=== PATIENT | female | born 1985 | race African-American/Black ===

== ENCOUNTER 2017-12-08 21:28 | Emergency (ER) | payer BC, OTHER ==
[~2017-12-08 21:28] MED LIST: ACET-1256 PO; ACET-1693 PO; ATRO1SOL13 OPB; MYCO500T4 PO; OMEP40CA41 PO; PRED10TA PO; SULF800T23 PO
[2017-12-08 21:35] VITALS: TEMP 36.6; Ht 170.2 cm
[2017-12-08] MEDS ORDERED: ONDANSETRON INJ 2 MG/ML 2 ML VIAL IV STA (22:33)
[2017-12-08] MEDS ORDERED: KETOROLAC TROMETHAMINE 30 MG/ML VIAL IV STA (22:33)
[2017-12-08 23:13] LABS: BASO % 0.1 %; BASO ABS # 0.01 K/uL (0-0.2); EOS % 0.2 %; EOS ABS # 0.02 K/uL (0-0.5); HEMATOCRIT 36.6 % (37-47); IG# 0.03 K/uL (0.00-0.02); LYMPH % 7.9 %; MEAN CELL VOLUME 77.2 fL (80-100); MEAN CORPUSCULAR HEMOGLOBIN 25.3 pg (25-34); MEAN CORPUSCULAR HGB CONC 32.8 g/dl (32-36); MEAN PLATELET VOLUME 9.1 fL (7.4-10.4); MONO % 2.9 %; MONO ABS # 0.33 K/uL (0.11-0.59); NEUT % 88.6 %; NEUT ABS # 10.16 K/uL (1.4-6.5); PLATELET COUNT 484 K/uL (130-400); RED CELL DISTRIBUTION WIDTH CV 14.2 % (11.5-14.5); RED CELL DISTRIBUTION WIDTH SD 40.1 fL (36.4-46.3); WHITE BLOOD COUNT 11.45 K/uL (4.8-10.8)
[2017-12-08] MEDS ORDERED: MoRPHine SULFATE 10 MG/ML CARP/VIAL ONE (23:23)
[2017-12-08 23:30] LABS: ALBUMIN 3.7 gm/dl (3.4-5.0); ALT/SGPT 25 U/L (12-78); AST/SGOT 23 U/L (15-37); BLOOD UREA NITROGEN 10 mg/dl (7-18); CALCIUM 9.3 mg/dl (8.5-10.1); CARBON DIOXIDE 26 mmol/L (21-32); CREATININE 1.15 mg/dl (0.60-1.20); GLUCOSE 145 mg/dl (70-99); POTASSIUM 3.6 mmol/L (3.5-5.1); SODIUM 139 mmol/L (136-145)
[2017-12-08 23:33] LABS: ALKALINE PHOSPHATASE 70 U/L (45-117); TOTAL PROTEIN 7.9 gm/dl (6.4-8.2)
[2017-12-09] MEDS ORDERED: HYDR-5688 PO (01:14)
[2017-12-09] MEDS ORDERED: NORCO 5/325MG HOME PACK PO ONE (01:15)
--- NOTE | 2017-12-09 01:15 | EMERGENCY ROOM VISIT NOTE ---
History First contact with patient: 22:15 Chief Complaint: ABDOMINAL PAIN Stated Complaint: MAJOR PAIN IN AB AREA Nursing Triage Summary: Pt reports abdominal pain that started earlier tonight. Pt reports last time it was ruptured cyst. History of Present Illness The patient is a 32 year old female who presents to the Emergency Room with complaints of right-sided pelvic pain which began suddenly approximately 2 hours prior to arrival. The patient states that she started her menstrual period yesterday. She states that her periods are typically very painful and she often has pain in the right lower abdomen with her periods. She took Midol this evening without relief. She states it is a sharp, burning pain and is worse when she is lying down flat. The pain radiates from the right lower quadrant into the low back. She reports associated nausea, but no vomiting. She does report a history of endometriosis and ruptured ovarian cysts. She rates her discomfort at 10/10. She denies urinary symptoms, changes in bowel movements or fevers. Review of Systems A complete 10 point review of systems was reviewed with the patient with pertinent positives and negatives as per history of present illness. All else were negative. Past Medical/Surgical History Medical Problems: (1) Bipolar Affective Nos (2) Dysmenorrhea (3) Endometriosis Social History Smoking Status: Never Smoker Alcohol Use: none Marital Status: single Occupation Status: employed Current/Historical Medications Scheduled Acetaminophen (Tylenol), 1,000 MG PO PRN UD Atropine Sulfate (Atropine Sulfate 1% Oph), 1 DROP OPB DAILY Mycophenolate Mofetil (Cellcept), 1,500 MG PO BID Omeprazole (Prilosec), 40 MG PO DAILY Prednisone (Prednisone), 10 MG PO DAILY Sulfa/Trimethoprim (Bactrim Ds 800MG/160MG), 1 TAB PO BID 3 TIMES WEEK Scheduled PRN Hydrocodone/Acetaminophen 5MG/325MG ([place] 5MG/325MG), 1 TABLET PO Q4H PRN for Pain Miscellaneous Medications Acetaminophen Tab (Tylenol), 650 MG PO Physical Exam Vital Signs Date Time Temp Pulse Resp B/P (MAP) Pulse Ox O2 Delivery O2 Flow Rate FiO2 12/09/17 01:23 87 18 119/61 96 12/09/17 00:45 87 119/61 96 Room Air 12/08/17 21:35 36.6 115 18 129/68 98 Physical Exam VITALS: Vitals are noted on the nurse's note and reviewed by myself. Vital signs stable. GENERAL: This is a 32-year-old female, on her knees beside the bed, uncomfortable appearing, well-developed well-nourished. SKIN: The skin was without rashes. HEART: Regular rate and rhythm without murmurs gallops or rubs. LUNGS: Clear to auscultation bilaterally without wheezes, rales or rhonchi. . ABDOMEN: Positive bowel sounds x 4. Soft, tenderness in the right lower quadrant. No guarding or rebound tenderness. NEURO: Patient was alert and oriented to person place and time. Medical Decision & Procedures ER Provider Diagnostic Interpretation: US PELVIS: Uterus unremarkable. Right ovary contains a complex cyst with low-level echoes. Measures about 4.5 cm maximum dimension. Left ovary contains a complex cyst with low-level echoes measuring approximately 4.6 cm in maximum dimension. Blood flow seen to bilateral ovaries. Differential considerations for complex cystic ovarian lesions include endometrioma. Complex free fluid. Radiologist: Tai Vilchis M.D. Laboratory Results 12/08/17 23:00 Red Blood Count 4.74, Mean Corpuscular Volume 77.2, Mean Corpuscular Hemoglobin 25.3, Mean Corpuscular Hemoglobin Concent 32.8, Mean Platelet Volume 9.1, Neutrophils (%) (Auto) 88.6, Lymphocytes (%) (Auto) 7.9, Monocytes (%) (Auto) 2.9, Eosinophils (%) (Auto) 0.2, Basophils (%) (Auto) 0.1, Neutrophils # (Auto) 10.16, Lymphocytes # (Auto) 0.90, Monocytes # (Auto) 0.33, Eosinophils # (Auto) 0.02, Basophils # (Auto) 0.01 12/08/17 23:00 Test 12/08/17 23:00 12/09/17 00:49 White Blood Count 11.45 K/uL (4.8-10.8) Red Blood Count 4.74 M/uL (4.2-5.4) Hemoglobin 12.0 g/dL (12.0-16.0) Hematocrit 36.6 % (37-47) Mean Corpuscular Volume 77.2 fL (80-100) Mean Corpuscular Hemoglobin 25.3 pg (25-34) Mean Corpuscular Hemoglobin Concent 32.8 g/dl (32-36) Platelet Count 484 K/uL (130-400) Mean Platelet Volume 9.1 fL (7.4-10.4) Neutrophils (%) (Auto) 88.6 % Lymphocytes (%) (Auto) 7.9 % Monocytes (%) (Auto) 2.9 % Eosinophils (%) (Auto) 0.2 % Basophils (%) (Auto) 0.1 % Neutrophils # (Auto) 10.16 K/uL (1.4-6.5) Lymphocytes # (Auto) 0.90 K/uL (1.2-3.4) Monocytes # (Auto) 0.33 K/uL (0.11-0.59) Eosinophils # (Auto) 0.02 K/uL (0-0.5) Basophils # (Auto) 0.01 K/uL (0-0.2) RDW Standard Deviation 40.1 fL (36.4-46.3) RDW Coefficient of Variation 14.2 % (11.5-14.5) Immature Granulocyte % (Auto) 0.3 % Immature Granulocyte # (Auto) 0.03 K/uL (0.00-0.02) Anion Gap 7.0 mmol/L (3-11) Estimated GFR () 73.9 Estimated GFR (Non- 63.8 BUN/Creatinine Ratio 9.0 (10-20) Calcium Level 9.3 mg/dl (8.5-10.1) Total Bilirubin 0.2 mg/dl (0.2-1) Aspartate Amino Transf (AST/SGOT) 23 U/L (15-37) Alanine Aminotransferase (ALT/SGPT) 25 U/L (12-78) Alkaline Phosphatase 70 U/L (45-117) Total Protein 7.9 gm/dl (6.4-8.2) Albumin 3.7 gm/dl (3.4-5.0) Globulin 4.2 gm/dl (2.5-4.0) Albumin/Globulin Ratio 0.9 (0.9-2) Human Chorionic Gonadotropin, Qual NEG (NEG) Urine Color YELLOW Urine Appearance CLEAR (CLEAR) Urine pH 6.5 (4.5-7.5) Urine Specific [place] 1.041 (1.000-1.030) Urine Protein TRACE (NEG) Urine Glucose (UA) NEG (NEG) Urine Ketones TRACE (NEG) Urine Occult Blood 2+ (NEG) Urine Nitrite NEG (NEG) Urine Bilirubin NEG (NEG) Urine Urobilinogen NEG (NEG) Urine Leukocyte Esterase NEG (NEG) Urine WBC (Auto) 1-5 /hpf (0-5) Urine RBC (Auto) 0-4 /hpf (0-4) Urine Hyaline Casts (Auto) 5-10 /lpf (0-5) Urine Epithelial Cells (Auto) >30 /lpf (0-5) Urine Bacteria (Auto) NEG (NEG) Urine Mucus PRESENT (NONE PRSENT) Urine Test NEG (NEG) Medications Administered Medications (Trade) Dose Ordered Sig/Azucena Route Start Time Stop Time Status Last Admin Dose Admin Ketorolac Tromethamine (Toradol Inj) 30 mg NOW STAT IV 12/08/17 22:33 12/08/17 22:34 DC 12/08/17 23:09 30 MG Ondansetron HCl (Zofran Inj) 4 mg NOW STAT IV 12/08/17 22:33 12/08/17 22:34 DC 12/08/17 23:09 4 MG Morphine Sulfate (MoRPHine SULFATE INJ) 10 mg STK-MED ONCE .ROUTE 12/08/17 23:23 12/08/17 23:24 DC 12/08/17 23:27 6 MG Acetaminophen/ Hydrocodone Bitart ([place] 5/325mg Home Pack) 1 homepack UD ONCE PO 12/09/17 01:15 12/09/17 01:16 DC 12/09/17 01:20 1 HOMEPACK Medical Decision Differential diagnosis includes ovarian cyst, ovarian torsion, ectopic , appendicitis, bowel obstruction, UTI, kidney stone, among others. The patient is a 32-year-old female who presents today complaining of right pelvic pain. Labs revealed leukocytosis of 11.45, likely secondary to stress. Hemoglobin and hematocrit stable. Slight hyperglycemia, possibly secondary to stress. Urinalysis was not suggestive of infection. Urine was negative. Pelvic ultrasound was performed and showed complex ovarian cysts bilaterally with blood flow to both ovaries. There was complex free fluid in the abdomen, likely secondary to a ruptured ovarian cyst. Patient was treated with IV Toradol, Zofran and morphine with significant improvement of her symptoms. She was tachycardic upon arrival, however this improved significantly after controlling her pain. I discussed the findings with the patient. She has an appointment scheduled to follow-up with [facility] next month. I did advise calling to see if she can get in any earlier. She was given a small amount of [place] to take as needed for pain but was advised to try Tylenol and ibuprofen first. I would not be highly suspicious of appendicitis or other infectious process, however patient was advised to return if she has worsening symptoms. The patient's case was reviewed with Dr. Figueroa, ED attending physician, who agreed with my assessment and treatment plan. Based on the patient's presentation and work up, I feel the patient is stable for outpatient treatment. The patient was educated to return to the emergency department for any worsening of their current condition or new/concerning symptoms. She will follow up with [facility]. Medication Reconcilliation Current Medication List: was personally reviewed by me Blood Pressure Screening Patient's blood pressure: Normal blood pressure Impression Primary Impression: Ruptured ovarian cyst Additional Impression: Right lower quadrant abdominal pain Departure Information Dispostion Home / Self-Care Condition GOOD Prescriptions Hydrocodone/Acetaminophen 5MG/325MG ([place] 5MG/325MG) Tab 1 TABLET PO Q4H Y for Pain, #15 TAB For Initial Treatment Prov: Sara Kirkpatrick ., LAURA 12/09/17 Referrals Shani Morales,AntwanO. (PCP) Samantha Bennett MD Patient Instructions My [facility] Additional Instructions You have been treated in the Emergency Department your Abdominal Pain. Laboratory results and imaging studies have ruled out any emergent causes for your abdominal pain which would warrant admission or surgery. Your ultrasound showed cysts on both of your ovaries and also was suggestive of a ruptured ovarian cyst. You have been prescribed [place] to be used for pain control. This is a narcotic medication. You cannot drive or consume alcohol while on this medicine. This medicine should only be used for pain that cannot be controlled with over-the- counter pain medicines. For pain control, you can use the following [id number] medicines (if >12 yo): - Regular strength (325mg/tab) Tylenol (acetaminophen) 2 tabs every 4-6 hours as needed. Do not exceed 12 tablets in a 24 hour period. Avoid taking more than 4 grams (4000 mg) of Tylenol per day. This includes any other sources of acetaminophen you may take on a regular basis. - Regular strength (200 mg/tab) Advil (ibuprofen) 3-4 tabs every 6 hours as needed. Do not exceed a dose of 3200 mg per day. Drink plenty of water and stay well hydrated. Contact Yarely Smith [facility] and see if they are able to see you any sooner. As with any trip to the Emergency Department, you should follow-up with your Primary Care Provider from today's visit. Return to the emergency department if your symptoms persist despite treatment plan outlined above or if the following symptoms occur: Worsening pain, increasing vomiting, fevers, or other new/concerning symptoms. Problem Qualifiers
[2017-12-09 01:23] VITALS: BP 119/61; PULSE 87; O2SAT 96
--- NOTE | 2017-12-09 07:09 | DIAGNOSTIC IMAGING REPORT ---
ULTRASOUND OF THE PELVIS CLINICAL HISTORY: Right-sided pelvic pain. COMPARISON STUDY: Pelvic CT dated 12/05/2013. TECHNIQUE: Real-time, grayscale, and color flow sonography of the pelvis is performed transabdominally. Images are reviewed in the transverse and longitudinal planes. FINDINGS: Uterus: The uterus is normal in size and echotexture, measuring 7.4 x 3.6 x 3.7 cm. Endometrium: The endometrium is normal in appearance, and the endometrial stripe is normal in thickness measuring up to 0.7 cm. Ovaries: The ovaries are normal in size and morphology. The right ovary measures 5.7 x 4.3 x 4.3 cm and the left ovary measures 5.6 x 4.1 x 3.9 cm. A complex cyst in the right ovary measures 4.5 cm. A complex cyst in the left ovary measures up to 4.6 cm. Normal Doppler waveforms are shown within both ovaries. Pelvis: There is trace free fluid in the cul-de-sac. No concerning adnexal lesion is seen. IMPRESSION: 1. Complex cyst identified in both ovaries and measure up to 4.6 cm. The appearance is most typical for hemorrhagic cysts. Endometriomas are considered less likely. Follow-up with the patient's ed case manager is recommended. These can be sonographic followed up in 2-3 menstrual cycles if clinically warranted. 2. There is no sonographic evidence of ovarian torsion at the time of examination. 3. Trace free fluid in the cul-de-sac is likely within physiologic limits. Electronically signed by: Ziggy Frias M.D. 12/09/2017 7:08 AM Dictated Date/Time: 12/09/2017 7:05 AM
== END 2017-12-09 01:24 | disposition home or self-care (01) ==
LOC: C.EDB 21:29 → C.EDC 12-09 01:24
DX: N83.201 Unspecified ovarian cyst, right side (principal); N83.202 Unspecified ovarian cyst, left side; F31.9 Bipolar disorder, unspecified; Z79.899 Other long term (current) drug therapy

== ENCOUNTER → 2017-12-19 | Outpatient (CLI) | payer OTHER ==
[~2017-12-19] MED LIST changes: +HYDR-5688 PO
== END | disposition home or self-care (01) ==
LOC: C.PAPS 14:04
PROVIDERS: ATTEND Obstetrics & Gynecology
DX: Z12.4 Encounter for screening for malignant neoplasm of cervix (principal)

== ENCOUNTER → 2017-12-19 | Outpatient (CLI) | payer OTHER | END | disposition home or self-care (01) | LOC: C.LABSPEC 13:47 | PROVIDERS: ATTEND Obstetrics & Gynecology | DX: R39.15 Urgency of urination (principal) ==

== ENCOUNTER 2018-01-03 20:45 | Emergency (ER) | payer OTHER ==
[~2018-01-03] VITALS: Ht 167.6 cm; Wt 101.6 kg
[2018-01-03 21:05] VITALS: TEMP 36.4; Ht 167.6 cm; Wt 101.6 kg
[2018-01-03] MEDS ORDERED: ACET-1652 PO (21:56)
[2018-01-03] MEDS ORDERED: INSU3INJ3 SQ (21:56)
[2018-01-03] MEDS ORDERED: PRED20TA2 PO (21:56)
[2018-01-03] MEDS ORDERED: IBUP-103 PO (21:56)
[2018-01-03] MEDS ORDERED: HMLIS SQ (21:56)
[2018-01-03] MEDS ORDERED: METH2.5T (21:56)
[2018-01-03] MEDS ORDERED: KETOROLAC TROMETHAMINE 30 MG/ML VIAL IV STA (22:03)
[2018-01-03] MEDS ORDERED: ONDANSETRON INJ 2 MG/ML 2 ML VIAL IV STA (22:03)
[2018-01-03] MEDS ORDERED: SODIUM CHLORIDE 0.9% 1000ML 1,000 ML IV STA (22:03)
[2018-01-03 22:16] LABS: BASO % 0.2 %; BASO ABS # 0.02 K/uL (0-0.2); EOS % 3.8 %; EOS ABS # 0.31 K/uL (0-0.5); HEMATOCRIT 36.1 % (37-47); HEMOGLOBIN 11.7 g/dL (12.0-16.0); IG# 0.02 K/uL (0.00-0.02); LYMPH % 15.6 %; LYMPH ABS # 1.28 K/uL (1.2-3.4); MEAN CELL VOLUME 76.2 fL (80-100); MEAN CORPUSCULAR HEMOGLOBIN 24.7 pg (25-34); MEAN CORPUSCULAR HGB CONC 32.4 g/dl (32-36); MEAN PLATELET VOLUME 9.8 fL (7.4-10.4); MONO ABS # 0.49 K/uL (0.11-0.59); NEUT % 74.2 %; NEUT ABS # 6.11 K/uL (1.4-6.5); PLATELET COUNT 434 K/uL (130-400); RED CELL DISTRIBUTION WIDTH CV 14.2 % (11.5-14.5); RED CELL DISTRIBUTION WIDTH SD 40.2 fL (36.4-46.3); WHITE BLOOD COUNT 8.23 K/uL (4.8-10.8)
[2018-01-03 22:23] LABS: ALBUMIN 3.8 gm/dl (3.4-5.0); CALCIUM 8.9 mg/dl (8.5-10.1); CREATININE 0.99 mg/dl (0.60-1.20); POTASSIUM 3.5 mmol/L (3.5-5.1)
[2018-01-03 22:26] LABS: TOTAL PROTEIN 7.7 gm/dl (6.4-8.2)
--- NOTE | 2018-01-03 22:53 | EMERGENCY ROOM VISIT NOTE ---
History First contact with patient: 21:39 Chief Complaint: FLANK PAIN Stated Complaint: PAIN IN LOWER ABDOMEN FOR PAST MONTH History of Present Illness The patient is a 32 year old female who presents to the Emergency Room with complaints of right lower quadrant abdominal pain and right flank pain. The patient states she was seen here at the beginning of December for right-sided abdominal pain. Ultrasound showed bilateral cysts, likely hemorrhagic. The patient did follow up with [facility], and saw Dr. Wick. She was set up with a surgeon. 3 days ago, the patient began experiencing right-sided flank pain which radiates toward the low back and down into the groin. She describes the pain is continuous, sharp, and burning. She rates the pain 10/10. The pain is worse with sitting and lying on the right side, and improves with standing. She did take Midol last night without improvement in her symptoms. The patient has been experiencing nausea and vomiting, with her last episode approximately 3 hours ago. The patient describes her urine as a deep yellow color, but denies any blood or odor. She has been having some mild difficulty with urination, and describes some mild dysuria. There is no burning sensation. The patient denies any abnormal vaginal discharge. She is currently on her period, and states she is toward the end. She denies any recent illness including fever chills. Review of Systems A complete 10 point review of systems was reviewed with the patient with pertinent positives and negatives as per history of present illness. All else were negative. Past Medical/Surgical History Medical Problems: (1) Bipolar Affective Nos (2) Dysmenorrhea (3) Endometriosis Social History Smoking Status: Never Smoker Alcohol Use: none Marital Status: single Occupation Status: employed Current/Historical Medications Scheduled Ibuprofen Tab (Advil), 400-600 MG PO Q6H Insulin Detemir (Levemir Flextouch), 16 UNITS SQ HS Insulin Human Lispro (Humalog Kwikpen), 6 UNITS SQ AC Methotrexate (Methotrexate), 3 TABS WK Prednisone (Prednisone Tab), 40 MG PO BID Scheduled PRN Acetaminophen (Midol), 2 TABS PO Q8 PRN for CRAMPS/PAIN Physical Exam Vital Signs Date Time Temp Pulse Resp B/P (MAP) Pulse Ox O2 Delivery O2 Flow Rate FiO2 01/03/18 23:07 84 18 105/54 96 Room Air 01/03/18 21:05 36.4 97 20 124/75 96 Room Air Physical Exam VITALS: Vitals are noted on the nurse's note and reviewed by myself. Vital signs stable. GENERAL: This is a 32-year-old black female, in no acute distress, nondiaphoretic, well-developed well-nourished. SKIN: The skin was without rashes, erythema, edema, or bruising. There is no tenting of the skin. Capillary reflex less than 2 seconds. HEAD: Normocephalic atraumatic. EARS: External auditory canals clear, tympanic membranes pearly regalado without erythema or effusion bilaterally. EYES: Pupils equal round and reactive to light and accommodation. Conjunctivae without injection, sclerae without icterus. Extraocular movements intact. NOSE: Patent, turbinates without inflammation or discharge. No sinus tenderness. MOUTH: Mucous membranes moist. Tonsils are not enlarged. Pharynx without erythema or exudate. Uvula midline. Airway patent. Tongue does not deviate. NECK: Supple without nuchal rigidity. No lymphadenopathy. No thyromegaly. Cervical spine is nontender. No JVD. HEART: Regular rate and rhythm without murmurs gallops or rubs. LUNGS: Clear to auscultation bilaterally without wheezes, rales or rhonchi. No dullness to percussion. No retractions or accessory muscle use. ABDOMEN: Positive bowel sounds x 4. Normal tympanic percussion. Right lower quadrant tenderness to palpation. Positive CVA tenderness on the right. The abdomen was otherwise soft, nontender, without masses or organomegaly. Verma sign negative. No guarding or rebound tenderness. MUSCULOSKELETAL: No muscle atrophy, erythema, or edema noted. Full range of motion without joint tenderness in all extremities. No tenderness to palpation. Normal gait. Strength 5/5 throughout. NEURO: Patient was alert and oriented to person place and time. Normal sensation to light and sharp touch. Deep tendon reflexes 2+ throughout. No focal neurological deficits. Medical Decision & Procedures ER Provider Diagnostic Interpretation: KUB HISTORY: Chronic right-sided flank pain right flank pain COMPARISON: CT abdomen and pelvis 12/05/2013, renal ultrasound 02/21/2015. FINDINGS: The bowel gas pattern is non-obstructive. There is no organomegaly. Calcifications of the pelvis suggest phleboliths. Renal shadows are obscured by bowel gas. No definite nephrolithiasis or ureteral calculi identified. No pneumoperitoneum or pneumatosis. No fracture. IMPRESSION: 1. Nonobstructive bowel gas pattern. 2. No renal or ureteral calculi identified. Electronically signed by: Andry Clark M.D. 01/03/2018 10:50 PM Dictated Date/Time: 01/03/2018 10:[address] ABD/PELVIS WITHOUT CONTRAST: (Interpretation by [facility]) 1. Mild Bibasilar atelectasis. 2. Small splenule. 3. No renal or ureteral stone. No hydronephrosis in either kidney. 4. Hypodense structures in bilateral adnexal regions measuring approximately 7.2 cm on the right and 5.6 cm on the left. These may represent complex ovarian cysts. Further evaluation could be performed with ultrasound. 5. No bowel obstruction or inflammation. Normal appendix. 6. Tiny fat-containing umbilical hernia. Laboratory Results 01/03/18 21:45 Red Blood Count 4.74, Mean Corpuscular Volume 76.2, Mean Corpuscular Hemoglobin 24.7, Mean Corpuscular Hemoglobin Concent 32.4, Mean Platelet Volume 9.8, Neutrophils (%) (Auto) 74.2, Lymphocytes (%) (Auto) 15.6, Monocytes (%) (Auto) 6.0, Eosinophils (%) (Auto) 3.8, Basophils (%) (Auto) 0.2, Neutrophils # (Auto) 6.11, Lymphocytes # (Auto) 1.28, Monocytes # (Auto) 0.49, Eosinophils # (Auto) 0.31, Basophils # (Auto) 0.02 01/03/18 21:45 Test 01/03/18 21:30 01/03/18 21:45 Urine Color DK YELLOW Urine Appearance CLEAR (CLEAR) Urine pH 5.0 (4.5-7.5) Urine Specific [place] > 1.045 (1.000-1.030) Urine Protein 1+ (NEG) Urine Glucose (UA) NEG (NEG) Urine Ketones TRACE (NEG) Urine Occult Blood 1+ (NEG) Urine Nitrite NEG (NEG) Urine Bilirubin NEG (NEG) Urine Urobilinogen NEG (NEG) Urine Leukocyte Esterase NEG (NEG) Urine WBC (Auto) 1-5 /hpf (0-5) Urine RBC (Auto) 5-10 /hpf (0-4) Urine Hyaline Casts (Auto) 1-5 /lpf (0-5) Urine Epithelial Cells (Auto) >30 /lpf (0-5) Urine Bacteria (Auto) NEG (NEG) Urine Pathogenic Casts /lpf (0) Urine Test NEG (NEG) White Blood Count 8.23 K/uL (4.8-10.8) Red Blood Count 4.74 M/uL (4.2-5.4) Hemoglobin 11.7 g/dL (12.0-16.0) Hematocrit 36.1 % (37-47) Mean Corpuscular Volume 76.2 fL (80-100) Mean Corpuscular Hemoglobin 24.7 pg (25-34) Mean Corpuscular Hemoglobin Concent 32.4 g/dl (32-36) Platelet Count 434 K/uL (130-400) Mean Platelet Volume 9.8 fL (7.4-10.4) Neutrophils (%) (Auto) 74.2 % Lymphocytes (%) (Auto) 15.6 % Monocytes (%) (Auto) 6.0 % Eosinophils (%) (Auto) 3.8 % Basophils (%) (Auto) 0.2 % Neutrophils # (Auto) 6.11 K/uL (1.4-6.5) Lymphocytes # (Auto) 1.28 K/uL (1.2-3.4) Monocytes # (Auto) 0.49 K/uL (0.11-0.59) Eosinophils # (Auto) 0.31 K/uL (0-0.5) Basophils # (Auto) 0.02 K/uL (0-0.2) RDW Standard Deviation 40.2 fL (36.4-46.3) RDW Coefficient of Variation 14.2 % (11.5-14.5) Immature Granulocyte % (Auto) 0.2 % Immature Granulocyte # (Auto) 0.02 K/uL (0.00-0.02) Anion Gap 6.0 mmol/L (3-11) Est Creatinine Clear Calc Drug Dose 100.0 ml/min Estimated GFR () 88.6 Estimated GFR (Non- 76.5 BUN/Creatinine Ratio 11.2 (10-20) Calcium Level 8.9 mg/dl (8.5-10.1) Total Bilirubin 0.3 mg/dl (0.2-1) Aspartate Amino Transf (AST/SGOT) 25 U/L (15-37) Alanine Aminotransferase (ALT/SGPT) 29 U/L (12-78) Alkaline Phosphatase 76 U/L (45-117) Total Protein 7.7 gm/dl (6.4-8.2) Albumin 3.8 gm/dl (3.4-5.0) Globulin 3.9 gm/dl (2.5-4.0) Albumin/Globulin Ratio 1.0 (0.9-2) Medications Administered Medications (Trade) Dose Ordered Sig/Azucena Route Start Time Stop Time Status Last Admin Dose Admin Ketorolac Tromethamine (Toradol Inj) 30 mg NOW STAT IV 01/03/18 22:03 01/03/18 22:07 DC 01/03/18 22:14 30 MG Sodium Chloride 1,000 ml @ 999 mls/hr Q1H1M STAT IV 01/03/18 22:03 01/03/18 23:03 DC 01/03/18 22:14 999 MLS/HR Ondansetron HCl (Zofran Inj) 4 mg NOW STAT IV 01/03/18 22:03 01/03/18 22:07 DC 01/03/18 22:14 4 MG Acetaminophen 100 ml @ 400 mls/hr NOW STAT IV 01/03/18 23:27 01/03/18 23:41 DC 01/03/18 23:42 400 MLS/HR ED Course The patient was seen and evaluated as above. IV access obtained, labs drawn. Patient was given 30 mg Toradol and 1 L normal saline solution IV. KUB performed. This was reviewed by myself and radiologist as above. Labs reviewed. I discussed the findings with the patient at bedside. She states she does not want to leave without knowing for sure there is nothing more serious going on. She does request to have a CT scan performed. She does complain of worsening pain, and was given [address] scan performed. This was reviewed and interpreted by stat rad as above. I discussed the case with Dr. Figueroa. He did evaluate the patient. Discharge instructions reviewed, the patient was discharged home in good condition. Medical Decision This is a 32-year-old female patient presents to the emergency department today complaining of right lower quadrant, right flank, and right groin pain. The patient is currently finishing her menses. She does report similar pain every month associated with her menses, but also gets the pain when not menstruating. She was seen here approximately 1 month ago for similar pain, at which point she was diagnosed with bilateral hemorrhagic ovarian cysts. The patient is currently under the care of gynecology, and suspects endometriosis, however she has not had a laparoscopy to confirm this suspicion. The patient reports her pain today significantly worse than normal. Labs reveal mild anemia with hemoglobin of 11.7. This is consistent with the patient's current menses. There is no leukocytosis or thrombocytopenia. The patient's renal, hepatic function and electrolytes were without significant abnormalities. Blood glucose was slightly elevated at 139. Urinalysis was positive for blood, trace ketones, and red blood cells. This does appear to be a contaminated specimen with greater than 30 epithelial cells. Urine test was negative. I suspect the patient's abdominal pain is related to the cyst and her current menstrual cycle. She was given Tylenol and Toradol here in the emergency department and her symptoms did improve. She is encouraged to follow-up outpatient with her PCP and case packer and sealer. The patient was certainly invited back to the emergency department for any worsening symptoms. Etiologies such as appendicitis, diverticulitis, obstruction, inflammatory bowel disease, renal colic, PUD, biliary pathology, pancreatitis, mesenteric ischemia, aortic pathology, infections, genitourinary, hemorrhagic cyst, ovarian torsion, UTI, perforated viscus, as well as others were entertained. The chart was completed utilizing [employer] Speech voice recognition software. Grammatical errors, random word insertions, pronoun errors, and incomplete sentences are an occasional consequence of this system due to software limitations, ambient noise, and hardware issues. Any formal questions or concerns about the content, text, or information contained within the body of this dictation should be directly addressed to the provider for clarification. Impression Primary Impression: Right lower quadrant abdominal pain Additional Impressions: Right flank pain Hemorrhagic ovarian cyst Departure Information Dispostion Home / Self-Care Condition GOOD Referrals Ramona Field M.D. (PCP) Jenn Wick M.D.(OVER[employer] LOAD PILOT ESCORT/OB) Patient Instructions ED Cyst Ovarian, My [facility] Additional Instructions You have been treated in the Emergency Department your Abdominal Pain. Laboratory results and imaging studies have ruled out any emergent causes for your abdominal pain which would warrant admission or surgery. CT scan did show evidence for ovarian cyst, which was noted a proximally 1 month ago as a likely hemorrhagic ovarian cyst bilaterally. I suspect this is the cause of your pain. For pain control, you can use the following [id number] medicines (if >12 yo): Ibuprofen(Motrin, Advil) may be used for fever or pain. Use 600mg every six hours as needed. Take with food. Avoid using more than 2400mg in a 24 hour period. Do not use 2400mg per day for more than three consecutive days without physician direction. Prolonged inappropriate use can lead to stomach upset or ulcers. (AND/OR) Acetaminophen(Tylenol) may be used for fever or pain. Use 1000mg every six hours as needed. Avoid using more than 3000mg in a 24 hour period. Drink plenty of water and stay well hydrated. As with any trip to the Emergency Department, you should follow-up with your Primary Care Provider and case packer and sealer from today's visit. Return to the emergency department if your symptoms persist despite treatment plan outlined above or if the following symptoms occur: increased fevers, chills , worsening nausea/vomiting, blood in your stool or urine. Problem Qualifiers
[2018-01-03] MEDS ORDERED: ACETAMINOPHEN IV 100 ML IV STA (23:27)
[2018-01-04 00:36] VITALS: BP 110/71; PULSE 84; O2SAT 96
--- NOTE | 2018-01-04 07:52 | DIAGNOSTIC IMAGING REPORT ---
ABD/PELVIS WITHOUT FOR STONE CLINICAL HISTORY: 32 years-old Female presenting with right flank/groin pain. TECHNIQUE: Multidetector CT of the abdomen and pelvis was performed without the use of intravenous contrast. IV contrast: None. A dose lowering technique was used consistent with the principles of ALARA (as low as reasonably achievable). COMPARISON: 12/05/2013. CT DOSE (mGy.cm): The estimated cumulative dose is 954.89 mGy.cm. FINDINGS: Curriculum Coordinator topogram: Unremarkable. Lung bases: Minimal basilar opacities, likely atelectasis. Normal heart size. No pericardial or pleural effusion. Liver: Normal morphology. Normal density. Biliary: No gross biliary ductal dilatation allowing for noncontrast technique. Normal gallbladder. Pancreas: Normal noncontrast appearance. Spleen: Normal noncontrast appearance. Adrenal glands: Normal noncontrast appearance. Kidneys and ureters: Normal noncontrast appearance. No nephrolithiasis. No hydronephrosis. Normal ureters. Bladder: Incompletely evaluated secondary to underdistention. Pelvic organs: The uterus is poorly delineated but are grossly normal. The ovaries are again expanded by multiple low density lesions, which have increased significantly on the right. Ovaries are incompletely evaluated without intravenous contrast. Bowel: The rectosigmoid junction may be tethered to the right adnexa. No resulting bowel obstruction. The appendix is mildly prominent measuring 8 mm in diameter (series 3 image 294) though no surrounding periappendiceal inflammatory changes evident. Peritoneal cavity: No free fluid or intraperitoneal gas. Previously noted significant inflammatory change in the pelvis in 2013 is no longer evident. Lymph nodes: No gross lymphadenopathy allowing for noncontrast technique. Vasculature: Normal noncontrast appearance. Abdominal wall: Small fat-containing umbilical hernia. Musculoskeletal: Normal. IMPRESSION: 1. Enlarged ovaries secondary to multiple low-density lesions. This has progressed significantly in the right ovary. Given the chronicity of these findings and the appearance on prior ultrasound from 12/08/2017, this is most suggestive of endometriosis. This may be better demonstrated on pelvic ultrasound or contrast enhanced MR of the pelvis if there is need for further evaluation. 2. Prominence of the appendix without convincing evidence of periappendiceal inflammatory change. 3. No other evidence of acute intra-abdominal pathology. Electronically signed by: Juan Ramon Varner M.D. 01/04/2018 7:51 AM Dictated Date/Time: 01/04/2018 6:51 AM
== END 2018-01-04 00:40 | disposition home or self-care (01) ==
LOC: C.EDB 20:45 → C.EDC 01-04 00:40
DX: N83.209 Unspecified ovarian cyst, unspecified side (principal); E11.9 Type 2 diabetes mellitus without complications; Z79.4 Long term (current) use of insulin; Z87.42 Personal history of other diseases of the female genital tract

== ENCOUNTER → 2018-01-19 | Outpatient (CLI) | payer OTHER ==
[~2018-01-19] MED LIST changes: -ACET-1256 PO; +ACET-1652 PO; -ACET-1693 PO; -ATRO1SOL13 OPB; +HMLIS SQ; -HYDR-5688 PO; +IBUP-103 PO; +INSU3INJ3 SQ; +METH2.5T; -MYCO500T4 PO; -OMEP40CA41 PO; -PRED10TA PO; +PRED20TA2 PO; -SULF800T23 PO
[2018-01-19 16:36] LABS: BASO % 0.5 %; BASO ABS # 0.04 K/uL (0-0.2); EOS % 2.6 %; EOS ABS # 0.19 K/uL (0-0.5); HEMATOCRIT 36.6 % (37-47); HEMOGLOBIN 11.6 g/dL (12.0-16.0); IG# 0.01 K/uL (0.00-0.02); LYMPH % 16.5 %; MEAN CELL VOLUME 76.3 fL (80-100); MEAN CORPUSCULAR HEMOGLOBIN 24.2 pg (25-34); MEAN CORPUSCULAR HGB CONC 31.7 g/dl (32-36); MEAN PLATELET VOLUME 9.5 fL (7.4-10.4); MONO % 5.8 %; MONO ABS # 0.42 K/uL (0.11-0.59); NEUT % 74.5 %; NEUT ABS # 5.42 K/uL (1.4-6.5); PLATELET COUNT 387 K/uL (130-400); RED CELL DISTRIBUTION WIDTH CV 14.9 % (11.5-14.5); RED CELL DISTRIBUTION WIDTH SD 41.8 fL (36.4-46.3); WHITE BLOOD COUNT 7.28 K/uL (4.8-10.8)
[2018-01-19 17:11] LABS: ALBUMIN 3.6 gm/dl (3.4-5.0); ALKALINE PHOSPHATASE 66 U/L (45-117); ALT/SGPT 23 U/L (12-78); AST/SGOT 17 U/L (15-37); BLOOD UREA NITROGEN 13 mg/dl (7-18); CALCIUM 9.2 mg/dl (8.5-10.1); CARBON DIOXIDE 26 mmol/L (21-32); CREATININE 0.86 mg/dl (0.60-1.20); GLUCOSE 102 mg/dl (70-99); POTASSIUM 3.5 mmol/L (3.5-5.1); SODIUM 137 mmol/L (136-145); TOTAL PROTEIN 7.5 gm/dl (6.4-8.2)
[2018-01-20 06:31] LABS: HEMOGLOBIN A1C 6.3 % (4.5-5.6)
== END | disposition home or self-care (01) ==
LOC: C.LAB1850 15:33
PROVIDERS: ATTEND Obstetrics & Gynecology
DX: Z01.812 Encounter for preprocedural laboratory examination (principal)

== ENCOUNTER 2018-01-27 17:52 | Inpatient (IN) | payer OTHER ==
[~2018-01-27] VITALS: Ht 167.6 cm; Wt 97.9 kg
[~2018-01-27 17:52] MED LIST changes: -ACET-1652 PO; -IBUP-103 PO; -METH2.5T; +MYCO250C26 PO; +OXYC-57 PO
[2018-01-27] MEDS ORDERED: ONDANSETRON INJ 2 MG/ML 2 ML VIAL IV STA (18:05)
[2018-01-27] MEDS ORDERED: MoRPHine SULFATE 4 MG/ML 1 ML CARP\\VIAL IV STA (18:05)
[2018-01-27 18:32] LABS: BASO % 0.2 %; BASO ABS # 0.02 K/uL (0-0.2); EOS % 1.5 %; EOS ABS # 0.19 K/uL (0-0.5); HEMATOCRIT 32.6 % (37-47); HEMOGLOBIN 10.7 g/dL (12.0-16.0); IG# 0.03 K/uL (0.00-0.02); LYMPH % 6.8 %; LYMPH ABS # 0.88 K/uL (1.2-3.4); MEAN CELL VOLUME 75.5 fL (80-100); MEAN CORPUSCULAR HEMOGLOBIN 24.8 pg (25-34); MEAN CORPUSCULAR HGB CONC 32.8 g/dl (32-36); MEAN PLATELET VOLUME 9.4 fL (7.4-10.4); MONO % 5.9 %; MONO ABS # 0.76 K/uL (0.11-0.59); NEUT % 85.4 %; NEUT ABS # 11.04 K/uL (1.4-6.5); PLATELET COUNT 425 K/uL (130-400); RED CELL DISTRIBUTION WIDTH SD 41.8 fL (36.4-46.3); WHITE BLOOD COUNT 12.92 K/uL (4.8-10.8)
[2018-01-27 18:53] LABS: ALBUMIN 3.5 gm/dl (3.4-5.0); CALCIUM 9.3 mg/dl (8.5-10.1); CREATININE 1.14 mg/dl (0.60-1.20); POTASSIUM 3.7 mmol/L (3.5-5.1); TOTAL PROTEIN 7.7 gm/dl (6.4-8.2)
[2018-01-27] MEDS ORDERED: HYDROmorphone INJ 1 MG/ML SYR IV STA ×2 (19:00→20:43)
--- NOTE | 2018-01-27 19:57 | DIAGNOSTIC IMAGING REPORT ---
PELVIC ULTRASOUND CLINICAL HISTORY: Pelvic pain. Evaluate for ovarian torsion. COMPARISON STUDY: Pelvic ultrasound December 08, [address] of the abdomen and pelvis January 03, 2018. TECHNIQUE: Transabdominal sonography of the pelvis was performed. Transvaginal imaging was deferred in this patient. FINDINGS: The left ovary is not visualized and likely surgically absent. The uterus measures 8 x 4 x 4.3 cm. Endometrium measures 5 mm in thickness. Note is made of a 6.8 x 5.1 x 5.5 cm lesion which arises from the right ovary as shown on CT of January 03, 2018. This is homogeneous and has internal echoes without color flow. Right ovary is noted adjacent to this mass and measures approximately 4.2 x 2.5 x 3 cm. This is suboptimally assessed given the lack of transvaginal imaging with color flow is identified within the right ovary. There is no free fluid within the cul-de-sac. IMPRESSION: 1. 6.8 x 5.1 x 5.5 cm lesion, likely arising from the right ovary. This was shown on prior CT of January 03, 2018 and favors an endometrioma. 2. Suboptimal evaluation for ovarian torsion. The presence of color flow does not exclude the possibility of torsion but there is no grayscale evidence for torsion on this exam. Ovarian torsion remains a clinical diagnosis and therefore close clinical monitoring is recommended. 3. Nonvisualization of the left ovary, likely surgically absent. Electronically signed by: Hector Bhakta M.D. 01/27/2018 7:55 PM Dictated Date/Time: 01/27/2018 7:47 PM
--- NOTE | 2018-01-27 20:20 | EMERGENCY ROOM VISIT NOTE ---
History Report prepared by René: Monae Celestin Under the Supervision of: Dr. Jonny Mcdowell M.D. First contact with patient: 17:58 Chief Complaint: ABDOMINAL PAIN Stated Complaint: ABD PAIN,VOMITTING, UNABLE TO EAT History of Present Illness The patient is a 32 year old female who presents to the Emergency Room with complaints of constant right-sided abdominal pain beginning 2 days ago. She rates the pain at a 10/10. The patient states that she gets this severe pain for about 3 weeks every month and that she has had this pattern of pain for 7 months. The patient states that she has been vomiting and has had felt warm. She reports pain with urination, but denies having blood in her urine. Per family, the patient had her left ovarian cyst removed but not her right ovarian cyst. They stated that her member service specialist felt that the surgery was too complex and she was referred to [facility]. Source of History: patient Onset: 2 days ago Position: abdomen (right-sided) Symptom Intensity: rated at a 10/10 Quality: other (pain) Timing: constant Associated Symptoms: + vomiting, + urinary symptoms (pain with urination) Note: denies: blood in urine Review of Systems See HPI for pertinent positives & negatives. A total of 10 systems reviewed and were otherwise negative. Past Medical & Surgical Medical Problems: (1) Bipolar Affective Nos (2) Dysmenorrhea (3) Dysmenorrhea (4) Endometriosis (5) Endometriosis (6) Ovarian cyst, complex (7) Pelvic pain Surgical Problems: (1) H/O ovarian cystectomy Family History Unknown family medical history Social History Smoking Status: Never Smoker Alcohol Use: none Marital Status: single Occupation Status: employed Current/Historical Medications Scheduled Insulin Detemir (Levemir Flextouch), 16 UNITS SQ HS Insulin Human Lispro (Humalog Kwikpen), 6 UNITS SQ AC Mycophenolate Mofetil (Cellcept), 3 CAP PO BID Prednisone (Prednisone Tab), 40 MG PO BID Scheduled PRN Oxycodone/Acetaminophen 5MG/325MG (Percocet 5MG/325MG), 1-2 TAB PO Q4H PRN for Pain (pain scale 1-5) Allergies Coded Allergies: No Known Allergies (Unverified , 01/27/18) Physical Exam Vital Signs Date Time Temp Pulse Resp B/P (MAP) Pulse Ox O2 Delivery O2 Flow Rate FiO2 01/27/18 18:41 106 18 143/90 95 Room Air 01/27/18 17:54 36.8 111 22 132/74 98 Room Air Physical Exam Constitutional: Vital signs reviewed. Patient in obvious discomfort lying in a position. Eyes: Pupils are equal round reactive to light. Conjunctiva are noninjected. ENT: Pharynx is clear without erythema or exudate. Mucous membranes are moist. Neck supple without meningeal signs. Respiratory: Clear to auscultation bilaterally. Breath sounds are equal bilaterally. Cardiovascular: Regular rate and rhythm. No rubs or gallops. GI: Diffuse abdominal tenderness. Patient will not allow palpation. Musculoskeletal: No peripheral edema. No lower extremity tenderness. Integumentary: No cyanosis. Neurological: The patient is awake and alert. No focal deficits. Psychiatric: Anxious appearing. Medical Decision & Procedures ER Provider Diagnostic Interpretation: Radiology results as stated below per my review and the radiologist's interpretation: PELVIC ULTRASOUND CLINICAL HISTORY: Pelvic pain. Evaluate for ovarian torsion. COMPARISON STUDY: Pelvic ultrasound December 08, [address] of the abdomen and pelvis January 03, 2018. TECHNIQUE: Transabdominal sonography of the pelvis was performed. Transvaginal imaging was deferred in this patient. FINDINGS: The left ovary is not visualized and likely surgically absent. The uterus measures 8 x 4 x 4.3 cm. Endometrium measures 5 mm in thickness. Note is made of a 6.8 x 5.1 x 5.5 cm lesion which arises from the right ovary as shown on CT of January 03, 2018. This is homogeneous and has internal echoes without color flow. Right ovary is noted adjacent to this mass and measures approximately 4.2 x 2.5 x 3 cm. This is suboptimally assessed given the lack of transvaginal imaging with color flow is identified within the right ovary. There is no free fluid within the cul-de-sac. IMPRESSION: 1. 6.8 x 5.1 x 5.5 cm lesion, likely arising from the right ovary. This was shown on prior CT of January 03, 2018 and favors an endometrioma. 2. Suboptimal evaluation for ovarian torsion. The presence of color flow does not exclude the possibility of torsion but there is no grayscale evidence for torsion on this exam. Ovarian torsion remains a clinical diagnosis and therefore close clinical monitoring is recommended. 3. Nonvisualization of the left ovary, likely surgically absent. Electronically signed by: Hector Bhakta M.D. 01/27/2018 7:55 PM Dictated Date/Time: 01/27/2018 7:47 PM Laboratory Results 01/27/18 18:16 Red Blood Count 4.32, Mean Corpuscular Volume 75.5, Mean Corpuscular Hemoglobin 24.8, Mean Corpuscular Hemoglobin Concent 32.8, Mean Platelet Volume 9.4, Neutrophils (%) (Auto) 85.4, Lymphocytes (%) (Auto) 6.8, Monocytes (%) (Auto) 5.9, Eosinophils (%) (Auto) 1.5, Basophils (%) (Auto) 0.2, Neutrophils # (Auto) 11.04, Lymphocytes # (Auto) 0.88, Monocytes # (Auto) 0.76, Eosinophils # (Auto) 0.19, Basophils # (Auto) 0.02 01/27/18 18:16 Test 01/27/18 18:16 01/27/18 18:40 White Blood Count 12.92 K/uL (4.8-10.8) Red Blood Count 4.32 M/uL (4.2-5.4) Hemoglobin 10.7 g/dL (12.0-16.0) Hematocrit 32.6 % (37-47) Mean Corpuscular Volume 75.5 fL (80-100) Mean Corpuscular Hemoglobin 24.8 pg (25-34) Mean Corpuscular Hemoglobin Concent 32.8 g/dl (32-36) Platelet Count 425 K/uL (130-400) Mean Platelet Volume 9.4 fL (7.4-10.4) Neutrophils (%) (Auto) 85.4 % Lymphocytes (%) (Auto) 6.8 % Monocytes (%) (Auto) 5.9 % Eosinophils (%) (Auto) 1.5 % Basophils (%) (Auto) 0.2 % Neutrophils # (Auto) 11.04 K/uL (1.4-6.5) Lymphocytes # (Auto) 0.88 K/uL (1.2-3.4) Monocytes # (Auto) 0.76 K/uL (0.11-0.59) Eosinophils # (Auto) 0.19 K/uL (0-0.5) Basophils # (Auto) 0.02 K/uL (0-0.2) RDW Standard Deviation 41.8 fL (36.4-46.3) RDW Coefficient of Variation 15.0 % (11.5-14.5) Immature Granulocyte % (Auto) 0.2 % Immature Granulocyte # (Auto) 0.03 K/uL (0.00-0.02) Anion Gap 7.0 mmol/L (3-11) Est Creatinine Clear Calc Drug Dose 86.9 ml/min Estimated GFR () 74.7 Estimated GFR (Non- 64.5 BUN/Creatinine Ratio 6.0 (10-20) Calcium Level 9.3 mg/dl (8.5-10.1) Total Bilirubin 0.6 mg/dl (0.2-1) Direct Bilirubin 0.2 mg/dl (0-0.2) Aspartate Amino Transf (AST/SGOT) 12 U/L (15-37) Alanine Aminotransferase (ALT/SGPT) 19 U/L (12-78) Alkaline Phosphatase 70 U/L (45-117) Total Protein 7.7 gm/dl (6.4-8.2) Albumin 3.5 gm/dl (3.4-5.0) Lipase 81 U/L (73-393) Urine Color YELLOW Urine Appearance CLEAR (CLEAR) Urine pH 7.0 (4.5-7.5) Urine Specific [place] 1.019 (1.000-1.030) Urine Protein NEG (NEG) Urine Glucose (UA) NEG (NEG) Urine Ketones TRACE (NEG) Urine Occult Blood 3+ (NEG) Urine Nitrite NEG (NEG) Urine Bilirubin NEG (NEG) Urine Urobilinogen NEG (NEG) Urine Leukocyte Esterase SMALL (NEG) Urine WBC (Auto) 1-5 /hpf (0-5) Urine RBC (Auto) >30 /hpf (0-4) Urine Hyaline Casts (Auto) 0 /lpf (0-5) Urine Epithelial Cells (Auto) 10-20 /lpf (0-5) Urine Bacteria (Auto) NEG (NEG) Urine Test NEG (NEG) Laboratory results as reviewed by me. Medications Administered Medications (Trade) Dose Ordered Sig/Azucena Route Start Time Stop Time Status Last Admin Dose Admin Morphine Sulfate (MoRPHine SULFATE INJ) 4 mg ONE STAT IV 01/27/18 18:05 01/27/18 18:06 DC 01/27/18 18:36 4 MG Ondansetron HCl (Zofran Inj) 4 mg NOW STAT IV 01/27/18 18:05 01/27/18 18:06 DC 01/27/18 18:37 4 MG Hydromorphone HCl (Dilaudid Inj) 1 mg NOW STAT IV 01/27/18 19:00 01/27/18 19:02 DC 01/27/18 19:05 1 MG ED Course 1800: The patient was evaluated in room C12B. A complete history and physical exam was performed. 1804: Ordered Zofran Inj 4 mg IV, Morphine Sulfate 4 mg IV. 1837: I checked on the patient and she is getting her pain medications right now. 1858: The patient said that the morphine helped her pain minimally. 1899: Ordered Dilaudid Inj 1 mg IV. 1954: I reassessed the patient. She is feeling better. I reexamined the patient and she still has some tenderness mostly in the right side but also in the left abdomen. I discussed her test results with her. 1956: I discussed the patient's case with Dr. Tellez. He said to do a CT scan to make sure she doesn't have post-operation complications or a bowel perforation. 2009: I talked to the patient about the plan and she is agreeable. The patient was signed out to Dr. Deal. Medical Decision This is a 32-year-old female who presents with right-sided abdominal pain radiating to her flank. Differential diagnosis includes right ovarian cyst, ruptured ovarian cyst, ovarian torsion, ectopic , kidney stone, dysmenorrhea. I did perform a limited focused review of portions of the patient 's old chart on the electronic medical record. The patient had surgery on the for bilateral ovarian cysts and dysmenorrhea. She was also found to have severe endometriosis. She was here for similar pain on January 03. She had a CT of her abdomen and pelvis done which showed cysts on her ovaries. Her right ovarian cyst was 7.2 cm long. I did evaluate the patient as noted above. The patient appears to be in severe discomfort. IV access was established. I did initially treat patient with IV morphine and Zofran. She had continued pain and was given Dilaudid IV. I did order and personally review the patient's urine analysis as described above. Urine is negative. I did order and review the patient's blood work as noted in the electronic medical record. She does have an elevated white count. I did order an ultrasound of the pelvis. I did review the images myself as well as the radiology report as described above. Vascular flow is demonstrated in the right ovary which has a large ovarian cyst. I did reevaluate patient. She is feeling much better. She still has significant tenderness on examination which is most noticeable in the right lower quadrant. I did discuss case with Dr. Tellez of gynecology. He recommended obtaining a CAT scan of the abdomen and pelvis to rule out bowel perforation or abscess or other complications. I did discuss this with the patient. I did order a CT scan. The patient was signed out to Dr. Deal. Medication Reconcilliation Current Medication List: was personally reviewed by me Blood Pressure Screening Patient's blood pressure: Elevated blood pressure Blood pressure disposition: Referred to PCP Consults Time Called: 1954 Consulting Physician[facility] [place] Return[place] Call: 1956 I discussed the patient's case with Dr. Tellez. He said to do a CT scan to make sure she doesn't have post-operation complications or a bowel perforation. Impression Primary Impression: Right flank pain Additional Impression: Right ovarian cyst Scribe Attestation The scribe's documentation has been prepared under my direct and personally reviewed by me in its entirety. I confirm that the note above accurately reflects all work, treatment, procedures, and medical decision making performed by me. Departure Information Dispostion Still a Patient Referrals Ramona Field M.D. (PCP) Patient Instructions My [facility] Problem Qualifiers
[2018-01-27] MEDS ORDERED: KETOROLAC TROMETHAMINE 30 MG/ML VIAL IV STA (20:43)
[2018-01-27] MEDS ORDERED: METOCLOPRAMIDE HCL INJ 5 MG/ML 2 ML VIAL IV. STA (20:43)
--- NOTE | 2018-01-27 23:46 | DIAGNOSTIC IMAGING REPORT ---
CT OF THE ABDOMEN AND PELVIS WITH CONTRAST CLINICAL HISTORY: Right lower quadrant pain and vomiting. Recent gynecologic surgery on January 23, 2018. COMPARISON STUDY: CT of the abdomen and pelvis January 03, 2018 and pelvic ultrasound performed earlier today. TECHNIQUE: Following IV administration of 95 mL of Optiray-320, axial images of the abdomen and pelvis were obtained from the lung bases to the proximal femurs. Images were reviewed in the axial, sagittal, and coronal planes. IV contrast was administered without complication. A dose lowering technique was utilized adhering to the principles of ALARA. Oral contrast was administered. CT DOSE: 1038.57 mGycm FINDINGS: Lower lung opacities favor atelectasis. The liver, spleen, adrenal glands, left kidney and pancreas are normal. There is no biliary or pancreatic ductal dilatation. The right nephrogram is delayed. There is mild right hydroureteronephrosis. The right ureter is mildly dilated to the level of the upper pelvis, in close proximity to a 7.4 x 5 cm hypodense septated right adnexal mass which was shown on CT of January 03, 2018. This mass is similar to prior CT. Adjacent ovarian tissue is noted. No ureteral calculus is present. There is minimal hyperdense fluid and a few locules of gas within the left adnexa. The large left adnexal lesion shown on CT of January 03, 2018 has been resected. A few rim-enhancing left adnexal lesions measure up to 2.2 cm. Gas within the subcutaneous tissues of the pelvis is postsurgical. There is no evidence for abscess on this exam. The left adnexal lesions favor follicles or endometriomas. The right adnexal lesion is suggestive of a large endometrioma. No suspicious osseous lesion is present. The appendix measures 7 mm in caliber. This is similar to exam of January 03, 2018. IMPRESSION: 1. Mild right hydroureteronephrosis with a delayed right nephrogram. Right ureter mildly dilated to the level of the upper pelvis, either at or adjacent to a 7.4 x 5 cm right adnexal lesion suggestive of an endometrioma. No ureteral calculus. Etiology for ureteral dilatation not definitive on this exam but may be related to endometriosis. 2. Interval resection of the large left adnexal lesion shown on CT of January 03, 2018. A few left adnexal lesions could reflect follicles or small endometriomas. 3. Trace gas within the left adnexa with a small amount of hyperdense fluid which likely reflect a small amount of blood products which is not unexpected in the early postoperative setting. 4. No bowel obstruction. Stable mild appendiceal dilatation since CT of January 03, 2018. Therefore, no convincing evidence for acute appendicitis. Electronically signed by: Hector Bhakta M.D. 01/27/2018 11:44 PM Dictated Date/Time: 01/27/2018 11:29 PM
[2018-01-28] MEDS ORDERED: ONDANSETRON INJ 2 MG/ML 2 ML VIAL IV STA (00:34)
[2018-01-28] MEDS ORDERED: HYDROmorphone INJ 1 MG/ML SYR IV STA (00:34)
[2018-01-28] MEDS ORDERED: CARBOHYDRATES FOR HYPOGLYCEMIA PO PRN (01:15)
[2018-01-28] MEDS ORDERED: GLUCOSE 10 TABS/TUBE PO PRN (01:15)
[2018-01-28] MEDS ORDERED: GLUCOSE 40% GEL 15 GM TUBE PO PRN (01:15)
[2018-01-28] MEDS ORDERED: DEXTROSE 50% 50 ML SYR IV PRN (01:15)
[2018-01-28] MEDS ORDERED: GLUCAGON FOR INJ 1 MG VIAL SQ PRN (01:15)
[2018-01-28] MEDS ORDERED: ACETAMINOPHEN 325 MG TAB PO PRN (01:15)
[2018-01-28] MEDS ORDERED: MAGNESIUM HYDROXIDE SUSP 30 ML UDC PO PRN (01:15)
[2018-01-28] MEDS ORDERED: ONDANSETRON INJ 2 MG/ML 2 ML VIAL IV PRN (01:15)
[2018-01-28] MEDS ORDERED: ALUMINUM/MAGNESIUM/SIMETH (MAALOX MAX) 30 ML UDC PO PRN (01:15)
--- NOTE | 2018-01-28 01:40 | History and Physical ---
History & Physical Date & Time of Service: January 28, 2018 at 01:25 Chief Complaint: Abd Pain,Vomitting, Unable To Eat Primary Care Physician: Shani Morales D.O. 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 of endometriosis and complex bilateral ovarian cysts s/p L oophorectomy - presents with R flank pain, chills. She was to have her R ovary removed as well, but due to the complex nature of the cyst; this was not possible and a future appointment with zoning assistant in [place] was planned. Due to her pain, she presented to the ED. She had CT abdomen/pelvis performed. R hydronephrosis noted. Patient's pain improved with IV pain medications. Past Medical/Surgical History Medical Problems: (1) Anemia (2) Bipolar Affective Nos (3) Dental caries (4) Dysmenorrhea (5) Dysmenorrhea (6) Endometriosis (7) Endometriosis (8) Hemorrhagic ovarian cyst (9) Hypotension (10) Ovarian cyst, complex (11) Pancreatitis (12) Pelvic pain (13) Pelvic pain (14) Periapical abscess (15) Renal failure (16) Right flank pain (17) Right lower quadrant abdominal pain (18) Ruptured ovarian cyst (19) Thrombocytopenia (20) Thrombocytopenia (21) Vomiting Surgical Problems: (1) H/O ovarian cystectomy Family History Unknown family medical history Social History Smoking Status: Never Smoker Marital Status: single Occupational Status: employed Allergies Coded Allergies: No Known Allergies (Unverified , 01/27/18) Home Medications Scheduled Insulin Detemir (Levemir Flextouch), 16 UNITS SQ HS Insulin Human Lispro (Humalog Kwikpen), 6 UNITS SQ AC Mycophenolate Mofetil (Cellcept), 3 CAP PO BID Prednisone (Prednisone Tab), 40 MG PO DAILY Scheduled PRN Oxycodone/Acetaminophen 5MG/325MG (Percocet 5MG/325MG), 1-2 TAB PO Q4H PRN for Pain (pain scale 1-5) Review of Systems Constitutional: + chills, No fever, No sweats, No weight loss, No weakness, No fatigue Eyes: No worsening of vision ENT: No hearing loss Respiratory: No cough, No sputum, No wheezing, No shortness of breath, No dyspnea on exertion, No dyspnea at rest, No hemoptysis Cardiovascular: No chest pain, No orthopnea, No edema, No palpitations Abdomen: + pain, No nausea, No vomiting, No diarrhea, No constipation, No GI bleeding Musculoskeletal: No joint pain, No muscle pain Genitourinary - Female: No dysuria, No urinary frequency, No urinary urgency, No urinary incontinence, No urinary retention, No hematuria Neurologic: No vertigo, No balance problems Psychiatric: No depression symptoms, No anxiety, No insomnia Endocrine: No fatigue Hematologic / Lymphatic: No abnormal bleeding/bruising Integumentary: No rash Allergic / Immunologic: No environmental allergies, No seasonal allergies Physical Exam Vital Signs Date Time Temp Pulse Resp B/P (MAP) Pulse Ox O2 Delivery O2 Flow Rate FiO2 01/28/18 01:14 80 18 120/79 98 Room Air 01/27/18 23:58 92 18 129/79 98 Room Air 01/27/18 22:51 92 18 135/80 96 Room Air 01/27/18 21:23 92 18 139/93 98 Room Air 01/27/18 19:50 88 18 136/87 98 Room Air 01/27/18 18:41 106 18 143/90 95 Room Air 01/27/18 17:54 36.8 111 22 132/74 98 Room Air General Appearance: + mild distress, + obese Head: normocephalic, atraumatic Respiratory/Chest: chest non-tender, lungs clear, normal breath sounds, no respiratory distress, no accessory muscle use Cardiovascular: regular rate, rhythm, no edema, no murmur Abdomen/GI: normal bowel sounds, soft, + tenderness Back: no CVA tenderness, no muscle spasm Extremities/Musculoskelatal: normal inspection, no calf tenderness, normal capillary refill, no pedal edema, normal range of motion 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, no motor/sensory deficits, alert, normal mood/affect, oriented x 3 Skin: normal color Lymphatic: no adenopathy Diagnostics Laboratory Results Results Past 24 Hours Test 01/27/18 18:16 01/27/18 18:40 Range/Units White Blood Count 12.92 4.8-10.8 K/uL Red Blood Count 4.32 4.2-5.4 M/uL Hemoglobin 10.7 12.0-16.0 g/dL Hematocrit 32.6 37-47 % Mean Corpuscular Volume 75.5 80-100 fL Mean Corpuscular Hemoglobin 24.8 25-34 pg Mean Corpuscular Hemoglobin Concent 32.8 32-36 g/dl Platelet Count 425 130-400 K/uL Mean Platelet Volume 9.4 7.4-10.4 fL Neutrophils (%) (Auto) 85.4 % Lymphocytes (%) (Auto) 6.8 % Monocytes (%) (Auto) 5.9 % Eosinophils (%) (Auto) 1.5 % Basophils (%) (Auto) 0.2 % Neutrophils # (Auto) 11.04 1.4-6.5 K/uL Lymphocytes # (Auto) 0.88 1.2-3.4 K/uL Monocytes # (Auto) 0.76 0.11-0.59 K/uL Eosinophils # (Auto) 0.19 0-0.5 K/uL Basophils # (Auto) 0.02 0-0.2 K/uL RDW Standard Deviation 41.8 36.4-46.3 fL RDW Coefficient of Variation 15.0 11.5-14.5 % Immature Granulocyte % (Auto) 0.2 % Immature Granulocyte # (Auto) 0.03 0.00-0.02 K/uL Sodium Level 137 136-145 mmol/L Potassium Level 3.7 3.5-5.1 mmol/L Chloride Level 102 98-107 mmol/L Carbon Dioxide Level 28 21-32 mmol/L Anion Gap 7.0 3-11 mmol/L Blood Urea Nitrogen 7 7-18 mg/dl Creatinine 1.14 0.60-1.20 mg/dl Est Creatinine Clear Calc Drug Dose 86.9 ml/min Estimated GFR () 74.7 Estimated GFR (Non- 64.5 BUN/Creatinine Ratio 6.0 10-20 Random Glucose 121 70-99 mg/dl Calcium Level 9.3 8.5-10.1 mg/dl Total Bilirubin 0.6 0.2-1 mg/dl Direct Bilirubin 0.2 0-0.2 mg/dl Aspartate Amino Transf (AST/SGOT) 12 15-37 U/L Alanine Aminotransferase (ALT/SGPT) 19 12-78 U/L Alkaline Phosphatase 70 45-117 U/L Total Protein 7.7 6.4-8.2 gm/dl Albumin 3.5 3.4-5.0 gm/dl Lipase 81 73-393 U/L Urine Color YELLOW Urine Appearance CLEAR CLEAR Urine pH 7.0 4.5-7.5 Urine Specific [place] 1.019 1.000-1.030 Urine Protein NEG NEG Urine Glucose (UA) NEG NEG Urine Ketones TRACE NEG Urine Occult Blood 3+ NEG Urine Nitrite NEG NEG Urine Bilirubin NEG NEG Urine Urobilinogen NEG NEG Urine Leukocyte Esterase SMALL NEG Urine WBC (Auto) 1-5 0-5 /hpf Urine RBC (Auto) >30 0-4 /hpf Urine Hyaline Casts (Auto) 0 0-5 /lpf Urine Epithelial Cells (Auto) 10-20 0-5 /lpf Urine Bacteria (Auto) NEG NEG Urine Test NEG NEG Diagnostic Radiology CT OF THE ABDOMEN AND PELVIS WITH CONTRAST CLINICAL HISTORY: Right lower quadrant pain and vomiting. Recent gynecologic surgery on January 23, 2018. COMPARISON STUDY: CT of the abdomen and pelvis January 03, 2018 and pelvic ultrasound performed earlier today. TECHNIQUE: Following IV administration of 95 mL of [id number]-320, axial images of the abdomen and pelvis were obtained from the lung bases to the proximal femurs. Images were reviewed in the axial, sagittal, and coronal planes. IV contrast was administered without complication. A dose lowering technique was utilized adhering to the principles of ALARA. Oral contrast was administered. CT DOSE: 1038.57 mGycm FINDINGS: Lower lung opacities favor atelectasis. The liver, spleen, adrenal glands, left kidney and pancreas are normal. There is no biliary or pancreatic ductal dilatation. The right nephrogram is delayed. There is mild right hydroureteronephrosis. The right ureter is mildly dilated to the level of the upper pelvis, in close proximity to a 7.4 x 5 cm hypodense septated right adnexal mass which was shown on CT of January 03, 2018. This mass is similar to prior CT. Adjacent ovarian tissue is noted. No ureteral calculus is present. There is minimal hyperdense fluid and a few locules of gas within the left adnexa. The large left adnexal lesion shown on CT of January 03, 2018 has been resected. A few rim-enhancing left adnexal lesions measure up to 2.2 cm. Gas within the subcutaneous tissues of the pelvis is postsurgical. There is no evidence for abscess on this exam. The left adnexal lesions favor follicles or endometriomas. The right adnexal lesion is suggestive of a large endometrioma. No suspicious osseous lesion is present. The appendix measures 7 mm in caliber. This is similar to exam of January 03, 2018. IMPRESSION: 1. Mild right hydroureteronephrosis with a delayed right nephrogram. Right ureter mildly dilated to the level of the upper pelvis, either at or adjacent to a 7.4 x 5 cm right adnexal lesion suggestive of an endometrioma. No ureteral calculus. Etiology for ureteral dilatation not definitive on this exam but may be related to endometriosis. 2. Interval resection of the large left adnexal lesion shown on CT of January 03, 2018. A few left adnexal lesions could reflect follicles or small endometriomas. 3. Trace gas within the left adnexa with a small amount of hyperdense fluid which likely reflect a small amount of blood products which is not unexpected in the early postoperative setting. 4. No bowel obstruction. Stable mild appendiceal dilatation since CT of January 03, 2018. Therefore, no convincing evidence for acute appendicitis. PELVIC ULTRASOUND CLINICAL HISTORY: Pelvic pain. Evaluate for ovarian torsion. COMPARISON STUDY: Pelvic ultrasound December 08, [address] of the abdomen and pelvis January 03, 2018. TECHNIQUE: Transabdominal sonography of the pelvis was performed. Transvaginal imaging was deferred in this patient. FINDINGS: The left ovary is not visualized and likely surgically absent. The uterus measures 8 x 4 x 4.3 cm. Endometrium measures 5 mm in thickness. Note is made of a 6.8 x 5.1 x 5.5 cm lesion which arises from the right ovary as shown on CT of January 03, 2018. This is homogeneous and has internal echoes without color flow. Right ovary is noted adjacent to this mass and measures approximately 4.2 x 2.5 x 3 cm. This is suboptimally assessed given the lack of transvaginal imaging with color flow is identified within the right ovary. There is no free fluid within the cul-de-sac. IMPRESSION: 1. 6.8 x 5.1 x 5.5 cm lesion, likely arising from the right ovary. This was shown on prior CT of January 03, 2018 and favors an endometrioma. 2. Suboptimal evaluation for ovarian torsion. The presence of color flow does not exclude the possibility of torsion but there is no grayscale evidence for torsion on this exam. Ovarian torsion remains a clinical diagnosis and therefore close clinical monitoring is recommended. 3. Nonvisualization of the left ovary, likely surgically absent. 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 of endometriosis and complex bilateral ovarian cysts s/p L oophorectomy - presents with R flank pain, chills. Endometriosis Complex R Ovarian Cyst R Hydronephrosis - patient had L ovarian removal on 01/23 - R ovary could not be removed due to complexity - to see zoning assistant in [place] - urology consulted due to R hydronephrosis; currently NPO - Dilaudid PRN, Toradol PRN, Zofran PRN - IV hydration TTP - prednisone 40mg daily - CellCept Insulin Dependent DM2 - decrease basal insulin due to NPO status - insulin sliding scale - monitor BSGs ACHS DVT ppx - subq heparin FULL CODE Resuscitation Status VTE Prophylaxis Will order VTE Prophylaxis: Yes
[2018-01-28 01:55] VITALS: BP 131/86; PULSE 101; TEMP 36.4; O2SAT 92; Ht 167.6 cm; Wt 97.9 kg
--- NOTE | 2018-01-28 01:55 | EMERGENCY ROOM VISIT NOTE ---
ED Visit Note First contact with patient: 20:43 Patient signed out to me at change of shift. Patient is awaiting CAT scan of the abdomen and pelvis. Pain is not under control here in the emergency department and she received 2 additional doses of Dilaudid. CT of the abdomen and pelvis is concerning for new right-sided hydronephrosis that is new from the previous CAT scan earlier in the month. I am concerned that this has to do with the patient's endometriosis. I did discuss the case with urology who asked that the patient be admitted. I did discuss the case with the hospitalist service who agreed to admit the patient. Patient was in agreement with treatment plan.
[2018-01-28] MEDS: SODIUM CHLORIDE 0.9% 1000ML 1,000 ML IV SCH ×2 (02:24→14:00)
[2018-01-28] MEDS: HYDROmorphone INJ 0.5 MG/0.5 ML SYR IV PRN ×2 (02:25→06:04)
[2018-01-28] MEDS: KETOROLAC TROMETHAMINE 30 MG/ML VIAL IV PRN ×3 (05:08→19:12)
[2018-01-28] MEDS: INSULIN ASPART 100 UNITS/ML 3 ML PEN SC SCH ×4 (06:00→21:00)
[2018-01-28 08:02] VITALS: BP 131/86; PULSE 100; TEMP 36.8; O2SAT 94
--- NOTE | 2018-01-28 08:31 | Urology Consultation ---
History General Date of Service: January 28, 2018. Chief Complaint: Right-sided pelvic and flank pain, right mild hydronephrosis on CT scan [place] Primary Care Physician: Shani Morales D.O. Pt seen a urologist before?: No History of Present Illness Patient is a 32-year-old -[place] female POD#5 s/p left robotic salpingo -oophorectomy and intraoperative cystoscopy for severe and chronic pelvic endometriosis. Intraoperatively the patient's right ovary and pelvis was noted to be significantly involved with bowel adhesions in this side was not addressed. Patient was discharged home the same day and return to the emergency room last night due to worsening pelvic pain, right lower quadrant pain and low right flank pain. Patient reports that this pain was associated with nausea and vomiting at home. She notes that she is currently having her menses and this is typically associated with a worsening of her chronic pelvic pain. Patient's inpatient and outpatient chart is reviewed as well as her operative report and imaging findings including CT scan of the abdomen and pelvis with contrast from last night and a noncontrast CT scan from the beginning of the month. This demonstrates new mild right hydronephrosis with a minimally delayed nephrogram on the right-hand side, unchanged right pelvic mass at the site of the patient's ovary and endometriosis and improved left pelvic findings in the postoperative context. Patient reports that she has been voiding at baseline. Urology consultation is requested for the patient's finding of mild right hydronephrosis associated with her worsening pain. Imaging Imaging: CT Laboratory Last 24 Hours Test 01/27/18 18:16 01/27/18 18:40 01/28/18 06:08 White Blood Count 12.92 K/uL Red Blood Count 4.32 M/uL Hemoglobin 10.7 g/dL Hematocrit 32.6 % Mean Corpuscular Volume 75.5 fL Mean Corpuscular Hemoglobin 24.8 pg Mean Corpuscular Hemoglobin Concent 32.8 g/dl Platelet Count 425 K/uL Mean Platelet Volume 9.4 fL Neutrophils (%) (Auto) 85.4 % Lymphocytes (%) (Auto) 6.8 % Monocytes (%) (Auto) 5.9 % Eosinophils (%) (Auto) 1.5 % Basophils (%) (Auto) 0.2 % Neutrophils # (Auto) 11.04 K/uL Lymphocytes # (Auto) 0.88 K/uL Monocytes # (Auto) 0.76 K/uL Eosinophils # (Auto) 0.19 K/uL Basophils # (Auto) 0.02 K/uL RDW Standard Deviation 41.8 fL RDW Coefficient of Variation 15.0 % Immature Granulocyte % (Auto) 0.2 % Immature Granulocyte # (Auto) 0.03 K/uL Sodium Level 137 mmol/L Potassium Level 3.7 mmol/L Chloride Level 102 mmol/L Carbon Dioxide Level 28 mmol/L Anion Gap 7.0 mmol/L Blood Urea Nitrogen 7 mg/dl Creatinine 1.14 mg/dl Est Creatinine Clear Calc Drug Dose 86.9 ml/min Estimated GFR () 74.7 Estimated GFR (Non- 64.5 BUN/Creatinine Ratio 6.0 Random Glucose 121 mg/dl Calcium Level 9.3 mg/dl Total Bilirubin 0.6 mg/dl Direct Bilirubin 0.2 mg/dl Aspartate Amino Transf (AST/SGOT) 12 U/L Alanine Aminotransferase (ALT/SGPT) 19 U/L Alkaline Phosphatase 70 U/L Total Protein 7.7 gm/dl Albumin 3.5 gm/dl Lipase 81 U/L Urine Color YELLOW Urine Appearance CLEAR Urine pH 7.0 Urine Specific [place] 1.019 Urine Protein NEG Urine Glucose (UA) NEG Urine Ketones TRACE Urine Occult Blood 3+ Urine Nitrite NEG Urine Bilirubin NEG Urine Urobilinogen NEG Urine Leukocyte Esterase SMALL Urine WBC (Auto) 1-5 /hpf Urine RBC (Auto) >30 /hpf Urine Hyaline Casts (Auto) 0 /lpf Urine Epithelial Cells (Auto) 10-20 /lpf Urine Bacteria (Auto) NEG Urine Test NEG Bedside Glucose 92 mg/dl Problem List Medical Problems: (1) Hemorrhagic ovarian cyst Status: Acute (2) Right flank pain Status: Acute (3) Right flank pain Status: Acute (4) Right ovarian cyst Status: Acute Past History arthritis, depression, diabetes (steroid induced), hypertension, urinary tract infection, other (Endometriosis) Past Surgical History: oophorectomy, other (Robotic left salpingo-oophorectomy , laparoscopu, eye surgery) Family History Unknown family medical history Social History Hx Tobacco Use In Past Year?: No Smoking: non-smoker Alcohol: no current use Drug use: none Marital status: single Occupation status: employed History of MDRO No Allergies Coded Allergies: No Known Allergies (Unverified , 01/27/18) Medications Home Medications: Home Meds and Scripts Medications Dose Route/Sig Max Daily Dose Days Date Category Dose Instructions Percocet 5MG/325MG (Oxycodone/Acetaminophen) Tab 1-2 Tab PO Q4H PRN 01/23/18 Rx PAIN Cellcept (Mycophenolate Mofetil) 250 Mg Cap 3 Cap PO BID 90 01/23/18 Reported Prednisone Tab (Prednisone) 20 Mg Tab 40 Mg PO DAILY 01/03/18 Reported Levemir Flextouch (Insulin Detemir) 100 Unit/Ml Inj 16 Units SQ HS 01/03/18 Reported Humalog Kwikpen (Insulin Human Lispro) 100 Units/Ml Inj 6 Units SQ AC 01/03/18 Reported Inpatient Medications: Current Inpatient Medications Medications (Trade) Dose Ordered Sig/Azucena Route Start Time Stop Time Status Last Admin Dose Admin Heparin Sodium (Porcine) (Heparin Sq 5000 Unit/0.5ml) 5,000 unit Q8H SQ 01/28/18 01:15 02/27/18 01:14 UNV Acetaminophen (Tylenol Tab) 650 mg Q4H PRN PO 01/28/18 01:15 02/27/18 01:14 Al Hydrox/Mg Hydrox/Simethicone (Maalox Max Susp) 15 ml Q4H PRN PO 01/28/18 01:15 02/27/18 01:14 Magnesium Hydroxide (Milk Of Magnesia Susp) 30 ml Q6H PRN PO 01/28/18 01:15 02/27/18 01:14 Ondansetron HCl (Zofran Inj) 4 mg Q6H PRN IV 01/28/18 01:15 02/27/18 01:14 Insulin Glargine (Lantus Solostar Pen) 5 units Q12 SC 01/28/18 09:00 02/27/18 08:59 Insulin Aspart (novoLOG ASPART) SLIDING SCALE If C... Q6 SC 01/28/18 06:00 02/27/18 05:59 Glucose (Glucose 40% Gel) 15-30 GRAMS 15 GRAMS... UD PRN PO 01/28/18 01:15 02/27/18 01:14 Glucose (Glucose Chew Tab) 4-8 Tablets 4 Tabl... UD PRN PO 01/28/18 01:15 02/27/18 01:14 Dextrose (Dextrose 50% 50ML Syringe) 25-50ML 25ML FOR ... UD PRN IV 01/28/18 01:15 02/27/18 01:14 Glucagon (Glucagon Inj) 1 mg UD PRN SQ 01/28/18 01:15 02/27/18 01:14 Carbohydrates (Carbohydrates For Hypoglycemia) 15-30 GRAMS 15 grams if BSG 54-69... UD PRN PO 01/28/18 01:15 02/27/18 01:14 Mycophenolate Mofetil (Cellcept Cap) 750 mg BID PO 01/28/18 09:00 02/27/18 08:59 Oxycodone/ Acetaminophen (Percocet 5-325mg Tab) 1 tab Q4H PRN PO 01/28/18 01:30 02/11/18 01:29 Prednisone (PredniSONE TAB) 40 mg DAILY PO 01/28/18 09:00 02/27/18 08:59 Hydromorphone HCl (Dilaudid Inj) 1 mg Q3HWA PRN IV 01/28/18 01:30 02/11/18 01:29 01/28/18 06:04 1 MG Ketorolac Tromethamine (Toradol Inj) 30 mg Q6H PRN IV 01/28/18 01:30 02/02/18 01:29 01/28/18 05:08 30 MG Sodium Chloride 1,000 ml @ 80 mls/hr [id number] IV 01/28/18 01:45 02/27/18 01:44 01/28/18 02:24 80 MLS/HR Review of Systems Review of Systems Constitutional: No fever, No chills Eyes: No loss of night vision Neurological: No passing out, No seizures Endocrine: No too hot, No too cold Gastrointestinal: + abdominal pain, + nausea, + vomiting Cardiovascular: No angina Respiratory: No coughing up blood Skin: No boils Musculoskeletal: + back pain Blood / Lymphatic: No bruise easily, No swollen glands Ears / Nose / Throat: No hearing loss, No sinus, No hoarse voice Psychologic / Mental: + nervous, No trouble remembering Female : + see HPI Physical Exam Vital Signs: Vital Signs Past 12 Hours Date Time Temp Pulse Resp B/P (MAP) Pulse Ox O2 Delivery O2 Flow Rate FiO2 01/28/18 08:02 36.8 100 17 131/86 (101) 94 Room Air 01/28/18 07:50 Room Air 01/28/18 01:55 36.4 101 20 131/86 92 Room Air 01/28/18 01:14 80 18 120/79 98 Room Air 01/27/18 23:58 92 18 129/79 98 Room Air 01/27/18 22:51 92 18 135/80 96 Room Air 01/27/18 21:23 92 18 139/93 98 Room Air Physical Exam: General Appearance: no apparent distress, + obese ENT: hearing grossly normal Neck: supple, no adenopathy Respiratory/Chest: no respiratory distress, no accessory muscle use Cardiovascular: no JVD Gastrointestinal: Incision: normal incision Renal: cva tenderness (mild R flank pain) Hernia: absent hernia Liver: normal liver Neurologic/Psychiatric: alert, oriented x 3 Skin: normal color Assessment & Plan Assessment & Plan A/P 32-year-old female with worsening pelvic pain and right flank pain POD#5 s/ p left robotic salpingo-oophorectomy with intraoperative cystoscopy. Findings are reviewed with the patient and the on-call [facility] provider, Dr. Tellez is contacted. He is somewhat familiar with the patient and her care. The plan for the patient is to be referred to [facility] for further resection of her pelvic lesions especially on the right-hand side. Regarding the patient's current CT scan findings it is reassuring that her renal function is normal and the degree of hydronephrosis is relatively mild with no significant change in her right sided pelvic findings. I have a low index of suspicion for a right ureteral injury intraoperatively especially in the context of a normal ureteral jet in the intraoperative setting. In addition, the patient's pain clinically seems less colicky in nature and she associates it with an exacerbation of her chronic pelvic pain. I suspect that the patient is suffering from some mild periureteral edema in the postoperative context compounded by the monthly fluctuations in her endometriosis associated with her menses. Especially in this chronic pain patient I think there is a good chance the insertion of the ureteral stent will cause her symptoms to worsen rather than improve. On-call [facility] agrees with this assessment. Would therefore observe the patient's pain for now, will order a p.o. diet and allow for some time for any postoperative irritation to the area to improve. Can consider reimaging should the patient's symptoms worsen over the course of time or should she develop any signs or symptoms of sepsis from a urinary source and can reconsider stent placement or hydronephrosis be worsened. Per the [facility] service the plan is to transfer her to [place] for further management of her endometriosis as noted above, but they possibly feel that should her symptoms remain uncontrolled more acute transfer should be considered. Would consider [facility] consult prior to this decision however. Thank you for allowing us to participate in this patient's acute care. We will follow the patient over the course of her admission.
[2018-01-28] MEDS: MYCOPHENOLATE MOFETIL 250 MG CAP (CELLCEPT) PO SCH ×2 (08:49→21:27)
[2018-01-28] MEDS ORDERED: INSULIN GLARGINE SOLOSTAR 100 UNITS/ML 3 ML PEN SC SCH ×2 (09:00→21:00)
[2018-01-28] MEDS: OXYCODONE/ACETAMINOPHEN 5-325 TAB PO PRN ×3 (11:28→21:33)
--- NOTE | 2018-01-28 13:27 | GYNECOLOGICAL CONSULTATION ---
DATE OF CONSULTATION: 01/28/2018 CHIEF COMPLAINT: Right-sided pelvic pain. HISTORY OF PRESENT ILLNESS: This is a 32-year-old female. She underwent a robotic left salpingo-oophorectomy and intraoperative cystoscopy on 01/23/2018 which was a Tuesday, 5 days ago with my partner Dr. Wick. This procedure was being done for bilateral complex ovarian cysts, suspected endometriosis, with dysmenorrhea. Intraoperatively, my review of record shows that the surgery was fairly difficult with significant endometriosis identified. The left ovary was able to be removed along with some endometriotic disease on that side of the pelvis; however, intraoperative findings of significant adhesive disease over the right adnexal area caused Dr. Wick to make the intraoperative decision to not address the right side of the pelvis. After administration of methylene blue dye, she did perform a cystoscopy, which showed a good jet of urine from each ureteral orifice. The patient was then discharged home with a plan to discuss further surgery with Dr. Ruby at [place] in order to address the remaining endometriotic disease. The patient went home on Tuesday feeling relatively well. Her pain was initially well controlled. She states that she was taking walks 30 minutes at a time and having no significant postoperative difficulties. She notes that she has had no fevers. Her voiding has been normal in volume, and although the color has been at times slightly dark, she has not noticed any blood in the urine. Her appetite was normal, and she has had bowel movements since surgery. As of Tuesday, unfortunately, the patient's menstrual cycle began. As is typical for her, pelvic pain accompanied her menstrual cycle although in this case it was slightly worse than her usual endometriosis pain. Typically she is able to control her pain with Midol; however, in this case, she was unable to get control of her pain, and therefore, re-presented to the hospital. On admission, postop imaging showed normal postop changes in the left side of the pelvis, without evident concern for abscess or hematoma. The right adnexal structures remained unchanged as expected; however, there was mild right hydronephrosis noted. There was also a creatinine slightly above 1. Given the patient's pain level, she was admitted to the hospitalist service. At this time, the urology team has already consulted on the patient. The urologist discussed this patient with Dr. Tellez, my partner, prior to his departure this morning; however, at that time, a gynecologic consult had not been requested; therefore, when the consult was placed, I personally went to see the patient, and I am providing this current consultation. PAST MEDICAL HISTORY: This is a medically complicated patient with a known history of TTP and uveitis, for which she uses CellCept and prednisone on a chronic basis. She additionally has arthritis, depression, steroid-induced diabetes, hypertension, obesity, and of course endometriosis. PAST SURGICAL HISTORY: Includes the recent oophorectomy as well as ocular surgery. FAMILY HISTORY: Unknown. SOCIAL HISTORY: She is a nonsmoking, nondrinking, single, employed female. ALLERGIES: Include no known drug allergies. HOME MEDICATIONS: Percocet currently postoperative. Additionally she chronically uses CellCept, prednisone 40 mg p.o. daily, Levemir and Humalog for her diabetes. As an inpatient, she is also on subcu heparin for DVT prophylaxis, Maalox, milk of magnesia, Zofran, insulin, IV Dilaudid, p.o. Percocet, IV Toradol, and normal saline at 80 mL an hour. The patient is currently tolerating a regular diet. LABORATORY DATA: Review of laboratory studies shows a white count of 12.92, hemoglobin of 10.7, platelets of 425. Normal electrolytes. Creatinine of 1.14, glucose ranging 92 to 126. Liver functions normal. Amylase and lipase normal. Coags normal. Urine which appears grossly contaminated consistent with the patient's current menstrual cycle. Imaging is also reviewed and shows the normal expected postoperative changes in the left pelvis, the persistent abnormalities in the right pelvis which were not surgically addressed, and mild right hydronephrosis, without any obvious obstruction. PHYSICAL EXAMINATION: VITAL SIGNS: Temperature 36.8, pulse 100, respirations 17, BP 131/86, pulse oximetry 94% on room air. GENERAL APPEARANCE: This is a pleasant female who appears obese but in no apparent distress, seated semi-[employer]. She appears to be in no respiratory distress. HEENT: Her hearing is grossly normal. She does have a fixed deviation of her left eye to a lateral view. ABDOMEN: Her incisions appear to be clean, dry, and intact x4 with Surgicel in place. She complains of bilateral lower back burning sensation; however, declines an exam to check for CVA tenderness at the present time due to discomfort with re-positioning to a forward seated position. I do not detect any hernias or collections at any of the sites. The patient is diffusely tender to palpation around the abdomen consistent with recent surgery. PELVIC: Vaginal exam is deferred at this time. ASSESSMENT AND PLAN: This is a 32-year-old, status post left salpingo-oophorectomy 5 days ago for endometriosis, with onset of menses and accompanying pain 3 days ago that has been difficult to control at home and with findings of mild right hydronephrosis without obvious obstruction on postop imaging. I have reviewed all the documentation in this visit to date, and I am aware that Dr. Tellez and Dr. Valerio discussed the patient this morning. Per the documentation created by Dr. Valerio, there does not appear to be a right ureteral injury or obstruction, and he believes that her mild hydronephrosis is primarily due to edema and normal postoperative changes that should be temporary and self resolving. The patient is hopeful to see Dr. Ruby on an outpatient basis in the near future and is aware that a referral to his office has already been made. She was anticipating hearing from him early next week and hoping to be able to see him shortly thereafter. We discussed this morning that although postoperative complications can occur, which would cause her pain, given the arrival of her menses on Tuesday concurrent with the worsening of her pain, the team suspects that right now her pain is due to an endometriosis flare caused by menstruation and made somewhat worse than usual by her recent surgery. She is hopeful that her pain can be managed on an outpatient basis using Percocet to allow her to see Dr. Ruby on an outpatient basis; however, she understands that if we are not able to get her pain controlled or signs of a postoperative complication make themselves evident, that she may need to be acutely transferred to [facility] for more urgent care. Management of her medical comorbidities via the medical team is appreciated, and we will follow along to see how Ms. Tanner does with pain control using Percocet today and to assess whether she is able to go home for outpatient followup or whether more urgent care is required. BHARGAVI
[2018-01-28] MEDS: HEPARIN SOD 5000 UNIT/0.5 ML CARP SQ SCH ×2 (13:57→21:31)
[2018-01-28 15:11] VITALS: BP 120/79; PULSE 92; TEMP 36.6; O2SAT 94
[2018-01-28] MEDS ORDERED: NURSING DECISION MEDICATION ORDER SCH (15:15)
--- NOTE | 2018-01-28 17:33 | Progress Note ---
Internal Med Progress Note Date of Service: January 28, 2018. Provider Documentation: SUBJECTIVE: says pain is better says having frequent micturition afebrile no sob eating better seems comfortable OBJECTIVE: Vital Signs-as noted below Exam: General-alert and awake and oriented. Not in distress ENT-normal hearing Neck-supple Lungs-cta b/l no wheezing or crackles Heart-s1 and s2 heard regular rate and rhythm,no Murmur Abdomen-soft bowel sounds present mild tender on right side no distension Extremities-no edema present non tender Neuro-alert and awake moves extremities Lab data as noted below. ASSESSMENT & PLAN: This is a 32 year old female with a 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 of endometriosis and complex bilateral ovarian cysts s/p L oophorectomy - presents with R flank pain, chills. Endometriosis Complex R Ovarian Cyst R Hydronephrosis s/p L ovarian removal on 01/23 R ovary could not be removed due to complexity Plan to see meter repairer in [place] urology consulted due to R hydronephrosis and appreciate input appreciate HAIRCUTTER inputs Dilaudid PRN, Toradol PRN, Zofran PRN to monitor if any change in condition plan to transfer to [place] otherwise out patient f/ u with [place] [facility]. TTP on prednisone 40mg daily on CellCept Insulin Dependent DM2 Lantus insulin sliding scale will monitor BSGs ACHS DVT ppx subq heparin FULL CODE DISPOSITION to be determined Vital Signs: Date Time Temp Pulse Resp B/P (MAP) Pulse Ox O2 Delivery O2 Flow Rate FiO2 01/28/18 15:11 36.6 92 18 120/79 (93) 94 01/28/18 08:02 36.8 100 17 131/86 (101) 94 Room Air 01/28/18 07:50 Room Air 01/28/18 01:55 36.4 101 20 131/86 92 Room Air 01/28/18 01:14 80 18 120/79 98 Room Air 01/27/18 23:58 92 18 129/79 98 Room Air 01/27/18 22:51 92 18 135/80 96 Room Air 01/27/18 21:23 92 18 139/93 98 Room Air 01/27/18 19:50 88 18 136/87 98 Room Air 01/27/18 18:41 106 18 143/90 95 Room Air 01/27/18 17:54 36.8 111 22 132/74 98 Room Air Lab Results: Results Past 24 Hours Test 01/27/18 18:16 01/27/18 18:40 01/28/18 06:08 01/28/18 09:16 Range/Units White Blood Count 12.92 4.8-10.8 K/uL Red Blood Count 4.32 4.2-5.4 M/uL Hemoglobin 10.7 12.0-16.0 g/dL Hematocrit 32.6 37-47 % Mean Corpuscular Volume 75.5 80-100 fL Mean Corpuscular Hemoglobin 24.8 25-34 pg Mean Corpuscular Hemoglobin Concent 32.8 32-36 g/dl Platelet Count 425 130-400 K/uL Mean Platelet Volume 9.4 7.4-10.4 fL Neutrophils (%) (Auto) 85.4 % Lymphocytes (%) (Auto) 6.8 % Monocytes (%) (Auto) 5.9 % Eosinophils (%) (Auto) 1.5 % Basophils (%) (Auto) 0.2 % Neutrophils # (Auto) 11.04 1.4-6.5 K/uL Lymphocytes # (Auto) 0.88 1.2-3.4 K/uL Monocytes # (Auto) 0.76 0.11-0.59 K/uL Eosinophils # (Auto) 0.19 0-0.5 K/uL Basophils # (Auto) 0.02 0-0.2 K/uL RDW Standard Deviation 41.8 36.4-46.3 fL RDW Coefficient of Variation 15.0 11.5-14.5 % Immature Granulocyte % (Auto) 0.2 % Immature Granulocyte # (Auto) 0.03 0.00-0.02 K/uL Sodium Level 137 136-145 mmol/L Potassium Level 3.7 3.5-5.1 mmol/L Chloride Level 102 98-107 mmol/L Carbon Dioxide Level 28 21-32 mmol/L Anion Gap 7.0 3-11 mmol/L Blood Urea Nitrogen 7 7-18 mg/dl Creatinine 1.14 0.60-1.20 mg/dl Est Creatinine Clear Calc Drug Dose 86.9 ml/min Estimated GFR () 74.7 Estimated GFR (Non- 64.5 BUN/Creatinine Ratio 6.0 10-20 Random Glucose 121 70-99 mg/dl Calcium Level 9.3 8.5-10.1 mg/dl Total Bilirubin 0.6 0.2-1 mg/dl Direct Bilirubin 0.2 0-0.2 mg/dl Aspartate Amino Transf (AST/SGOT) 12 15-37 U/L Alanine Aminotransferase (ALT/SGPT) 19 12-78 U/L Alkaline Phosphatase 70 45-117 U/L Total Protein 7.7 6.4-8.2 gm/dl Albumin 3.5 3.4-5.0 gm/dl Lipase 81 73-393 U/L Urine Color YELLOW Urine Appearance CLEAR CLEAR Urine pH 7.0 4.5-7.5 Urine Specific [place] 1.019 1.000-1.030 Urine Protein NEG NEG Urine Glucose (UA) NEG NEG Urine Ketones TRACE NEG Urine Occult Blood 3+ NEG Urine Nitrite NEG NEG Urine Bilirubin NEG NEG Urine Urobilinogen NEG NEG Urine Leukocyte Esterase SMALL NEG Urine WBC (Auto) 1-5 0-5 /hpf Urine RBC (Auto) >30 0-4 /hpf Urine Hyaline Casts (Auto) 0 0-5 /lpf Urine Epithelial Cells (Auto) 10-20 0-5 /lpf Urine Bacteria (Auto) NEG NEG Urine Test NEG NEG Bedside Glucose 92 70-90 mg/dl Prothrombin Time 10.5 9.0-12.0 SECONDS Prothromb Time International Ratio 1.0 0.9-1.1 Test 01/28/18 11:59 01/28/18 17:01 Range/Units Bedside Glucose 126 129 70-90 mg/dl
[2018-01-28] MEDS ORDERED: LOPERAMIDE HCL 2 MG CAP PO ONE (18:30)
[2018-01-28 23:09] VITALS: BP 110/73; PULSE 80; TEMP 36.4; O2SAT 97
[2018-01-29] MEDS: OXYCODONE/ACETAMINOPHEN 5-325 TAB PO PRN ×3 (01:29→13:57)
[2018-01-29] MEDS: SODIUM CHLORIDE 0.9% 1000ML 1,000 ML IV SCH (01:30)
[2018-01-29] MEDS: KETOROLAC TROMETHAMINE 30 MG/ML VIAL IV PRN ×2 (03:04→10:09)
[2018-01-29] MEDS: HYDROmorphone INJ 0.5 MG/0.5 ML SYR IV PRN (03:15)
[2018-01-29 05:48] LABS: HEMATOCRIT 28.9 % (37-47); HEMOGLOBIN 9.1 g/dL (12.0-16.0); MEAN CELL VOLUME 76.9 fL (80-100); MEAN CORPUSCULAR HEMOGLOBIN 24.2 pg (25-34); MEAN CORPUSCULAR HGB CONC 31.5 g/dl (32-36); MEAN PLATELET VOLUME 9.2 fL (7.4-10.4); PLATELET COUNT 393 K/uL (130-400); RED CELL DISTRIBUTION WIDTH CV 15.3 % (11.5-14.5); RED CELL DISTRIBUTION WIDTH SD 43.1 fL (36.4-46.3); WHITE BLOOD COUNT 11.63 K/uL (4.8-10.8)
[2018-01-29] MEDS: HEPARIN SOD 5000 UNIT/0.5 ML CARP SQ SCH (06:07)
[2018-01-29 06:20] LABS: CALCIUM 8.4 mg/dl (8.5-10.1); CREATININE 0.96 mg/dl (0.60-1.20); POTASSIUM 4.1 mmol/L (3.5-5.1)
[2018-01-29 07:30] VITALS: BP 118/80; PULSE 75; TEMP 36.4; O2SAT 99
--- NOTE | 2018-01-29 07:55 | Progress Note ---
Subjective Date of Service: January 29, 2018. Subjective Pt evaluation today including: conversation w/ patient, physical exam, chart review, lab review, review of inpatient medication list Pain: Worse overnight, currently feels well PO Intake: Efrain PO Voiding: no voiding problems (some frequency) 32 yo female POD#6 s/p L robotic salpingoopherectomy with intraop cystoscopy, admitted for pelvic pain and R hydro. Survey Methodologist and hospitalist notes reviewed. Patient reports that she has felt relatively well except for a bout of pain overnight requiring Dilaudid, Toradol and Percocet. She reports she currently feels much improved. She denies other significant changes since being seen yesterday. She inquires if she can go home today. Problem List Medical Problems: (1) Hemorrhagic ovarian cyst Status: Acute (2) Right flank pain Status: Acute (3) Right flank pain Status: Acute (4) Right ovarian cyst Status: Acute Review of Systems Constitutional: No fever, No chills Eyes: No worsening of vision ENT: No hearing loss Respiratory: No sputum, No wheezing, No shortness of breath Cardiac: No chest pain Abdomen: + pain, No vomiting Musculoskeletal: No joint pain Female : + see HPI, No hematuria Neurologic: No memory loss, No paralysis Psychiatric: No depression symptoms Skin: No new/changing skin lesions Objective Vital Signs Date Time Temp Pulse Resp B/P (MAP) Pulse Ox O2 Delivery O2 Flow Rate FiO2 01/29/18 07:30 36.4 75 16 118/80 (93) 99 Room Air 01/28/18 23:35 Room Air 01/28/18 23:09 36.4 80 16 110/73 (85) 97 Room Air 01/28/18 16:00 Room Air 01/28/18 15:11 36.6 92 18 120/79 (93) 94 01/28/18 08:02 36.8 100 17 131/86 (101) 94 Room Air Physical Exam General Appearance: no apparent distress, + obese ENT: normal ENT inspection, hearing grossly normal Neck: supple, no adenopathy Respiratory/Chest: no respiratory distress, no accessory muscle use Cardiovascular: no JVD Abdomen: non tender, soft Extremities: non-tender Neurologic/Psychiatric: alert, oriented x 3 Skin: normal color Laboratory Results Last 24 Hours Test 01/28/18 09:16 01/28/18 11:59 01/28/18 17:01 01/28/18 20:31 Prothrombin Time 10.5 SECONDS Prothromb Time International Ratio 1.0 Bedside Glucose 126 mg/dl 129 mg/dl 139 mg/dl Test 01/29/18 04:58 White Blood Count 11.63 K/uL Red Blood Count 3.76 M/uL Hemoglobin 9.1 g/dL Hematocrit 28.9 % Mean Corpuscular Volume 76.9 fL Mean Corpuscular Hemoglobin 24.2 pg Mean Corpuscular Hemoglobin Concent 31.5 g/dl RDW Standard Deviation 43.1 fL RDW Coefficient of Variation 15.3 % Platelet Count 393 K/uL Mean Platelet Volume 9.2 fL Sodium Level 140 mmol/L Potassium Level 4.1 mmol/L Chloride Level 107 mmol/L Carbon Dioxide Level 26 mmol/L Anion Gap 7.0 mmol/L Blood Urea Nitrogen 14 mg/dl Creatinine 0.96 mg/dl Est Creatinine Clear Calc Drug Dose 101.1 ml/min Estimated GFR () 92.0 Estimated GFR (Non- 79.4 BUN/Creatinine Ratio 14.2 Random Glucose 85 mg/dl Calcium Level 8.4 mg/dl Magnesium Level 2.4 mg/dl Assessment and Plan A/P 32 yo female with pelvic pain and R hydro POD#6 s/p L robotic salpingoopherectomy, intraop cystoscopy. Globally it seems the patient is feeling better with less pain despite last night's flare. Would continue with conservative management, avoid stent placement. Stable for DC from a perspective. Will arrange for outpatient renal US to ensure resolution of her hydronephrosis in 2-3 weeks. care d/w patient who vocalizes good understanding of the plan. Discharge planning: home
[2018-01-29] MEDS: MYCOPHENOLATE MOFETIL 250 MG CAP (CELLCEPT) PO SCH (08:13)
[2018-01-29] MEDS: INSULIN ASPART 100 UNITS/ML 3 ML PEN SC SCH ×2 (08:18→12:25)
--- NOTE | 2018-01-29 11:56 | Discharge Instructions ---
Discharge Instructions Date of Service January 29, 2018. Admission Reason for Admission: Right Flank Pain, Right Ovarian Cyst Discharge Discharge Diagnosis / Problem: Right flank oain, right ovarian complex cyst Discharge Goals Goal(s): Decrease discomfort, Improve function Activity Recommendations Activity Limitations: resume your previous activity (as tolerated) . Instructions / Follow-Up Instructions / Follow-Up FOLLOWUP WITH FAMILY DOCTOR ON January AT 8:55AM FOLLOWUP WITH LIBRARY CIRCULATION TECHNICIAN IN ONE WEEK SCHEDULED FOLLOWUP WITH UROLOGY DR. SUZANNE HOUSER IN 2-3 WEEKS Current Hospital Diet Patient's current hospital diet: Diabetes Type 2 Diet Discharge Diet Recommended Diet: Diabetes Type 2 Diet Pending Studies Studies pending at discharge: no Laboratory Results Hemoglobin A1c Test 01/29/18 04:58 Range/Units Medical Emergencies . Who to Call and When: Medical Emergencies: If at any time you feel your situation is an emergency, please call 911 immediately. . Non-Emergent Contact Non-Emergency issues call your: Primary Care Provider . . "Provider Documentation" section prepared by Justino Aquino. .
[2018-01-29] MEDS ORDERED: OXYC-57 PO (12:08)
--- NOTE | 2018-01-29 12:20 | Progress Note ---
Internal Med Progress Note Date of Service: January 29, 2018. Provider Documentation: SUBJECTIVE: still has some pain on right side of abdomen but better than yesterday afebrile eating ok no sob likes to go home today OBJECTIVE: Vital Signs-as noted below Exam: General-alert and awake and oriented. Not in distress ENT-normal hearing Neck-supple Lungs-cta b/l no wheezing or crackles Heart-s1 and s2 heard regular rate and rhythm,no Murmur Abdomen-soft bowel sounds present mild tender on right side no distension Extremities-no edema present non tender Neuro-alert and awake moves extremities Lab data as noted below. ASSESSMENT & PLAN: This is a 32 year old female with a 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 of endometriosis and complex bilateral ovarian cysts s/p L oophorectomy - presents with R flank pain, chills. Endometriosis Complex R Ovarian Cyst R Hydronephrosis s/p L ovarian removal on 01/23 R ovary could not be removed due to complexity Plan to see global marketing manager in [place] urology consulted due to R hydronephrosis and appreciate input appreciate YARD MOTOR OPERATOR inputs Dilaudid PRN, Toradol PRN, Zofran PRN to monitor if any change in condition plan to transfer to [place] otherwise out patient f/ u with [place] global marketing manager. Doing better today Urology ok for discharge and f/u US in 2-3 weeks awaiting YARD MOTOR OPERATOR clearance for discharge has appointment with YARD MOTOR OPERATOR TTP on prednisone 40mg daily on CellCept Insulin Dependent DM2 Lantus insulin sliding scale will monitor BSGs ACHS DVT ppx subq heparin FULL CODE DISPOSITION possible d/c today Vital Signs: Date Time Temp Pulse Resp B/P (MAP) Pulse Ox O2 Delivery O2 Flow Rate FiO2 01/29/18 07:30 36.4 75 16 118/80 (93) 99 Room Air 01/29/18 07:20 Room Air 01/28/18 23:35 Room Air 01/28/18 23:09 36.4 80 16 110/73 (85) 97 Room Air 01/28/18 16:00 Room Air 01/28/18 15:11 36.6 92 18 120/79 (93) 94 Lab Results: Results Past 24 Hours Test 01/28/18 17:01 01/28/18 20:31 01/29/18 04:58 01/29/18 08:06 Range/Units Bedside Glucose 129 139 74 70-90 mg/dl White Blood Count 11.63 4.8-10.8 K/uL Red Blood Count 3.76 4.2-5.4 M/uL Hemoglobin 9.1 12.0-16.0 g/dL Hematocrit 28.9 37-47 % Mean Corpuscular Volume 76.9 80-100 fL Mean Corpuscular Hemoglobin 24.2 25-34 pg Mean Corpuscular Hemoglobin Concent 31.5 32-36 g/dl RDW Standard Deviation 43.1 36.4-46.3 fL RDW Coefficient of Variation 15.3 11.5-14.5 % Platelet Count 393 130-400 K/uL Mean Platelet Volume 9.2 7.4-10.4 fL Sodium Level 140 136-145 mmol/L Potassium Level 4.1 3.5-5.1 mmol/L Chloride Level 107 98-107 mmol/L Carbon Dioxide Level 26 21-32 mmol/L Anion Gap 7.0 3-11 mmol/L Blood Urea Nitrogen 14 7-18 mg/dl Creatinine 0.96 0.60-1.20 mg/dl Est Creatinine Clear Calc Drug Dose 101.1 ml/min Estimated GFR () 92.0 Estimated GFR (Non- 79.4 BUN/Creatinine Ratio 14.2 10-20 Random Glucose 85 70-99 mg/dl Calcium Level 8.4 8.5-10.1 mg/dl Magnesium Level 2.4 1.8-2.4 mg/dl Test 01/29/18 11:46 Range/Units Bedside Glucose 112 70-90 mg/dl
[2018-01-29 12:54] VITALS: BP 118/80; PULSE 75; TEMP 36.4; O2SAT 99
--- NOTE | 2018-01-29 13:27 | Discharge Summary ---
Discharge Summary Date of Service January 29, 2018. Discharge Summary Admission Date: January 28, 2018 at 01:19 Discharge Date: January 29, 2018 Discharge Disposition: Home Principal Diagnosis: Endometriosis Complex R Ovarian Cyst R Hydronephrosis RT FLANK PAIN Secondary Diagnoses/Problems: (1) Anemia (2) Bipolar Affective Nos (3) Dental caries (4) Dysmenorrhea (5) Dysmenorrhea (6) Endometriosis (7) Endometriosis (8) Hemorrhagic ovarian cyst (9) Hypotension (10) Ovarian cyst, complex (11) Pancreatitis (12) Pelvic pain (13) Pelvic pain (14) Periapical abscess (15) Renal failure (16) Right flank pain (17) Right lower quadrant abdominal pain (18) Ruptured ovarian cyst (19) Thrombocytopenia (20) Thrombocytopenia (21) Vomiting Procedures: PELVIC US: 1. 6.8 x 5.1 x 5.5 cm lesion, likely arising from the right ovary. This was shown on prior CT of January 03, 2018 and favors an endometrioma. 2. Suboptimal evaluation for ovarian torsion. The presence of color flow does not exclude the possibility of torsion but there is no grayscale evidence for torsion on this exam. Ovarian torsion remains a clinical diagnosis and therefore close clinical monitoring is recommended. 3. Nonvisualization of the left ovary, likely surgically absent. CT ABD/PELVIS: 1. Mild right hydroureteronephrosis with a delayed right nephrogram. Right ureter mildly dilated to the level of the upper pelvis, either at or adjacent to a 7.4 x 5 cm right adnexal lesion suggestive of an endometrioma. No ureteral calculus. Etiology for ureteral dilatation not definitive on this exam but may be related to endometriosis. 2. Interval resection of the large left adnexal lesion shown on CT of January 03, 2018. A few left adnexal lesions could reflect follicles or small endometriomas. 3. Trace gas within the left adnexa with a small amount of hyperdense fluid which likely reflect a small amount of blood products which is not unexpected in the early postoperative setting. 4. No bowel obstruction. Stable mild appendiceal dilatation since CT of January 03, 2018. Therefore, no convincing evidence for acute appendicitis. Consultations: UROLOGY BOTTOM LOADER Medication Reconciliation Changed Medications: Oxycodone/Acetaminophen 5MG/325MG (Percocet 5MG/325MG) Tab 1 TAB PO Q4H PRN for Pain, #14 TAB (Changed from: 1-2 TAB; 20) PAIN Continued Medications: Insulin Detemir (Levemir Flextouch) 100 Unit/Ml Inj 16 UNITS SQ HS Insulin Human Lispro (Humalog Kwikpen) 100 Units/Ml Inj 6 UNITS SQ AC Mycophenolate Mofetil (Cellcept) 250 Mg Cap 3 CAP PO BID for 90 Days, #540 CAP 3 Refills Prednisone (Prednisone Tab) 20 Mg Tab 40 MG PO DAILY, TAB Admission Information HPI (per Admitting provider): This is a 32 year old female with a 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 of endometriosis and complex bilateral ovarian cysts s/p L oophorectomy - presents with R flank pain, chills. She was to have her R ovary removed as well, but due to the complex nature of the cyst; this was not possible and a future appointment with hub borer in [place] was planned. Due to her pain, she presented to the ED. She had CT abdomen/pelvis performed. R hydronephrosis noted. Patient's pain improved with IV pain medications. 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 of endometriosis and complex bilateral ovarian cysts s/p L oophorectomy - presents with R flank pain, chills. Endometriosis Complex R Ovarian Cyst R Hydronephrosis RT FLANK PAIN s/p L ovarian removal on 01/23 R ovary could not be removed due to complexity Plan to see gravity prospecting observer in [place] urology consulted due to R hydronephrosis and appreciate input- MOSTLY "mild periureteral edema in the postoperative context compounded by the monthly fluctuations in her endometriosis associated with her menses" appreciate BOTTOM LOADER inputs Dilaudid PRN, Toradol PRN, Zofran PRN to monitor if any change in condition plan to transfer to [place] otherwise out patient f/ u with [place] [facility] prospecting observer. Doing better today Urology ok for discharge and f/u US in 2-3 weeks BOTTOM LOADER OK for discharge has appointment with BOTTOM LOADER TTP on prednisone 40mg daily on CellCept Insulin Dependent DM2 Lantus insulin sliding scale will monitor BSGs ACHS DVT ppx subq heparin FULL CODE DISPOSITION possible d/c today Total time spent on discharge = 35MINUTES This includes examination of the patient, discharge planning, medication reconciliation, and communication with other providers. Discharge Instructions Discharge Instructions Date of Service January 29, 2018. Admission Reason for Admission: Right Flank Pain, Right Ovarian Cyst Discharge Discharge Diagnosis / Problem: Right flank oain, right ovarian complex cyst Discharge Goals Goal(s): Decrease discomfort, Improve function Activity Recommendations Activity Limitations: resume your previous activity (as tolerated) . Instructions / Follow-Up Instructions / Follow-Up FOLLOWUP WITH FAMILY DOCTOR ON January AT 8:55AM FOLLOWUP WITH BOTTOM LOADER IN ONE WEEK SCHEDULED FOLLOWUP WITH UROLOGY DR. SUZANNE HOUSER IN 2-3 WEEKS Current Hospital Diet Patient's current hospital diet: Diabetes Type 2 Diet Discharge Diet Recommended Diet: Diabetes Type 2 Diet Pending Studies Studies pending at discharge: no Laboratory Results Hemoglobin A1c Test 01/29/18 04:58 Range/Units Medical Emergencies . Who to Call and When: Medical Emergencies: If at any time you feel your situation is an emergency, please call 911 immediately. . Non-Emergent Contact Non-Emergency issues call your: Primary Care Provider . . "Provider Documentation" section prepared by Justino Aquino.
[2018-01-30 06:45] LABS: HEMOGLOBIN A1C 6.2 % (4.5-5.6)
== END 2018-01-29 14:15 | disposition home or self-care (01) | DRG 760 ==
LOC: C.EDB 17:54 → C.3E 01-28 01:19 → ENRESERV 01-28 01:34
PROVIDERS: ADMIT Family Medicine; ATTEND Internal Medicine
DX: N80.9 Endometriosis, unspecified (principal); M31.1 Thrombotic microangiopathy; N13.30 Unspecified hydronephrosis; N83.201 Unspecified ovarian cyst, right side; E09.9 Drug or chemical induced diabetes mellitus without complications; I10 Essential (primary) hypertension; E66.9 Obesity, unspecified; T38.0X5A Adverse effect of glucocorticoids and synthetic analogues, initial encounter; Z68.34 Body mass index [BMI] 34.0-34.9, adult; Z79.4 Long term (current) use of insulin; Z79.52 Long term (current) use of systemic steroids; Z79.899 Other long term (current) drug therapy; Z90.721 Acquired absence of ovaries, unilateral

== ENCOUNTER 2018-04-23 01:48 | Emergency (ER) | payer OTHER ==
[~2018-04-23] VITALS: Ht 167.6 cm; Wt 94.0 kg
[~2018-04-23 01:48] MED LIST changes: +ACET-1311 PO; +ACETTAB43 PO; +ATOR-24 PO; +CLC100X PO; +CPR500 PO; -MYCO250C26 PO; +MYCO500T4 PO; +ONDA4TAB10 SL; +PRED10TA PO; -PRED20TA2 PO
[2018-04-23 01:53] VITALS: TEMP 36.7; Ht 167.6 cm; Wt 94.0 kg
[2018-04-23] MEDS ORDERED: KETOROLAC TROMETHAMINE 60 MG/2 ML VIAL IM STA (02:27)
[2018-04-23] MEDS ORDERED: OXYC-90 PO (02:29)
[2018-04-23] MEDS ORDERED: OXYCODONE/ACETAMINOPHEN 5-325 TAB PO ONE ×2 (02:30→04:15)
--- NOTE | 2018-04-23 02:53 | EMERGENCY ROOM VISIT NOTE ---
History Report prepared by René: Jonny Mobley Under the Supervision of: Dr. Asmita Cosby D.O. First contact with patient: 02:11 Chief Complaint: LEG PAIN,LEG INJURY Stated Complaint: CHRONIC LEG PAIN History of Present Illness The patient is a 32 year old female who presents to the Emergency Room with complaints of worsening right leg pain. Patient states the pain is chronic but that it worsened today. Patient describes the pain as "extreme" and states it is worsened with pressure. She denies doing anything more strenuous today. She states she stayed in bed all day today because of the pain. Past medical history includes endometriosis which she follows with [place] for. Patient states she takes 5mg/325mg Percocet or Oxycodone for her pain but it did not resolve her symptoms. Patient states Dr. Morales is her PCP and manages her pain medications. Patient is present her sister and [id number]. Source of History: patient Onset: Today Position: leg (right) Symptom Intensity: Extreme Timing: worsening Modifying Factors (Worsening): other (Pressure) Modifying Factors (Relieving): other (None) Review of Systems See HPI for pertinent positives & negatives. A total of 10 systems reviewed and were otherwise negative. Past Medical & Surgical Medical Problems: (1) Bipolar Affective Nos (2) Chronic uveitis (3) Diabetes (4) Dysmenorrhea (5) Dysmenorrhea (6) Endometriosis (7) Endometriosis (8) HTN (hypertension) (9) Hx: UTI (urinary tract infection) (10) Ovarian cyst, complex (11) Pelvic pain Surgical Problems: (1) H/O ovarian cystectomy (2) S/P ovarian cystectomy Family History Not known due to adoption Social History Smoking Status: Never Smoker Alcohol Use: none Drug Use: none Marital Status: single Housing Status: lives with family Occupation Status: disabled Current/Historical Medications Scheduled Acetaminophen (Tylenol), 975 MG PO DAILY Atorvastatin (Lipitor), 40 MG PO DAILY Insulin Detemir (Levemir Flextouch), 16 UNITS SQ HS Insulin Human Lispro (Humalog Kwikpen), 6 UNITS SQ AC Mycophenolate Mofetil (Cellcept), 1,500 MG PO BIDM Ondasetron Odt (Zofran Odt), 4 MG SL Q6H Prednisone (Prednisone), 40 MG PO DAILY Scheduled PRN Fgbsvayleonng-Pasomamn-Bukgusf (Midol Maximum Strength Me), 2 TABS PO TID PRN for cramping Oxycodone Ir (Roxicodone Ir), 10 MG PO Q4H PRN for Severe Pain Oxycodone/Acetaminophen 5MG/325MG (Percocet 5MG/325MG), 1 TABLET PO Q6H PRN for Pain Allergies Coded Allergies: No Known Allergies (Unverified , 04/23/18) Physical Exam Vital Signs Date Time Temp Pulse Resp B/P (MAP) Pulse Ox O2 Delivery O2 Flow Rate FiO2 04/23/18 03:54 69 20 130/76 98 Room Air 04/23/18 01:53 36.7 78 18 135/73 95 Room Air Physical Exam General: Patient is pacing around the room secondary to pain. HEENT: Head - normocephalic and atraumatic Pupils are equal, round, and reactive to light. Extraocular eye muscles are intact, and sclera are anicteric. Nose - moist nasal mucosa without discharge. Mouth - moist buccal mucosa. Oropharynx is nonerythematous and there is no tonsillar exudate or edema noted. Neck: Supple; no JVD, nuchal rigidity, cervical lymphadenopathy. Heart: Regular rate and rhythm. There is a normal S1 and S2 with no murmurs, clicks, or gallops appreciated. Lungs: Clear to auscultation bilaterally with no wheezes, rales, or rhonchi. Abdomen: Soft, pain to palpation of RLQ of abdomen, nondistended, with good bowel sounds. There are no palpable pulsatile masses or hepatosplenomegaly. There is no guarding, rigidity, or rebound noted. Extremities: Pain with palpation of right anterior thigh. No evidence of cyanosis, clubbing, or edema. There are easily palpable peripheral pulses. Skin: warm and dry with good turgor and no rashes. Medical Decision & Procedures Medications Administered Medications (Trade) Dose Ordered Sig/Azucena Route Start Time Stop Time Status Last Admin Dose Admin Oxycodone/ Acetaminophen (Percocet 5-325mg Tab) 1 tab NOW ONCE PO 04/23/18 02:30 04/23/18 02:31 DC 04/23/18 02:37 1 TAB Ketorolac Tromethamine (Toradol Inj) 60 mg NOW STAT IM 04/23/18 02:27 04/23/18 02:28 DC 04/23/18 02:38 60 MG Oxycodone/ Acetaminophen (Percocet 5-325mg Tab) 1 tab NOW ONCE PO 04/23/18 04:15 04/23/18 04:16 DC 04/23/18 04:36 1 TAB Procedure Toradol Inj 60mg IM, Oxycodone/Acetaminophen 1 tab PO, and Oxycodone/ Acetaminophen 1 tab PO. ED Course 0215: Past medical records reviewed. The patient was evaluated in room A12B. A complete history and physical exam was performed. 0227: Toradol Inj 60mg IM 0230: Oxycodone/Acetaminophen 1 tab PO 0400: I reevaluated the patient. She states her leg pain is gone but she is still experiencing abdominal pain. Patient will be given another dose of Percocet. 0415: Oxycodone/Acetaminophen 1 tab PO 0420: Upon reevaluation, the patient is resting comfortably. I discussed findings and results with her. She verbalized agreement of the treatment plan. She was discharged home. Medical Decision The patient is a 32 year old female who presents to the ED with worsening right leg pain. Differential diagnosis includes acute exacerbation of chronic leg pain , endometriosis pain, and lumbar radicular pain. The patient has a history of chronic endometriosis for which she underwent surgery at [place]. As a result, she has persistent right lower quadrant abdominal pain and her right anterior leg pain. She typically takes 1 Percocet at night before bed and is able to tolerate his symptoms. However, today, she was under moderate painful distress. The patient was given Toradol and additional Percocet here in the emergency department with complete relief of the leg pain and some relief of the right lower quadrant pain. She was encouraged to follow-up with her surgeon at [place]. I explained to her that she could take her Percocet-2 tablets every 4-6 hours for pain but notes that it is addictive. It should be used sparingly. Medication Reconcilliation Current Medication List: was personally reviewed by me Blood Pressure Screening Patient's blood pressure: Elevated blood pressure Blood pressure disposition: Elevated BP felt to be situational Impression Primary Impression: RLQ abdominal pain Additional Impression: Pain of right lower extremity Scribe Attestation The scribe's documentation has been prepared under my direction and personally reviewed by me in its entirety. I confirm that the note above accurately reflects all work, treatment, procedures, and medical decision making performed by me. Departure Information Dispostion Home / Self-Care Referrals Shani Morales D.O. (PCP) Forms HOME CARE DOCUMENTATION FORM, IMPORTANT VISIT INFORMATION Patient Instructions My [facility] Additional Instructions Rest in a recliner. You may use the Percocet throughout the day but bear in mind it is addictive. Problem Qualifiers
[2018-04-23 03:54] VITALS: BP 130/76; PULSE 69; O2SAT 98
[2018-04-23] MEDS ORDERED: [UNRECOGNIZED DRUG - CODE] NAE (16:21)
== END 2018-04-23 04:26 | disposition home or self-care (01) ==
LOC: C.EDB 01:49 → C.EDA 04:26
DX: M79.651 Pain in right thigh (principal); R10.31 Right lower quadrant pain; N80.9 Endometriosis, unspecified; F31.9 Bipolar disorder, unspecified; E11.9 Type 2 diabetes mellitus without complications; I10 Essential (primary) hypertension; Z87.440 Personal history of urinary (tract) infections; Z79.4 Long term (current) use of insulin; Z79.899 Other long term (current) drug therapy; Z98.890 Other specified postprocedural states; G89.29 Other chronic pain

== ENCOUNTER 2018-04-23 14:36 | Observation (INO) | payer OTHER ==
[~2018-04-23] VITALS: Ht 167.6 cm; Wt 92.0 kg
[~2018-04-23 14:36] MED LIST changes: +OXYC-90 PO
[2018-04-23] MEDS ORDERED: MoRPHine SULFATE 4 MG/ML 1 ML CARP\\VIAL IV STA ×2 (15:23→17:40)
[2018-04-23] MEDS ORDERED: ONDANSETRON INJ 2 MG/ML 2 ML VIAL IV STA (15:23)
[2018-04-23] MEDS ORDERED: KETOROLAC TROMETHAMINE 30 MG/ML VIAL IV STA ×2 (15:23→22:34)
[2018-04-23] MEDS ORDERED: SODIUM CHLORIDE 0.9% 1000ML 1,000 ML IV STA (15:23)
--- NOTE | 2018-04-23 15:27 | EMERGENCY ROOM VISIT NOTE ---
History First contact with patient: 15:15 Chief Complaint: ABDOMINAL PAIN Stated Complaint: LEG NERVE PAIN, History of Present Illness The patient is a 32 year old female who presents to the Emergency Room via private vehicle accompanied by male and female with complaints of "leg nerve pain, abdominal pain". The patient notes that she has severe endometriosis. She states that she is due for her third surgery done in [place] but it is not scheduled yet. She notes that she is scheduled for hysterectomy. She states that her endometriosis is in the right lower quadrant and anterior leg pain. She states that when she is on her period/menstruating the pain is a 20/10. She notes that she is currently menstruating although she was seen here earlier this morning and given Toradol and Percocet her pain has continued to increase. She notes that this is the same pain it just is unbearable. There is associated nausea, vomiting, and she feels as though she may have had fevers and chills. She states that this is the same pain she has had in the past. She notes that it will not go away. She denies chance of . Review of Systems A complete 10-point Review of Systems was discussed with the patient, with pertinent positives and negatives listed in the History of Present Illness. All remaining Review of Systems questions can be considered negative unless otherwise specified. Past Medical/Surgical History Medical Problems: (1) Bipolar Affective Nos (2) Chronic uveitis (3) Diabetes (4) Dysmenorrhea (5) Dysmenorrhea (6) Endometriosis (7) Endometriosis (8) HTN (hypertension) (9) Hx: UTI (urinary tract infection) (10) Ovarian cyst, complex (11) Pelvic pain Surgical Problems: (1) H/O ovarian cystectomy (2) S/P ovarian cystectomy Family History Not known due to adoption Social History Smoking Status: Never Smoker Alcohol Use: none Drug Use: none Marital Status: single Housing Status: lives with family Occupation Status: disabled Current/Historical Medications Scheduled Acetaminophen (Tylenol), 975 MG PO DAILY Atorvastatin (Lipitor), 40 MG PO DAILY Insulin Detemir (Levemir Flextouch), 16 UNITS SQ HS Insulin Human Lispro (Humalog Kwikpen), 6 UNITS SQ AC Mycophenolate Mofetil (Cellcept), 1,500 MG PO BIDM Nafarelin Acetate (Synarel), 1 SPRAY SILVIA BID Ondasetron Odt (Zofran Odt), 4 MG SL Q6H Prednisone (Prednisone), 40 MG PO DAILY Scheduled PRN Gfayufrdavhue-Quetmqts-Xvcvuhz (Midol Maximum Strength Me), 2 TABS PO TID PRN for cramping Oxycodone Ir (Roxicodone Ir), 10 MG PO Q4H PRN for Severe Pain Oxycodone/Acetaminophen 5MG/325MG (Percocet 5MG/325MG), 1 TABLET PO Q6H PRN for Pain Allergies Coded Allergies: No Known Allergies (Unverified , 04/23/18) Physical Exam Vital Signs Date Time Temp Pulse Resp B/P (MAP) Pulse Ox O2 Delivery O2 Flow Rate FiO2 04/23/18 19:00 37.0 82 20 145/81 98 Room Air 04/23/18 16:43 79 18 132/74 99 Room Air 04/23/18 14:41 36.3 86 18 133/88 95 Room Air Physical Exam VITAL SIGNS - Vital signs and nursing notes were reviewed. Stable. Afebrile. GENERAL -32-year-old female appearing her stated age who is in no acute distress. She does appear to be in pain but is nontoxic in appearance. Communicates well with provider and answers questions appropriately. SKIN - Without rashes. HEAD - NC/AT. EYES - PERRL with EOMI bilaterally. Sclera anicteric. EARS - No deformities of external structures noted on gross examination bilaterally. NOSE - Midline and without cyanosis. No epistaxis or purulent drainage noted. MOUTH/OROPHARYNX - Without perioral cyanosis. NECK - Neck with FROM. No nuchal rigidity. LUNGS - Chest wall symmetric without accessory muscle use, intercostals retractions, or central cyanosis. Normal vesicular breath sounds CTA B/L. No wheezes, rales, or rhonchi appreciated. CARDIAC - RRR with S1/S2. No murmur, rubs, or gallops appreciated. ABDOMEN - Abdominal contour normal without pulsations or visible masses. BS normoactive all four quadrants. There is right-sided abdominal tenderness noted. No palpable masses, hepatosplenomegaly, or ascites noted. EXTREMITIES - No clubbing or peripheral cyanosis. No pretibial edema present. +5 /5 strength noted in UE/LE bilaterally. NEUROLOGIC - Cranial nerves II through XII grossly intact. Sensory intact to light touch throughout. PSYCH - A&O, and cooperates fully with examiner. Pt is very pleasant and interacts well with examiner. Medical Decision & Procedures ER Provider Diagnostic Interpretation: CT OF THE ABDOMEN AND PELVIS WITH CONTRAST CLINICAL HISTORY: Right lower abdominal pain. Hx endometriosis. Worsening pain. COMPARISON STUDY: CT of the abdomen and pelvis and pelvic ultrasound March 24, 2018. TECHNIQUE: Following IV administration of 115 mL of Optiray-320, axial images of the abdomen and pelvis were obtained from the lung bases to the proximal femurs. Images were reviewed in the axial, sagittal, and coronal planes. IV contrast was administered without complication. A dose lowering technique was utilized adhering to the principles of ALARA. CT DOSE: 836.19 mGy.cm FINDINGS: The liver, spleen, adrenal glands and pancreas are normal. Mild right hydronephrosis has improved since exam of March 24, 2018. The right ureter is dilated to the level of the pelvis. There is no evidence for a bowel obstruction. The appendix is likely visualized on axial image [id number]. The appendix is mildly distended, measuring 8 mm in thickness. No significant adjacent inflammation is noted. There is no free air or abscess. An 8.2 x 5.7 cm complex right adnexal mass is similar to exam of March 24, 2018. A complex 3.8 cm left adnexal lesion is unchanged. No pneumatosis, free air or portal venous gas is present. No suspicious osseous lesions are noted. Major vasculature is patent. IMPRESSION: 1. Mildly distended appendix without definite periappendiceal infiltration. Stability argues against acute appendicitis however close clinical follow-up is recommended. If progressive symptoms, a short-term follow-up CT is recommended with IV and oral contrast. 2. No change in complex adnexal lesions since CT of March 24, 2018. These favor endometriomas. Slight improvement in right hydroureteronephrosis since prior exam which is likely due to mass effect from the complex right adnexal lesion. Electronically signed by: Hector Bhakta M.D. 04/23/2018 6:45 PM Dictated Date/Time: 04/23/2018 6:24 PM Laboratory Results 04/23/18 15:59 Red Blood Count 4.45, Mean Corpuscular Volume 77.1, Mean Corpuscular Hemoglobin 23.8, Mean Corpuscular Hemoglobin Concent 30.9, Mean Platelet Volume 10.0, Neutrophils (%) (Auto) 94.4, Lymphocytes (%) (Auto) 3.3, Monocytes (%) (Auto) 1.8, Eosinophils (%) (Auto) 0.1, Basophils (%) (Auto) 0.1, Neutrophils # (Auto) 16.92, Lymphocytes # (Auto) 0.60, Monocytes # (Auto) 0.33, Eosinophils # (Auto) 0.01, Basophils # (Auto) 0.01 04/23/18 15:59 Test 04/23/18 15:59 04/23/18 16:40 White Blood Count 17.92 K/uL (4.8-10.8) Red Blood Count 4.45 M/uL (4.2-5.4) Hemoglobin 10.6 g/dL (12.0-16.0) Hematocrit 34.3 % (37-47) Mean Corpuscular Volume 77.1 fL (80-100) Mean Corpuscular Hemoglobin 23.8 pg (25-34) Mean Corpuscular Hemoglobin Concent 30.9 g/dl (32-36) Platelet Count 405 K/uL (130-400) Mean Platelet Volume 10.0 fL (7.4-10.4) Neutrophils (%) (Auto) 94.4 % Lymphocytes (%) (Auto) 3.3 % Monocytes (%) (Auto) 1.8 % Eosinophils (%) (Auto) 0.1 % Basophils (%) (Auto) 0.1 % Neutrophils # (Auto) 16.92 K/uL (1.4-6.5) Lymphocytes # (Auto) 0.60 K/uL (1.2-3.4) Monocytes # (Auto) 0.33 K/uL (0.11-0.59) Eosinophils # (Auto) 0.01 K/uL (0-0.5) Basophils # (Auto) 0.01 K/uL (0-0.2) RDW Standard Deviation 42.7 fL (36.4-46.3) RDW Coefficient of Variation 15.1 % (11.5-14.5) Immature Granulocyte % (Auto) 0.3 % Immature Granulocyte # (Auto) 0.05 K/uL (0.00-0.02) Anion Gap 10.0 mmol/L (3-11) Est Creatinine Clear Calc Drug Dose 96.0 ml/min Estimated GFR () 90.8 Estimated GFR (Non- 78.4 BUN/Creatinine Ratio 14.3 (10-20) Calcium Level 9.1 mg/dl (8.5-10.1) Total Bilirubin 0.3 mg/dl (0.2-1) Aspartate Amino Transf (AST/SGOT) 18 U/L (15-37) Alanine Aminotransferase (ALT/SGPT) 29 U/L (12-78) Alkaline Phosphatase 71 U/L (45-117) Total Protein 7.7 gm/dl (6.4-8.2) Albumin 4.0 gm/dl (3.4-5.0) Globulin 3.7 gm/dl (2.5-4.0) Albumin/Globulin Ratio 1.1 (0.9-2) Chemistry Specimen Hemolysis Urine Color DK YELLOW Urine Appearance CLEAR (CLEAR) Urine pH 5.5 (4.5-7.5) Urine Specific [place] 1.033 (1.000-1.030) Urine Protein 1+ (NEG) Urine Glucose (UA) NEG (NEG) Urine Ketones TRACE (NEG) Urine Occult Blood 3+ (NEG) Urine Nitrite NEG (NEG) Urine Bilirubin NEG (NEG) Urine Urobilinogen NEG (NEG) Urine Leukocyte Esterase TRACE (NEG) Urine WBC (Auto) 5-10 /hpf (0-5) Urine RBC (Auto) >30 /hpf (0-4) Urine Hyaline Casts (Auto) 1-5 /lpf (0-5) Urine Epithelial Cells (Auto) >30 /lpf (0-5) Urine Bacteria (Auto) NEG (NEG) Urine Test NEG (NEG) Medications Administered Medications (Trade) Dose Ordered Sig/Azucena Route Start Time Stop Time Status Last Admin Dose Admin Sodium Chloride 1,000 ml @ 999 mls/hr Q1H1M STAT IV 04/23/18 15:23 04/23/18 16:23 DC 04/23/18 16:08 999 MLS/HR Ketorolac Tromethamine (Toradol Inj) 30 mg NOW STAT IV 04/23/18 15:23 04/23/18 15:24 DC 04/23/18 16:09 30 MG Morphine Sulfate (MoRPHine SULFATE INJ) 4 mg NOW STAT IV 04/23/18 15:23 04/23/18 15:24 DC 04/23/18 16:08 4 MG Ondansetron HCl (Zofran Inj) 4 mg NOW STAT IV 04/23/18 15:23 04/23/18 15:24 DC 04/23/18 16:09 4 MG Morphine Sulfate (MoRPHine SULFATE INJ) 4 mg NOW STAT IV 04/23/18 17:40 04/23/18 17:42 DC 04/23/18 17:49 4 MG Medical Decision Patient was seen and evaluated as above in room A11. Review was performed of nursing notes and vital signs. After obtaining a thorough history and physical examination the above work up was performed. She presents to us today with right-sided abdominal pain in the right lower quadrant as well as the right proximal anterior thigh. She notes this is chronic. She has been dealing with this for quite some time and notes that she is scheduled for her third surgery at [place] for hysterectomy. She notes severe endometriosis. The patient is nontoxic on exam but does appear to be in pain. IV access was established after thorough review of previous visits. She was given Toradol, morphine and Zofran. Fluids were ordered. With the leukocytosis, benefit versus risk of obtaining CT scan was discussed with the patient. Previous visit reveals that this is not her baseline rather this is elevated compared to her baseline. Through shared decision making with the patient, and discussing this with the attending physician decision was made to obtain a CT scan of the patient's abdomen and pelvis. Results as above. I believe that the appendix is stable compared to previous, however after discussing this with the attending physician did consult the on-call general surgeon, Dr. Carl. I then discussed the case with Randy Garcia, who will admit the patient to general surgery for further evaluation and management. Please refer to for the documentation regarding her stay. Patient was in agreement. It is important note that I do not suspect she has acute appendicitis. Rather, I believe that her pain is likely coming from her chronic endometriosis which has been exacerbated by her menstrual cycle. At no point throughout her stay did she exhibit a surgical or acute abdomen. In the evaluation and treatment of this patient the following differential diagnoses were entertained: Endometriosis, appendicitis, diverticulitis, acute abdomen, among others. Impression Primary Impression: Right lower quadrant abdominal pain Additional Impressions: Anemia Hypokalemia Ovarian cyst, complex Departure Information Dispostion Admitted as an inpatient Condition FAIR Referrals Shani Morales D.O. (PCP) Patient Instructions [facility] Problem Qualifiers
[2018-04-23 16:19] LABS: BASO % 0.1 %; BASO ABS # 0.01 K/uL (0-0.2); EOS % 0.1 %; EOS ABS # 0.01 K/uL (0-0.5); HEMATOCRIT 34.3 % (37-47); HEMOGLOBIN 10.6 g/dL (12.0-16.0); IG# 0.05 K/uL (0.00-0.02); LYMPH % 3.3 %; MEAN CELL VOLUME 77.1 fL (80-100); MEAN CORPUSCULAR HEMOGLOBIN 23.8 pg (25-34); MEAN CORPUSCULAR HGB CONC 30.9 g/dl (32-36); MONO % 1.8 %; MONO ABS # 0.33 K/uL (0.11-0.59); NEUT % 94.4 %; NEUT ABS # 16.92 K/uL (1.4-6.5); PLATELET COUNT 405 K/uL (130-400); RED CELL DISTRIBUTION WIDTH CV 15.1 % (11.5-14.5); RED CELL DISTRIBUTION WIDTH SD 42.7 fL (36.4-46.3); WHITE BLOOD COUNT 17.92 K/uL (4.8-10.8)
[2018-04-23] MEDS ORDERED: [UNRECOGNIZED DRUG - CODE] NAE (16:21)
[2018-04-23 16:38] LABS: CALCIUM 9.1 mg/dl (8.5-10.1); CREATININE 0.97 mg/dl (0.60-1.20); POTASSIUM 3.4 mmol/L (3.5-5.1)
[2018-04-23 16:41] LABS: TOTAL PROTEIN 7.7 gm/dl (6.4-8.2)
[2018-04-23] MEDS ORDERED: OPTIRAY 320 IV PRN (17:45)
--- NOTE | 2018-04-23 18:46 | DIAGNOSTIC IMAGING REPORT ---
CT OF THE ABDOMEN AND PELVIS WITH CONTRAST CLINICAL HISTORY: Right lower abdominal pain. Hx endometriosis. Worsening pain. COMPARISON STUDY: CT of the abdomen and pelvis and pelvic ultrasound March 24, 2018. TECHNIQUE: Following IV administration of 115 mL of Optiray-320, axial images of the abdomen and pelvis were obtained from the lung bases to the proximal femurs. Images were reviewed in the axial, sagittal, and coronal planes. IV contrast was administered without complication. A dose lowering technique was utilized adhering to the principles of ALARA. CT DOSE: 836.19 mGy.cm FINDINGS: The liver, spleen, adrenal glands and pancreas are normal. Mild right hydronephrosis has improved since exam of March 24, 2018. The right ureter is dilated to the level of the pelvis. There is no evidence for a bowel obstruction. The appendix is likely visualized on axial image [id number]. The appendix is mildly distended, measuring 8 mm in thickness. No significant adjacent inflammation is noted. There is no free air or abscess. An 8.2 x 5.7 cm complex right adnexal mass is similar to exam of March 24, 2018. A complex 3.8 cm left adnexal lesion is unchanged. No pneumatosis, free air or portal venous gas is present. No suspicious osseous lesions are noted. Major vasculature is patent. IMPRESSION: 1. Mildly distended appendix without definite periappendiceal infiltration. Stability argues against acute appendicitis however close clinical follow-up is recommended. If progressive symptoms, a short-term follow-up CT is recommended with IV and oral contrast. 2. No change in complex adnexal lesions since CT of March 24, 2018. These favor endometriomas. Slight improvement in right hydroureteronephrosis since prior exam which is likely due to mass effect from the complex right adnexal lesion. Electronically signed by: Hector Bhakta M.D. 04/23/2018 6:45 PM Dictated Date/Time: 04/23/2018 6:24 PM
[2018-04-23 19:00] VITALS: O2SAT 98
[2018-04-23] MEDS ORDERED: HYDROmorphone INJ 1 MG/ML SYR IV PRN (19:45)
[2018-04-23] MEDS ORDERED: ONDANSETRON INJ 2 MG/ML 2 ML VIAL IV PRN (19:45)
[2018-04-23] MEDS ORDERED: ACETAMINOPHEN IV 100 ML IV PRN (19:45)
--- NOTE | 2018-04-23 20:01 | Surgery Consultation ---
Consultation Date of Consultation: Apr 23, 2018. Attending Physician: Reason for Consultation: RLQ abdominal pain History of Present Illness Patient is a 32F who presented to the ED tonight with "leg nerve pain and abdominal pain." Patient reports she has severe "stage 4" endometriosis. She has had two prior surgeries for this in the past at [place] and is hoping to have a third surgery (hysterectomy) done, although this is not scheduled yet. Her endometriosis typically gives her right leg pain and RLQ pain. Patient reports her pain tonight is in her RLQ and this is similar to her endometriosis pain but more severe. Reports she has felt hot since the onset of her pain but unsure of any fever, chills. Reports associated N/V as well. Denies hematemesis. Moving her bowels without issue. Reports she has to push harder than usual to urinate but denies any pain/discomfort with urination. Denies history of any other abdominal surgeries in the past. She does take OTC Ibuprofen regularly for her pain. Denies use of any other blood thinning or anticoagulant medications. Of note, patient has been on PO prednisone therapy for approximately 4 years. States the dose has fluctuated but is currently taking 40mg daily. Last ate today at 1400. Reports she is currently menstruating and her pain is usually worse during that time. WBC 17.92 w/ left shift. CT shows Mildly distended appendix without definite periappendiceal infiltration. Stability argues against acute appendicitis however close clinical follow-up is recommended. No change in complex adnexal lesions since CT of March 24, 2018. These favor endometriomas. Slight improvement in right hydroureteronephrosis since prior exam which is likely due to mass effect from the complex right adnexal lesion. Past Medical/Surgical History Medical Problems: (1) Anemia Status: Acute (2) Constipation Status: Acute (3) Endometrioma Status: Acute (4) Failure of outpatient treatment Status: Acute (5) Hemorrhagic ovarian cyst Status: Acute (6) Hypokalemia Status: Acute (7) Low back pain Status: Acute (8) Pain of right lower extremity Status: Acute (9) Pelvic peritoneal adhesions, female Status: Acute (10) Pyelonephritis Status: Acute (11) Right flank pain Status: Acute (12) Right flank pain Status: Acute (13) Right flank pain Status: Acute (14) Right leg pain Status: Acute (15) Right low back pain Status: Acute (16) Right lower quadrant abdominal pain Status: Acute (17) Right ovarian cyst Status: Acute (18) Sepsis Status: Acute (19) Suprapubic pain Status: Acute (20) Ureteral obstruction Status: Acute (21) Urinary tract infection Status: Acute (22) UTI (urinary tract infection) Status: Acute Family History Not known due to adoption Social History Smoking Status: Never Smoker Drug Use: none Marital Status: single Housing Status: lives with family Occupation Status: disabled Allergies Coded Allergies: No Known Allergies (Unverified , 04/23/18) Home Medications Scheduled Acetaminophen (Tylenol), 975 MG PO DAILY Atorvastatin (Lipitor), 40 MG PO DAILY Insulin Detemir (Levemir Flextouch), 16 UNITS SQ HS Insulin Human Lispro (Humalog Kwikpen), 6 UNITS SQ AC Mycophenolate Mofetil (Cellcept), 1,500 MG PO BIDM Nafarelin Acetate (Synarel), 1 SPRAY SILVIA BID Ondasetron Odt (Zofran Odt), 4 MG SL Q6H Prednisone (Prednisone), 40 MG PO DAILY Scheduled PRN Fmxolyrxmlody-Peehozbc-Nlompod (Midol Maximum Strength Me), 2 TABS PO TID PRN for cramping Oxycodone Ir (Roxicodone Ir), 10 MG PO Q4H PRN for Severe Pain Oxycodone/Acetaminophen 5MG/325MG (Percocet 5MG/325MG), 1 TABLET PO Q6H PRN for Pain Current Inpatient Medications Current Inpatient Medications Medications (Trade) Dose Ordered Sig/Azucena Route Start Time Stop Time Status Last Admin Dose Admin Ioversol (Optiray 320) 100 ml UD PRN IV 04/23/18 17:45 04/27/18 17:44 Review of Systems Constitutional: + problem reported (feeling hot), No fever, No chills Respiratory: No shortness of breath Cardiovascular: No chest pain Abdomen: + pain (RLQ), + nausea, + vomiting, No diarrhea, No constipation Genitourinary - Female: No dysuria, No hematuria Integumentary: No new/changing skin lesions, No color change Physical Exam Date Time Temp Pulse Resp B/P (MAP) Pulse Ox O2 Delivery O2 Flow Rate FiO2 04/23/18 19:00 37.0 82 20 145/81 98 Room Air 04/23/18 16:43 79 18 132/74 99 Room Air 04/23/18 14:41 36.3 86 18 133/88 95 Room Air Patient resting in bed with male and female friends at bedside. General Appearance: no apparent distress, + obese Head: atraumatic ENT: hearing grossly normal Respiratory/Chest: no respiratory distress, no accessory muscle use Abdomen/GI: soft, no organomegaly, no pulsatile mass, + tenderness (Moderate RLQ and suprapubic TTP), + guarding Neurologic/Psych: alert, normal mood/affect, oriented x 3 Skin: normal color, warm/dry Laboratory Results Last 24 Hours Test 04/23/18 15:59 04/23/18 16:40 White Blood Count 17.92 K/uL Red Blood Count 4.45 M/uL Hemoglobin 10.6 g/dL Hematocrit 34.3 % Mean Corpuscular Volume 77.1 fL Mean Corpuscular Hemoglobin 23.8 pg Mean Corpuscular Hemoglobin Concent 30.9 g/dl Platelet Count 405 K/uL Mean Platelet Volume 10.0 fL Neutrophils (%) (Auto) 94.4 % Lymphocytes (%) (Auto) 3.3 % Monocytes (%) (Auto) 1.8 % Eosinophils (%) (Auto) 0.1 % Basophils (%) (Auto) 0.1 % Neutrophils # (Auto) 16.92 K/uL Lymphocytes # (Auto) 0.60 K/uL Monocytes # (Auto) 0.33 K/uL Eosinophils # (Auto) 0.01 K/uL Basophils # (Auto) 0.01 K/uL RDW Standard Deviation 42.7 fL RDW Coefficient of Variation 15.1 % Immature Granulocyte % (Auto) 0.3 % Immature Granulocyte # (Auto) 0.05 K/uL Sodium Level 138 mmol/L Potassium Level 3.4 mmol/L Chloride Level 102 mmol/L Carbon Dioxide Level 26 mmol/L Anion Gap 10.0 mmol/L Blood Urea Nitrogen 14 mg/dl Creatinine 0.97 mg/dl Est Creatinine Clear Calc Drug Dose 96.0 ml/min Estimated GFR () 90.8 Estimated GFR (Non- 78.4 BUN/Creatinine Ratio 14.3 Random Glucose 191 mg/dl Calcium Level 9.1 mg/dl Total Bilirubin 0.3 mg/dl Aspartate Amino Transf (AST/SGOT) 18 U/L Alanine Aminotransferase (ALT/SGPT) 29 U/L Alkaline Phosphatase 71 U/L Total Protein 7.7 gm/dl Albumin 4.0 gm/dl Globulin 3.7 gm/dl Albumin/Globulin Ratio 1.1 Chemistry Specimen Hemolysis Urine Color DK YELLOW Urine Appearance CLEAR Urine pH 5.5 Urine Specific [place] 1.033 Urine Protein 1+ Urine Glucose (UA) NEG Urine Ketones TRACE Urine Occult Blood 3+ Urine Nitrite NEG Urine Bilirubin NEG Urine Urobilinogen NEG Urine Leukocyte Esterase TRACE Urine WBC (Auto) 5-10 /hpf Urine RBC (Auto) >30 /hpf Urine Hyaline Casts (Auto) 1-5 /lpf Urine Epithelial Cells (Auto) >30 /lpf Urine Bacteria (Auto) NEG Urine Test NEG Assessment & Plan RLQ pain, leukocytosis, possible acute appendicitis Patient discussed with Dr. Carl and Jamie Zelaya PA-C. Imaging reviewed. Abdomen soft, non-distended, moderate TTP in RLQ and suprapubic areas w/ guarding, negative rebound. No N/V at this time. afebrile. WBC 17.92. Pain appears similar to symptoms of endometriosis in the past however cannot rule out acute appendicitis based on elevated WBC, exam and mildly dilated appendix on CT. Pain likely related to her endometriosis however cannot rule this out based on labs, imaging and exam - not safe to send home at this point. Will admit on observation and start conservative management for appendicitis - recheck labs and reevaluate in AM. Admit med/surg (obs), can have clears for now, NPO after midnight. IV Mefoxin 2g Q6H, IVF, pain medication prn, anti-emetics prn, SCDs, OOB as tolerated. Plan discussed with patient and her friends - they are agreeable. Contact with questions or concerns.
[2018-04-23] MEDS: HYDROmorphone INJ 0.5 MG/0.5 ML SYR IV PRN ×2 (20:11→21:48)
[2018-04-23] MEDS ORDERED: IV FLUIDS COMPLETED PRN (20:15)
[2018-04-23 20:40] VITALS: BP 132/82; PULSE 75; TEMP 36.6; O2SAT 95; Ht 167.6 cm; Wt 92.0 kg
[2018-04-23] MEDS: SODIUM CHLORIDE 0.9% 1000ML 1,000 ML IV SCH (22:25)
[2018-04-23] MEDS ORDERED: MoRPHine SULFATE 4 MG/ML 1 ML CARP\\VIAL IV PRN (22:45)
[2018-04-23] MEDS: CEFOXITIN IV 2,000 MG in DEXTROSE 5% 50ML 50 ML IV SCH (22:45)
[2018-04-23] MEDS ORDERED: KETOROLAC TROMETHAMINE 30 MG/ML VIAL ONE (22:56)
[2018-04-23 23:31] VITALS: BP 145/93; PULSE 72; TEMP 36.6; O2SAT 98
[2018-04-24] MEDS: CEFOXITIN IV 2,000 MG in DEXTROSE 5% 50ML 50 ML IV SCH (04:00)
[2018-04-24] MEDS: MoRPHine SULFATE 2 MG/ML CARP IV PRN ×2 (04:08→05:54)
[2018-04-24 06:05] LABS: BASO % 0.1 %; BASO ABS # 0.01 K/uL (0-0.2); EOS % 0.1 %; EOS ABS # 0.01 K/uL (0-0.5); HEMATOCRIT 33.4 % (37-47); HEMOGLOBIN 10.2 g/dL (12.0-16.0); IG# 0.06 K/uL (0.00-0.02); LYMPH % 9.8 %; LYMPH ABS # 1.92 K/uL (1.2-3.4); MEAN CORPUSCULAR HEMOGLOBIN 23.5 pg (25-34); MEAN CORPUSCULAR HGB CONC 30.5 g/dl (32-36); MEAN PLATELET VOLUME 9.8 fL (7.4-10.4); MONO % 7.9 %; MONO ABS # 1.55 K/uL (0.11-0.59); NEUT % 81.8 %; NEUT ABS # 16.07 K/uL (1.4-6.5); PLATELET COUNT 411 K/uL (130-400); RED CELL DISTRIBUTION WIDTH SD 42.4 fL (36.4-46.3); WHITE BLOOD COUNT 19.62 K/uL (4.8-10.8)
[2018-04-24 06:35] LABS: CALCIUM 8.9 mg/dl (8.5-10.1); CREATININE 1.12 mg/dl (0.60-1.20); POTASSIUM 3.4 mmol/L (3.5-5.1)
[2018-04-24 07:08] VITALS: BP 148/86; PULSE 75; TEMP 36.6; O2SAT 99
[2018-04-24] MEDS ORDERED: SODIUM CHLORIDE 0.9% 1000ML 1,000 ML IV SCH (08:26)
[2018-04-24] MEDS ORDERED: NALOXONE HCL 0.4 MG/1 ML VIAL/CARP IV PRN (08:30)
[2018-04-24] MEDS ORDERED: HYDROmorphone INJ 1 MG/ML SYR ONE (08:34)
[2018-04-24] MEDS: SODIUM CHLORIDE 0.9% 1000ML 1,000 ML IV SCH (08:39)
[2018-04-24] MEDS ORDERED: PIPERACILL/TAZOBAC CONSULT ACTIVE PRN (08:45)
[2018-04-24] MEDS ORDERED: NURSING VERBAL MED ORDER ONE (08:45)
--- NOTE | 2018-04-24 08:53 | Surgery Progress Note ---
Surgery Progress Note Date of Service Apr 24, 2018. Subjective pt with persistent pain in lower abdomen and low back. feels to her like prior endometriosis attacks which are worsened during her menses ( pt currently on her menstrual cycle) Objective Vital Signs: Date Time Temp Pulse Resp B/P (MAP) Pulse Ox O2 Delivery O2 Flow Rate FiO2 04/24/18 07:08 36.6 75 18 148/86 (106) 99 Room Air 04/23/18 23:55 Room Air 04/23/18 23:31 36.6 72 16 145/93 (110) 98 Room Air 04/23/18 20:40 36.6 75 24 132/82 95 Room Air 04/23/18 19:00 37.0 82 20 145/81 98 Room Air 04/23/18 16:43 79 18 132/74 99 Room Air 04/23/18 14:41 36.3 86 18 133/88 95 Room Air General Appearance: + mild distress Neck: supple, trachea midline Respiratory/Chest: no respiratory distress, no accessory muscle use Abdomen: soft, + pertinent finding (+ttp diffusely in lower abdomen. nonspecific. ) Laboratory Results: Results Past 24 Hours Test 04/23/18 15:59 04/23/18 16:40 04/24/18 05:38 Range/Units White Blood Count 17.92 19.62 4.8-10.8 K/uL Red Blood Count 4.45 4.34 4.2-5.4 M/uL Hemoglobin 10.6 10.2 12.0-16.0 g/dL Hematocrit 34.3 33.4 37-47 % Mean Corpuscular Volume 77.1 77.0 80-100 fL Mean Corpuscular Hemoglobin 23.8 23.5 25-34 pg Mean Corpuscular Hemoglobin Concent 30.9 30.5 32-36 g/dl Platelet Count 405 411 130-400 K/uL Mean Platelet Volume 10.0 9.8 7.4-10.4 fL Neutrophils (%) (Auto) 94.4 81.8 % Lymphocytes (%) (Auto) 3.3 9.8 % Monocytes (%) (Auto) 1.8 7.9 % Eosinophils (%) (Auto) 0.1 0.1 % Basophils (%) (Auto) 0.1 0.1 % Neutrophils # (Auto) 16.92 16.07 1.4-6.5 K/uL Lymphocytes # (Auto) 0.60 1.92 1.2-3.4 K/uL Monocytes # (Auto) 0.33 1.55 0.11-0.59 K/uL Eosinophils # (Auto) 0.01 0.01 0-0.5 K/uL Basophils # (Auto) 0.01 0.01 0-0.2 K/uL RDW Standard Deviation 42.7 42.4 36.4-46.3 fL RDW Coefficient of Variation 15.1 15.0 11.5-14.5 % Immature Granulocyte % (Auto) 0.3 0.3 % Immature Granulocyte # (Auto) 0.05 0.06 0.00-0.02 K/uL Sodium Level 138 138 136-145 mmol/L Potassium Level 3.4 3.4 3.5-5.1 mmol/L Chloride Level 102 102 98-107 mmol/L Carbon Dioxide Level 26 26 21-32 mmol/L Anion Gap 10.0 10.0 3-11 mmol/L Blood Urea Nitrogen 14 12 7-18 mg/dl Creatinine 0.97 1.12 0.60-1.20 mg/dl Est Creatinine Clear Calc Drug Dose 96.0 83.9 ml/min Estimated GFR () 90.8 76.3 Estimated GFR (Non- 78.4 65.9 BUN/Creatinine Ratio 14.3 10.6 10-20 Random Glucose 191 103 70-99 mg/dl Calcium Level 9.1 8.9 8.5-10.1 mg/dl Total Bilirubin 0.3 0.2-1 mg/dl Aspartate Amino Transf (AST/SGOT) 18 15-37 U/L Alanine Aminotransferase (ALT/SGPT) 29 12-78 U/L Alkaline Phosphatase 71 45-117 U/L Total Protein 7.7 6.4-8.2 gm/dl Albumin 4.0 3.4-5.0 gm/dl Globulin 3.7 2.5-4.0 gm/dl Albumin/Globulin Ratio 1.1 0.9-2 Chemistry Specimen Hemolysis Urine Color DK YELLOW Urine Appearance CLEAR CLEAR Urine pH 5.5 4.5-7.5 Urine Specific Harper 1.033 1.000-1.030 Urine Protein 1+ NEG Urine Glucose (UA) NEG NEG Urine Ketones TRACE NEG Urine Occult Blood 3+ NEG Urine Nitrite NEG NEG Urine Bilirubin NEG NEG Urine Urobilinogen NEG NEG Urine Leukocyte Esterase TRACE NEG Urine WBC (Auto) 5-10 0-5 /hpf Urine RBC (Auto) >30 0-4 /hpf Urine Hyaline Casts (Auto) 1-5 0-5 /lpf Urine Epithelial Cells (Auto) >30 0-5 /lpf Urine Bacteria (Auto) NEG NEG Urine Test NEG NEG Assessment & Plan abdominal pain- likely endometriosis related WBC slightly increased from yesterday. ( 19,000) [place] [facility] [place] unable to fulgurate the endometriosis due to severity. they are recommending hysterectomy with bowel resection. will change antibiotics to zosyn start dilaudid SPOOL SALVAGER for pain control discussed with her ob/gyne physicians here. They rec [place] back [place] [facility] agree with. will initiate this process.
[2018-04-24] MEDS ORDERED: PIPERACILL/TAZOBAC IV 3.375 GM in D5W 100 ML IV ONE (09:45)
[2018-04-24] MEDS: HYDROmorphone HCL 0.5MG/ML 50 ML CASSETTE IV PRN ×2 (11:05→15:07)
[2018-04-24] MEDS ORDERED: PIPERACILL/TAZOBAC IV 3.375 GM in DEXTROSE 5% 100ML 100 ML IV SCH (16:00)
== END 2018-04-24 16:00 | disposition short-term general hospital (02) ==
LOC: C.EDB 14:38 → C.MSW 19:39 → ENRESERV 20:13
PROVIDERS: ADMIT Surgery; ATTEND Surgery
DX: R10.31 Right lower quadrant pain (principal); D64.9 Anemia, unspecified; E87.6 Hypokalemia; N83.209 Unspecified ovarian cyst, unspecified side; Z79.4 Long term (current) use of insulin; Z79.899 Other long term (current) drug therapy

== ENCOUNTER 2019-06-20 18:34 | Inpatient (IN) ==
--- OUTSIDE RECORDS SUMMARY | 2019-06-20 18:37 | External Medical Summary | Continuity of Care Document ---
:1985 Author Name Silvano Ovalles, Provider Address Unavailable Unavailable , Care Team Providers Name Role Phone Delano Ovalles, Jenn Lau Unavailable [email or web address] Mikey Ovalles Unavailable [email or web address] Erica BOWIE Unavailable [email or web address] [place] COLL[place] Unavailable Unavailable Unavailable Unavailable Unavailable Problems Female pelvic pain (625.9) (R10.2) Change in vision (368.9) (H53.9) Hydronephrosis, right (591) (N13.30) Endometriosis, pelvic peritoneum (617.3) (N80.3) Dysmenorrhea (625.3) (N94.6) Ovarian cyst, complex (620.2) (N83.299) Urinary urgency (788.63) (R39.15) Cervical cancer screening (V76.2) (Z12.4) Encounter for routine gynecological examination (V72.31) (Z0 1.419) Gross hematuria (599.71) (R31.0) TTP (thrombotic thrombocytopenic purpura) (446.6) (M31.1) Weight disorder (783.9) (R63.8) 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 Josr Wick Start: 08-Feb-2018 Quantity: 20 Refills: 0 Methotrexate TABS Refills: 0 HumaLOG KwikPen 100 UNIT/ML Subcutaneous Solution Pen-injector; INJECT 6 UNITS BEFORE EACH MEAL (18 UNITS DAILY) JAMIR Maldonado Start: 10-Jun-2014 Quantity: 1 3 ML Pen (5 Pens) Refills: 30 BD Pen Needle Original U/F 29G X 12.7MM; For use with insulin four times daily JAMIR Maldonado Start: 09-Aug-2014 Quantity: 2 100 Miscellaneous Jose E x Refills: 11 Levemir FlexPen 100 UNIT/ML Subcutaneous Solution Pen-injector; INJECT 16 UNIT Bedtime JAMIR Maldonado Start: 10-Jun-2014 Quantity: 1 3 ML Pen (5 Pens) Refills: 3 OneTouch Ultra Blue In Vitro Strip; TEST 4 TIMES DAILY. JAMIR Salazar 100 Strip Bottle Quantity: 2 Refills: 11 OneTouch FinePoint Lancets; Test 4 times daily Refills: 0 Procedures History of Eye Surgery Status: Completed History of Gynecologic Laparoscopy With Adhesiolysis Status: Completed History of Salpingo-oophorectomy Left Side Status: Completed Immunizations Polio On: 1987 0:00 DTaP On: 1987 0:00 Polio On: 1987 0:00 DTaP On: 1987 0:00 DTaP On: 1987 0:00 Polio On: 09-Aug-1989 0:00 DTaP On: 09-Aug-1989 0:00 Hepatitis B On: 12-Sep-1989 0:00 HIB On: 11-Oct-1989 0:00 Hepatitis B On: 12-Oct-1989 0:00 Hepatitis B On: 16-Mar-1990 0:00 Polio On: 16-May-1992 0:00 DTaP On: 16-May-1992 0:00 MMR On: 16-May-1992 0:00 MMR On: 04-Mar-1999 0:00 Td On: 04-Mar-1999 0:00 Influenza Comments:no 4 Varicella Not Administered Family History Unknown Family Member Adopted (V68.89) (Z02.82) Status: Active Comments: Othe r Social History - Smoking Status Never smoker Plan of Treatment Planned Observations Planned Goals not documented Results No Known Results Results not documented Encounters Appointment; [facility] WOO[facility], Ultrasound 19-Sep-2018 13:00 Encounter Diagnosis: Problem not documented Appointment; Jenn Wick M.D. 11-Sep-2018 11:45 Encounter Diagnosis: Problem not documented Appointment; Sorin Valerio M.D. 19-Apr-2018 10:40 Encounter Diagnosis: Problem not documented Appointment; Sorin Valerio M.D. 20-Feb-2018 9:35 Encounter Diagnosis: Problem not documented Appointment; Jenn Wick M.D. 08-Feb-2018 12:00 Encounter Diagnosis: Problem not documented Appointment; Jenn Wick M.D. 23-Jan-2018 11:30 Encounter Diagnosis: Problem not documented Appointment; Jenn Wick M.D. 19-Jan-2018 15:45 Encounter Diagnosis: Problem not documented Appointment; [facility] WOO[facility], Ultrasound 12-Jan-2018 10:15 Encounter Diagnosis: Problem not documented Appointment; Jenn Wick M.D. 19-Dec-2017 10:30 Encounter Diagnosis: Problem not documented
[2019-06-20] MEDS ORDERED: SODIUM CHLORIDE 0.9% 1000ML 1,000 ML IV SCH (19:00)
[2019-06-20] MEDS ORDERED: SODIUM CHLORIDE 0.9% 500 ML IV SCH (19:00)
--- NOTE | 2019-06-20 19:35 | XRay Report ---
XR chest 1V portable CLINICAL HISTORY: Dyspnea COMPARISON STUDY: 02/26/2018 FINDINGS: Minimal atelectasis left base. Lungs otherwise appear clear. Diaphragms are smooth. IMPRESSION: Minimal atelectasis left base. Otherwise negative study. The above report was generated using voice recognition software. It may contain grammatical, syntax or spelling errors. Electronically signed by: Norman Medina M.D. 06/20/2019 7:34 PM
[2019-06-20] MEDS ORDERED: ONDANSETRON INJ 2 MG/ML 2 ML VIAL IV STA (19:54)
[2019-06-20] MEDS ORDERED: HYDROmorphone INJ 0.5 MG/0.5 ML SYR IV STA (19:54)
[2019-06-20 20:29] LABS: Appearance Urine Cloudy (Clear); Bacteria Urine Automated Negative (Negative); Bilirubin Urine Negative (Negative); Blood Urine Negative (Negative); Color Urine Dark Yellow; Epithelial Cell Urine Auto >30 /lpf (0-5); Glucose Urine UA Negative (Negative); Ketones Urine Trace (Negative); Leukocyte Esterase Urine 1+ (Negative); Nitrite Urine Negative (Negative); Protein Urine Trace (Negative); RBC Urine Automated 0-4 /hpf (0-4); Urobilinogen Urine Negative (Negative)
[2019-06-20 20:44] LABS: Eosinophils # (auto) 0.13 K/uL (0-0.5); Eosinophils % (auto) 2.9 %; Hematocrit (blood only) 37.1 % (37-47); Hemoglobin 12.4 g/dL (12.0-16.0); Lymphocytes # (auto) 1.22 K/uL (1.2-3.4); Lymphocytes % (auto) 27.4 %; Mean Corpuscular Hemoglobin 26.8 pg (25-34); Mean Corpuscular Hgb Conc 33.4 g/dL (32-36); Mean Corpuscular Volume 80.3 fL (80-100); Mean Platelet Volume 9.9 fL (7.4-10.4); Monocytes # (auto) 0.12 K/uL (0.11-0.59); Monocytes % (auto) 2.7 %; Neutrophils # (auto) 2.99 K/uL (1.4-6.5); Platelet Count 288 K/uL (130-400); RDW Standard Deviation 41.3 fL (36.4-46.3); Red Blood Count 4.62 M/uL (4.2-5.4); White Blood Count 4.46 K/uL (4.8-10.8)
[2019-06-20 20:52] LABS: iSTAT Hemoglobin 13.3 g/dl (12.0-16.0); iSTAT Ionized Calcium 1.12 mmol/l (1.12-1.32); iSTAT Potassium 3.7 mEq/L (3.3-5.0)
[2019-06-20] MEDS ORDERED: OPTIRAY 320 125ml IV PRN (20:56)
[2019-06-20 20:57] LABS: INR 1.1 (0.9-1.1); Partial Thromboplastin Ratio 1.1; Prothrombin Time 11.3 Seconds (9.0-12.0)
[2019-06-20 21:05] LABS: Alanine Aminotransferase 38 U/L (12-78); Albumin Level 3.2 gm/dl (3.4-5.0); Aspartate Aminotransferase 48 U/L (15-37); BUN Creatinine Ratio 10.1 (10-20); Blood Urea Nitrogen 12 mg/dl (7-18); Calcium 9.2 mg/dl (8.5-10.1); Carbon Dioxide 22 mmol/L (21-32); Chloride 104 mmol/L (98-107); Creatinine Clr Calc Pharmacy 85.3 ml/min; Est GFR (African American) 70.7; Glucose 119 mg/dl (70-99); Potassium 3.6 mmol/L (3.5-5.1); Sodium 134 mmol/L (136-145)
[2019-06-20 21:09] LABS: Albumin Globulin Ratio 0.5 (0.9-2); Alkaline Phosphatase 51 U/L (45-117); Bilirubin,Total 0.4 mg/dl (0.2-1); Globulin 5.9 gm/dl (2.5-4.0); Total Protein 9.1 gm/dl (6.4-8.2); Troponin I < 0.015 ng/ml (0-0.045)
--- NOTE | 2019-06-20 22:07 | CT Scan Report ---
CT angio chest PE protocol CT DOSE: 962.05 mGy.cm HISTORY: Dyspnea Dyspnea TECHNIQUE: Multiaxial CT images of the chest were performed following the intravenous administration of contrast to evaluate the pulmonary arteries. Maximal intensity projection images were also obtaine d. A dose lowering technique was utilized adhering to the principles of ALARA. COMPARISON STUDY: None. FINDINGS: The thoracic aorta is normal in course and caliber. The pulmonary vasculature enhances appropriately. The mid and upper lung regions are considered clear . There are findings of bibasilar atelectatic and/or minimal infiltrative type change. There are findings of moderate mediastinal and hilar anisa pathology. Right superior peritracheal nod es measure up to 1.3 cm. Left superior periaortic nodes measure 21.3 cm. Pretracheal nodes measures t o 1.2 cm. Left para-aortic nodes measure to 1.4 cm. Subcarinal nodes measure to 1.9 cm. There is moderate bilateral hilar adenopathy. All these findings may be reactive, although a lymphomatous or other neoplastic process should be con sidered in follow-up if these do not resolve. Limited evaluation of the upper abdomen is unremarkable. IMPRESSION: 1. No evidence of pulmonary embolus. 2. Bilateral basilar atelectatic and/or minimal infiltrative type change. 3. Moderate hilar and mediastinal adenopathy. 4. Although the adenopathy changes are potentially reactive, this patient should be closely followed with repeat scanning or pulmonary consultation. If these do not resolve after appropriate clinical tr eatment, a neoplastic process such as lymphoma would be considered. The above report was generated using voice recognition software. It may contain grammatical, syntax or spelling errors. Electronically signed by: Norman Medina M.D. 06/20/2019 10:05 PM
[2019-06-20] MEDS ORDERED: cefTRIAXone SODIUM 2,000 MG/70 ML BAG IV STA (22:38)
[2019-06-20] MEDS ORDERED: methylPREDNISolone 40 MG in SYRINGE 0 ML IV SCH (23:20)
--- NOTE | 2019-06-21 00:03 | Emergency Department Note ---
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 She states for the past month and couple of weeks, she has had severe chest pain and SOB. She states she went to her underground conduit installer today who performed a d-dimer test which came back elevated, so she recommended the patient come to the ED. The patient denies any past history of blood clots, chance of . As per nursing staff, the patient's oxygen in triage was 88% on RA. Pt regularly takes prednisone. Home Medications Home Medications Medication Instructions Recorded Confirmed Type Durezol 1 drp OPB .Q2HRS 06/20/19 06/20/19 History Humalog Mix 75-25(U-100)Insuln 6 unit SUBCUT AC 06/20/19 06/20/19 History Humira Pen 40 mg SUBCUT .[id number] 06/20/19 06/20/19 History Levemir FlexTouch U-100 Insuln 16 unit SUBCUT HS 06/20/19 06/20/19 History amoxicillin-pot clavulanate 1 tab PO Q12 06/20/19 06/20/19 History atorvastatin [Lipitor] 40 mg PO .HOLD 06/20/19 06/20/19 History oxycodone [Roxicodone] 5 mg PO Q6 PRN 06/20/19 06/20/19 History prednisone 40 mg PO DAILY 30 Days #60 tab 06/21/19 Rx Allergies Allergy/AdvReac Type Severity Reaction Status Date / Time No Known Allergies Allergy Unverified 06/20/19 22:20 Past Med/Surg History Medical History Pelvic pain (Acute 12/05/13) Endometriosis (Chronic) Thrombocytopenia (Acute 01/08/14) Hypotension (Acute 01/08/14) Anemia (Acute) Pancreatitis (Acute) Renal failure (Acute) Thrombocytopenia (Acute) Vomiting (Acute) Periapical abscess (Acute) Diabetes Dental caries (Acute) HTN (hypertension) Ruptured ovarian cyst (Acute) Hx: UTI (urinary tract infection) Right lower quadrant abdominal pain (Acute) Chronic uveitis Dysmenorrhea Ovarian cyst, complex Abdominal pain (Acute) Surgical History S/P ovarian cystectomy Family History Other Family history non-contributory Social History Preferred Language: Albanian Communication Ability: Effective Technology Internship Required: No Beliefs That Will Affect Care: None marital status: Single Current Living Situation: Family Feels Safe at Home: Yes Smoking Status: Never smoker Hx Alcohol Use: No Hx Substance Use: No Review of Systems See HPI for pertinent positives & negatives. and A total of 10 systems reviewed and were otherwise negative Physical Exam Vital Signs Vital Signs - 24 hr 06/20/19 18:39 06/20/19 19:14 06/20/19 19:30 Temperature 36.7 C Temperature Source Oral Sepsis Recent Fever Within 48 Hours No Sepsis Action Taken by Nursing No Action Required Pulse Oximetry Post Tiitration Pulse Rate 124 H 110 H 111 H Pulse Rate from SpO2 Sensor 108 H Respiratory Rate 24 26 H 28 H Respiratory Depth Shallow Blood Pressure 111/69 123/86 120/76 Blood Pressure Mean 83 98 90 Blood Pressure Position Sitting Pulse Oximetry 91 99 Oxygen Delivery Method Room Air Nasal Cannula Oxygen Flow Rate 2 06/20/19 19:44 06/20/19 20:00 06/20/19 21:17 Temperature Temperature Source Sepsis Recent Fever Within 48 Hours Sepsis Action Taken by Nursing Pulse Oximetry Post Tiitration 99 Pulse Rate 110 H 119 H 109 H Pulse Rate from SpO2 Sensor 110 H Respiratory Rate 24 26 H Respiratory Depth Blood Pressure 120/93 132/90 Blood Pressure Mean 102 104 Blood Pressure Position Pulse Oximetry 99 95 Oxygen Delivery Method Nasal Cannula Oxygen Flow Rate 2 06/20/19 21:30 06/20/19 22:16 06/20/19 22:41 Temperature Temperature Source Sepsis Recent Fever Within 48 Hours Sepsis Action Taken by Nursing Pulse Oximetry Post Tiitration Pulse Rate 109 H 109 H 111 H Pulse Rate from SpO2 Sensor 217 H 111 H Respiratory Rate 24 26 H 26 H Respiratory Depth Blood Pressure 137/81 128/83 122/74 Blood Pressure Mean 99 98 90 Blood Pressure Position Pulse Oximetry 97 100 Oxygen Delivery Method Oxygen Flow Rate 06/20/19 23:09 06/20/19 23:30 Temperature Temperature Source Sepsis Recent Fever Within 48 Hours Sepsis Action Taken by Nursing Pulse Oximetry Post Tiitration Pulse Rate 110 H 108 H Pulse Rate from SpO2 Sensor 111 H 108 H Respiratory Rate 33 H 33 H Respiratory Depth Blood Pressure 150/87 H 131/99 Blood Pressure Mean 108 109 Blood Pressure Position Pulse Oximetry 99 100 Oxygen Delivery Method Oxygen Flow Rate Vital signs reviewed. General: Well-appearing female, in no significant distress. HEENT: No scleral icterus, PERRLA, neck supple. Atraumatic. Cardiovascular: Tachycardic rate and regular rhythm, no extra sounds. Pulmonary: Clear to auscultation bilaterally, increased work of breathing. Abdomen: Soft, nontender, nondistended, positive bowel sounds. Musculoskeletal: Atraumatic, no peripheral edema. Neurologic: Patient awake alert and oriented x 3. Skin: Warm, dry, no rash Course 1847: Past medical records reviewed. The patient was evaluated in room C11. A complete history and physical exam was performed. 2022: I checked on the patient at this time. She is tearful and in pain. 2242: Discussed the patient's case with Dr. Aquino, [facility] [address] [facility] Hospitalist. The patient will be evaluated for further management. Administered Medications Discontinued Medications Acetaminophen (Tylenol) 325 mg PO Q6H PRN PRN Reason: Pain or Fever Stop: 07/21/19 00:22 Last Admin: 06/21/19 16:02 Dose: 325 mg Documented by: [id number] Amoxicillin/Clavulanate Potassium (Augmentin 875mg) 1 tab PO BIDM BRE Stop: 06/28/19 16:59 Last Admin: 06/21/19 17:36 Dose: Not Given Documented by: [id number] Hydromorphone HCl (Dilaudid) 0.5 mg IV NOW STA Stop: 06/20/19 19:55 Last Admin: 06/20/19 20:24 Dose: 0.5 mg Documented by: [id number] Sodium Chloride (Nss 1000ml) 1,000 mls @ 125 mls/hr IV .Q8H BRE Stop: 07/20/19 18:59 Last Infusion: 06/21/19 00:51 Dose: 0 mls/hr Documented by: [id number] Admin: 06/20/19 22:18 Dose: 125 mls/hr Documented by: [id number] Sodium Chloride (Nss) 500 mls @ 999 mls/hr IV .Q31M BRE Stop: 06/20/19 19:30 Last Infusion: 06/20/19 20:58 Dose: 0 mls/hr Documented by: [id number] Admin: 06/20/19 20:24 Dose: 999 mls/hr Documented by: [id number] Ceftriaxone Sodium (Rocephin) 2,000 mg in 70 mls @ 140 mls/hr IV NOW STA Stop: 06/20/19 23:07 Last Infusion: 06/20/19 23:40 Dose: 0 mls/hr Documented by: [id number] Admin: 06/20/19 23:02 Dose: 140 mls/hr Documented by: [id number] Methylprednisolone 40 mg/ (Syringe) 0.64 mls @ 1.5 mls/min IV TID BRE Stop: 07/20/19 23:19 Last Admin: 06/20/19 23:35 Dose: 1.5 mls/min Documented by: [id number] Sodium Chloride (Nss 1000ml) 1,000 mls @ 125 mls/hr IV .Q8H BRE Stop: 07/21/19 00:22 Last Infusion: 06/21/19 10:03 Dose: 0 mls/hr Documented by: [id number] Admin: 06/21/19 08:36 Dose: 125 mls/hr Documented by: [id number] Infusion: 06/21/19 08:36 Dose: 0 mls/hr Documented by: [id number] Admin: 06/21/19 01:25 Dose: 125 mls/hr Documented by: [id number] Levofloxacin/Dextrose (Levaquin/D5w) 750 mg in 150 mls @ 100 mls/hr IV Q24H BRE Stop: 06/28/19 00:59 Last Infusion: 06/21/19 02:56 Dose: 0 mls/hr Documented by: [id number] Admin: 06/21/19 01:25 Dose: 100 mls/hr Documented by: [id number] Methylprednisolone 40 mg/ (Syringe) 0.64 mls @ 1.5 mls/min IV Q8H BRE Stop: 07/21/19 07:59 Last Admin: 06/21/19 08:36 Dose: 1.5 mls/min Documented by: [id number] Magnesium Sulfate/Dextrose (Magnesium Sulfate / D5w) 1 gm in 100 mls @ 100 mls/hr IV ONE ONE Stop: 06/21/19 07:44 Last Infusion: 06/21/19 08:30 Dose: 0 mls/hr Documented by: [id number] Admin: 06/21/19 07:27 Dose: 100 mls/hr Documented by: [id number] Methylprednisolone 40 mg/ (Syringe) 0.64 mls @ 1.5 mls/min IV NOW STA Stop: 06/21/19 14:50 Last Admin: 06/21/19 15:40 Dose: 1.5 mls/min Documented by: [id number] Insulin Aspart (Novolog Flexpen) 0 units SC ACHS BRE Stop: 07/21/19 07:29 Last Admin: 06/21/19 17:06 Dose: Not Given Documented by: [id number] Cosigned by: [id number] Admin: 06/21/19 13:09 Dose: Not Given Documented by: [id number] Cosigned by: [id number] Admin: 06/21/19 08:35 Dose: 4 units Documented by: [id number] Cosigned by: [id number] Ioversol (Optiray 320 125ml) 118 ml IV ONCE PRN PRN Reason: Interaction Checking Stop: 06/24/19 20:55 Last Admin: 06/20/19 20:57 Dose: 118 ml Documented by: [id number] Ketorolac Tromethamine (Toradol) 30 mg IV NOW ONE Stop: 06/21/19 00:24 Last Admin: 06/21/19 01:25 Dose: 30 mg Documented by: [id number] Methylprednisolone (Solumedrol) Confirm Administered Dose 40 mg .ROUTE .STK-MED ONE Stop: 06/20/19 23:31 Last Admin: 06/20/19 23:35 Dose: Not Given Documented by: [id number] Miscellaneous (Order Awaiting Action) 1 ea N/A QS BRE Stop: 07/21/19 07:59 Last Admin: 06/21/19 15:54 Dose: Not Given Documented by: [id number] Admin: 06/21/19 08:31 Dose: Not Given Documented by: [id number] Ondansetron HCl (Zofran) 4 mg IV NOW STA Stop: 06/20/19 19:55 Last Admin: 06/20/19 20:24 Dose: 4 mg Documented by: [id number] Medical Decision Making Differential Diagnosis Differential diagnosis: Etiologies such as infections, reactive airway disease, pneumonia, pneumothorax, COPD, CHF, cardiac ischemia, pulmonary embolism, musculoskeletal, gastrointestinal, as well as others were entertained. Medical Records Attestation: I reviewed the patient's medical records. Home Medications Current Medication List: was personally reviewed by me Laboratory Data Attestation: I reviewed the patient's lab results. Result diagrams: 06/21/19 05:22 06/21/19 05:22 Lab Results 06/20/19 06/20/19 06/20/19 Range/Units 20:10 20:36 20:36 WBC 4.46 L (4.8-10.8) K/uL RBC 4.62 (4.2-5.4) M/uL Hgb 12.4 (12.0-16.0) g/dL POC Hgb (12.0-16.0) g/dl Hct 37.1 (37-47) % POC Hct (37-47) % MCV 80.3 (80-100) fL MCH 26.8 (25-34) pg MCHC 33.4 (32-36) g/dL RDW Std Deviation 41.3 (36.4-46.3) fL RDW Coeff of Nicholas 14.0 (11.5-14.5) % Plt Count 288 (130-400) K/uL MPV 9.9 (7.4-10.4) fL Immature Gran % (Auto) 0.0 % Neut % (Auto) 67.0 % Lymph % (Auto) 27.4 % [place] % (Auto) 2.7 % Eos % (Auto) 2.9 % Baso % (Auto) 0.0 % Immature Gran # (Auto) 0.00 (0.00-0.02) K/uL Neut # (Auto) 2.99 (1.4-6.5) K/uL Lymph # (Auto) 1.22 (1.2-3.4) K/uL [place] # (Auto) 0.12 (0.11-0.59) K/uL Eos # (Auto) 0.13 (0-0.5) K/uL Baso # (Auto) 0.00 (0-0.2) K/uL PT 11.3 (9.0-12.0) Seconds INR 1.1 (0.9-1.1) APTT 29.0 (21.0-31.0) Seconds PTT Ratio 1.1 POC Sodium (135-144) mEq/L Sodium (136-145) mmol/L POC Potassium (3.3-5.0) mEq/L Potassium (3.5-5.1) mmol/L POC Chloride (101-112) mEq/L Chloride (98-107) mmol/L Carbon Dioxide (21-32) mmol/L POC Total CO2 (24-31) mEq/l Anion Gap (3-11) POC Anion Gap (16-25) mmol/L POC BUN (7-18) mg/dl BUN (7-18) mg/dl Creatinine (0.6-1.2) mg/dl POC Creatinine (0.6-1.3) mg/dl Est Cr Clr Drug Dosing ml/min Est GFR ( Amer) Est GFR (Non-Af Amer) BUN/Creatinine Ratio (10-20) Glucose (70-99) mg/dl POC Glucose (other) (70-99) mg/dl Calcium (8.5-10.1) mg/dl POC Ioniz Calcium Meme (1.12-1.32) mmol/l Total Bilirubin (0.2-1) mg/dl AST (15-37) U/L ALT (12-78) U/L Alkaline Phosphatase (45-117) U/L Troponin I (0-0.045) ng/ml Total Protein (6.4-8.2) gm/dl Albumin (3.4-5.0) gm/dl Globulin (2.5-4.0) gm/dl Albumin/Globulin Ratio (0.9-2) Urine Color Dark Yellow Urine Appearance Cloudy A (Clear) Urine pH 5.0 (4.5-7.5) Ur Specific Raymond 1.030 (1.000-1.030) Urine Protein Trace H (Negative) Urine Glucose (UA) Negative (Negative) Urine Ketones Trace H (Negative) Urine Blood Negative (Negative) Urine Nitrite Negative (Negative) Urine Bilirubin Negative (Negative) Urine Urobilinogen Negative (Negative) Ur Leukocyte Esterase 1+ H (Negative) Urine WBC (Auto) 10-30 H (0-5) /hpf Urine RBC (Auto) 0-4 (0-4) /hpf U Hyaline Cast (Auto) 1-5 (0-5) /lpf U Epithel Cells (Auto) >30 H (0-5) /lpf Urine Bacteria (Auto) Negative (Negative) 06/20/19 06/20/19 Range/Units 20:36 20:39 WBC (4.8-10.8) K/uL RBC (4.2-5.4) M/uL Hgb (12.0-16.0) g/dL POC Hgb 13.3 (12.0-16.0) g/dl Hct (37-47) % POC Hct 39 (37-47) % MCV (80-100) fL MCH (25-34) pg MCHC (32-36) g/dL RDW Std Deviation (36.4-46.3) fL RDW Coeff of Nicholas (11.5-14.5) % Plt Count (130-400) K/uL MPV (7.4-10.4) fL Immature Gran % (Auto) % Neut % (Auto) % Lymph % (Auto) % [place] % (Auto) % Eos % (Auto) % Baso % (Auto) % Immature Gran # (Auto) (0.00-0.02) K/uL Neut # (Auto) (1.4-6.5) K/uL Lymph # (Auto) (1.2-3.4) K/uL [place] # (Auto) (0.11-0.59) K/uL Eos # (Auto) (0-0.5) K/uL Baso # (Auto) (0-0.2) K/uL PT (9.0-12.0) Seconds INR (0.9-1.1) APTT (21.0-31.0) Seconds PTT Ratio POC Sodium 137 (135-144) mEq/L Sodium 134 L (136-145) mmol/L POC Potassium 3.7 (3.3-5.0) mEq/L Potassium 3.6 (3.5-5.1) mmol/L POC Chloride 103 (101-112) mEq/L Chloride 104 (98-107) mmol/L Carbon Dioxide 22 (21-32) mmol/L POC Total CO2 24 (24-31) mEq/l Anion Gap 9.0 (3-11) POC Anion Gap 14.0 L (16-25) mmol/L POC BUN 11 (7-18) mg/dl BUN 12 (7-18) mg/dl Creatinine 1.18 (0.6-1.2) mg/dl POC Creatinine 1.0 (0.6-1.3) mg/dl Est Cr Clr Drug Dosing 85.3 ml/min Est GFR ( Amer) 70.7 Est GFR (Non-Af Amer) 61.0 BUN/Creatinine Ratio 10.1 (10-20) Glucose 119 H (70-99) mg/dl POC Glucose (other) 123 H (70-99) mg/dl Calcium 9.2 (8.5-10.1) mg/dl POC Ioniz Calcium Meme 1.12 (1.12-1.32) mmol/l Total Bilirubin 0.4 (0.2-1) mg/dl AST 48 H (15-37) U/L ALT 38 (12-78) U/L Alkaline Phosphatase 51 (45-117) U/L Troponin I < 0.015 (0-0.045) ng/ml Total Protein 9.1 H (6.4-8.2) gm/dl Albumin 3.2 L (3.4-5.0) gm/dl Globulin 5.9 H (2.5-4.0) gm/dl Albumin/Globulin Ratio 0.5 L (0.9-2) Urine Color Urine Appearance (Clear) Urine pH (4.5-7.5) Ur Specific Raymond (1.000-1.030) Urine Protein (Negative) Urine Glucose (UA) (Negative) Urine Ketones (Negative) Urine Blood (Negative) Urine Nitrite (Negative) Urine Bilirubin (Negative) Urine Urobilinogen (Negative) Ur Leukocyte Esterase (Negative) Urine WBC (Auto) (0-5) /hpf Urine RBC (Auto) (0-4) /hpf U Hyaline Cast (Auto) (0-5) /lpf U Epithel Cells (Auto) (0-5) /lpf Urine Bacteria (Auto) (Negative) Imaging Data Radiologist's Impression: Radiology results as stated below per my review and the radiologist's interpretation: CT angio chest PE protocol CT DOSE: 962.05 mGy.cm HISTORY: Dyspnea Dyspnea TECHNIQUE: Multiaxial CT images of the chest were performed following the intravenous administration of contrast to evaluate the pulmonary arteries. Maximal intensity projection images were also obtained. A dose lowering technique was utilized adhering to the principles of ALARA. COMPARISON STUDY: None. FINDINGS: The thoracic aorta is normal in course and caliber. The pulmonary vasculature enhances appropriately. The mid and upper lung regions are considered clear. There are findings of bibasilar atelectatic and/or minimal infiltrative type change. There are findings of moderate mediastinal and hilar anisa pathology. Right superior peritracheal nodes measure up to 1.3 cm. Left superior periaortic nodes measure 21.3 cm. Pretracheal nodes measures to 1.2 cm. Left para-aortic nodes measure to 1.4 cm. Subcarinal nodes measure to 1.9 cm. There is moderate bilateral hilar adenopathy. All these findings may be reactive, although a lymphomatous or other neoplastic process should be considered in follow-up if these do not resolve. Limited evaluation of the upper abdomen is unremarkable. IMPRESSION: 1. No evidence of pulmonary embolus. 2. Bilateral basilar atelectatic and/or minimal infiltrative type change. 3. Moderate hilar and mediastinal adenopathy. 4. Although the adenopathy changes are potentially reactive, this patient should be closely followed with repeat scanning or pulmonary consultation. If these do not resolve after appropriate clinical treatment, a neoplastic process such as lymphoma would be considered. The above report was generated using voice recognition software. It may contain grammatical, syntax or spelling errors. Electronically signed by: Norman Medina M.D. 06/20/2019 10:05 PM XR chest 1V portable CLINICAL HISTORY: Dyspnea COMPARISON STUDY: 02/26/2018 FINDINGS: Minimal atelectasis left base. Lungs otherwise appear clear. Diaphragms are smooth. IMPRESSION: Minimal atelectasis left base. Otherwise negative study. The above report was generated using voice recognition software. It may contain grammatical, syntax or spelling errors. Electronically signed by: Norman Medina M.D. 06/20/2019 7:34 PM ECG Data Attestation: I personally reviewed and interpreted this ECG as follows: Indication: SOB/dyspnea Rate (beats per minute): 113 Findings: + Q waves (Inferior); no acute ischemic change and no ectopy Blood Pressure Blood Pressure Findings: Normal blood pressure Blood Pressure Disposition: further management by hospitalist MDM Narrative This patient was evaluated and appeared to be in no significant distress. IV access was obtained and laboratory work was drawn. The patient was placed on a learning engineer and appeared to be in in some discomfort, but no distress. Patient is tachycardic on exam. IV fluids were ordered as well is IV Dilaudid and Zofran. There was great difficulty in obtaining IV access and laboratory work. A 20-gauge catheter was placed in the left shoulder. Once laboratory work was drawn from a different site, patient was taken to CAT scan for CT angio. Patient's IV did infiltrate. Patient was brought back to the emergency department where a left external jugular Angiocath was placed by myself. Patient was returned to CT scan where the CT study was complete. There is great concern for hilar and mediastinal adenopathy. Patient does have some consolidative change and mild hypoxia. She was on nasal cannula oxygen. Patient was feeling much improved after pain medications. She was given IV ceftriaxone however blood cultures were not obtained given the 6-8 punctures (and great anxiety) the patient had already had prior to CT scan. Case was discussed with Dr. Sarai Carreno of the hospitalist service to evaluate the patient for admission and further management. Impression & Plan Pneumonia, Adenopathy, hilar, Hypoxia Discharge Plan Visit Data *Final* Discharge Date/Time: 06/21/19 00:15 Chief Complaint: Shortness of Breath/Dyspnea Stated Complaint: SOB ED Provider: Sonam Cardoza Discharge Problem: Pneumonia, Adenopathy, hilar, Hypoxia Patient Disposition: Admitted As Inpatient Condition: Good Discharge Instructions Interventions: ED Discharge Assessment Last Done: 06/21/19 00:15 Discharge Problem: Pneumonia Qualifiers: Pneumonia type: due to unspecified organism Laterality: bilateral Lung location: lower lobe of lung Qualified Code(s): J18.1 - Lobar pneumonia, unspecified organism The scribe's documentation has been prepared under my direction and personally reviewed by me in its entirety. I confirm that the note above accurately reflects all work, treatment, procedures, and medical decision making performed by me.
[2019-06-21] MEDS ORDERED: POLYETHYLENE (MIRALAX) 17 GM PACK PO PRN (00:23)
[2019-06-21] MEDS ORDERED: OXYCODONE HCL IR 5 MG TAB (IMMEDIATE RELEASE) PO PRN (00:23)
[2019-06-21] MEDS ORDERED: ACETAMINOPHEN 325 MG TAB PO PRN ×2 (00:23→12:06)
[2019-06-21] MEDS ORDERED: KETOROLAC 30 MG/ML VIAL IV ONE (00:23)
[2019-06-21] MEDS ORDERED: ONDANSETRON INJ 2 MG/ML 2 ML VIAL IV PRN (00:23)
[2019-06-21] MEDS ORDERED: NITROGLYCERIN SL 0.4 MG/TAB TAB SL PRN (00:23)
--- NOTE | 2019-06-21 00:37 | History and Physical Report ---
DATE OF ADMISSION: 06/20/2019 CHIEF COMPLAINT: Shortness of breath, generalized weakness and generalized body aches. HISTORY OF PRESENT ILLNESS: This 34-year-old female with past medical history significant for uveitis, blindness in both eyes , history of severe endometriosis, history of TTP, history of steroid-induced diabetes mellitus who presents with about 4-6 weeks of generalized weakness, generalized body ache and not able to ambulate much because of pain , spending most of the time in the bed. She was also recently prescribed Augmentin for sinusitis and she has a couple of more tablets left ,She was seen by rheumatology today because of her ongoing symptoms and her RICKY came back positive and ESR was 67.She was on prednisone 40 mg and currently tapered down to 15mg daily. There was a question of her symptoms from low prednisone dose but but she has been on it for the past few months as per rheumatology notes. Her Di Dimer was elevated and so she was sent in here because of possible pulmonary embolism. She was hard stick and Er has to do Left IJ line,. CTA of the chest was done which was negative for pulmonary embolism, but showed moderate hilar and mediastinal adenopathy, bilateral bibasilar atelectatic versus minimal infiltrate type change. The patient was tachycardic in the Emergency Room and short of breath and requiring 2 liters of oxygen, afebrile. The patient states she has generalized body aches but also she has accompanying left lower quadrant abdominal pain 5/10 in severity. She is constipated . Has mild cough, but no phlegm. She is legally blind. She ambulates with the help of a walker. She lives with sister and [id number]. She states her appetite is not great. She is not eating much. She states she has had difficulty swallowing before. Now, she is doing better with small bites. Denies any headache. No earache. No runny nose. No sore throat currently. She states her sinusitis symptoms improved with Augmentin. No nausea. No vomiting. Normal bowel and bladder movements. No burning micturition. No swelling in the legs. She is not sleeping well.She could not check her body to look for any rashes because she is legally blind. Even after fluid restriction, she is somewhat tachycardic and requires oxygen. She used to be on CellCept in the past for uveitis, but her insurance denied it. So, she is currently on Humira every 2 weeks since last October. ALLERGIES: No known drug allergies. PAST MEDICAL HISTORY: As mentioned above. PAST SURGICAL HISTORY: Removal of inner eye fluid and removal of intraocular eye implant. MEDICATIONS: The patient is on oxycodone IR 5 mg every 6 hours p.r.n., Augmentin 875 mg 1 tablet b.i.d., Flexeril 5 mg p.o. t.i.d. p.r.n., Humira every 2 weeks. Tylenol 1000 mg every 6 hours p.r.n., prednisone 15mg daily,Levemir 16units daily, Humalog 6 units t.i.d., Durezol 0.005% ophthalmic 1 drop both eyes 4 times a day. FAMILY HISTORY: Adopted. SOCIAL HISTORY: Single, lives with her sister and [id number]. No smoking. No alcohol. No drug use. REVIEW OF SYMPTOMS: As per HPI. Rest of review of systems negative. PHYSICAL EXAMINATION: GENERAL: The patient is of moderate build, in mild respiratory distress. VITAL SIGNS: Temperature 36.7, pulse 110, blood pressure 150/87, respiratory rate into the high 20s and oxygen 99% on 2 liters. HEENT: No pallor. No icterus. Pupils are equal, round and reactive to light. NECK: No JVD. No neck masses. Left IJ present. CARDIOVASCULAR: S1, S2 heard. Tachycardia. No murmurs. RESPIRATORY SYSTEM: Normal AP diameter. No accessory muscle use. No wheezing. No crackles. ABDOMEN: Soft. Bowel sounds present. Mild left lower quadrant tenderness. No guarding. No distention. No rigidity. CENTRAL NERVOUS SYSTEM: Nonfocal. EXTREMITIES: No edema. No erythema. LABORATORY DATA: WBC 4.4, hemoglobin 12.4, hematocrit 37.1 and platelets 288. PT 11.3. INR 1.1. APTT 29. Sodium 134, potassium 3.6, chloride 104, CO2 of 22, BUN 12, creatinine 1.1, serum glucose 119, calcium 9.2 total bilirubin 0.4, AST 48, ALT 38 and alkaline phosphatase 51. Troponin I less than 0.015. Urinalysis, cloudy, leukocyte esterase present. Chest x-ray minimal atelectasis left base, otherwise negative study. IMAGING: CTA of the chest, no evidence of pulmonary embolus, bilateral bibasilar atelectatic and/or minimal infiltrate type change, moderate hilar and mediastinal adenopathy .Repeat scanning or pulmonary consultation. If these do not resolve after appropriate clinical treatment, a neoplastic process such as lymphoma could be considered. Electrocardiogram, sinus tachycardia at a rate of 113 and nonspecific T-wave abnormality seen. ASSESSMENT AND PLAN: This is a 34-year-old female who presents with generalized body aches and shortness of breath. 1. Shortness of breath, generalized body aches and tachycardia, currently on Augmentin for sinusitis, which is improving. CTA of the chest, no pulmonary embolism, but shows bibasilar atelectasis versus inflammatory changes . We will empirically place on Levaquin. Continue I.V. fluids. Also, there are hilar and mediastinal lymphadenopathy, possibly reactive, but we will get pulmonary evaluation as the patient is on Humira and also the patient has autoimmune disease with uveitis. Needs repeat ct scan to check for resolution of lymphadenopathy Her symptoms could be possible drug-induced lupus or fibromyalgia as per rheumatology's notes. We will empirically start on I.V. steroids and consult also rheumatology in a.m. for further recommendations and closely monitor on the tele floor. A dose of iv Toradol given. 2. History of uveitis, At home currently on prednisone 15 mg daily. Currently holding p.o. prednisone and I.V. steroids as above. Follows with ophthalmology. She has blindness in both eyes, but can see a little. Continue on eyedrops. 3. Steroid-induced diabetes mellitus. Continue his home long acting insulin and insulin sliding scale. Follow the blood sugars. The patient currently on I.V. steroids. 4. History of thrombotic thrombocytopenic purpura, platelets are okay. We will monitor. 5. History of severe endometriosis, status post surgery, . 6. LLQ abdominal pain and tenderness on palpation. Will follow ct scan abd/pelvis. 7. Deep venous thrombosis prophylaxis, sequential compression devices for now. 8. Disposition: Closely monitor on tele floor. Level 1 full code. Physical therapy and occupational therapy prior to discharge. Social Service to help with discharge planning. [facility]
[2019-06-21] MEDS ORDERED: LEVOFLOXACIN CONSULT ACTIVE PRN (00:52)
[2019-06-21] MEDS ORDERED: LEVOFLOXACIN/D5W 750 MG/150 ML BAG IV SCH (01:00)
[2019-06-21] MEDS: SODIUM CHLORIDE 0.9% 1000ML 1,000 ML IV SCH ×2 (01:25→08:36)
[2019-06-21] MEDS ORDERED: DEXTROSE 50% 50 ML SYRINGE IV PRN (03:15)
[2019-06-21] MEDS ORDERED: GLUCOSE 40% GEL 15 GM TUBE PO PRN (03:15)
[2019-06-21] MEDS ORDERED: GLUCOSE 10 TABS/TUBE PO PRN (03:15)
[2019-06-21] MEDS ORDERED: GLUCAGON FOR INJ 1 MG VIAL SQ PRN (03:15)
[2019-06-21] MEDS ORDERED: CARBOHYDRATES FOR HYPOGLYCEMIA PO PRN (03:15)
[2019-06-21 05:44] LABS: Eosinophils # (auto) 0.01 K/uL (0-0.5); Eosinophils % (auto) 0.2 %; Hematocrit (blood only) 38.4 % (37-47); Hemoglobin 12.5 g/dL (12.0-16.0); Immature Granulocytes # (auto) 0.01 K/uL (0.00-0.02); Immature Granulocytes % (auto) 0.2 %; Lymphocytes # (auto) 0.53 K/uL (1.2-3.4); Lymphocytes % (auto) 10.1 %; Mean Corpuscular Hemoglobin 26.5 pg (25-34); Mean Corpuscular Hgb Conc 32.6 g/dL (32-36); Mean Corpuscular Volume 81.4 fL (80-100); Mean Platelet Volume 10.6 fL (7.4-10.4); Monocytes # (auto) 0.07 K/uL (0.11-0.59); Monocytes % (auto) 1.3 %; Neutrophils # (auto) 4.65 K/uL (1.4-6.5); Neutrophils % (auto) 88.2 %; Platelet Count 308 K/uL (130-400); RDW Coefficient of Variation 13.8 % (11.5-14.5); RDW Standard Deviation 41.3 fL (36.4-46.3); Red Blood Count 4.72 M/uL (4.2-5.4); White Blood Count 5.27 K/uL (4.8-10.8)
[2019-06-21 06:00] LABS: Estimated Average Glucose 163 mg/dl; Hemoglobin A1C 7.3 % (4.5-5.6)
[2019-06-21 06:21] LABS: Albumin Level 3.1 gm/dl (3.4-5.0); BUN Creatinine Ratio 9.3 (10-20); Bilirubin Direct 0.1 mg/dl (0-0.2); Bilirubin,Total 0.3 mg/dl (0.2-1); Creatinine Clr Calc Pharmacy 80.9 ml/min; Est GFR (African American) 65.9; Est GFR (Non-African American) 56.9; Magnesium 1.7 mg/dl (1.8-2.4); Potassium 4.5 mmol/L (3.5-5.1); Total Protein 9.1 gm/dl (6.4-8.2)
[2019-06-21] MEDS ORDERED: MAGNESIUM SULFATE / D5W 1 GM/100 ML BAG IV ONE (06:45)
--- NOTE | 2019-06-21 07:39 | CT Scan Report ---
ABDOMEN AND PELVIS CT WITHOUT CONTRAST CT DOSE: 1411.27 mGy.cm HISTORY: Acute left lower quadrant abdominal pain LLQ abd pain TECHNIQUE: Multiaxial CT images of the abdomen and pelvis were performed without contrast. A dose lo wering technique was utilized adhering to the principles of ALARA. COMPARISON STUDY: CT abdomen and pelvis 04/23/2018, CTA chest 06/20/2019. FINDINGS: Bibasilar groundglass and patchy consolidative opacities. No pneumatosis or pneumoperitoneum. Imaged inferior cardiac chambers appear unremarkable. Mild partially imaged bilateral hilar prominence, limi stephanie evaluation without the use of IV contrast with persistent adenopathy. Limited evaluation of the s olid abdominal organs without the use of IV contrast. Within limitations of the exam, the liver, sple en, gallbladder, pancreas and adrenal glands are unremarkable. Contrast noted within the bilateral re nal collecting systems and urinary bladder. No filling defects within the collecting systems identifi ed. No obstructive uropathy. Symmetric enhancement of the kidneys. Hysterectomy. No adnexal mass lesi ons. Aorta and IVC are unremarkable. No bowel obstruction or bowel wall thickening. Appendectomy. Postoperative changes of the abdominal w all with areas of scarring. The soft tissues appear unremarkable. Bones appear intact. No acute fracture. IMPRESSION: 1. Bibasilar groundglass and consolidative opacities suggest atelectasis. Correlate clinically to exc lude pneumonitis. 2. Partially imaged bilateral hilar and subcarinal adenopathy is better seen and described on CTA fco st from 06/20/2019. 3. No acute intra-abdominal or intrapelvic abnormality. 4. Appendectomy and hysterectomy. Electronically signed by: Andry Clark M.D. 06/21/2019 7:37 AM
[2019-06-21] MEDS ORDERED: methylPREDNISolone 40 MG in SYRINGE 0 ML IV SCH (08:00)
[2019-06-21] MEDS: DUREZOL~ORDER AWAITING ACTION SCH ×2 (08:31→15:54)
[2019-06-21] MEDS: INSULIN ASPART 100 UNITS/ML 3 ML PEN SC SCH ×3 (08:35→17:06)
[2019-06-21] MEDS ORDERED: ELAGOLIX 150 MG PO SCH (09:00)
--- NOTE | 2019-06-21 12:14 | Pulmonary Consultation ---
Date of Consultation June 21, 2019 Assessment & Plan (1) Adenopathy, hilar: Impression: 34-year-old female with history of uveitis on chronic suppression of unclear etiology. She has incidentally noted hilar adenopathy and an elevated sed rate. These findings are both nonspecific. Enlarged mediastinal nodes can be in the setting of an infection and the patient is currently on antibiotics in the setting of a sinus infection. Other etiologies such as sarcoid or Castleman's would be in the differential as well. The patient is already on immunosuppression so I am unclear what additional information might be gleaned by pursuing a biopsy at this point in time. I re commend close consultation with her barley steeper. If sarcoid is on the differential and they feel it may offer a change in her clinical management, the lymph nodes are amenable to endobronchial ultrasound transbronchial needle aspiration. She does not require immunosuppression for sarcoid for lung disease if this is indeed found to be sarcoid as she would be graded as a stage I based on her chest x-ray. Recommendations: 1. Abnormal CT scan with adenopathy: Recommend consultation with rheumatology. Inpatient rheumatology consultation is not available at this hospital and given the fact that the patient is managed by [facility] outpatient rheumatology, consideration for follow-up through [facility] pulmonary may be appropriate. This may be especially helpful as the patient is currently managed through a multidisciplinary care approach through [facility]. If a decision is made to pursue with evaluating these mediastinal nodes, I would recommend a follow-up CT scan in approximately 8 to 12 weeks after the patient is completed a course of antibiotics. If they persist and again a tissue diagnosis would alter management, consideration for bronchoscopy with endobronchial ultrasound and transbronchial needle aspiration would be appropriate at that time. Yield may be significantly decreased as the patient is already on immunosuppression. 2. Hypoxemia: Suspect atelectasis. Pulmonary toilet as needed. Wean oxygen as tolerated. 3. The patient has a normal white count no fevers. She is on Augmentin for sinuses. I would recommend discontinuation of the Levaquin and completing the course of Augmentin as prescribed in the outpatient setting. 4. The patient does not appear to require inpatient evaluation currently and I think the remainder of her work-up can be completed in the outpatient setting. Disposition is deferred to her admitting service. (2) Hypoxia: (3) Abnormal CT scan of lung: History of Present Illness Attending Physician: Yoandy Angel MD History of Present Illness Asked by hospitalist to evaluate patient with abnormal CT scan. Patient seen and examined and films and apparently reviewed. Patient interviewed at the bedside. The patient is a 34-year-old female with a history of uveitis followed by rheumatology on chronic immunosuppressive therapy. She cannot tell me a reason why she had uveitis and went to express any recollection of that having been discussed previously. She is currently taking prednisone, Humira and eyedrops and was recently started on Augmentin for sinus infection. She follows through the [facility] barley steeper. She reportedly has been having shortness of breath and cough going on for several weeks. A d-dimer was ordered in the office which was positive and the patient was referred for CT angiogram which was performed and the patient was subsequently admitted. CT angiogram showed no evidence of pulmonary embolism but did show some basilar atelectatic changes as well as some nonspecific mediastinal and hilar adenopathy. The patient was admitted and placed on steroids and antibiotics in the form of Rocephin in the emergency room which was then transitioned to Levaquin. The patient does have an elevated ESR of 90. She cannot recall having had prior CT scans performed in this system and she is unclear whether she has had them in the outside system. She has not seen a clock assembler previously. She is adopted and does not relate any significant family history. She does not report any skin rashes but as she is legally blind states that she would not really notice if she were to have skin with point of some arthralgias specifically in the knees but affecting all of her joints. She is never had any liver abnormalities that she is aware of. Allergies Allergy/AdvReac Type Severity Reaction Status Date / Time No Known Allergies Allergy Unverified 06/20/19 22:20 Home Medications Home Medications Medication Instructions Recorded Confirmed Type adalimumab [Humira Pen] 40 mg SUBCUT .[id number] 06/20/19 06/20/19 History amoxicillin-pot clavulanate 1 tab PO Q12 06/20/19 06/20/19 History atorvastatin [Lipitor] 40 mg PO .HOLD 06/20/19 06/20/19 History difluprednate [Durezol] 1 drp OPB .Q2HRS 06/20/19 06/20/19 History insulin detemir U-100 [Levemir 16 unit SUBCUT HS 10/16/19 10/16/19 History FlexTouch U-100 Insuln] insulin lispro protamin-lispro 6 unit SUBCUT AC 06/20/19 06/20/19 History [Humalog Mix 75-25(U-100)Insuln] oxycodone [Roxicodone] 5 mg PO Q6 PRN 06/20/19 06/20/19 History prednisone 15 mg PO QAM 06/20/19 06/20/19 History Patient History Medical History Pelvic pain (Acute 12/05/13) Endometriosis (Chronic) Thrombocytopenia (Acute 01/08/14) Hypotension (Acute 01/08/14) Anemia (Acute) Pancreatitis (Acute) Renal failure (Acute) Thrombocytopenia (Acute) Vomiting (Acute) Periapical abscess (Acute) Diabetes Dental caries (Acute) HTN (hypertension) Ruptured ovarian cyst (Acute) Hx: UTI (urinary tract infection) Right lower quadrant abdominal pain (Acute) Chronic uveitis Dysmenorrhea Ovarian cyst, complex Abdominal pain (Acute) Surgical History S/P ovarian cystectomy Family History Other Family history non-contributory Social History Preferred Language: Greek Communication Ability: Effective Photograph Mounter Required: No Beliefs That Will Affect Care: None Current Living Situation: Family Other Information That Helps Us Care for You: No Feels Safe at Home: Yes Safety Concerns: Feels Safe At This Time Smoking Status: Never smoker Hx Alcohol Use: No Hx Substance Use: No Review of Systems Review of Systems: 12 point review of systems completed with the patient. Please refer to the admission H&P. I have no additions or deletions Physical Exam Constitutional: WD/WN, vitals as above Patient is legally blind Neck: trachea midline, no thyromegaly No cervical adenopathy Respiratory: normal respiratory effort, lungs clear to auscultation Cardiovascular: RRR, no murmur, no edema Gastrointestinal (Abdomen): normal bowel sounds, soft, nontender, no hepatosplenomegaly Musculoskeletal: no cyanosis or clubbing, extremities motor strength 5/5 Skin: no rashes, warm and dry Neurologic: Nonfocal exam Results & Data Vital Signs (Past 12 Hours) Vital Signs Temp Pulse Resp BP BP Pulse Ox 06/21/19 11:23 36.5 C 71 18 132/77 96 06/21/19 07:55 36.3 C L 72 18 120/81 97 06/21/19 04:00 36.6 C 83 18 114/76 99 06/21/19 00:32 36.6 C 119 H 18 116/77 95 Laboratory Results 06/21/19 05:22 06/21/19 05:22 ESR greater than [address] chest independently reviewed CT angio chest PE protocol CT DOSE: 962.05 mGy.cm HISTORY: Dyspnea Dyspnea TECHNIQUE: Multiaxial CT images of the chest were performed following the intravenous administration of contrast to evaluate the pulmonary arteries. Maximal intensity projection images were also obtained. A dose lowering technique was utilized adhering to the principles of ALARA. COMPARISON STUDY: None. FINDINGS: The thoracic aorta is normal in course and caliber. The pulmonary vasculature enhances appropriately. The mid and upper lung regions are considered clear. There are findings of bibasilar atelectatic and/or minimal infiltrative type change. There are findings of moderate mediastinal and hilar anisa pathology. Right superior peritracheal nodes measure up to 1.3 cm. Left superior periaortic nodes measure 21.3 cm. Pretracheal nodes measures to 1.2 cm. Left para-aortic nodes measure to 1.4 cm. Subcarinal nodes measure to 1.9 cm. There is moderate bilateral hilar adenopathy. All these findings may be reactive, although a lymphomatous or other neoplastic process should be considered in follow-up if these do not resolve. Limited evaluation of the upper abdomen is unremarkable. IMPRESSION: 1. No evidence of pulmonary embolus. 2. Bilateral basilar atelectatic and/or minimal infiltrative type change. 3. Moderate hilar and mediastinal adenopathy. 4. Although the adenopathy changes are potentially reactive, this patient should be closely followed with repeat scanning or pulmonary consultation. If these do not resolve after appropriate clinical treatment, a neoplastic process such as lymphoma would be considered. PG Care Time/CCT Total # of Minutes Spent Total Time Spent with Patient: Total time spent is greater than 50% in coordination of care (as documented) at patient's floor/unit and/or counseling patient:
[2019-06-21] MEDS ORDERED: methylPREDNISolone 40 MG in SYRINGE 0 ML IV STA (14:49)
--- NOTE | 2019-06-21 15:41 | Hospitalist Progress Note ---
Date of Service June 21, 2019 Assessment & Plan (1) Adenopathy, hilar: Shortness of breath Generalized body aches Tachycardia on admission -This is a 34 year old female with history of Thrombotic thrombocytopenic purpura (TTP), visually impaired due to history of Uveitis and has been soda flaker nically on steroids daily for 6 years. Patient was sent to the emergency room on 06/20/19 by outpatient java front end web developer Dr. Andrea because patient has been having persistent complaints of shortness of breath and generalized body aches and found to have elevated D-Dimer and outpatient Chest X ray suggesting patient may have pneumonia -admission CTA on 06/20/19: No evidence of pulmonary embolus. Bilateral basilar atelectatic and/or minimal infiltrative type change. Moderate hilar and mediastinal adenopathy. -by AM of 06/21/19 patient has received empiric Levaquin and IV methylprednisone and IV fluids and felt that breathing was improved and that the generalized muscle aches have resolved. Heart rates normalized -Inpatient [facility] business enterprise officer Dr. Holloway did not recommend further respiratory antibiotics as there was no evidence for pneumonia -Patient's case and CT scan imaging of lymphadenopathy was discussed with inpatient Yarely Smith business enterprise officer and patient's usual outpatient [facility] umatologist Dr. Andrea and all are in consensus that a lung biopsy is not needed at this time. Dr. Andrea does not have high suspicion of sarcoidosis. Dr. Andrea suspects that perhaps patient may be having side effects from recent Humira. Dr. Andrea recommended 1 additional dose of IV methylprednisone before discharge from hospital on prednisone 40 mg daily with close outpatient follow up -Discharge to home discharge medication of prednisone 40 mg daily sent electronically to [facility] pharmacy [address] [facility] [place] [address] appointments 06/29/2019 11:20 AM Provider Lucita Mosley DO Department [facility] Dr. Andrea plans to have patient scheduled on [place] 06/25/19 for close follow up at Rheumatology [facility] Other rheumatology appointment 08/13/2019 10:20 AM Provider Mago Andrea MD Department Rheumatology [facility] 09/28/2019 2:30 PM Provider Randy Orellana DO Department Pulmonary Medicine, [facility] (2) Current chronic use of systemic steroids: History of Uveitis -has been chronically on prednisone at least 6 years because of history of Uveitis -patient received IV methylprednisone 40 mg doses which appears to improve the generalized body aches -Dr. Andrea suspects that perhaps patient made be having side effects from recent Humira. Dr. Andrea recommended 1 additional dose of IV methylprednisone before discharge from hospital on prednisone 40 mg daily with close outpatient follow up Steroid Induced Diabetes Mellitus -continue home dose insulin as outpatient History of thrombotic thrombocytopenic purpura - platelets stable History of severe endometriosis with surgery in the past -No acute intra-abdominal or intrapelvic abnormality. -no active abdominal pain reported on discharge day 06/21/19 Discharge Diagnosis: Hilar Adenopathy, generalized body aches, History of uveitis, Steroid-induced diabetes mellitus, chronic current use of systemic steroids Subjective Patient seen and examined today. Since this AM, patient reports the generalized body aches are gone. She breathes comfortably on room air. denies chest pain. denies abdominal pain. baseline poor vision. no acute distress. no vomiting. discussed at length with patient about hospital course and discharge plans Physical Exam Constitutional: WD/WN, vitals as above comfortable Eyes: PERRL, conjunctivae normal, anicteric sclerae EOM intact bilaterally ENMT: external ear and nose normal, oropharynx normal Neck: normal visual inspection Respiratory: normal respiratory effort, lungs clear to auscultation Cardiovascular: RRR, no murmur, no edema Gastrointestinal (Abdomen): normal bowel sounds, soft, nontender, no hepatosplenomegaly Musculoskeletal: Head/Neck/Chest: normocephalic and head atraumatic Neurologic: PERRL, EOMI, accommodation nl, no face palsy, no dysarthria CN's II-XI intact bilaterally Psychiatric: A+Ox3, euthymic affect Results & Data Vital Signs (Past 12 Hours) Vital Signs Temp Pulse Resp BP BP Pulse Ox 06/21/19 11:23 36.5 C 71 18 132/77 96 06/21/19 07:55 36.3 C L 72 18 120/81 97 06/21/19 04:00 36.6 C 83 18 114/76 99
--- NOTE | 2019-06-21 16:17 | Discharge Summary ---
Date of Service June 21, 2019 Admission HPI Per Admitting Provider CHIEF COMPLAINT: Shortness of breath, generalized weakness and generalized body aches. HISTORY OF PRESENT ILLNESS: This 34-year-old female with past medical history significant for uveitis, blindness in both eyes , history of severe endometriosis, history of TTP, history of steroid-induced diabetes mellitus who presents with about 4-6 weeks of generalized weakness, generalized body ache and not able to ambulate much because of pain , spending most of the time in the bed. She was also recently prescribed Augmentin for sinusitis and she has a couple of more tablets left ,She was seen by rheumatology today because of her ongoing symptoms and her RICKY came back positive and ESR was 67.She was on prednisone 40 mg and currently tapered down to 15mg daily. There was a question of her symptoms from low prednisone dose but but she has been on it for the past few months as per rheumatology notes. Her Di Dimer was elevated and so she was sent in here because of possible pulmonary embolism. She was hard stick and Er has to do Left IJ line,. CTA of the chest was done which was negative for pulmonary embolism, but showed moderate hilar and mediastinal adenopathy, bilateral bibasilar atelectatic versus minimal infiltrate type change. The patient was tachycardic in the Emergency Room and short of breath and requiring 2 liters of oxygen, afebrile. The patient states she has generalized body aches but also she has accompanying left lower quadrant abdominal pain 5/10 in severity. She is constipated . Has mild cough, but no phlegm. She is legally blind. She ambulates with the help of a walker. She lives with sister and [id number]. She states her appetite is not great. She is not eating much. She states she has had difficulty swallowing before. Now, she is doing better with small bites. Denies any headache. No earache. No runny nose. No sore throat currently. She states her sinusitis symptoms improved with Augmentin. No nausea. No vomiting. Normal bowel and bladder movements. No burning micturition. No swelling in the legs. She is not sleeping well.She could not check her body to look for any rashes because she is legally blind. Even after fluid restriction, she is somewhat tachycardic and requires oxygen. She used to be on CellCept in the past for uveitis, but her insurance denied it. So, she is currently on Humira every 2 weeks since last October. Admission Exam Per Admitting Provider PHYSICAL EXAMINATION: GENERAL: The patient is of moderate build, in mild respiratory distress. VITAL SIGNS: Temperature 36.7, pulse 110, blood pressure 150/87, respiratory rate into the high 20s and oxygen 99% on 2 liters. HEENT: No pallor. No icterus. Pupils are equal, round and reactive to light. NECK: No JVD. No neck masses. Left IJ present. CARDIOVASCULAR: S1, S2 heard. Tachycardia. No murmurs. RESPIRATORY SYSTEM: Normal AP diameter. No accessory muscle use. No wheezing. No crackles. ABDOMEN: Soft. Bowel sounds present. Mild left lower quadrant tenderness. No guarding. No distention. No rigidity. CENTRAL NERVOUS SYSTEM: Nonfocal. EXTREMITIES: No edema. No erythema. Principal Diagnosis Hilar Adenopathy, generalized body aches, History of uveitis, Steroid-induced diabetes mellitus, chronic current use of systemic steroids Discharge Exam Constitutional WD/WN, vitals as above comfortable Eyes PERRL, conjunctivae normal, anicteric sclerae EOM intact bilaterally ENMT external ear and nose normal, oropharynx normal Neck normal visual inspection Respiratory normal respiratory effort, lungs clear to auscultation Cardiovascular RRR, no murmur, no edema Gastrointestinal (Abdomen) normal bowel sounds, soft, nontender, no hepatosplenomegaly Musculoskeletal Head/Neck/Chest: normocephalic and head atraumatic Neurologic PERRL, EOMI, accommodation nl, no face palsy, no dysarthria CN's II-XI intact bilaterally Psychiatric A+Ox3, euthymic affect Discharge Data Allergies Allergy/AdvReac Type Severity Reaction Status Date / Time No Known Allergies Allergy Unverified 06/20/19 22:20 Consultations 06/20/19 22:39 ED Decision to Admit Stat 06/21/19 00:23 Consult Case Management - Discharge Planning Routine 06/21/19 08:00 Consult Pulmonology Routine Ordered Studies 06/20/19 18:50 CT angio chest PE protocol Stat 06/21/19 00:23 CT abd pelvis wo con Urgent Hospital Course (1) Adenopathy, hilar: Shortness of breath Generalized body aches Tachycardia on admission -This is a 34 year old female with history of Thrombotic thrombocytopenic purpura (TTP), visually impaired due to history of Uveitis and has been chronically on steroids daily for 6 years. Patient was sent to the emergency room on 06/20/19 by outpatient heavy equipment engine mechanic Dr. Andrea because patient has been having persistent complaints of shortness of breath and generalized body aches and found to have elevated D-Dimer and outpatient Chest X ray suggesting patient may have pneumonia -admission CTA on 06/20/19: No evidence of pulmonary embolus. Bilateral basilar atelectatic and/or minimal infiltrative type change. Moderate hilar and mediastinal adenopathy. -by AM of 06/21/19 patient has received empiric Levaquin and IV methylprednisone and IV fluids and felt that breathing was improved and that the generalized muscle aches have resolved. Heart rates normalized -Inpatient [facility] [place] shop assistant Dr. Holloway did not recommend further respiratory antibiotics as there was no evidence for pneumonia -Patient's case and CT scan imaging of lymphadenopathy was discussed with inpatient Yarely Smith shop assistant and patient's usual outpatient heavy equipment engine mechanic Dr. Andrea and all are in consensus that a lung biopsy is not needed at this time. Dr. Andrea does not have high suspicion of sarcoidosis. Dr. Andrea suspects that perhaps patient may be having side effects from recent Humira. Dr. Andrea recommended 1 additional dose of IV methylprednisone before discharge from hospital on prednisone 40 mg daily with close outpatient follow up -Discharge to home discharge medication of prednisone 40 mg daily sent electronically to [facility] pharmacy [address] [facility] [place] [address] appointments 06/29/2019 11:20 AM Provider Lucita Mosley DO Department [facility] Dr. Andrea plans to have patient scheduled on [place] 06/25/19 for close follow up at Rheumatology [facility] Other rheumatology appointment 08/13/2019 10:20 AM Provider Mago Andrea MD Department Rheumatology [facility] 09/28/2019 2:30 PM Provider Randy Orellana DO Department Pulmonary Medicine, [facility] (2) Current chronic use of systemic steroids: History of Uveitis -has been chronically on prednisone at least 6 years because of history of Uveitis -patient received IV methylprednisone 40 mg doses which appears to improve the generalized body aches -Dr. Andrea suspects that perhaps patient made be having side effects from recent Humira. Dr. Andrea recommended 1 additional dose of IV methylprednisone before discharge from hospital on prednisone 40 mg daily with close outpatient follow up Steroid Induced Diabetes Mellitus -continue home dose insulin as outpatient History of thrombotic thrombocytopenic purpura - platelets stable History of severe endometriosis with surgery in the past -No acute intra-abdominal or intrapelvic abnormality. -no active abdominal pain reported on discharge day 06/21/19 Discharge Diagnosis: Hilar Adenopathy, generalized body aches, History of uveitis, Steroid-induced diabetes mellitus, chronic current use of systemic steroids Total Time Total Time Spent Total Time Spent (In Minutes): 40 minutes Total Time Includes: Examination of the Patient, Discharge Planning, Medication Reconciliation and Communication With Other Providers Discharge Plan Discharge Items Patient Disposition: Home - Self-Care Reason For Visit: SOB Discharge Diagnosis: Hilar Adenopathy, generalized body aches, History of uveitis, Steroid-induced diabetes mellitus, chronic current use of systemic steroids Condition on Discharge: Good Activity: Resume your previous activity Non-emergency contact: Primary Care Provider and Specialist Call non-emergency contact if: you have any medication questions Follow-up/Referrals: Radha Vaca PA-C [Primary Care Provider] - Diet: Carb Consistent or DM2 Addtl Attending Provider Instructions: Patient's case and CT scan imaging of lymphadenopathy was discussed with inpatient [facility] [place] shop assistant and patient's usual outpatient heavy equipment engine mechanic Dr. Andrea and all are in consensus that a lung biopsy is not needed at this time. Dr. Andrea does not have high suspicion of sarcoidosis. Dr. Andrea suspects that perhaps patient made be having side effects from recent Humira. Dr. Andrea recommended 1 additional dose of IV methylprednisone before discharge from hospital on prednisone 40 mg daily with close outpatient follow up Discharge to home discharge medication of prednisone 40 mg daily sent electronically to [facility] pharmacy [address] [facility] [place] [address] 06/29/2019 11:20 AM Provider Lucita Mosley DO Department [facility] Dr. Andrea plans to have patient scheduled on [place] 06/25/19 for close follow up at Rheumatology [facility] Other rheumatology appointment 08/13/2019 10:20 AM Provider Mago Andrea MD Department Rheumatology [facility] 09/28/2019 2:30 PM Provider Randy Orellana DO Department Pulmonary Medicine, [facility] Pending Studies at Discharge: No Stand-Alone Forms: [facility] Medications and DC Order Prescriptions: New prednisone 20 mg Tablet 40 mg PO DAILY 30 Days Qty: 60 RF: 0 Continued atorvastatin [Lipitor] 40 mg tablet 40 mg PO .HOLD RF: 0 Humalog Mix 75-25(U-100)Insuln 100 unit/mL (75-25) Suspension 6 unit SUBCUT AC RF: 0 amoxicillin-pot clavulanate 875-125 mg tablet 1 tab PO Q12 RF: 0 oxycodone [Roxicodone] 5 mg tablet 5 mg PO Q6 PRN (Reason: Pain) RF: 0 Levemir FlexTouch U-100 Insuln 100 unit/mL (3 mL) Insulin Pen 16 unit SUBCUT HS RF: 0 Humira Pen 40 mg/0.8 mL pen injector kit 40 mg subcut .[id number] RF: 0 Durezol 0.05 % drops 1 drp OPB .Q2HRS RF: 0 Discontinued prednisone 5 mg tablet 15 mg PO QAM RF: 0 Discharge Orders: Discharge Order (Routine); Ordered 06/21/19 Ordered By: Yoandy Angel Admission Data Admit Date/Time: 06/20/19 23:19 Attending Provider: Yoandy Angel Admit Provider: Justino Aquino Primary Care Provider: Radha Vaca Other Providers: Justino Aquino ; Hakeem Ontiveros
[2019-06-21] MEDS ORDERED: AMOXICILLIN/CLAVULANATE 875 MG TAB PO SCH (17:00)
[2019-06-21] MEDS ORDERED: INSULIN DETEMIR FLEXPEN/FLEX TOUCH 100 UNITS/ML 3ML SQ SCH (21:00)
[2019-06-22] MEDS ORDERED: predniSONE 20 MG TAB PO SCH (09:00)
== END 2019-06-21 18:03 | disposition home or self-care (01) | DRG 814 ==
LOC: ED 18:34 → 2S 23:19

== ENCOUNTER 2019-06-24 05:01 | Inpatient (IN) ==
[2019-06-24] MEDS ORDERED: ALBUT/IPRATROP 3MG/0.5MG NEB 3 ML VIAL NEB STA (07:13)
[2019-06-24] MEDS ORDERED: SODIUM CHLORIDE 0.9% 1000ML 1,000 ML IV SCH ×2 (07:13→11:21)
--- NOTE | 2019-06-24 07:34 | Emergency Department Note ---
Entered by Norma Winter acting as a scribe for History of Present Illness General Chief complaint: Respiratory Problems Stated complaint: HARD BREATHING,SHARP PAINS IN LUNG,CHEST,BACK Time Seen by Provider: 06/24/19 06:44 Source: patient and family History of Present Illness Onset (ago): month(s) 1 Location: chest Pain Consistency: + other (persistent) Quality: + other (shortness of breath) Exacerbated By: + movement (exertion) and + other (lying flat) Associated symptoms: + denies other symptoms (fever, nausea, vomiting, diarrhea, urinary symptoms, or cough) and + other (body aches, chills) The patient is a 34 year old female that is presenting to the Emergency Room with complaints of persistent shortness of breath that started around one month ago. The patient reports that she was discharged from the hospital 4 days ago for the same symptoms. She states that her symptoms are unchanged since discharge. She notes that she feels like her symptoms explode when she lies flat and that she cannot catch her breath. She states that her symptoms worsen with exertion. She reports that her shortness of breath was exacerbated overnight and that she woke her family to bring her to the ED this morning. She notes that she has not felt better since arriving to the ED. She denies any similar episodes in the past. She denies using any nebulizer use at home. She states that she has some associated chills and body aches. She notes that she has been eating and drinking normally. She denies any fever, nausea, vomiting, diarrhea, urinary symptoms, or cough. 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 She states that she takes insulin but denies having to increase her dosage since being discharged from the hospital. The patients family member notes that the patient has had muscle and joint pain for an extended period of time and has been tested for Lupus. Her family reports that the patient is being worked up for sarcoidosis. Her family member states that the patient has a history of a hysterectomy and does not take any hormonal treatments. The patient notes that she is still taking the 40mg-Prednisone as prescribed on discharge. Home Medications Home Medications Medication Instructions Recorded Confirmed Type Durezol 1 drp OPB .Q2HRS 06/20/19 06/24/19 History Humalog Mix 75-25(U-100)Insuln 6 unit SUBCUT AC 06/20/19 06/24/19 History Humira Pen 40 mg SUBCUT .[id number] 06/20/19 06/24/19 History Levemir FlexTouch U-100 Insuln 16 unit SUBCUT HS 06/20/19 06/24/19 History amoxicillin-pot clavulanate 1 tab PO Q12 06/20/19 06/24/19 History atorvastatin [Lipitor] 40 mg PO .HOLD 06/20/19 06/24/19 History oxycodone [Roxicodone] 5 mg PO Q6 PRN 06/20/19 06/24/19 History prednisone 40 mg PO DAILY 30 Days #60 tab 06/21/19 06/24/19 Rx Allergies Allergy/AdvReac Type Severity Reaction Status Date / Time No Known Allergies Allergy Unverified 06/24/19 05:52 Past Med/Surg History Medical History Pelvic pain (Acute 12/05/13) Endometriosis (Chronic) Thrombocytopenia (Acute 01/08/14) Hypotension (Acute 01/08/14) Anemia (Acute) Pancreatitis (Acute) Renal failure (Acute) Thrombocytopenia (Acute) Vomiting (Acute) Periapical abscess (Acute) Diabetes Dental caries (Acute) HTN (hypertension) Ruptured ovarian cyst (Acute) Hx: UTI (urinary tract infection) Right lower quadrant abdominal pain (Acute) Chronic uveitis Dysmenorrhea Ovarian cyst, complex Abdominal pain (Acute) Surgical History S/P ovarian cystectomy Family History Other Family history non-contributory Social History Preferred Language: German Communication Ability: Effective Visual Impairment: Blindness 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 and A total of 10 systems reviewed and were otherwise negative Physical Exam Vital Signs Vital Signs - 24 hr 06/24/19 05:02 06/24/19 05:19 06/24/19 05:21 Temperature 36.9 C Temperature Source Oral Sepsis Recent Fever Within 48 Hours No Sepsis Action Taken by Nursing No Action Required Pulse Oximetry Post Tiitration 98 Pulse Rate 118 H 111 H Pulse Rate [Apical] Pulse Rate from SpO2 Sensor 110 H Respiratory Rate 30 H 43 H Respiratory Effort / Characteristics Non-Labored Spontaneous Non-Labored Respiratory Depth Normal Normal Respiratory Pattern Regular Blood Pressure 141/75 H 129/89 Blood Pressure Mean 97 102 Blood Pressure Position Sitting Pulse Oximetry 95 97 Oxygen Delivery Method Room Air Room Air 06/24/19 06:00 06/24/19 06:01 06/24/19 06:10 Temperature Temperature Source Sepsis Recent Fever Within 48 Hours Sepsis Action Taken by Nursing Pulse Oximetry Post Tiitration Pulse Rate 97 H 102 H 113 H Pulse Rate [Apical] Pulse Rate from SpO2 Sensor 96 H 106 H 112 H Respiratory Rate 30 H 24 50 H Respiratory Effort / Characteristics Respiratory Depth Respiratory Pattern Blood Pressure 154/92 H Blood Pressure Mean 112 Blood Pressure Position Pulse Oximetry 99 99 97 Oxygen Delivery Method 06/24/19 06:20 06/24/19 06:30 06/24/19 06:40 Temperature Temperature Source Sepsis Recent Fever Within 48 Hours Sepsis Action Taken by Nursing Pulse Oximetry Post Tiitration Pulse Rate 106 H 108 H 112 H Pulse Rate [Apical] Pulse Rate from SpO2 Sensor 103 H 108 H 113 H Respiratory Rate 48 H 50 H 35 H Respiratory Effort / Characteristics Respiratory Depth Respiratory Pattern Blood Pressure Blood Pressure Mean Blood Pressure Position Pulse Oximetry 95 97 94 Oxygen Delivery Method 06/24/19 06:50 06/24/19 07:00 06/24/19 07:10 Temperature Temperature Source Sepsis Recent Fever Within 48 Hours Sepsis Action Taken by Nursing Pulse Oximetry Post Tiitration Pulse Rate 112 H 124 H 117 H Pulse Rate [Apical] Pulse Rate from SpO2 Sensor 114 H 124 H 115 H Respiratory Rate 35 H 26 H 52 H Respiratory Effort / Characteristics Respiratory Depth Respiratory Pattern Blood Pressure 147/94 H Blood Pressure Mean 111 Blood Pressure Position Pulse Oximetry 92 94 93 Oxygen Delivery Method 06/24/19 07:20 06/24/19 07:30 06/24/19 07:40 Temperature Temperature Source Sepsis Recent Fever Within 48 Hours Sepsis Action Taken by Nursing Pulse Oximetry Post Tiitration Pulse Rate 122 H 124 H 123 H Pulse Rate [Apical] Pulse Rate from SpO2 Sensor 122 H 124 H 123 H Respiratory Rate 55 H 63 H 65 H Respiratory Effort / Characteristics Respiratory Depth Respiratory Pattern Blood Pressure Blood Pressure Mean Blood Pressure Position Pulse Oximetry 92 95 92 Oxygen Delivery Method 06/24/19 07:45 06/24/19 07:50 06/24/19 08:00 Temperature Temperature Source Sepsis Recent Fever Within 48 Hours Sepsis Action Taken by Nursing Pulse Oximetry Post Tiitration Pulse Rate 119 H 124 H Pulse Rate [Apical] 123 H Pulse Rate from SpO2 Sensor 118 H 124 H Respiratory Rate 22 47 H 49 H Respiratory Effort / Characteristics Spontaneous Respiratory Depth Respiratory Pattern Blood Pressure Blood Pressure Mean Blood Pressure Position Pulse Oximetry 96 99 100 Oxygen Delivery Method Room Air 06/24/19 08:10 06/24/19 08:24 06/24/19 08:29 Temperature 39.5 C H Temperature Source Oral Sepsis Recent Fever Within 48 Hours Sepsis Action Taken by Nursing Pulse Oximetry Post Tiitration Pulse Rate 130 H 126 H Pulse Rate [Apical] Pulse Rate from SpO2 Sensor 130 H 126 H Respiratory Rate 52 H 24 Respiratory Effort / Characteristics Respiratory Depth Respiratory Pattern Blood Pressure Blood Pressure Mean Blood Pressure Position Pulse Oximetry 92 93 Oxygen Delivery Method 06/24/19 08:30 06/24/19 08:40 06/24/19 08:50 Temperature Temperature Source Sepsis Recent Fever Within 48 Hours Sepsis Action Taken by Nursing Pulse Oximetry Post Tiitration Pulse Rate 129 H 130 H 126 H Pulse Rate [Apical] Pulse Rate from SpO2 Sensor 128 H 130 H 126 H Respiratory Rate 22 Respiratory Effort / Characteristics Respiratory Depth Respiratory Pattern Blood Pressure Blood Pressure Mean Blood Pressure Position Pulse Oximetry 93 92 92 Oxygen Delivery Method 06/24/19 09:00 06/24/19 09:10 06/24/19 09:20 Temperature Temperature Source Sepsis Recent Fever Within 48 Hours Sepsis Action Taken by Nursing Pulse Oximetry Post Tiitration Pulse Rate 123 H 124 H 122 H Pulse Rate [Apical] Pulse Rate from SpO2 Sensor 124 H 124 H 123 H Respiratory Rate Respiratory Effort / Characteristics Respiratory Depth Respiratory Pattern Blood Pressure Blood Pressure Mean Blood Pressure Position Pulse Oximetry 91 92 93 Oxygen Delivery Method 06/24/19 09:21 06/24/19 09:30 06/24/19 09:40 Temperature Temperature Source Sepsis Recent Fever Within 48 Hours Sepsis Action Taken by Nursing Pulse Oximetry Post Tiitration Pulse Rate 120 H 124 H 118 H Pulse Rate [Apical] Pulse Rate from SpO2 Sensor 121 H 125 H 118 H Respiratory Rate Respiratory Effort / Characteristics Respiratory Depth Respiratory Pattern Blood Pressure 101/62 Blood Pressure Mean 75 Blood Pressure Position Pulse Oximetry 93 93 94 Oxygen Delivery Method 06/24/19 09:50 06/24/19 09:58 06/24/19 10:00 Temperature 38.3 C H Temperature Source Oral Sepsis Recent Fever Within 48 Hours Sepsis Action Taken by Nursing Pulse Oximetry Post Tiitration Pulse Rate 119 H 119 H Pulse Rate [Apical] Pulse Rate from SpO2 Sensor 120 H 119 H Respiratory Rate 24 Respiratory Effort / Characteristics Respiratory Depth Respiratory Pattern Blood Pressure Blood Pressure Mean Blood Pressure Position Pulse Oximetry 92 95 Oxygen Delivery Method 06/24/19 10:10 06/24/19 10:20 06/24/19 10:30 Temperature Temperature Source Sepsis Recent Fever Within 48 Hours Sepsis Action Taken by Nursing Pulse Oximetry Post Tiitration Pulse Rate 121 H 112 H 105 H Pulse Rate [Apical] Pulse Rate from SpO2 Sensor 119 H 111 H 106 H Respiratory Rate 22 Respiratory Effort / Characteristics Respiratory Depth Respiratory Pattern Blood Pressure Blood Pressure Mean Blood Pressure Position Pulse Oximetry 94 95 94 Oxygen Delivery Method 06/24/19 10:40 06/24/19 10:50 Temperature Temperature Source Sepsis Recent Fever Within 48 Hours Sepsis Action Taken by Nursing Pulse Oximetry Post Tiitration Pulse Rate 107 H 107 H Pulse Rate [Apical] Pulse Rate from SpO2 Sensor 108 H 108 H Respiratory Rate Respiratory Effort / Characteristics Respiratory Depth Respiratory Pattern Blood Pressure Blood Pressure Mean Blood Pressure Position Pulse Oximetry 96 96 Oxygen Delivery Method GENERAL: Awake, alert, dyspneic appearing, in no distress. BMI 36.4 HENT: Normocephalic, atraumatic. Oropharynx with dry mucous membranes and otherwise unremarkable. EYES: Normal conjunctiva. Sclera non-icteric. NECK: Supple. No nuchal rigidity. FROM. No JVD. RESPIRATORY: CTA bilaterally. CARDIAC: Tachycardic rate, normal rhythm. Extremities warm and well perfused. Pulses equal. ABDOMEN: Soft, non-distended. No tenderness to palpation. No rebound or guarding. No masses. RECTAL: Deferred. MUSCULOSKELETAL: Chest examination reveals no tenderness. The back is symmetrical on inspection without obvious abnormality. There is no CVA tenderness to palpation. No joint edema. LOWER EXTREMITIES: Calves are equal size bilaterally and non-tender. No edema. No discoloration. NEURO: Normal sensorium. No sensory or motor deficits noted. SKIN: No rash or jaundice noted. Course 0646: I reviewed the patients records. The patient was discharged on 06/20. She has a history of chronic steroid use and uveitis. She had a CTA of the chest that did not show any PE. She was treated with empiric antibiotics and steroids. Pulmonology did not recommend any further antibiotics. They did not think she needed a lung biopsy. Though Dr. Gonzalez, [facility], does not have high suspicion for sarcoidosis, symptoms might be secondary to Humira. He recommended a dose of Methylprednisolone prior to discharge and a prednisone course. She is scheduled to be seen by Dr. Gonzalez tomorrow. 0657:The patient was evaluated in room A02. A complete history and physical examination was performed. 0930: I updated the patient on her current lab and imaging results. 0947: I discussed the patients case with LAURA Ulrich, who will evaluate the patient for further management and care with Dr. Angel as the attending physician. 0955: Upon reevaluation, the patient is resting comfortably. I discussed laboratory and radiographic results with the patient. She verbalized agreement of the treatment plan. The patient will be evaluated for further management and care. Administered Medications Atorvastatin Calcium (Lipitor) 40 mg PO DAILY [facility] Stop: 07/24/19 11:59 Last Admin: 06/24/19 13:55 Dose: 40 mg Documented by: [id number] Cefepime HCl 1,000 mg/ Syringe 11.3 mls @ 5.5 mls/min IV Q8H BRE; Protocol Stop: 06/26/19 17:59 Last Admin: 06/24/19 17:36 Dose: 5.5 mls/min Documented by: [id number] Vancomycin HCl 1,500 mg/ (Sodium Chloride) 530 mls @ 200 mls/hr IV Q8H BRE Stop: 06/26/19 19:59 Last Infusion: 06/24/19 23:26 Dose: 0 mls/hr Documented by: [id number] Admin: 06/24/19 20:34 Dose: 200 mls/hr Documented by: [id number] Sodium Chloride (Nss 1000ml) 1,000 mls @ 80 mls/hr IV .[id number] BRE Stop: 07/24/19 14:59 Last Admin: 06/24/19 14:49 Dose: 80 mls/hr Documented by: [id number] Miscellaneous (Order Awaiting Action) 1 ea N/A QS BRE Stop: 07/24/19 15:59 Last Admin: 06/24/19 23:35 Dose: Not Given Documented by: [id number] Admin: 06/24/19 16:24 Dose: Not Given Documented by: [id number] Oxycodone HCl (Roxicodone Immediate Rel) 5 mg PO Q6H PRN PRN Reason: Pain Stop: 07/08/19 11:20 Last Admin: 06/24/19 15:37 Dose: 5 mg Documented by: [id number] Potassium Phosphate (Phospha 250 Neutral 155-852-130 Mg) 1 tab PO QID BRE Stop: 07/24/19 16:59 Last Admin: 06/24/19 20:34 Dose: 1 tab Documented by: [id number] Admin: 06/24/19 17:14 Dose: 1 tab Documented by: [id number] Discontinued Medications Albuterol (Duoneb) 3 ml NEB NOW STA Stop: 06/24/19 07:14 Last Admin: 06/24/19 07:48 Dose: 3 ml Documented by: [id number] Sodium Chloride (Nss 1000ml) 1,000 mls @ 999 mls/hr IV .Q1H1M BRE Stop: 06/24/19 08:13 Last Infusion: 06/24/19 09:29 Dose: 0 mls/hr Documented by: [id number] Admin: 06/24/19 08:01 Dose: 999 mls/hr Documented by: [id number] Acetaminophen (Ofirmev) 1,000 mg in 100 mls @ 400 mls/hr IV NOW STA Stop: 06/24/19 08:45 Last Infusion: 06/24/19 09:29 Dose: 0 mls/hr Documented by: [id number] Admin: 06/24/19 08:37 Dose: 400 mls/hr Documented by: [id number] Cefepime HCl (Maxipime) 2,000 mg in 20 mls @ 5 mls/min IV NOW STA; Protocol Stop: 06/24/19 09:08 Last Admin: 06/24/19 11:08 Dose: 5 mls/min Documented by: [id number] Vancomycin HCl 2,000 mg/ (Sodium Chloride) 540 mls @ 200 mls/hr IV NOW ONE Stop: 06/24/19 11:46 Last Infusion: 06/24/19 13:50 Dose: 0 mls/hr Documented by: [id number] Admin: 06/24/19 11:08 Dose: 200 mls/hr Documented by: [id number] Potassium Phosphate 9 mmol/ (Sodium Chloride) 253 mls @ 170 mls/hr IV 0930 ONE Stop: 06/24/19 10:59 Last Infusion: 06/24/19 11:09 Dose: 0 mls/hr Documented by: [id number] Admin: 06/24/19 09:30 Dose: 170 mls/hr Documented by: [id number] Sodium Chloride (Nss 1000ml) 1,000 mls @ 15 mls/hr IV .Q24H BRE Stop: 07/24/19 11:20 Last Infusion: 06/24/19 16:26 Dose: 0 mls/hr Documented by: [id number] Admin: 06/24/19 11:21 Dose: 15 mls/hr Documented by: [id number] Methylprednisolone 40 mg/ (Syringe) 0.64 mls @ 1.5 mls/min IV 1200 ONE Stop: 06/24/19 12:01 Last Admin: 06/24/19 11:48 Dose: 1.5 mls/min Documented by: [id number] Magnesium Sulfate/Dextrose (Magnesium Sulfate / D5w) 1 gm in 100 mls @ 100 mls/hr IV 1445 ONE Stop: 06/24/19 15:44 Last Infusion: 06/24/19 15:49 Dose: 0 mls/hr Documented by: [id number] Admin: 06/24/19 14:49 Dose: 100 mls/hr Documented by: [id number] Perflutren Lipid Microsphere (Definity) 2 ml IV ONCE ONE Stop: 06/24/19 15:32 Last Admin: 06/24/19 15:32 Dose: 2 ml Documented by: [id number] Potassium Chloride (Klor-Con M20) 40 meq PO NOW STA Stop: 06/24/19 08:39 Last Admin: 06/24/19 09:28 Dose: 40 meq Documented by: [id number] Potassium Chloride (Klor-Con M10) 40 meq PO NOW STA Stop: 06/24/19 11:22 Last Admin: 06/24/19 11:48 Dose: 40 meq Documented by: [id number] Potassium Chloride (Klor-Con M20) 20 meq PO NOW STA Stop: 06/24/19 14:21 Last Admin: 06/24/19 14:49 Dose: 20 meq Documented by: [id number] Potassium Phosphate (Potassium Phosphate Replace) 9 mmol IV NOW STA Stop: 06/24/19 09:03 Last Admin: 06/24/19 09:28 Dose: 9 mmol Documented by: [id number] Medical Decision Making Differential Diagnosis Differential diagnoses includes but is not limited to pneumonia, bronchitis, COPD/Asthma exacerbation, pneumothorax, pulmonary embolism, congestive heart failure, acute coronary syndrome Medical Records Attestation: I reviewed the patient's medical records. Home Medications Current Medication List: was personally reviewed by me Laboratory Data Attestation: I reviewed the patient's lab results. Result diagrams: 06/24/19 08:45 06/24/19 13:51 Lab Results 06/24/19 06/24/19 06/24/19 Range/Units 07:53 07:53 07:53 WBC Cancelled RBC Cancelled Hgb Cancelled Hct Cancelled MCV Cancelled MCH Cancelled MCHC Cancelled RDW Std Deviation Cancelled RDW Coeff of Nicholas Cancelled Plt Count Cancelled MPV Cancelled Immature Gran % (Auto) Cancelled Neut % (Auto) Cancelled Lymph % (Auto) Cancelled Pine % (Auto) Cancelled Eos % (Auto) Cancelled Baso % (Auto) Cancelled Immature Gran # (Auto) Cancelled Neut # (Auto) Cancelled Lymph # (Auto) Cancelled Pine # (Auto) Cancelled Eos # (Auto) Cancelled Baso # (Auto) Cancelled Absolute Nucleated RBC Cancelled Nucleated RBC % (auto) Cancelled Neutrophils % (Manual) Cancelled Band Neutrophils % Cancelled Lymphocytes % (Manual) Cancelled Prolymphocyte % Cancelled Reactive Lymphs % (Man) Cancelled Monocytes % (Manual) Cancelled Eosinophils % (Manual) Cancelled Basophils % (Manual) Cancelled Metamyelocytes % (Man) Cancelled Myelocytes % (Man) Cancelled Promyelocytes % (Man) Cancelled Blast Cells % (Manual) Cancelled Plasma Cell % (Manual) Cancelled Other Cells % Cancelled Nucleated RBC % Cancelled Neutrophils # (Manual) Cancelled Band Neutrophils # Cancelled Total Absolute Neuts Cancelled Lymphocytes # (Manual) Cancelled Prolymphocyte # Cancelled Reactive Lymphs # Cancelled Total Abs Lymphocytes Cancelled Monocytes # (Manual) Cancelled Eosinophils # (Manual) Cancelled Basophils # (Manual) Cancelled Metamyelocytes # (Man) Cancelled Myelocytes # (Manual) Cancelled Promyelocytes # (Man) Cancelled Blast Cells # (Man) Cancelled Plasma Cell # (Manual) Cancelled Other Cells # Cancelled Nucleated RBCs # (Man) Cancelled Hypersegmented Neuts Cancelled Hyposegmented Neuts Cancelled Hypogranular Neuts Cancelled Large Granular Lymphs Cancelled # Lrg Granular Lymphs Cancelled Hairy Cells Cancelled Smudge Cells Cancelled Toxic Granulation Cancelled Toxic Vacuolation Cancelled Dohle Bodies Cancelled Gurwinder Rods Cancelled Platelet Estimate Cancelled Hypogranular Platelets Cancelled Clumped Platelets Cancelled Giant Platelets Cancelled Platelet Satelliting Cancelled RBC Morphology Cancelled Polychromasia Cancelled Hypochromasia Cancelled Poikilocytosis Cancelled Basophilic Stippling Cancelled Anisocytosis Cancelled Microcytosis Cancelled Macrocytosis Cancelled Spherocytes Cancelled Pappenheimer Bodies Cancelled Sickle Cells Cancelled Target Cells Cancelled Tear Drop Cells Cancelled Ovalocytes Cancelled Stomatocytes Cancelled [place] Bodies Cancelled Echinocytes Cancelled Acanthocytes (Spur) Cancelled Rouleaux Cancelled RBC Agglutinates Cancelled Schistocytes Cancelled RBC Morph Comment Cancelled ESR (0-21) mm/hr Sezary Cell Cancelled APTT 21.9 (21.0-31.0) Seconds PTT Ratio 0.8 VBG pH (7.36-7.41) VBG pCO2 (38-50) mmHg VBG pO2 mmHg VBG HCO3 mmol/L VBG O2 Saturation % VBG Base Excess mEq/L Carboxyhemoglobin % THgb Methemoglobin (0.0-1.5) % Barometric Pressure mm/Hg Sodium 137 (136-145) mmol/L Potassium 3.3 L (3.5-5.1) mmol/L Chloride 107 (98-107) mmol/L Carbon Dioxide 24 (21-32) mmol/L Anion Gap 7.0 (3-11) BUN 20 H (7-18) mg/dl Creatinine 1.06 (0.6-1.2) mg/dl Est Cr Clr Drug Dosing 95.1 ml/min Est GFR ( Amer) 80.5 Est GFR (Non-Af Amer) 69.4 BUN/Creatinine Ratio 18.4 (10-20) Glucose 98 (70-99) mg/dl Lactate (0.4-2.0) mmol/L Calcium 8.9 (8.5-10.1) mg/dl Phosphorus 1.1 L* (2.5-4.9) mg/dl Magnesium (1.8-2.4) mg/dl Total Bilirubin 0.3 (0.2-1) mg/dl AST 32 (15-37) U/L ALT 40 (12-78) U/L Alkaline Phosphatase 53 (45-117) U/L Total Creatine Kinase 217 H (26-192) U/L Troponin I < 0.015 (0-0.045) ng/ml C-Reactive Protein 2.50 H (0-0.29) mg/dl NT-Pro-B Natriuret Pep 760 H (0-450) pg/ml Total Protein 8.7 H (6.4-8.2) gm/dl Albumin 3.2 L (3.4-5.0) gm/dl Globulin 5.5 H (2.5-4.0) gm/dl Albumin/Globulin Ratio 0.6 L (0.9-2) Procalcitonin (0-0.5) ng/ml TSH 0.301 (0.300-4.500) uIu/ml HCG, Qual (Negative) Salicylates (2.8-20) mg/dl Acetaminophen (10-30) ug/ml Lyme Disease IgG Ab (Negative) Lyme Disease IgM Ab (Negative) 06/24/19 06/24/19 06/24/19 Range/Units 07:53 07:53 07:53 WBC RBC Hgb Hct MCV MCH MCHC RDW Std Deviation RDW Coeff of Nicholas Plt Count MPV Immature Gran % (Auto) Neut % (Auto) Lymph % (Auto) Pine % (Auto) Eos % (Auto) Baso % (Auto) Immature Gran # (Auto) Neut # (Auto) Lymph # (Auto) Pine # (Auto) Eos # (Auto) Baso # (Auto) Absolute Nucleated RBC Nucleated RBC % (auto) Neutrophils % (Manual) Band Neutrophils % Lymphocytes % (Manual) Prolymphocyte % Reactive Lymphs % (Man) Monocytes % (Manual) Eosinophils % (Manual) Basophils % (Manual) Metamyelocytes % (Man) Myelocytes % (Man) Promyelocytes % (Man) Blast Cells % (Manual) Plasma Cell % (Manual) Other Cells % Nucleated RBC % Neutrophils # (Manual) Band Neutrophils # Total Absolute Neuts Lymphocytes # (Manual) Prolymphocyte # Reactive Lymphs # Total Abs Lymphocytes Monocytes # (Manual) Eosinophils # (Manual) Basophils # (Manual) Metamyelocytes # (Man) Myelocytes # (Manual) Promyelocytes # (Man) Blast Cells # (Man) Plasma Cell # (Manual) Other Cells # Nucleated RBCs # (Man) Hypersegmented Neuts Hyposegmented Neuts Hypogranular Neuts Large Granular Lymphs # Lrg Granular Lymphs Hairy Cells Smudge Cells Toxic Granulation Toxic Vacuolation Dohle Bodies Gurwinder Rods Platelet Estimate Hypogranular Platelets Clumped Platelets Giant Platelets Platelet Satelliting RBC Morphology Polychromasia Hypochromasia Poikilocytosis Basophilic Stippling Anisocytosis Microcytosis Macrocytosis Spherocytes Pappenheimer Bodies Sickle Cells Target Cells Tear Drop Cells Ovalocytes Stomatocytes One[place] Bodies Echinocytes Acanthocytes (Spur) Rouleaux RBC Agglutinates Schistocytes RBC Morph Comment ESR (0-21) mm/hr Sezary Cell APTT (21.0-31.0) Seconds PTT Ratio VBG pH (7.36-7.41) VBG pCO2 (38-50) mmHg VBG pO2 mmHg VBG HCO3 mmol/L VBG O2 Saturation % VBG Base Excess mEq/L Carboxyhemoglobin 0.9 % THgb Methemoglobin 2.7 H (0.0-1.5) % Barometric Pressure mm/Hg Sodium (136-145) mmol/L Potassium (3.5-5.1) mmol/L Chloride (98-107) mmol/L Carbon Dioxide (21-32) mmol/L Anion Gap (3-11) BUN (7-18) mg/dl Creatinine (0.6-1.2) mg/dl Est Cr Clr Drug Dosing ml/min Est GFR ( Amer) Est GFR (Non-Af Amer) BUN/Creatinine Ratio (10-20) Glucose (70-99) mg/dl Lactate 1.9 (0.4-2.0) mmol/L Calcium (8.5-10.1) mg/dl Phosphorus (2.5-4.9) mg/dl Magnesium (1.8-2.4) mg/dl Total Bilirubin (0.2-1) mg/dl AST (15-37) U/L ALT (12-78) U/L Alkaline Phosphatase (45-117) U/L Total Creatine Kinase (26-192) U/L Troponin I (0-0.045) ng/ml C-Reactive Protein (0-0.29) mg/dl NT-Pro-B Natriuret Pep (0-450) pg/ml Total Protein (6.4-8.2) gm/dl Albumin (3.4-5.0) gm/dl Globulin (2.5-4.0) gm/dl Albumin/Globulin Ratio (0.9-2) Procalcitonin (0-0.5) ng/ml TSH (0.300-4.500) uIu/ml HCG, Qual (Negative) Salicylates (2.8-20) mg/dl Acetaminophen (10-30) ug/ml Lyme Disease IgG Ab (Negative) Lyme Disease IgM Ab (Negative) 06/24/19 06/24/19 06/24/19 Range/Units 07:53 07:53 07:53 WBC RBC Hgb Hct MCV MCH MCHC RDW Std Deviation RDW Coeff of Nicholas Plt Count MPV Immature Gran % (Auto) Neut % (Auto) Lymph % (Auto) Pine % (Auto) Eos % (Auto) Baso % (Auto) Immature Gran # (Auto) Neut # (Auto) Lymph # (Auto) Pine # (Auto) Eos # (Auto) Baso # (Auto) Absolute Nucleated RBC Nucleated RBC % (auto) Neutrophils % (Manual) Band Neutrophils % Lymphocytes % (Manual) Prolymphocyte % Reactive Lymphs % (Man) Monocytes % (Manual) Eosinophils % (Manual) Basophils % (Manual) Metamyelocytes % (Man) Myelocytes % (Man) Promyelocytes % (Man) Blast Cells % (Manual) Plasma Cell % (Manual) Other Cells % Nucleated RBC % Neutrophils # (Manual) Band Neutrophils # Total Absolute Neuts Lymphocytes # (Manual) Prolymphocyte # Reactive Lymphs # Total Abs Lymphocytes Monocytes # (Manual) Eosinophils # (Manual) Basophils # (Manual) Metamyelocytes # (Man) Myelocytes # (Manual) Promyelocytes # (Man) Blast Cells # (Man) Plasma Cell # (Manual) Other Cells # Nucleated RBCs # (Man) Hypersegmented Neuts Hyposegmented Neuts Hypogranular Neuts Large Granular Lymphs # Lrg Granular Lymphs Hairy Cells Smudge Cells Toxic Granulation Toxic Vacuolation Dohle Bodies Gurwinder Rods Platelet Estimate Hypogranular Platelets Clumped Platelets Giant Platelets Platelet Satelliting RBC Morphology Polychromasia Hypochromasia Poikilocytosis Basophilic Stippling Anisocytosis Microcytosis Macrocytosis Spherocytes Pappenheimer Bodies Sickle Cells Target Cells Tear Drop Cells Ovalocytes Stomatocytes Oneill-[place] Bodies Echinocytes Acanthocytes (Spur) Rouleaux RBC Agglutinates Schistocytes RBC Morph Comment ESR > 90 H (0-21) mm/hr Sezary Cell APTT (21.0-31.0) Seconds PTT Ratio VBG pH 7.52 H (7.36-7.41) VBG pCO2 31 L (38-50) mmHg VBG pO2 40 mmHg VBG HCO3 24 mmol/L VBG O2 Saturation 79.5 % VBG Base Excess 2.2 mEq/L Carboxyhemoglobin % THgb Methemoglobin (0.0-1.5) % Barometric Pressure 730.5 mm/Hg Sodium (136-145) mmol/L Potassium (3.5-5.1) mmol/L Chloride (98-107) mmol/L Carbon Dioxide (21-32) mmol/L Anion Gap (3-11) BUN (7-18) mg/dl Creatinine (0.6-1.2) mg/dl Est Cr Clr Drug Dosing ml/min Est GFR ( Amer) Est GFR (Non-Af Amer) BUN/Creatinine Ratio (10-20) Glucose (70-99) mg/dl Lactate (0.4-2.0) mmol/L Calcium (8.5-10.1) mg/dl Phosphorus (2.5-4.9) mg/dl Magnesium (1.8-2.4) mg/dl Total Bilirubin (0.2-1) mg/dl AST (15-37) U/L ALT (12-78) U/L Alkaline Phosphatase (45-117) U/L Total Creatine Kinase (26-192) U/L Troponin I (0-0.045) ng/ml C-Reactive Protein (0-0.29) mg/dl NT-Pro-B Natriuret Pep (0-450) pg/ml Total Protein (6.4-8.2) gm/dl Albumin (3.4-5.0) gm/dl Globulin (2.5-4.0) gm/dl Albumin/Globulin Ratio (0.9-2) Procalcitonin (0-0.5) ng/ml TSH (0.300-4.500) uIu/ml HCG, Qual Negative (Negative) Salicylates (2.8-20) mg/dl Acetaminophen (10-30) ug/ml Lyme Disease IgG Ab Negative (Negative) Lyme Disease IgM Ab Negative (Negative) 06/24/19 06/24/19 06/24/19 Range/Units 07:53 07:53 07:53 WBC RBC Hgb Hct MCV MCH MCHC RDW Std Deviation RDW Coeff of Nicholas Plt Count MPV Immature Gran % (Auto) Neut % (Auto) Lymph % (Auto) Pine % (Auto) Eos % (Auto) Baso % (Auto) Immature Gran # (Auto) Neut # (Auto) Lymph # (Auto) Pine # (Auto) Eos # (Auto) Baso # (Auto) Absolute Nucleated RBC Nucleated RBC % (auto) Neutrophils % (Manual) Band Neutrophils % Lymphocytes % (Manual) Prolymphocyte % Reactive Lymphs % (Man) Monocytes % (Manual) Eosinophils % (Manual) Basophils % (Manual) Metamyelocytes % (Man) Myelocytes % (Man) Promyelocytes % (Man) Blast Cells % (Manual) Plasma Cell % (Manual) Other Cells % Nucleated RBC % Neutrophils # (Manual) Band Neutrophils # Total Absolute Neuts Lymphocytes # (Manual) Prolymphocyte # Reactive Lymphs # Total Abs Lymphocytes Monocytes # (Manual) Eosinophils # (Manual) Basophils # (Manual) Metamyelocytes # (Man) Myelocytes # (Manual) Promyelocytes # (Man) Blast Cells # (Man) Plasma Cell # (Manual) Other Cells # Nucleated RBCs # (Man) Hypersegmented Neuts Hyposegmented Neuts Hypogranular Neuts Large Granular Lymphs # Lrg Granular Lymphs Hairy Cells Smudge Cells Toxic Granulation Toxic Vacuolation Dohle Bodies Gurwinder Rods Platelet Estimate Hypogranular Platelets Clumped Platelets Giant Platelets Platelet Satelliting RBC Morphology Polychromasia Hypochromasia Poikilocytosis Basophilic Stippling Anisocytosis Microcytosis Macrocytosis Spherocytes Pappenheimer Bodies Sickle Cells Target Cells Tear Drop Cells Ovalocytes Stomatocytes One[place] Bodies Echinocytes Acanthocytes (Spur) Rouleaux RBC Agglutinates Schistocytes RBC Morph Comment ESR (0-21) mm/hr Sezary Cell APTT (21.0-31.0) Seconds PTT Ratio VBG pH (7.36-7.41) VBG pCO2 (38-50) mmHg VBG pO2 mmHg VBG HCO3 mmol/L VBG O2 Saturation % VBG Base Excess mEq/L Carboxyhemoglobin % THgb Methemoglobin (0.0-1.5) % Barometric Pressure mm/Hg Sodium (136-145) mmol/L Potassium (3.5-5.1) mmol/L Chloride (98-107) mmol/L Carbon Dioxide (21-32) mmol/L Anion Gap (3-11) BUN (7-18) mg/dl Creatinine (0.6-1.2) mg/dl Est Cr Clr Drug Dosing ml/min Est GFR ( Amer) Est GFR (Non-Af Amer) BUN/Creatinine Ratio (10-20) Glucose (70-99) mg/dl Lactate (0.4-2.0) mmol/L Calcium (8.5-10.1) mg/dl Phosphorus (2.5-4.9) mg/dl Magnesium 1.9 (1.8-2.4) mg/dl Total Bilirubin (0.2-1) mg/dl AST (15-37) U/L ALT (12-78) U/L Alkaline Phosphatase (45-117) U/L Total Creatine Kinase (26-192) U/L Troponin I (0-0.045) ng/ml C-Reactive Protein (0-0.29) mg/dl NT-Pro-B Natriuret Pep (0-450) pg/ml Total Protein (6.4-8.2) gm/dl Albumin (3.4-5.0) gm/dl Globulin (2.5-4.0) gm/dl Albumin/Globulin Ratio (0.9-2) Procalcitonin 0.54 H (0-0.5) ng/ml TSH (0.300-4.500) uIu/ml HCG, Qual (Negative) Salicylates < 1.7 L (2.8-20) mg/dl Acetaminophen < 2 L (10-30) ug/ml Lyme Disease IgG Ab (Negative) Lyme Disease IgM Ab (Negative) 06/24/19 Range/Units 08:45 WBC 9.19 RBC 4.38 Hgb 11.7 L Hct 35.0 L MCV 79.9 L MCH 26.7 MCHC 33.4 RDW Std Deviation 40.6 RDW Coeff of Nicholas 14.0 Plt Count 321 MPV 10.8 H Immature Gran % (Auto) 0.2 Neut % (Auto) 80.8 Lymph % (Auto) 12.2 Pine % (Auto) 6.7 Eos % (Auto) 0.1 Baso % (Auto) 0.0 Immature Gran # (Auto) 0.02 Neut # (Auto) 7.42 H Lymph # (Auto) 1.12 L Pine # (Auto) 0.62 H Eos # (Auto) 0.01 Baso # (Auto) 0.00 Absolute Nucleated RBC Nucleated RBC % (auto) Neutrophils % (Manual) Band Neutrophils % Lymphocytes % (Manual) Prolymphocyte % Reactive Lymphs % (Man) Monocytes % (Manual) Eosinophils % (Manual) Basophils % (Manual) Metamyelocytes % (Man) Myelocytes % (Man) Promyelocytes % (Man) Blast Cells % (Manual) Plasma Cell % (Manual) Other Cells % Nucleated RBC % Neutrophils # (Manual) Band Neutrophils # Total Absolute Neuts Lymphocytes # (Manual) Prolymphocyte # Reactive Lymphs # Total Abs Lymphocytes Monocytes # (Manual) Eosinophils # (Manual) Basophils # (Manual) Metamyelocytes # (Man) Myelocytes # (Manual) Promyelocytes # (Man) Blast Cells # (Man) Plasma Cell # (Manual) Other Cells # Nucleated RBCs # (Man) Hypersegmented Neuts Hyposegmented Neuts Hypogranular Neuts Large Granular Lymphs # Lrg Granular Lymphs Hairy Cells Smudge Cells Toxic Granulation Toxic Vacuolation 1+ Dohle Bodies Gurwinder Rods Platelet Estimate Hypogranular Platelets Clumped Platelets Giant Platelets Platelet Satelliting RBC Morphology Polychromasia Hypochromasia Poikilocytosis Basophilic Stippling Anisocytosis Microcytosis Macrocytosis Spherocytes Pappenheimer Bodies Sickle Cells Target Cells Tear Drop Cells Ovalocytes Stomatocytes One[place] Bodies Echinocytes Acanthocytes (Spur) Rouleaux RBC Agglutinates Schistocytes RBC Morph Comment ESR (0-21) mm/hr Sezary Cell APTT (21.0-31.0) Seconds PTT Ratio VBG pH (7.36-7.41) VBG pCO2 (38-50) mmHg VBG pO2 mmHg VBG HCO3 mmol/L VBG O2 Saturation % VBG Base Excess mEq/L Carboxyhemoglobin % THgb Methemoglobin (0.0-1.5) % Barometric Pressure mm/Hg Sodium (136-145) mmol/L Potassium (3.5-5.1) mmol/L Chloride (98-107) mmol/L Carbon Dioxide (21-32) mmol/L Anion Gap (3-11) BUN (7-18) mg/dl Creatinine (0.6-1.2) mg/dl Est Cr Clr Drug Dosing ml/min Est GFR ( Amer) Est GFR (Non-Af Amer) BUN/Creatinine Ratio (10-20) Glucose (70-99) mg/dl Lactate (0.4-2.0) mmol/L Calcium (8.5-10.1) mg/dl Phosphorus (2.5-4.9) mg/dl Magnesium (1.8-2.4) mg/dl Total Bilirubin (0.2-1) mg/dl AST (15-37) U/L ALT (12-78) U/L Alkaline Phosphatase (45-117) U/L Total Creatine Kinase (26-192) U/L Troponin I (0-0.045) ng/ml C-Reactive Protein (0-0.29) mg/dl NT-Pro-B Natriuret Pep (0-450) pg/ml Total Protein (6.4-8.2) gm/dl Albumin (3.4-5.0) gm/dl Globulin (2.5-4.0) gm/dl Albumin/Globulin Ratio (0.9-2) Procalcitonin (0-0.5) ng/ml TSH (0.300-4.500) uIu/ml HCG, Qual (Negative) Salicylates (2.8-20) mg/dl Acetaminophen (10-30) ug/ml Lyme Disease IgG Ab (Negative) Lyme Disease IgM Ab (Negative) Imaging Data Radiologist's Impression: Radiology results as stated below per my review and the radiologist's interpretation: XR chest 2V PA/lateral HISTORY: Shortness of breath. COMPARISON: Chest 06/20/2019. FINDINGS: No change in the bibasilar linear densities. There are low lung volumes. The heart remains borderline enlarged. The upper lung zones are clear. No pneumothorax. Subtle widening consistent with the lymphadenopathy seen on the recent chest CT. IMPRESSION: No change in the bibasilar linear densities. Mediastinal lymphadenopathy is also unchanged. Electronically signed by: Charly Espinal M.D. 06/24/2019 8:48 AM ECG Data Attestation: I personally reviewed and interpreted this ECG as follows: Indication: SOB/dyspnea Rate (beats per minute): 113 Rhythm: sinus tachycardia Findings: + other (QTC 427, normal axis); no PAC, no PVC, no ST depression, no ST elevation, no acute ischemic change and no ectopy Blood Pressure Blood Pressure Findings: Elevated blood pressure Blood Pressure Disposition: Referred to patients primary care provider MDM Narrative The patient is a pleasant 34-year-old woman with a past medical history of uveitis on chronic steroids, recent admission for 1 month of ongoing shortness of breath from 06/20 to 06/21 which was ultimately thought to be likely related to a side effect of her Humira who presents emergency department with worsening of her shortness of breath since her discharge per hpi. The patient reports she has a scheduled appointment tomorrow with her delinquent tax collector assistant, Dr. Andrea, at [facility] for reevaluation after admission. She had a CT scan on her last admission that did not show PE and otherwise nonspecific basilar findings that ultimately were thought to not require antibiotics per pulmonology. Patient was discharged on 40 mg of prednisone. On arrival patient is anxious appearing but no acute distress, mildly dyspneic, afebrile with heart rate in the 110s and vital signs otherwise stable. WBC within normal limits. H/H 11.7/35.0 slightly decreased from her recent admission though approximate to prior range of [place] ues. VBG with pH of 7.5 and PCO2 of 31. Of note, that hemoglobin is elevated at 2.7 which certainly could be contributing to the patient's symptoms. However unclear etiology to this elevation as patient is not on any medications that are typically known to provoke this. Calcium 3.3 with repletion provided. Chemistry without acidosis. BUN 20 consistent with the patient's clinically dry appearance. Phosphorus is 1.1 with repletion provided. Given the patient's tachypnea likely component of intracellular shifts due to hyperventilation. Troponin negative/undetectable. ESR and CRP are elevated at >90 and 2.5, respectively. BNP 760 which is not significantly elevated. UA negative for in fection. Aspirin and Tylenol levels negative and drug screen negative. EKG without overt acute ischemia. Chest x-ray with PA and lateral views show no change in the patient's prior bibasilar linear densities and mediastinal lymphadenopathy. The patient's ED observation and evaluation did spike a temperature to 39.5 with increased heart rate in the 120s-130s with stable blood pressure. Given the likelihood of degree of immune compromised state in the setting of her chronic prednisone therapy patient was treated with empiric cefepime and vancomycin with blood cultures drawn upon patient's initial evaluation. Lactate 1.9. Given patient's symptoms, in the setting of her immunocompromise state, now with SIRS criteria reasonable to admit the patient for further management of possible infection. Case was discussed with Ziggy MEIER, who evaluate the patient for admission. We discussed the possibility of the patient being adrenally suppressed from her chronic prednisone but will defer stress dose steroids at this time. Impression & Plan SIRS (systemic inflammatory response syndrome), Fever, Methemoglobinemia, Shortness of breath, Elevated erythrocyte sedimentation rate Critical Care Time Critical Care Time: Yes Total Critical Care Time: 35 I have personally spent greater than 45 minutes of critical care time in the direct management of this patient. This includes bedside care, interpretation of diagnostic studies, and testing, discussion with consultants, patient, and family members, and other required patient management activities. This 45 minutes is in excess of all separately billable procedures. Discharge Plan Visit Data *Final* Discharge Date/Time: 06/24/19 11:06 Chief Complaint: Respiratory Problems Stated Complaint: HARD BREATHING,SHARP PAINS IN LUNG,CHEST,BACK ED Provider: Jose Aguilera Discharge Problem: SIRS (systemic inflammatory response syndrome), Fever, Methemoglobinemia, Shortness of breath, Elevated erythrocyte sedimentation rate Patient Disposition: Admitted As Inpatient Discharge Instructions Interventions: ED Discharge Assessment Last Done: 06/24/19 11:06 Discharge Problem: Fever Qualifiers: Fever type: unspecified Qualified Code(s): R50.9 - Fever, unspecified The scribe's documentation has been prepared under my direction and personally reviewed by me in its entirety. I confirm that the note above accurately reflects all work, treatment, procedures, and medical decision making performed by me.
[2019-06-24 08:10] LABS: Base Excess VBG 2.2 mEq/L; Oxygen Saturation VBG 79.5 %; pH VBG 7.52 (7.36-7.41)
[2019-06-24 08:28] LABS: Alanine Aminotransferase 40 U/L (12-78); Albumin Level 3.2 gm/dl (3.4-5.0); Aspartate Aminotransferase 32 U/L (15-37); BUN Creatinine Ratio 18.4 (10-20); Blood Urea Nitrogen 20 mg/dl (7-18); Calcium 8.9 mg/dl (8.5-10.1); Carbon Dioxide 24 mmol/L (21-32); Chloride 107 mmol/L (98-107); Creatinine Clr Calc Pharmacy 95.1 ml/min; Est GFR (African American) 80.5; Est GFR (Non-African American) 69.4; Glucose 98 mg/dl (70-99); Partial Thromboplastin Ratio 0.8; Partial Thromboplastin Time 21.9 Seconds (21.0-31.0); Potassium 3.3 mmol/L (3.5-5.1); Sodium 137 mmol/L (136-145)
[2019-06-24] MEDS ORDERED: ACETAMINOPHEN 1,000 MG/100 ML VIAL IV STA (08:31)
[2019-06-24 08:35] LABS: Pregnancy Test, Serum Negative (Negative)
[2019-06-24] MEDS ORDERED: POTASSIUM CHLORIDE 20 MEQ TABCR PO STA ×2 (08:38→14:20)
[2019-06-24 08:40] LABS: Albumin Globulin Ratio 0.6 (0.9-2); Alkaline Phosphatase 53 U/L (45-117); Bilirubin,Total 0.3 mg/dl (0.2-1); Creatine Kinase 217 U/L (26-192); Globulin 5.5 gm/dl (2.5-4.0); NT Pro B Type Natriuretic Pept 760 pg/ml (0-450); Phosphorus 1.1 mg/dl (2.5-4.9); Thyroid Stimulating Hormone 0.301 uIu/ml (0.300-4.500); Total Protein 8.7 gm/dl (6.4-8.2); Troponin I < 0.015 ng/ml (0-0.045)
[2019-06-24 08:48] LABS: Acetaminophen < 2 ug/ml (10-30); Salicylate < 1.7 mg/dl (2.8-20)
--- NOTE | 2019-06-24 08:50 | XRay Report ---
XR chest 2V PA/lateral HISTORY: Shortness of breath. COMPARISON: Chest 06/20/2019. FINDINGS: No change in the bibasilar linear densities. There are low lung volumes. The heart remains borderline enlarged. The upper lung zones are clear. No pneumothorax. Subtle widening consistent with the lymphadenopathy seen on the recent chest CT. IMPRESSION: No change in the bibasilar linear densities. Mediastinal lymphadenopathy is also unchanged. Electronically signed by: Charly Espinal M.D. 06/24/2019 8:48 AM
[2019-06-24] MEDS ORDERED: POTASSIUM PHOS 3 MMOL/1 ML INFUSION IV STA (09:02)
[2019-06-24] MEDS ORDERED: VANCOMYCIN HCL 2,000 MG in SODIUM CHLORIDE 0.9% 500 ML IV ONE (09:05)
[2019-06-24] MEDS ORDERED: CEFEPIME 2,000 MG/20 ML VIAL IV STA (09:05)
[2019-06-24] MEDS ORDERED: VANCOMYCIN CONSULT ACTIVE PRN ×2 (09:05→11:21)
[2019-06-24 09:12] LABS: Lyme Ab IgG w/WB Rflx Negative (Negative); Lyme Ab IgM w/WB Rflx Negative (Negative)
[2019-06-24 09:30] LABS: Mean Corpuscular Hgb Conc 33.4 g/dL (32-36); Mean Platelet Volume 10.8 fL (7.4-10.4); Platelet Count 321 K/uL (130-400)
[2019-06-24] MEDS ORDERED: POTASSIUM PHOSPHATE 9 MMOL in SODIUM CHLORIDE 0.9% 250 ML IV ONE (09:30)
[2019-06-24 09:57] LABS: Hemoglobin 11.7 g/dL (12.0-16.0); Mean Corpuscular Hemoglobin 26.7 pg (25-34); Mean Corpuscular Volume 79.9 fL (80-100); RDW Standard Deviation 40.6 fL (36.4-46.3); Red Blood Count 4.38 M/uL (4.2-5.4); White Blood Count 9.19 K/uL (4.8-10.8)
[2019-06-24 09:58] LABS: Eosinophils # (auto) 0.01 K/uL (0-0.5); Eosinophils % (auto) 0.1 %; Immature Granulocytes # (auto) 0.02 K/uL (0.00-0.02); Immature Granulocytes % (auto) 0.2 %; Lymphocytes # (auto) 1.12 K/uL (1.2-3.4); Lymphocytes % (auto) 12.2 %; Monocytes # (auto) 0.62 K/uL (0.11-0.59); Monocytes % (auto) 6.7 %; Neutrophils # (auto) 7.42 K/uL (1.4-6.5); Neutrophils % (auto) 80.8 %; Toxic Vacuolation 1+
--- NOTE | 2019-06-24 10:55 | History & Physical Report ---
Date of Service June 24, 2019 Assessment & Plan (1) SIRS (systemic inflammatory response syndrome): Patient has fever with a T-max of 39.5 Tachycardic Tachypneic Hemodynamically stable 2 recent hospitalization patient will be started on cefepime and vancomycin pending figueroa culture We will check a MRSA swab Admit to telemetry floor Follow expectantly (2) Electrolyte imbalance: Phosphorus 1.1 * Being repleted in the ED * Check repeat labs at 1400 today Potassium 3.3 * Replete orally * We will add a potassium level at 1400 as well Follow serial labs (3) Shortness of breath: Chronic shortness of breath. Was seen by pulmonary her previous admission who advises outpatient work-up for possible sarcoidosis No parenchymal disease noted Chest x-ray is unchanged from prior with no evidence of infiltrates or consolidation We will treat empirically with antibiotics for SIRS Repeat chest x-ray in the morning Follow on telemetry (4) Abnormal CT scan of lung: Neuropathy but no infiltrate, consolidation, or masses Suspect sarcoidosis Unable to effectively perform EBUS as patient is chronically on steroids Outpatient follow-up with pulmonary at [facility] in [place] scheduled for 09/28/2019 Patient will need PFTs when optimized Defer further work-up to outpatient pulmonology division (5) Adenopathy, hilar: As mentioned above, patient will need outpatient work-up with possible EBUS No utility and bronchoscopy at this point as patient is chronically on steroids Follow with outpatient pulmonology in [place] (6) Diabetes: Steroid-induced Continue with usual home medications We will also add sliding scale insulin with NovoLog (7) DVT prophylaxis: No indication for chemical prophylaxis at this time as patient is am bulatory Will order JA hose as well as SCDs when in bed Ambulate in hallways as tolerated No history of DVT or pulmonary embolus Please refer to Dr. Angel's addendum for further recommendations History of Present Illness Attending: Dr. Angel This is a 34-year-old -Cypriot female that was recently admitted from 06/20/2019 to 06/21/2019 with a past medical history of TTP, endometriosis, hilar adenopathy, generalized chronic body aches, history of uveitis, steroid- induced diabetes mellitus, chronic current use of systemic steroids, question of sarcoid, legal blindness, obesity. The patient presents today with shortness of breath, tachycardia, and fever. She reports that throughout the night she had increasing shortness of breath and anxiety and could not lay flat. At the urging of her sister she was brought to the emergency department and found to have a phosphorus level of 1.1, tachycardia, and a T-max of 39.5. She had some nausea at home but no vomiting. She has no diarrhea. Her chief complaint overnight was extreme shortness of breath when she laid flat and "feeling like her chest was going to explode". She did have tachycardia and tachypnea but did not appreciate any palpitations or missed beats. She has no specific chest pain or tightness. She did state that she had some minimal chest tightness with anxiety with her shortness of breath early this morning. She has chronic back pain but nothing acute. She denies any radiation of pain into her neck shoulder or arms. She has a nonproductive cough and denies hemoptysis. Cough is intermittent. She has no edema of the lower extremities. She denies any history of DVT or thromboembolic disease. She has no other acute complaints at this time It should be noted that patient is adopted and has no knowledge of biological parents. She is 1 of 18 children. 3 of those children are biological. The other 15 are adopted. The patient currently lives with her adopted sister and [id number]. Primary Care Provider: Radha Vaca PA-C Allergies Allergy/AdvReac Type Severity Reaction Status Date / Time No Known Allergies Allergy Unverified 06/24/19 05:52 Home Medications Home Medications Medication Instructions Recorded Confirmed Type Durezol 1 drp OPB .Q2HRS 06/20/19 06/24/19 History Humalog Mix 75-25(U-100)Insuln 6 unit SUBCUT AC 06/20/19 06/24/19 History Humira Pen 40 mg SUBCUT .[id number] 06/20/19 06/24/19 History Levemir FlexTouch U-100 Insuln 16 unit SUBCUT HS 06/20/19 06/24/19 History amoxicillin-pot clavulanate 1 tab PO Q12 06/20/19 06/24/19 History atorvastatin [Lipitor] 40 mg PO .HOLD 06/20/19 06/24/19 History oxycodone [Roxicodone] 5 mg PO Q6 PRN 06/20/19 06/24/19 History prednisone 40 mg PO DAILY 30 Days #60 tab 06/21/19 06/24/19 Rx Past Med/Surg History Medical History Pelvic pain (Acute 12/05/13) Endometriosis (Chronic) Thrombocytopenia (Acute 01/08/14) Hypotension (Acute 01/08/14) Anemia (Acute) Pancreatitis (Acute) Renal failure (Acute) Thrombocytopenia (Acute) Vomiting (Acute) Periapical abscess (Acute) Diabetes Dental caries (Acute) HTN (hypertension) Ruptured ovarian cyst (Acute) Hx: UTI (urinary tract infection) Right lower quadrant abdominal pain (Acute) Chronic uveitis Dysmenorrhea Ovarian cyst, complex Abdominal pain (Acute) Surgical History S/P ovarian cystectomy Family History Other Family history non-contributory Social History Preferred Language: Slovak Communication Ability: Effective Visual Impairment: Blindness Camp Housekeeper Required: No Beliefs That Will Affect Care: None marital status: Single Current Living Situation: Family Current Living Situation Comment: Lives with adopted sister and [id number] Feels Safe at Home: Yes Smoking Status: Never smoker Hx Alcohol Use: No Hx Substance Use: No Review of Systems Review of Systems: All systems reviewed & are unremarkable except as noted in HPI & below Physical Exam Physical Exam: GENERAL : No acute distress EYES: No icterus, gaze disconjugate. NOSE: No evidence of epistaxis MOUTH: No lesions or candidiasis. Poor dentition with noted cavities and lower teeth. No appreciation of loose teeth. Tongue is midline. NECK: Supple. No carotid bruits or stridor appreciated LUNGS: CTA B/L, no wheezes, rales or rhonchi. Diminished breath sounds globally. No specific adventitious breath sounds noted. Tachypneic at about 22 breaths/min HEART: Regular, tachycardic in the low 100s ABDOMEN: Soft, NT, ND, BS Present and hyperactive in all quadrants. No guarding or rebound tenderness EXTREMITIES: No LE edema, pedal pulses intact NEURO: A&OX3. No focal deficits other than vision which is chronic. Strength is equal and appropriate upper and lower extremities. Toes are downgoing bilaterally. No pronator drift. Deep tendon reflexes in the patellar and biceps tendons are 2/4. No slurred speech. No facial droop. Results & Data Vital Signs (Past 12 Hours) Vital Signs Temp Pulse Pulse Resp BP Pulse Ox 06/24/19 09:58 38.3 C H 06/24/19 09:10 124 H 92 06/24/19 09:00 123 H 91 06/24/19 08:50 126 H 92 06/24/19 08:40 130 H 92 06/24/19 08:30 129 H 22 93 06/24/19 08:29 39.5 C H 06/24/19 08:24 126 H 24 93 06/24/19 08:10 130 H 52 H 92 06/24/19 08:00 124 H 49 H 100 06/24/19 07:50 119 H 47 H 99 06/24/19 07:45 123 H 22 96 06/24/19 07:40 123 H 65 H 92 06/24/19 07:30 124 H 63 H 95 06/24/19 07:20 122 H 55 H 92 06/24/19 07:10 117 H 52 H 93 06/24/19 07:00 124 H 26 H 147/94 H 94 06/24/19 06:50 112 H 35 H 92 06/24/19 06:40 112 H 35 H 94 06/24/19 06:30 108 H 50 H 97 06/24/19 06:20 106 H 48 H 95 06/24/19 06:10 113 H 50 H 97 06/24/19 06:01 102 H 24 99 06/24/19 06:00 97 H 30 H 154/92 H 99 06/24/19 05:19 111 H 43 H 129/89 97 06/24/19 05:02 36.9 C 118 H 30 H 141/75 H 95 Laboratory Results 06/24/19 08:45 06/24/19 07:53 Phosphorus 1.1 Diagnostic Findings Chest x-ray is unchanged from prior Medications Administered Cefepime Vancomycin IV phosphorus ECG Additional Comments: EKG 06/24/2019 at 05 11 AM Vent. rate 113 BPM NM interval 136 ms QRS duration 84 ms QT/QTc 312/427 ms P-R-T axes 26 37 10 Sinus tachycardia Cannot rule out Anterior infarct Abnormal ECG When compared with ECG of 20-JUN-2019 19:07, No significant change was found Code Status & VTE Plan Code Status Full resuscitation VTE Prophylaxis Plan VTE Prophylaxis will be ordered: Yes Reason for no VTE drug order: Treatment not indicated Supervising Physician Co-Signing Physician Notes I, Dr. Yoandy Angel, have seen and examined the patient with physician assistant grocery store manager and agree with the assessment and plans as above and would like to add that Patient was recently discharged after hospital evaluation for Hilar adenopathy and persistent subjective Shortness of Breath. She returns to the hospital after waking up in the morning feeling acutely short of the breath, and found in the hospital to be tachycardic despite breathing on room air, and with SIRS criteria including fever. At this time the question is whether patient is having some autoimmune problem versus a hospital acquired infection from previous hospital stay. Since symotoms from previous hospitalization appeared to resolve with IV solumedrol, will try 1 dose of IV solumedrol 40 mg with concurrent broad spectrum antibiotics. Other lab findings notable for mild Hypokalemia of 3.3 and incidental but low levels of serum phosphorous level of 1.1. Will replete electrolytes and to correct to the Hypophosphatemia with supplements. Patient being monitored on telemetry unit On physical exam: in general, no acute distress, breathing on room air, patient denies acute pain, tachycardia in the low 100s currently, no tenderness of the abdomen, bowel sounds are audible, no acute swelling of extremities, patient baseline is legally blind, she has eye tracking movements when physician speaks with her, she is awake and alert and verbal, not in acute distress, no focal neurological deficits besides vision issues, no acute swelling of extremities agree with physician assistant grocery store manager for other medical issues as documented
[2019-06-24] MEDS ORDERED: ONDANSETRON INJ 2 MG/ML 2 ML VIAL IV PRN (11:21)
[2019-06-24] MEDS ORDERED: POLYETHYLENE (MIRALAX) 17 GM PACK PO PRN (11:21)
[2019-06-24] MEDS ORDERED: POTASSIUM CHLORIDE 10 MEQ TABCR PO STA (11:21)
[2019-06-24 11:38] LABS: Appearance Urine Clear (Clear); Bilirubin Urine Negative (Negative); Blood Urine Negative (Negative); Color Urine Yellow; Glucose Urine UA Negative (Negative); Ketones Urine Negative (Negative); Leukocyte Esterase Urine Negative (Negative); Nitrite Urine Negative (Negative); Protein Urine Negative (Negative); Specific Gravity Urine 1.015 (1.000-1.030); Urobilinogen Urine Negative (Negative)
[2019-06-24] MEDS ORDERED: CEFEPIME CONSULT ACTIVE PRN (11:38)
[2019-06-24] MEDS ORDERED: methylPREDNISolone 40 MG in SYRINGE 0 ML IV ONE (12:00)
[2019-06-24 12:04] LABS: Amphetamines+Metham, Urine Neg (Neg); Barbiturates, Urine Neg (Neg); Benzodiazepine, Urine Neg (Neg); Cocaine, Urine Neg (Neg); MDMA (Ecstacy), Urine Neg (Neg); Methadone, Urine Neg (Neg); Opiate, Urine Neg (Neg); Phencyclidine, Urine Neg (Neg)
[2019-06-24] MEDS: ATORVASTATIN 40 MG TAB PO SCH (13:55)
[2019-06-24 14:13] LABS: Potassium 3.4 mmol/L (3.5-5.1)
[2019-06-24 14:23] LABS: Phosphorus 2.9 mg/dl (2.5-4.9)
[2019-06-24] MEDS ORDERED: MAGNESIUM SULFATE / D5W 1 GM/100 ML BAG IV ONE (14:45)
[2019-06-24] MEDS: SODIUM CHLORIDE 0.9% 1000ML 1,000 ML IV SCH (14:49)
[2019-06-24] MEDS ORDERED: PERFLUTREN LIPID MICROSPHERE (DEFINITY) IV ONE (15:31)
[2019-06-24] MEDS: OXYCODONE HCL IR 5 MG TAB (IMMEDIATE RELEASE) PO PRN (15:37)
--- NOTE | 2019-06-24 16:40 | Pharmacy Report ---
Pharmacy Abx Initial Consult - Date of Service June 24, 2019 - Pharmacy Dosing Scope Date of Consult: [] Consultation requested by: [] Pharmacy is consulted to initiate [] IV/PO dosing therapy, order appropriate labs and adjust drug dose/frequency. - Subjective The patient is a 34 year old F admitted on 06/24/19 10:52. - Objective Height: 5 ft 7 in Weight: 105.3 kg Vital Signs (Past 12hrs): Vital Signs Temp Pulse Pulse Resp BP BP Pulse Ox 06/24/19 15:12 90 06/24/19 15:00 36.7 C 84 20 124/92 96 06/24/19 12:12 36.7 C 108 H 20 126/83 96 06/24/19 12:00 114 H 06/24/19 11:00 110 H 24 96 06/24/19 10:50 107 H 96 06/24/19 10:40 107 H 96 06/24/19 10:30 105 H 94 06/24/19 10:20 112 H 22 95 06/24/19 10:10 121 H 94 06/24/19 10:00 119 H 24 95 06/24/19 09:58 38.3 C H 06/24/19 09:50 119 H 92 06/24/19 09:40 118 H 94 06/24/19 09:30 124 H 93 06/24/19 09:21 120 H 101/62 93 06/24/19 09:20 122 H 93 06/24/19 09:10 124 H 92 06/24/19 09:00 123 H 91 06/24/19 08:50 126 H 92 06/24/19 08:40 130 H 92 06/24/19 08:30 129 H 22 93 06/24/19 08:29 39.5 C H 06/24/19 08:24 126 H 24 93 06/24/19 08:10 130 H 52 H 92 06/24/19 08:00 124 H 49 H 100 06/24/19 07:50 119 H 47 H 99 06/24/19 07:45 123 H 22 96 06/24/19 07:40 123 H 65 H 92 06/24/19 07:30 124 H 63 H 95 06/24/19 07:20 122 H 55 H 92 06/24/19 07:10 117 H 52 H 93 06/24/19 07:00 124 H 26 H 147/94 H 94 06/24/19 06:50 112 H 35 H 92 06/24/19 06:40 112 H 35 H 94 06/24/19 06:30 108 H 50 H 97 06/24/19 06:20 106 H 48 H 95 06/24/19 06:10 113 H 50 H 97 06/24/19 06:01 102 H 24 99 06/24/19 06:00 97 H 30 H 154/92 H 99 06/24/19 05:19 111 H 43 H 129/89 97 06/24/19 05:02 36.9 C 118 H 30 H 141/75 H 95 Lab Results (24hrs): Laboratory Tests (24 Hours) 06/24/19 06/24/19 06/24/19 08:45 07:53 07:53 WBC 9.19 Neut # (Auto) 7.42 H ESR > 90 H Creatinine Est Cr Clr Drug Dosing Total Creatine Kinase C-Reactive Protein Procalcitonin 0.54 H 06/24/19 06/24/19 07:53 07:53 WBC Cancelled Neut # (Auto) Cancelled ESR Creatinine 1.06 Est Cr Clr Drug Dosing 95.1 Total Creatine Kinase 217 H C-Reactive Protein 2.50 H Procalcitonin Micro Results: 06/24/19 07:58 Aerobic Blood Culture - Pending Blood Anaerobic Blood Culture - Pending 06/24/19 07:53 Aerobic Blood Culture - Pending Blood Anaerobic Blood Culture - Pending - Assessment & Plan Assessment 34 year old F presenting to the ED with SOB, tachycardia and fever. Was recently admitted from 06/20-06/21. MRSA nasal swab is negative. Blood cultures x2 currently pending. Patient is also receiving Cefepime 1gm IV q8h Plan Vancomycin as empiric treatment Vancomycin IV * Estimated PK Parameters: Vd 0.7 L/kg, Artemio 0.083 hr-1, t1/2 8 hr * Loading dose: 2000 mg (19 mg/kg) * Maintenance dose: 1500 mg IV (14 mg/kg) every 8 hours * Trough will be ordered if patient is treated longer than 48 hours Pharmacy will continue to follow and will adjust dose/frequency as necessary. Thank you.
[2019-06-24] MEDS: POT PHOSPHATE MONOBASIC W/ SOD TAB PO SCH ×2 (17:14→20:34)
[2019-06-24] MEDS: CEFEPIME 1,000 MG in SYRINGE 0 ML IV SCH (17:36)
[2019-06-24] MEDS: VANCOMYCIN HCL 1,500 MG in SODIUM CHLORIDE 0.9% 500 ML IV SCH (20:34)
[2019-06-25] MEDS: CEFEPIME 1,000 MG in SYRINGE 0 ML IV SCH ×2 (01:29→15:36)
[2019-06-25] MEDS: VANCOMYCIN HCL 1,500 MG in SODIUM CHLORIDE 0.9% 500 ML IV SCH ×2 (05:06→11:44)
[2019-06-25] MEDS: SODIUM CHLORIDE 0.9% 1000ML 1,000 ML IV SCH (05:07)
--- NOTE | 2019-06-25 07:10 | XRay Report ---
XR chest 1V portable CLINICAL HISTORY: SOB dyspnea COMPARISON STUDY: 06/24/2019 FINDINGS: Mild stable cardiomegaly. Improving basilar atelectatic change. Trace pleural effusion at the lateral costophrenic angles bilat erally. Unchanged mediastinal adenopathy. IMPRESSION: 1. Improving bibasilar atelectatic change. 2. Trace pleural fluid both lung bases. The above report was generated using voice recognition software. It may contain grammatical, syntax or spelling errors. Electronically signed by: Norman Medina M.D. 06/25/2019 7:08 AM
[2019-06-25 07:50] LABS: Eosinophils % (auto) 1.2 %; Hematocrit (blood only) 34.2 % (37-47); Hemoglobin 11.5 g/dL (12.0-16.0); Immature Granulocytes # (auto) 0.01 K/uL (0.00-0.02); Immature Granulocytes % (auto) 0.1 %; Lymphocytes # (auto) 1.13 K/uL (1.2-3.4); Lymphocytes % (auto) 13.6 %; Mean Corpuscular Hemoglobin 26.8 pg (25-34); Mean Corpuscular Hgb Conc 33.6 g/dL (32-36); Mean Corpuscular Volume 79.7 fL (80-100); Mean Platelet Volume 10.1 fL (7.4-10.4); Monocytes # (auto) 0.45 K/uL (0.11-0.59); Monocytes % (auto) 5.4 %; Neutrophils # (auto) 6.61 K/uL (1.4-6.5); Neutrophils % (auto) 79.7 %; Platelet Count 298 K/uL (130-400); RDW Coefficient of Variation 14.2 % (11.5-14.5); RDW Standard Deviation 41.2 fL (36.4-46.3); Red Blood Count 4.29 M/uL (4.2-5.4)
[2019-06-25 08:24] LABS: BUN Creatinine Ratio 17.2 (10-20); Calcium 8.3 mg/dl (8.5-10.1); Creatinine Clr Calc Pharmacy 125.7 ml/min; Est GFR (African American) 113.1; Est GFR (Non-African American) 97.6; Magnesium 2.3 mg/dl (1.8-2.4)
[2019-06-25] MEDS: POT PHOSPHATE MONOBASIC W/ SOD TAB PO SCH ×4 (08:45→20:32)
[2019-06-25] MEDS: ATORVASTATIN 40 MG TAB PO SCH (08:45)
[2019-06-25 09:09] LABS: Potassium 4.1 mmol/L (3.5-5.1)
[2019-06-25] MEDS ORDERED: COUGH DROP (SUGAR FREE) LOZ 24 LOZ/1 BOX BUCCAL PRN (10:35)
[2019-06-25] MEDS ORDERED: COUGH DROP (SUGAR FREE) LOZ 24 LOZ/1 BOX BUCCAL STA (10:35)
--- NOTE | 2019-06-25 10:42 | Hospitalist Progress Note ---
Date of Service June 25, 2019 Assessment & Plan (1) SIRS (systemic inflammatory response syndrome): Possible Sepsis vs. SIRS of NON-infectious origin -Patient was recently discharged on 06/21/19 after hospital evaluation for Hilar adenopathy and persistent subjective Shortness of Breath. She returns to the hospital on 06/24/19 after waking up in the morning feeling acutely short of the breath, and found in the hospital to be tachycardic despite breathing on room air, and with SIRS criteria including fever -At this time the question is whether patient is having some autoimmune problem versus a hospital acquired infection from previous hospital stay -06/25/19 have discussed with her aircraft sheet metal mechanic Dr. 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 Will replete electrolytes and to correct to the Hypophosphatemia -these deficiencies have been corrected with supplements on 06/24/19 (3) Shortness of breath: -subjective shortness of breath assessed on last hospital stay -has been breathing on room air -Patient was recently discharged on 06/21/19 after hospital evaluation for abnormal CT scan with Hilar adenopathy; lung imaging as CXR on this admission as Improving bibasilar atelectatic change; Trace pleural fluid both lung bases and generally without gross changes to the lungs as last time -outpatient pulmonary follow up is warranted but no acute process for biopsy -Cardiac echocardiogram was done on 06/24/19 to investigate patient's subjective shortness of breath and chest discomforts, report pending (4) Abnormal CT scan of lung: management as above (5) Adenopathy, hilar: management as above (6) 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 no acute distress. on room air. she reports of some throat itchiness and requested lozenge. she reported chest discomfort overnight but no acute telemetry events which appeared to self resolve and there is no chest discomforts at this time. no abdominal complaints. no vomiting. no reported dizziness or lightheadedness Physical Exam Constitutional: comfortable Eyes: PERRL, conjunctivae normal, anicteric sclerae EOM intact bilaterally ENMT: external ear and nose normal, oropharynx normal Neck: normal visual inspection Respiratory: normal respiratory effort, lungs clear to auscultation Cardiovascular: Rate/Rhythm: regular rate and + bradycardic Gastrointestinal (Abdomen): normal bowel sounds, soft, nontender, no hepatosplenomegaly Musculoskeletal: Head/Neck/Chest: normocephalic and head atraumatic Neurologic: PERRL, EOMI, accommodation nl, no face palsy, no dysarthria (known visual impairments) CN's II-XI intact bilaterally Results & Data Vital Signs (Past 12 Hours) Vital Signs Temp Pulse Resp BP BP Pulse Ox 06/25/19 07:15 36.5 C 62 16 139/91 98 06/25/19 02:59 36.5 C 88 19 151/105 H 95 06/24/19 23:11 36.6 C 66 18 115/77 99
[2019-06-25] MEDS: OXYCODONE HCL IR 5 MG TAB (IMMEDIATE RELEASE) PO PRN ×2 (11:43→23:53)
[2019-06-25] MEDS: CEFEPIME 2,000 MG in SYRINGE 7.5 ML IV SCH ×2 (11:45→18:15)
[2019-06-25] MEDS ORDERED: ACETAMINOPHEN 1,000 MG/100 ML VIAL IV STA (15:02)
[2019-06-25] MEDS ORDERED: VANCOMYCIN TROUGH ONE (19:30)
--- NOTE | 2019-06-25 21:51 | Pharmacy Report ---
Pharmacy Abx Dose Short Note - Date of Service June 25, 2019 - Assessment & Plan Assessment 34 year old F receiving empiric vancomycin and cefepime for treatment of possible sepsis/febrile illness (unknown origin) Day # 2 of antimicrobial therapy. Plan Vancomycin * Trough level of 30 mcg/mL is supratherapeutic * Vancomycin put on hold (2000 dose not administered) * Goal trough level : 15 to 20 mcg/mL * Random level ordered for: 06/26/19 * Will calculate actual elimination rate and redose when appropriate Cefepime * Continue current regimen of 2 g IV q8h - dose appropriate for estimated CrCl > 60 mL/min Pharmacy will continue to follow and will adjust dose/frequency as necessary. Thank you.
[2019-06-26] MEDS ORDERED: OXYCODONE HCL IR 5 MG TAB (IMMEDIATE RELEASE) PO PRN (01:11)
[2019-06-26] MEDS ORDERED: OXYCODONE HCL IR 5 MG TAB (IMMEDIATE RELEASE) PO STA (01:11)
[2019-06-26] MEDS ORDERED: CALCIUM CARBONATE 500 MG CHEWABLE TAB PO STA (01:11)
[2019-06-26 02:07] LABS: Basophils # (auto) 0.01 K/uL (0-0.2); Basophils % (auto) 0.2 %; Eosinophils # (auto) 0.28 K/uL (0-0.5); Eosinophils % (auto) 4.9 %; Hematocrit (blood only) 36.7 % (37-47); Immature Granulocytes # (auto) 0.02 K/uL (0.00-0.02); Immature Granulocytes % (auto) 0.3 %; Lymphocytes # (auto) 0.93 K/uL (1.2-3.4); Lymphocytes % (auto) 16.3 %; Mean Corpuscular Hemoglobin 26.4 pg (25-34); Mean Corpuscular Hgb Conc 32.7 g/dL (32-36); Mean Corpuscular Volume 80.8 fL (80-100); Mean Platelet Volume 10.4 fL (7.4-10.4); Monocytes # (auto) 0.26 K/uL (0.11-0.59); Monocytes % (auto) 4.5 %; Neutrophils # (auto) 4.22 K/uL (1.4-6.5); Neutrophils % (auto) 73.8 %; Platelet Count 290 K/uL (130-400); RDW Coefficient of Variation 14.4 % (11.5-14.5); RDW Standard Deviation 42.4 fL (36.4-46.3); Red Blood Count 4.54 M/uL (4.2-5.4); White Blood Count 5.72 K/uL (4.8-10.8)
[2019-06-26 02:30] LABS: Alanine Aminotransferase 29 U/L (12-78); Albumin Level 2.8 gm/dl (3.4-5.0); Aspartate Aminotransferase 19 U/L (15-37); Blood Urea Nitrogen 13 mg/dl (7-18); Calcium 8.1 mg/dl (8.5-10.1); Carbon Dioxide 25 mmol/L (21-32); Chloride 109 mmol/L (98-107); Creatinine Clr Calc Pharmacy 103.7 ml/min; Est GFR (African American) 89.6; Est GFR (Non-African American) 77.3; Glucose 86 mg/dl (70-99); Lipase 194 U/L (73-393); Magnesium 1.9 mg/dl (1.8-2.4); Potassium 3.7 mmol/L (3.5-5.1); Sodium 140 mmol/L (136-145)
[2019-06-26 02:35] LABS: Albumin Globulin Ratio 0.5 (0.9-2); Alkaline Phosphatase 49 U/L (45-117); Bilirubin,Total 0.3 mg/dl (0.2-1); Globulin 5.1 gm/dl (2.5-4.0); Total Protein 7.9 gm/dl (6.4-8.2); Troponin I < 0.015 ng/ml (0-0.045)
[2019-06-26] MEDS: CEFEPIME 2,000 MG in SYRINGE 7.5 ML IV SCH (02:42)
[2019-06-26] MEDS: MoRPHine SULFATE 4 MG/ML 1 ML CARP\\VIAL IV PRN ×2 (04:00→23:18)
--- NOTE | 2019-06-26 08:39 | Hospitalist Progress Note ---
Date of Service June 26, 2019 Assessment & Plan (1) SIRS (systemic inflammatory response syndrome): Possible Sepsis vs. SIRS of NON-infectious origin -Patient was recently discharged on 06/21/19 after hospital evaluation for Hilar adenopathy and persistent subjective Shortness of Breath. She returns to the hospital on 06/24/19 after waking up in the morning feeling acutely short of the breath, and found in the hospital to be tachycardic despite breathing on room air, and with SIRS criteria including fever -At this time the question is whether patient is having some autoimmune problem versus a hospital acquired infection from previous hospital stay -06/25/19 have discussed with her residential field manager Dr. 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 -she received 1 dose of IV steroids on 06/24/19 with good clinical response with empiric cefepime and Vancomycin -will continue broad spectrum cefepime and Vancomycin and await further for the blood culture results -Cardiac echocardiogram was done on 06/24/19 to investigate patient's subjective shortness of breath and chest discomforts but no evidence of pulmonary hypertension, no valvular disease, no pericardial effusion, and has normal ej ection fraction -06/26/19: Overnight patient reported that after she took oral potassium phosphate before sleep, she started to have aches and pains of the body. She was given narcotic pain medication with sufficient relieve. nasal cannula oxygen was also given for subjective shortness of breath. daytime hospitalist examined the patient this AM and patient reported diffuse chest discomforts that go from anterior chest to the back. the pain appears to be musculoskeletal in nature. patient did not appear to be in respiratory distress. discussed with patient that blood cultures from admission have returned as no growth and her symptoms appeared more likely autoimmune rather than from bacterial infection. antibiotics to be stopped, patient to be given solumedrol 40 mg IV x 1 and IV fluids, and consult to be placed for [facility] group Dr. Ingram who has been listed as hospital rheumatology consult and he works with patient's usual residential field manager Dr. Andrea -flakito creatinine kinase (2) Electrolyte imbalance: Hypokalemia Hypophosphatemia -admission: lab findings notable for mild Hypokalemia of 3.3 and incidental but low levels of serum phosphorous level of 1.1. Will replete electrolytes and to correct to the Hypophosphatemia -these deficiencies have been corrected with supplements on 06/24/19 -06/25/19 will stop potassium phosphate oral supplements unless potassium and phosphorous decreases (3) Shortness of breath: -subjective shortness of breath assessed on last hospital stay -has been breathing on room air -Patient was recently discharged on 06/21/19 after hospital evaluation for abnormal CT scan with Hilar adenopathy; lung imaging as CXR on this admission as Improving bibasilar atelectatic change; Trace pleural fluid both lung bases and generally without gross changes to the lungs as last time -outpatient pulmonary follow up is warranted but no acute process for biopsy -Cardiac echocardiogram was done on 06/24/19 to investigate patient's subjective shortness of breath and chest discomforts but no evidence of pulmonary hypertension, no valvular disease, no pericardial effusion, and has normal ejection fraction -ultrasound of lower extremities ordered to rule out DVT (4) Abnormal CT scan of lung: management as above (5) Adenopathy, hilar: management as above (6) Diabetes: 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 She was given narcotic pain medication with sufficient relieve. nasal cannula oxygen was also given for subjective shortness of breath. daytime hospitalist examined the patient this AM and patient reported diffuse chest discomforts that go from anterior chest to the back. the pain appears to be musculoskeletal in nature. patient did not appear to be in respiratory distress. discussed with patient that blood cultures from admission have returned as no growth and her symptoms appeared more likely autoimmune rather than from bacterial infection. antibiotics to be stopped, patient to be given solumedrol 40 mg IV x 1 and IV fluids, and consult to be placed for [facility] group Dr. Ingram who has been listed as [facility]ology consult and he works with patient's usual residential field manager Dr. Andrea no dizziness. no lightheadedness. no complaints of abdominal pain. no vomiting Physical Exam Constitutional: comfortable Eyes: PERRL, conjunctivae normal, anicteric sclerae EOM intact bilaterally ENMT: external ear and nose normal, oropharynx normal Neck: normal visual inspection Respiratory: normal respiratory effort, lungs clear to auscultation Cardiovascular: Rate/Rhythm: regular rate and + bradycardic Gastrointestinal (Abdomen): normal bowel sounds, soft, nontender, no hepatosplenomegaly Musculoskeletal: Head/Neck/Chest: normocephalic and head atraumatic Neurologic: PERRL, EOMI, accommodation nl, no face palsy, no dysarthria (known visual impairments) CN's II-XI intact bilaterally Results & Data Vital Signs (Past 12 Hours) Vital Signs Temp Pulse Resp BP BP Pulse Ox 06/26/19 07:15 36.8 C 101 H 21 116/78 95 06/26/19 03:03 36.8 C 92 H 20 131/87 99 06/26/19 01:43 87 26 H 125/81 94 06/25/19 22:40 93 H 22 131/98 96
[2019-06-26] MEDS ORDERED: methylPREDNISolone 40 MG in SYRINGE 0 ML IV ONE (08:45)
[2019-06-26] MEDS ORDERED: SODIUM CHLORIDE 0.9% 1000ML 500 ML IV ONE (08:45)
[2019-06-26] MEDS ORDERED: MAGNESIUM SULFATE / D5W 1 GM/100 ML BAG IV ONE (08:45)
[2019-06-26 08:53] LABS: Phosphorus 4.4 mg/dl (2.5-4.9)
[2019-06-26] MEDS: ACETAMINOPHEN 65 ML IV PRN ×2 (09:10→22:08)
[2019-06-26] MEDS: ATORVASTATIN 40 MG TAB PO SCH (09:12)
[2019-06-26] MEDS: DUREZOL SCH ×2 (09:14→13:19)
--- NOTE | 2019-06-26 10:18 | Ultrasound Report ---
US venous doppler LE BI HISTORY: Pain. Edema. rule out DVT COMPARISON STUDY: None. FINDINGS: There is normal compressibility, flow, and augmentation within the bilateral lower extremit y deep venous systems. IMPRESSION: No DVT within the right or left lower extremity. The above report was generated using voice recognition software. It may contain grammatical, syntax or spelling errors. Electronically signed by: Norman Medina M.D. 06/26/2019 10:16 AM
[2019-06-26] MEDS: DUREZOL OP SCH ×2 (16:18→18:21)
[2019-06-26] MEDS: VANCOMYCIN HCL 1,500 MG in SODIUM CHLORIDE 0.9% 500 ML IV SCH (19:13)
--- NOTE | 2019-06-26 19:19 | Rheumatology Consultation ---
Rheumatology Consultation DOS June 26, 2019 Assessment & Plan (1) Fever: She presented with fever and shortness of breath after recently being in the hospital. Blood and urine cultures have been negative. Fever type: unspecified Qualified Code(s): R50.9 - Fever, unspecified (2) Current chronic use of systemic steroids: She has been on moderate doses of prednisone since 2014 Present on Admission?: Yes (3) Shortness of breath: Improved Present on Admission?: Yes (4) SIRS (systemic inflammatory response syndrome): She has had 5 weeks of myalgias, arthralgias, dyspnea on exertion and chest pain in the setting of high sed rate/crp, positive RICKY, dsDNA all concerning for lupus versus drug-induced lupus secondary to Humira. In the acute setting, treatment for both lupus and DLE is with corticosteroids. With DLE one also has to remove the offending agent. TNF inhibitors are known to cause drug-induced lupus. If histone antibody is negative, I would still recommend that she remain off Humira as this can flare lupus. She has not had any more fevers since admission. Fevers can occur in DLE and SLE so can lymphadenopathy and pleuritis. -Recommend discharging patient on Medrol 48 mg daily. - Patient advised to keep her appointment with me that has been schedule for 07/02/19 at 8:40 am -Will have to touch base with her offset press assistant to determine next course of treatment for her ongoing uveitis Patient is aware of the above recommendations History of Present Illness Attending Physician: 34 year old woman who is followed by [facility]. 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 She has been on high dose steroids since 2013. Past treatment for her uveitis have also included methotrexate (only on for about 1 month) and Cellcept 12/18-08/22 which was stopped when her insurance denied the medication. She started Humira for chronic bilateral uveitis in October of this year. She was seen urgently by me on 06/20/19 by the urging of her family because of diffuse joint pain and swelling for 5 weeks. Zahraa was requiring assistance with all her ADL often spending 22 hours in bed. I spoke to the sister and offered to move up her appointment as she was scheduled to see me on 06/25/19. She was seen by family practice on 06/11/19 complaining of whole body pain, fatigue, and chills. She was diagnosed with acute maxillary sinusitis and prescribed Augmentin. Labs were ordered including an RICKY that came back positive. Sed rate of 67 and CMP showing elevated LFTs. At her clinic visit on 06/20/19, she reported that her whole body pain suddenly developed without any inciting event. No rashes per report from family as the patient is clinically blind. She did not have fevers. In the last few days she has not gotten out of bed because it is too painful. She had lack of energy in trouble taking deep breaths due to pain. She could not even open a bottle of water which now takes her several minutes. No urinary issues. She has 3 more doses of Augmentin. Next Humira injection is June 25. Last eye exam was on 05/15/19. She was told that the inflammation was decreasing in the left eye but bad on the right. Next eye appointment was 08/14/19. With regards to steroids, she had been at 15 mg of prednisone for the past few months. She went from 40 mg to 20 mg and eventually to 15 mg. Steroids are being managed by Ophthalmology. She had no recent travel or sick contacts. She lives with her sister and [id number]. No kids or pets. Given her arthralgias, myalgias, sed rate and positive RICKY, I was concerned about drug induced lupus which can occur with TNF inhibitors. She is exquisitely tender on exam which also made me concerned about fibromyalgia. I recommended ruling out a systemic inflammatory condition before labeling her as fibromyalgia. Also given her difficulty breathing and being immobile for the last few weeks, I was concerned about pulmonary embolism. Her calves were not swollen. The pretest probability for PE was high. I started by checking a D- dimer which came back high at 2.07. I called the patient on Tuesday evening and advised her to go the the ED for evaluation of possible PE. She was seen and admitted overnight. CT scan showed no pulmonary embolism but there were hilar lymphadenopathy noted. Pulmonary medicine was consulted and recommended outpatient follow-up stating that the possibility of pulmonary sarcoid was low and that the lymphadenopathy could be associated with her autoimmune disease. She was given IV solumedrol and sent home on prednisone 40 mg daily per my input. She returned on Tuesday morning because of acute shortness of breath and was found to have a Tmax of 39.5 and was tachycardic. She was admitted and given IV antibiotics and blood and urine cultures were drawn. CXR did not show any pulmonary infiltrates but trace pleural effusion. Her vital signs normalized and her blood cultures have been no growth to date. Urine grew katie albicans. Last night, she experienced diffuse pain and was given pain medication. Currently this evening she feels well. She had an echocardiogram that did not show any LV dysfunction or concern for pulmonary hypertension. Allergies Allergy/AdvReac Type Severity Reaction Status Date / Time No Known Allergies Allergy Unverified 06/24/19 05:52 Home Medications Home Medications Medication Instructions Recorded Confirmed Type Durezol 1 drp OPB .Q2HRS 06/20/19 06/24/19 History Humalog Mix 75-25(U-100)Insuln 6 unit SUBCUT AC 06/20/19 06/24/19 History Humira Pen 40 mg SUBCUT .[id number] 06/20/19 06/24/19 History Levemir FlexTouch U-100 Insuln 16 unit SUBCUT HS 06/20/19 06/24/19 History amoxicillin-pot clavulanate 1 tab PO Q12 06/20/19 06/24/19 History atorvastatin [Lipitor] 40 mg PO .HOLD 06/20/19 06/24/19 History oxycodone [Roxicodone] 5 mg PO Q6 PRN 06/20/19 06/24/19 History prednisone 40 mg PO DAILY 30 Days #60 tab 06/21/19 06/24/19 Rx Patient History Medical History Pelvic pain (Acute 12/05/13) Endometriosis (Chronic) Thrombocytopenia (Acute 01/08/14) Hypotension (Acute 01/08/14) Anemia (Acute) Pancreatitis (Acute) Renal failure (Acute) Thrombocytopenia (Acute) Vomiting (Acute) Periapical abscess (Acute) Diabetes Dental caries (Acute) HTN (hypertension) Ruptured ovarian cyst (Acute) Hx: UTI (urinary tract infection) Right lower quadrant abdominal pain (Acute) Chronic uveitis Dysmenorrhea Ovarian cyst, complex Abdominal pain (Acute) Surgical History S/P ovarian cystectomy Family History Other Family history non-contributory Social History Preferred Language: Swedish Communication Ability: Effective Visual Impairment: Blindness Manager [employer] Required: No Beliefs That Will Affect Care: None marital status: Single Current Living Situation: Family Current Living Situation Comment: lives with sister and [id number] Other Information That Helps Us Care for You: No Feels Safe at Home: Yes Safety Concerns: Feels Safe At This Time Smoking Status: Never smoker Hx Alcohol Use: No Hx Substance Use: No Review of Systems Constitutional: as per Subjective / HPI Respiratory: + dyspnea on exertion Cardiovascular: no chest pain at rest, no radiating jaw, neck or arm pain, no edema and no calf pain Gastrointestinal: + abdominal pain; no nausea and no cramping Genitourinary: no dysuria and no urinary frequency Musculoskeletal: + joint pain and + problem reported (intermittent diffuse widespread pain); no swelling and no muscle weakness Integumentary: no rash Neurologic: no falls, no numbness, no radiating pain and no syncope Endocrine: + fatigue; no cold intolerance Physical Exam Physical Exam: Gen: lying in bed in no acute distress CV: regular rate without murmurs, rubs, or gallops Resp: clear to ascultation Abdomen: soft NTND MSK: no joint tenderness or swelling Neuro: moves all extremities Skin: no rashes Results & Data Vital Signs (Past 12 Hours) Vital Signs Temp Pulse Pulse Resp BP Pulse Ox 06/26/19 19:06 36.6 C 90 19 153/92 H 95 06/26/19 17:00 77 06/26/19 15:10 36.7 C 74 19 129/84 94 06/26/19 11:26 36.7 C 84 17 115/74 91 06/26/19 08:00 91 H 06/20/19 labs from [facility] RICKY 1:640 homogenous dsDNA 160 (H) Cardiolipin IgM 42 (H) Cardiolipin IgG and IgA negative C3 174 C4 19 D-dimer 2.07 (<0.5) CRP 62 AST 58 (H) ALT 39 (H) total protein 9.0 (H) anti-histone - pending Urine protein/creatine 93 Urinalysis negative nitrates, moderate esterase, WBC 10-19, many epithelial cells, 10-19 hyaline cast, 0-25 bacteria
[2019-06-27 06:42] LABS: Albumin Level 2.9 gm/dl (3.4-5.0); BUN Creatinine Ratio 16.4 (10-20); Calcium 8.9 mg/dl (8.5-10.1); Creatinine Clr Calc Pharmacy 125.2 ml/min; Est GFR (African American) 109.7; Est GFR (Non-African American) 94.7; Potassium 3.8 mmol/L (3.5-5.1)
[2019-06-27 06:45] LABS: Albumin Globulin Ratio 0.6 (0.9-2); Bilirubin,Total 0.3 mg/dl (0.2-1); Globulin 5.1 gm/dl (2.5-4.0)
[2019-06-27 07:22] LABS: Basophils # (auto) 0.01 K/uL (0-0.2); Basophils % (auto) 0.1 %; Eosinophils # (auto) 0.14 K/uL (0-0.5); Eosinophils % (auto) 1.2 %; Hemoglobin 11.7 g/dL (12.0-16.0); Immature Granulocytes # (auto) 0.04 K/uL (0.00-0.02); Immature Granulocytes % (auto) 0.3 %; Lymphocytes # (auto) 1.68 K/uL (1.2-3.4); Lymphocytes % (auto) 14.2 %; Mean Corpuscular Hemoglobin 26.4 pg (25-34); Mean Platelet Volume 9.5 fL (7.4-10.4); Monocytes # (auto) 0.59 K/uL (0.11-0.59); Neutrophils # (auto) 9.34 K/uL (1.4-6.5); Neutrophils % (auto) 79.2 %; Platelet Count 340 K/uL (130-400); RDW Coefficient of Variation 14.1 % (11.5-14.5); RDW Standard Deviation 39.9 fL (36.4-46.3); Red Blood Count 4.43 M/uL (4.2-5.4)
[2019-06-27 07:40] LABS: Mean Corpuscular Hgb Conc 33.4 g/dL (32-36)
[2019-06-27] MEDS: ATORVASTATIN 40 MG TAB PO SCH (08:15)
[2019-06-27] MEDS: DUREZOL SCH ×3 (08:15→11:52)
[2019-06-27] MEDS ORDERED: ACETAMINOPHEN 325 MG TAB PO PRN (08:44)
[2019-06-27] MEDS ORDERED: ACETAMINOPHEN 325 MG TAB ONE (08:57)
[2019-06-27] MEDS ORDERED: predniSONE 20 MG TAB PO SCH (09:00)
--- NOTE | 2019-06-27 09:26 | Hospitalist Progress Note ---
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 She returns to the hospital on 06/24/19 after waking up in the morning feeling acutely short of the breath, and found in the hospital to be tachycardic despite breathing on room air, and with SIRS criteria including fever -At this time the question is whether patient is having some autoimmune problem versus a hospital acquired infection from previous hospital stay -06/25/19 have discussed with her fishing boat captain Dr. 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 -she received 1 dose of IV steroids on 06/24/19 with good clinical response with empiric cefepime and Vancomycin -will continue broad spectrum cefepime and Vancomycin and await further for the blood culture results -Cardiac echocardiogram was done on 06/24/19 to investigate patient's subjective shortness of breath and chest discomforts but no evidence of pulmonary hypertension, no valvular disease, no pericardial effusion, and has normal ejection fraction -06/26/19: Overnight patient reported that after she took oral potassium phosphate before sleep, she started to have aches and pains of the body. She was given narcotic pain medication with sufficient relieve. nasal cannula oxygen was also given for subjective shortness of breath. daytime hospitalist examined the patient this AM and patient reported diffuse chest discomforts that go from anterior chest to the back. the pain appears to be musculoskeletal in nature. patient did not appear to be in respiratory distress. discussed with patient that blood cultures from admission have returned as no growth and her symptoms appeared more likely autoimmune rather than from bacterial infection. antibiotics to be stopped, patient to be given solumedrol 40 mg IV x 1 and IV fluids, and consult to be placed for [facility]umatology group -06/27/19 discharge plans creatinine kinase normal. Patient was seen by her usual fishing boat captain Dr. 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 Dr Andrea Recommend discharging patient on Medrol 48 mg daily. Patient advised to keep her appointment with rheumatology Dr. Andrea on 07/02/19 at 8:40 am. Other appointments: 06/29/2019 11:20 AM Provider Lucita Mosley DO Department [facility] discharge medication of Medrol (methylprednisolone) 48 mg daily sent electronically to [facility] pharmacy [address] [place] [facility] [place] [address] (2) Electrolyte imbalance: Hypokalemia Hypophosphatemia -admission: lab findings notable for mild Hypokalemia of 3.3 and incidental but low levels of serum phosphorous level of 1.1. Will replete electrolytes and to correct to the Hypophosphatemia -these deficiencies have been corrected with supplements on 06/24/19 -06/25/19 stopped potassium phosphate oral supplements (3) Shortness of breath: -subjective shortness of breath assessed on last hospital stay -has been breathing on room air -Patient was recently discharged on 06/21/19 after hospital evaluation for abn ormal CT scan with Hilar adenopathy; lung imaging as CXR on this admission as Improving bibasilar atelectatic change; Trace pleural fluid both lung bases and generally without gross changes to the lungs as last time -outpatient pulmonary follow up is warranted but no acute process for biopsy -Cardiac echocardiogram was done on 06/24/19 to investigate patient's subjective shortness of breath and chest discomforts but no evidence of pulmonary hypertension, no valvular disease, no pericardial effusion, and has normal ejection fraction -ultrasound of lower extremities ordered to rule out DVT (4) Abnormal CT scan of lung: management as above (5) Adenopathy, hilar: management as above (6) Diabetes: 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 She is breathing comfortably. on room air. no telemetry events today. Patient was seen by her usual fishing boat captain Dr. 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 Dr Andrea Recommend discharging patient on Medrol 48 mg daily. Patient advised to keep her appointment with rheumatology Dr. Andrea on 07/02/19 at 8:40 am Physical Exam Constitutional: comfortable Eyes: PERRL, conjunctivae normal, anicteric sclerae EOM intact bilaterally ENMT: external ear and nose normal, oropharynx normal Neck: normal visual inspection Respiratory: normal respiratory effort, lungs clear to auscultation Cardiovascular: Rate/Rhythm: regular rate and regular rhythm Gastrointestinal (Abdomen): normal bowel sounds, soft, nontender, no hepatosplenomegaly Musculoskeletal: Head/Neck/Chest: normocephalic and head atraumatic Neurologic: PERRL, EOMI, accommodation nl, no face palsy, no dysarthria (known visual impairments) CN's II-XI intact bilaterally Results & Data Vital Signs (Past 12 Hours) Vital Signs Temp Pulse Resp BP BP Pulse Ox 06/27/19 07:10 36.6 C 77 16 119/80 94 06/27/19 03:00 36.5 C 66 18 132/86 93 06/26/19 23:11 36.6 C 66 20 131/89 94
--- NOTE | 2019-06-27 09:38 | Discharge Summary ---
Date of Service June 27, 2019 Admission HPI Per Admitting Provider This is a 34-year-old -[place] female that was recently admitted from 06/20/2019 to 06/21/2019 with a past medical history of TTP, endometriosis, hilar adenopathy, generalized chronic body aches, history of uveitis, steroid- induced diabetes mellitus, chronic current use of systemic steroids, question of sarcoid, legal blindness, obesity. The patient presents today with shortness of breath, tachycardia, and fever. She reports that throughout the night she had increasing shortness of breath and anxiety and could not lay flat. At the urging of her sister she was brought to the emergency department and found to have a phosphorus level of 1.1, tachycardia, and a T-max of 39.5. She had some nausea at home but no vomiting. She has no diarrhea. Her chief complaint overnight was extreme shortness of b reath when she laid flat and "feeling like her chest was going to explode". She did have tachycardia and tachypnea but did not appreciate any palpitations or missed beats. She has no specific chest pain or tightness. She did state that she had some minimal chest tightness with anxiety with her shortness of breath early this morning. She has chronic back pain but nothing acute. She denies any radiation of pain into her neck shoulder or arms. She has a nonproductive cough and denies hemoptysis. Cough is intermittent. She has no edema of the lower extremities. She denies any history of DVT or thromboembolic disease. She has no other acute complaints at this time It should be noted that patient is adopted and has no knowledge of biological parents. She is 1 of 18 children. 3 of those children are biological. The other 15 are adopted. The patient currently lives with her adopted sister and [id number]. Admission Exam Per Admitting Provider Physical Exam: GENERAL : No acute distress EYES: No icterus, gaze disconjugate. NOSE: No evidence of epistaxis MOUTH: No lesions or candidiasis. Poor dentition with noted cavities and lower teeth. No appreciation of loose teeth. Tongue is midline. NECK: Supple. No carotid bruits or stridor appreciated LUNGS: CTA B/L, no wheezes, rales or rhonchi. Diminished breath sounds globally. No specific adventitious breath sounds noted. Tachypneic at about 22 breaths/min HEART: Regular, tachycardic in the low 100s ABDOMEN: Soft, NT, ND, BS Present and hyperactive in all quadrants. No guarding or rebound tenderness EXTREMITIES: No LE edema, pedal pulses intact NEURO: A&OX3. No focal deficits other than vision which is chronic. Strength is equal and appropriate upper and lower extremities. Toes are downgoing bilaterally. No pronator drift. Deep tendon reflexes in the patellar and biceps tendons are 2/4. No slurred speech. No facial droop. 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 Discharge Exam Constitutional comfortable Eyes PERRL, conjunctivae normal, anicteric sclerae EOM intact bilaterally ENMT external ear and nose normal, oropharynx normal Neck normal visual inspection Respiratory normal respiratory effort, lungs clear to auscultation Cardiovascular Rate/Rhythm: regular rate and regular rhythm Gastrointestinal (Abdomen) normal bowel sounds, soft, nontender, no hepatosplenomegaly Musculoskeletal Head/Neck/Chest: normocephalic and head atraumatic Neurologic PERRL, EOMI, accommodation nl, no face palsy, no dysarthria (known visual impairments) CN's II-XI intact bilaterally Discharge Data Allergies Allergy/AdvReac Type Severity Reaction Status Date / Time No Known Allergies Allergy Unverified 06/24/19 05:52 Consultations 06/24/19 09:05 ED Decision to Admit Stat 06/26/19 08:06 Consult Rheumatology Routine Ordered Studies 06/26/19 08:44 US venous doppler LE Routine Hospital Course (1) SIRS (systemic inflammatory response syndrome): SIRS of NON-infectious origin Sepsis is ruled out Lupus versus drug-induced lupus secondary to Humira -Patient was recently discharged on 06/21/19 after hospital evaluation for Hilar adenopathy and persistent subjective Shortness of Breath. She returns to the hospital on 06/24/19 after waking up in the morning feeling acutely short of the breath, and found in the hospital to be tachycardic despite breathing on room air, and with SIRS criteria including fever -At this time the question is whether patient is having some autoimmune problem versus a hospital acquired infection from previous hospital stay -06/25/19 have discussed with her site manager Dr. 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 -she received 1 dose of IV steroids on 06/24/19 with good clinical response with empiric cefepime and Vancomycin -will continue broad spectrum cefepime and Vancomycin and await further for the blood culture results -Cardiac echocardiogram was done on 06/24/19 to investigate patient's subjective shortness of breath and chest discomforts but no evidence of pulmonary hypertension, no valvular disease, no pericardial effusion, and has normal ejection fraction -06/26/19: Overnight patient reported that after she took oral potassium phosphate before sleep, she started to have aches and pains of the body. She was given narcotic pain medication with sufficient relieve. nasal cannula oxygen was also given for subjective shortness of breath. daytime hospitalist examined the patient this AM and patient reported diffuse chest discomforts that go from anterior chest to the back. the pain appears to be musculoskeletal in nature. patient did not appear to be in respiratory distress. discussed with patient that blood cultures from admission have returned as no growth and her symptoms appeared more likely autoimmune rather than from bacterial infection. antibiotics to be stopped, patient to be given solumedrol 40 mg IV x 1 and IV fluids, and consult to be placed for [facility]ology group -06/27/19 discharge plans creatinine kinase normal. Patient was seen by her usual site manager Dr. 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 Dr Andrea Recommend discharging patient on Medrol 48 mg daily. Patient advised to keep her appointment with rheumatology Dr. Andrea on 07/02/19 at 8:40 am. Other appointments: 06/29/2019 11:20 AM Provider Lucita Mosley DO [facility] discharge medication of Medrol (methylprednisolone) 48 mg daily sent electronically to [facility] pharmacy [address] [facility] [place] [address] (2) Electrolyte imbalance: Hypokalemia Hypophosphatemia -admission: lab findings notable for mild Hypokalemia of 3.3 and incidental but low levels of serum phosphorous level of 1.1. Will replete electrolytes and to correct to the Hypophosphatemia -these deficiencies have been corrected with supplements on 06/24/19 -06/25/19 stopped potassium phosphate oral supplements (3) Shortness of breath: -subjective shortness of breath assessed on last hospital stay -has been breathing on room air -Patient was recently discharged on 06/21/19 after hospital evaluation for abnormal CT scan with Hilar adenopathy; lung imaging as CXR on this admission as Improving bibasilar atelectatic change; Trace pleural fluid both lung bases and generally without gross changes to the lungs as last time -outpatient pulmonary follow up is warranted but no acute process for biopsy -Cardiac echocardiogram was done on 06/24/19 to investigate patient's subjective shortness of breath and chest discomforts but no evidence of pulmonary hypertension, no valvular disease, no pericardial effusion, and has normal ejection fraction -ultrasound of lower extremities ordered to rule out DVT (4) Abnormal CT scan of lung: management as above (5) Adenopathy, hilar: management as above (6) Diabetes: 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 HbA1c 7.3 -Continue insulin DVT prophylaxis: -No indication for chemical prophylaxis at this time as patient is ambulatory -JA hose as well as SCDs when in bed Ambulate in hallways as tolerated (7) DVT prophylaxis: Total Time Total Time Spent Total Time Spent (In Minutes): 60 minutes Total Time Includes: Examination of the Patient, Discharge Planning, Medication Reconciliation and Communication With Other Providers Discharge Plan Discharge Items Patient Disposition: Home - Self-Care Reason For Visit: FEVER, SOB, LOW PHOS Discharge Diagnosis: SIRS of NON-infectious origin Sepsis is ruled out Lupus versus 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 Dr Andrea Recommend discharging patient on Medrol 48 mg daily. Patient advised to keep her appointment with rheumatology Dr. Andrea on 07/02/19 at 8:40 am. Other appointments: 06/29/2019 11:20 AM Provider Lucita Mosley Department [facility] discharge medication of Medrol (methylprednisolone) 48 mg daily sent electronically to [facility] pharmacy [address] [facility] [place] [address] Pending Studies at Discharge: No Stand-Alone Forms: [facility] [employer], Smoking Cessation Medications and DC Order Prescriptions: New methylprednisolone [Medrol] 16 mg Tablet 48 mg PO DAILY 30 Days Qty: 90 RF: 0 Continued atorvastatin [Lipitor] 40 mg tablet 40 mg PO .HOLD RF: 0 Humalog Mix 75-25(U-100)Insuln 100 unit/mL (75-25) Suspension 6 unit SUBCUT AC RF: 0 oxycodone [Roxicodone] 5 mg tablet 5 mg PO Q6 PRN (Reason: Pain) RF: 0 Levemir FlexTouch U-100 Insuln 100 unit/mL (3 mL) Insulin Pen 16 unit SUBCUT HS RF: 0 Humira Pen 40 mg/0.8 mL pen injector kit 40 mg subcut .[id number] RF: 0 Durezol 0.05 % drops 1 drp OPB .Q2HRS RF: 0 Discontinued amoxicillin-pot clavulanate 875-125 mg tablet 1 tab PO Q12 RF: 0 prednisone 20 mg Tablet 40 mg PO DAILY 30 Days Qty: 60 RF: 0 Discharge Orders: Discharge Order (Routine); Ordered 06/27/19 Ordered By: Yoandy Angel Admission Data Admit Date/Time: 06/24/19 10:52 Attending Provider: Valentin Rubio Admit Provider: Yoandy Angel Primary Care Provider: Radha Vaca Other Providers: Yoandy Angel ; Randy Ingram
== END 2019-06-27 12:07 | disposition home or self-care (01) | DRG 197 ==
LOC: ED 05:01 → 2S 10:52 → SUATTDRO 10:52 → 2S 11:06

== ENCOUNTER 2019-08-08 15:21 | Inpatient (IN) ==
[2019-08-08 16:55] LABS: POC Urine Bilirubin Negative (Negative); POC Urine Blood 250 (Negative); POC Urine Glucose 1000 (Normal); POC Urine Leukocytes 1+ (Negative); POC Urine Nitrite Negative (Negative); POC Urine Protein Negative (Negative); POC Urine Urobilinogen Normal (Normal); POC Urine pH 5 (4.5-7.5)
--- NOTE | 2019-08-08 16:57 | Emergency Department Note ---
ED Provider Note CHIEF COMPLAINT: Hyperglycemia, fatigue, increased thirst and urination HISTORY OF PRESENTING ILLNESS: This is a 34-year-old female with past medical history significant for insulin-dependent diabetes, hyperlipidemia, panuveitis, and endometriosis, who presents to the emergency department by private vehicle with concern for abnormal labs and significantly elevated blood sugar. Patient notes that she has been feeling increased fatigue, increased thirst and having increased urination for the past 3 weeks that has been getting progressively worse. Past few days she has been having nausea and vomiting associated with this. She also notes some lower abdominal discomfort for the past few weeks as well. She describes the abdominal pain as cramping and throbbing, comes and goes, similar to her endometriosis pain, currently rates it as 5/10. She has not tried any medication for the pain today. She notes that her blood sugars have been too high to read for the past several days. She notes that she had lab work done by her glazing superintendent a few days ago, these results were forwarded to her PCP who called her today and told her to come to the emergency department for further evaluation. Patient denies any headaches, new changes in vision, chest pain, shortness of breath, cough or URI symptoms, fevers, chills, diarrhea, dysuria or foul-smelling urine, or unusual rash. Patient notes she is chronic steroids for her panuveitis. REVIEW OF SYSTEMS: A complete 10 point review of systems was reviewed with the patient with pertinent positives and negatives as per history of present illness. All else were negative. PAST MEDICAL HISTORY: Insulin-dependent diabetes, endometriosis, hyperlipidemia, panuveitis SOCIAL HISTORY: Lives at home, she denies tobacco use ALLERGIES: No known allergies PHYSICAL EXAM: CONSTITUTIONAL: Pleasant and cooperative. Nontoxic-appearing and in no acute distress. Moderately dehydrated, but otherwise well appearing and well nourished. HEENT: Normocephalic, atraumatic. PERRL, EOMI. Pharynx normal. Dry mucous membranes. NECK: Supple, full active range of motion without discomfort. No cervical adenopathy. No nuchal rigidity. RESPIRATORY: Clear to auscultation bilaterally with no wheezing, crackles, rhonchi or stridor. Equal expansion bilaterally. CARDIOVASCULAR: Regular rate and rhythm with no murmurs, rubs or gallops. Normal peripheral perfusion. No edema. GASTROINTESTINAL: Mild suprapubic tenderness to palpation, abdomen is otherwise nontender. No rebound tenderness or guarding. Soft and nondistended. Obese abdomen. No palpable masses or HSM. Bowel sounds present in all quadrants. No CVA tenderness bilaterally. MUSCULOSKELETAL: Full range of motion of all joints without discomfort. INTEGUMENTARY: No rash or other significant dermatologic conditions noted. NEUROLOGIC: Alert and oriented X 4 with normal affect. Normal strength and sensation in all 4 extremities. Normal speech. Normal gait observed. ED COURSE AND MEDICAL DECISION MAKING: CC: Patient presenting with complaint of hyperglycemia, fatigue, increased thirst and urination DIFFERENTIAL DIAGNOSIS: Includes, but not limited to hyperglycemia, DKA, HHNS, electrolyte abnormality, dehydration, UTI, among others. INTERPRETATION OF LABS: Leukocytosis, no anemia, normal platelets, significant hyperglycemia with reciprocal hyponatremia and hypochloremia, no other significant electrolyte abnormalities, slightly elevated BUN and creatinine, slightly elevated alkaline phosphatase, liver enzymes and lipase are otherwise normal. Marginally elevated anion gap, slightly elevated serum osmolality and beta hydroxybutyric acid. Normal pH on VBG. UA notable for large glucose, 2+ ketones, and blood, large epithelial cells suggestive of contaminated specimen, urine culture pending. Urine negative. IMAGING: XR chest 1V portable CLINICAL HISTORY: hyperglycemia COMPARISON STUDY: 06/25/2019 FINDINGS: The cardiac and mediastinal contours are normal. There is no evidence of focal pulmonary consolidation. There is no evidence of failure. No pleural effusions are visualized. IMPRESSION: No active disease in the chest. EKG: Shows sinus tachycardia with a rate of 107 bpm, normal intervals, no ectopy, diffuse increased T wave amplitude which appears to be changed from previous EKG from 06/26/2019 by my interpretation. MEDICATION RECONCILIATION: I attest that I have personally reviewed the patient's current medication list. INITIAL VITAL SIGNS REVIEW: I reviewed the patient's initial vital signs and interpret them as follows: T: Afebrile; BP: Hypertensive; HR: Mildly tachy cardic; RR: Within normal limits; Pulse Ox: Within normal limits on room air. Blood pressure screening: The patient was found to have an elevated blood pressure, which was referred to the inpatient team for further management. MDM SUMMARY: Patient was evaluated at bedside, history and physical exam performed. Patient is alert and oriented, in no acute distress, resting calmly in stretcher. She appears moderately dehydrated on exam and is noted to be mildly tachycardic. She is afebrile and nontoxic-appearing. She has mild tenderness to palpation in the suprapubic abdomen, the abdomen is otherwise nontender on my exam. Orders were placed at bedside for labs, UA and urine , IV fluid bolus for hydration, EKG, chest x-ray to evaluate for hyperglycemia. Patient discussed with Dr. Cook, who agrees with my assessment, plan, and disposition. Labs and imaging reviewed as above, labs are notable for some leukocytosis, the patient is on chronic steroids, unclear if this would cause the leukocytosis. EKG noted to be sinus tachycardia with increased T wave amplitude, however the potassium is noted to be normal. Markedly elevated serum glucose, hyponatremia and hypochloremia, with slightly open gap, slightly elevated osmolality and beta hydroxybutyric acid. pH is normal on VBG, no overt evidence for DKA. Urinalysis shows large glucose and some ketones, no definite UTI, culture pending. Chest x-ray is clear. Patient was given 10 units SQ regular insulin, her blood glucose did decrease to 450. Recheck of the blood glucose after 1 L IV fluid bolus was 428. I discussed again with Dr. Cook, given the degree of hyperglycemia and persistent symptoms for 3 weeks, we did feel the patient would benefit from admission. Given that the patient is not clearly in DKA and has responded somewhat to fluids and SQ insulin, will hold off on starting an insulin drip for now and defer to the inpatient team. I spoke on the phone with Dr. Solis, [facility] hospitalist, who agrees to evaluate the patient for admission. Patient reassessed multiple times throughout ED stay, she has remained hemodynamically stable and afebrile, tachycardia is downtrending with IV fluids, and she denies any complaints. The patient was updated on all results and plan for admission, she verbalized understanding and was agreeable to this plan. The patient was stable at time of admission. The chart was completed utilizing [employer] voice recognition software. Grammatical errors, random word insertions, pronoun errors, and incomplete sentences are an occasional consequence of this system due to software limitations, ambient noise, and hardware issues. Any formal questions or blanca rns about the content, text, or information contained within the body of this dictation should be directly addressed to the nurse practitioner for clarification. Impression & Plan Acute hyperglycemia, Acute hyponatremia, Acute dehydration, Insulin dependent diabetes mellitus Past Med/Surg History Social History Preferred Language: Welsh Communication Ability: Effective Visual Impairment: Blindness Lead Recreation Assistant Required: No Beliefs That Will Affect Care: None marital status: Single Current Living Situation: Family Current Living Situation Comment: lives with sister and [id number] Feels Safe at Home: Yes Smoking Status: Never smoker Hx Alcohol Use: No Hx Substance Use: No Results & Data Vital Signs Vital Signs - 24 hr 08/08/19 15:34 08/08/19 18:00 08/08/19 19:23 Temperature 36.5 C Temperature Source Oral Pulse Rate 100 H Pulse Rate [Right Finger] 109 H 99 H Pulse Rhythm [Right Finger] Regular Respiratory Rate 18 20 23 Respiratory Effort / Characteristics Non-Labored Spontaneous Non-Labored Spontaneous Respiratory Depth Normal Respiratory Pattern Regular Blood Pressure 143/94 H Blood Pressure [Right Arm] 134/76 146/93 H Blood Pressure Mean 110 Blood Pressure Mean [Right Arm] 95 110 Blood Pressure Position Sitting Blood Pressure Position [Right Arm] Lying Pulse Oximetry 98 97 96 Oxygen Delivery Method Room Air Room Air Room Air Sepsis Recent Fever Within 48 Hours No Sepsis New/Unexplained Change in Mental Status No Sepsis Action Taken by Nursing No Action Required 08/08/19 22:46 Temperature Temperature Source Pulse Rate Pulse Rate [Right Finger] 87 Pulse Rhythm [Right Finger] Respiratory Rate 20 Respiratory Effort / Characteristics Respiratory Depth Respiratory Pattern Blood Pressure Blood Pressure [Right Arm] 133/70 Blood Pressure Mean Blood Pressure Mean [Right Arm] 91 Blood Pressure Position Blood Pressure Position [Right Arm] Pulse Oximetry 97 Oxygen Delivery Method Room Air Sepsis Recent Fever Within 48 Hours Sepsis New/Unexplained Change in Mental Status Sepsis Action Taken by Nursing Laboratory Data Result diagrams: 08/08/19 16:59 08/08/19 16:59 Lab Results 08/08/19 08/08/19 08/08/19 Range/Units 16:50 16:50 16:50 WBC (4.8-10.8) K/uL RBC (4.2-5.4) M/uL Hgb (12.0-16.0) g/dL Hct (37-47) % MCV (80-100) fL MCH (25-34) pg MCHC (32-36) g/dL RDW Std Deviation (36.4-46.3) fL RDW Coeff of Nicholas (11.5-14.5) % Plt Count (130-400) K/uL MPV (7.4-10.4) fL Immature Gran % (Auto) % Neut % (Auto) % Lymph % (Auto) % Candler % (Auto) % Eos % (Auto) % Baso % (Auto) % Immature Gran # (Auto) (0.00-0.02) K/uL Neut # (Auto) (1.4-6.5) K/uL Lymph # (Auto) (1.2-3.4) K/uL Candler # (Auto) (0.11-0.59) K/uL Eos # (Auto) (0-0.5) K/uL Baso # (Auto) (0-0.2) K/uL VBG pH (7.36-7.41) VBG pCO2 (38-50) mmHg VBG pO2 mmHg VBG HCO3 mmol/L VBG O2 Saturation % VBG Base Excess mEq/L Barometric Pressure mm/Hg Sodium (136-145) mmol/L Potassium (3.5-5.1) mmol/L Chloride (98-107) mmol/L Carbon Dioxide (21-32) mmol/L Anion Gap (3-11) BUN (7-18) mg/dl Creatinine (0.6-1.2) mg/dl Est Cr Clr Drug Dosing ml/min Est GFR ( Amer) Est GFR (Non-Af Amer) BUN/Creatinine Ratio (10-20) Glucose (70-99) mg/dl POC Glucose (70-99) Osmolality (280-300) mOsm/kg Calcium (8.5-10.1) mg/dl Phosphorus (2.5-4.9) mg/dl Magnesium (1.8-2.4) mg/dl Total Bilirubin (0.2-1) mg/dl AST (15-37) U/L ALT (12-78) U/L Alkaline Phosphatase (45-117) U/L Total Protein (6.4-8.2) gm/dl Albumin (3.4-5.0) gm/dl Globulin (2.5-4.0) gm/dl Albumin/Globulin Ratio (0.9-2) Lipase (73-393) U/L Beta-Hydroxybutyric Acd Procalcitonin (0-0.5) ng/ml Urine Color Yellow Urine Appearance Clear (Clear) Urine pH 5.0 (4.5-7.5) POC Urine pH 5 (4.5-7.5) Ur Specific Webster 1.039 H (1.000-1.030) Urine Protein Negative (Negative) POC Urine Protein Negative (Negative) Urine Glucose (UA) 3+ H (Negative) POC Ur Glucose (UA) 1000 H (Normal) Urine Ketones 1+ H (Negative) POC Urine Ketones 2+ (Moderate) H (Negative) Urine Blood 1+ H (Negative) POC Urine Blood 250 H (Negative) Urine Nitrite Negative (Negative) POC Urine Nitrite Negative (Negative) Urine Bilirubin Negative (Negative) POC Urine Bilirubin Negative (Negative) Urine Urobilinogen Negative (Negative) POC Urine Urobilinogen Normal (Normal) Ur Leukocyte Esterase Negative (Negative) POC U Leukocyte Esteras 1+ H (Negative) Urine WBC (Auto) 5-10 H (0-5) /hpf Urine RBC (Auto) 5-10 H (0-4) /hpf U Hyaline Cast (Auto) Not Reportable U Epithel Cells (Auto) 10-20 H (0-5) /lpf Urine Bacteria (Auto) 1+ H (Negative) Urine Yeast Present A (None Prsent) POC Ur Test NEG (NEG) 08/08/19 08/08/19 08/08/19 Range/Units 16:59 16:59 16:59 WBC 13.77 H (4.8-10.8) K/uL RBC 5.30 (4.2-5.4) M/uL Hgb 14.7 (12.0-16.0) g/dL Hct 42.6 (37-47) % MCV 80.4 (80-100) fL MCH 27.7 (25-34) pg MCHC 34.5 (32-36) g/dL RDW Std Deviation 43.2 (36.4-46.3) fL RDW Coeff of Nicholas 15.0 H (11.5-14.5) % Plt Count 230 (130-400) K/uL MPV 11.4 H (7.4-10.4) fL Immature Gran % (Auto) 0.4 % Neut % (Auto) 88.4 % Lymph % (Auto) 8.0 % Candler % (Auto) 3.1 % Eos % (Auto) 0.0 % Baso % (Auto) 0.1 % Immature Gran # (Auto) 0.06 H (0.00-0.02) K/uL Neut # (Auto) 12.17 H (1.4-6.5) K/uL Lymph # (Auto) 1.10 L (1.2-3.4) K/uL Candler # (Auto) 0.43 (0.11-0.59) K/uL Eos # (Auto) 0.00 (0-0.5) K/uL Baso # (Auto) 0.01 (0-0.2) K/uL VBG pH 7.41 (7.36-7.41) VBG pCO2 38 (38-50) mmHg VBG pO2 72 mmHg VBG HCO3 23 mmol/L VBG O2 Saturation 95.0 % VBG Base Excess -1.1 mEq/L Barometric Pressure 723.2 mm/Hg Sodium 126 L (136-145) mmol/L Potassium 4.0 (3.5-5.1) mmol/L Chloride 93 L (98-107) mmol/L Carbon Dioxide 21 (21-32) mmol/L Anion Gap 12.0 H (3-11) BUN 23 H (7-18) mg/dl Creatinine 1.22 H (0.6-1.2) mg/dl Est Cr Clr Drug Dosing 79.3 ml/min Est GFR ( Amer) 67.9 Est GFR (Non-Af Amer) 58.6 BUN/Creatinine Ratio 19.0 (10-20) Glucose 685 H* (70-99) mg/dl POC Glucose (70-99) Osmolality (280-300) mOsm/kg Calcium 9.2 (8.5-10.1) mg/dl Phosphorus 3.0 (2.5-4.9) mg/dl Magnesium 2.3 (1.8-2.4) mg/dl Total Bilirubin 0.6 (0.2-1) mg/dl AST 25 (15-37) U/L ALT 52 (12-78) U/L Alkaline Phosphatase 173 H (45-117) U/L Total Protein 7.7 (6.4-8.2) gm/dl Albumin 3.8 (3.4-5.0) gm/dl Globulin 3.9 (2.5-4.0) gm/dl Albumin/Globulin Ratio 1.0 (0.9-2) Lipase (73-393) U/L Beta-Hydroxybutyric Acd TNP Procalcitonin (0-0.5) ng/ml Urine Color Urine Appearance (Clear) Urine pH (4.5-7.5) POC Urine pH (4.5-7.5) Ur Specific Webster (1.000-1.030) Urine Protein (Negative) POC Urine Protein (Negative) Urine Glucose (UA) (Negative) POC Ur Glucose (UA) (Normal) Urine Ketones (Negative) POC Urine Ketones (Negative) Urine Blood (Negative) POC Urine Blood (Negative) Urine Nitrite (Negative) POC Urine Nitrite (Negative) Urine Bilirubin (Negative) POC Urine Bilirubin (Negative) Urine Urobilinogen (Negative) POC Urine Urobilinogen (Normal) Ur Leukocyte Esterase (Negative) POC U Leukocyte Esteras (Negative) Urine WBC (Auto) (0-5) /hpf Urine RBC (Auto) (0-4) /hpf U Hyaline Cast (Auto) U Epithel Cells (Auto) (0-5) /lpf Urine Bacteria (Auto) (Negative) Urine Yeast (None Prsent) POC Ur Test (NEG) 08/08/19 08/08/19 08/08/19 Range/Units 16:59 17:07 18:13 WBC (4.8-10.8) K/uL RBC (4.2-5.4) M/uL Hgb (12.0-16.0) g/dL Hct (37-47) % MCV (80-100) fL MCH (25-34) pg MCHC (32-36) g/dL RDW Std Deviation (36.4-46.3) fL RDW Coeff of Nicholas (11.5-14.5) % Plt Count (130-400) K/uL MPV (7.4-10.4) fL Immature Gran % (Auto) % Neut % (Auto) % Lymph % (Auto) % Candler % (Auto) % Eos % (Auto) % Baso % (Auto) % Immature Gran # (Auto) (0.00-0.02) K/uL Neut # (Auto) (1.4-6.5) K/uL Lymph # (Auto) (1.2-3.4) K/uL Candler # (Auto) (0.11-0.59) K/uL Eos # (Auto) (0-0.5) K/uL Baso # (Auto) (0-0.2) K/uL VBG pH (7.36-7.41) VBG pCO2 (38-50) mmHg VBG pO2 mmHg VBG HCO3 mmol/L VBG O2 Saturation % VBG Base Excess mEq/L Barometric Pressure mm/Hg Sodium (136-145) mmol/L Potassium (3.5-5.1) mmol/L Chloride (98-107) mmol/L Carbon Dioxide (21-32) mmol/L Anion Gap (3-11) BUN (7-18) mg/dl Creatinine (0.6-1.2) mg/dl Est Cr Clr Drug Dosing ml/min Est GFR ( Amer) Est GFR (Non-Af Amer) BUN/Creatinine Ratio (10-20) Glucose (70-99) mg/dl POC Glucose (70-99) Osmolality 311 H (280-300) mOsm/kg Calcium (8.5-10.1) mg/dl Phosphorus (2.5-4.9) mg/dl Magnesium (1.8-2.4) mg/dl Total Bilirubin (0.2-1) mg/dl AST (15-37) U/L ALT (12-78) U/L Alkaline Phosphatase (45-117) U/L Total Protein (6.4-8.2) gm/dl Albumin (3.4-5.0) gm/dl Globulin (2.5-4.0) gm/dl Albumin/Globulin Ratio (0.9-2) Lipase 304 (73-393) U/L Beta-Hydroxybutyric Acd Procalcitonin (0-0.5) ng/ml Urine Color Urine Appearance (Clear) Urine pH (4.5-7.5) POC Urine pH (4.5-7.5) Ur Specific Webster (1.000-1.030) Urine Protein (Negative) POC Urine Protein (Negative) Urine Glucose (UA) (Negative) POC Ur Glucose (UA) (Normal) Urine Ketones (Negative) POC Urine Ketones (Negative) Urine Blood (Negative) POC Urine Blood (Negative) Urine Nitrite (Negative) POC Urine Nitrite (Negative) Urine Bilirubin (Negative) POC Urine Bilirubin (Negative) Urine Urobilinogen (Negative) POC Urine Urobilinogen (Normal) Ur Leukocyte Esterase (Negative) POC U Leukocyte Esteras (Negative) Urine WBC (Auto) (0-5) /hpf Urine RBC (Auto) (0-4) /hpf U Hyaline Cast (Auto) U Epithel Cells (Auto) (0-5) /lpf Urine Bacteria (Auto) (Negative) Urine Yeast (None Prsent) POC Ur Test (NEG) 08/08/19 08/08/19 08/08/19 Range/Units 18:32 19:17 19:20 WBC (4.8-10.8) K/uL RBC (4.2-5.4) M/uL Hgb (12.0-16.0) g/dL Hct (37-47) % MCV (80-100) fL MCH (25-34) pg MCHC (32-36) g/dL RDW Std Deviation (36.4-46.3) fL RDW Coeff of Nicholas (11.5-14.5) % Plt Count (130-400) K/uL MPV (7.4-10.4) fL Immature Gran % (Auto) % Neut % (Auto) % Lymph % (Auto) % Candler % (Auto) % Eos % (Auto) % Baso % (Auto) % Immature Gran # (Auto) (0.00-0.02) K/uL Neut # (Auto) (1.4-6.5) K/uL Lymph # (Auto) (1.2-3.4) K/uL Candler # (Auto) (0.11-0.59) K/uL Eos # (Auto) (0-0.5) K/uL Baso # (Auto) (0-0.2) K/uL VBG pH (7.36-7.41) VBG pCO2 (38-50) mmHg VBG pO2 mmHg VBG HCO3 mmol/L VBG O2 Saturation % VBG Base Excess mEq/L Barometric Pressure mm/Hg Sodium (136-145) mmol/L Potassium (3.5-5.1) mmol/L Chloride (98-107) mmol/L Carbon Dioxide (21-32) mmol/L Anion Gap (3-11) BUN (7-18) mg/dl Creatinine (0.6-1.2) mg/dl Est Cr Clr Drug Dosing ml/min Est GFR ( Amer) Est GFR (Non-Af Amer) BUN/Creatinine Ratio (10-20) Glucose (70-99) mg/dl POC Glucose 450 H* (70-99) Osmolality (280-300) mOsm/kg Calcium (8.5-10.1) mg/dl Phosphorus (2.5-4.9) mg/dl Magnesium (1.8-2.4) mg/dl Total Bilirubin (0.2-1) mg/dl AST (15-37) U/L ALT (12-78) U/L Alkaline Phosphatase (45-117) U/L Total Protein (6.4-8.2) gm/dl Albumin (3.4-5.0) gm/dl Globulin (2.5-4.0) gm/dl Albumin/Globulin Ratio (0.9-2) Lipase (73-393) U/L Beta-Hydroxybutyric Acd 14.31 H Procalcitonin 0.63 H (0-0.5) ng/ml Urine Color Urine Appearance (Clear) Urine pH (4.5-7.5) POC Urine pH (4.5-7.5) Ur Specific Webster (1.000-1.030) Urine Protein (Negative) POC Urine Protein (Negative) Urine Glucose (UA) (Negative) POC Ur Glucose (UA) (Normal) Urine Ketones (Negative) POC Urine Ketones (Negative) Urine Blood (Negative) POC Urine Blood (Negative) Urine Nitrite (Negative) POC Urine Nitrite (Negative) Urine Bilirubin (Negative) POC Urine Bilirubin (Negative) Urine Urobilinogen (Negative) POC Urine Urobilinogen (Normal) Ur Leukocyte Esterase (Negative) POC U Leukocyte Esteras (Negative) Urine WBC (Auto) (0-5) /hpf Urine RBC (Auto) (0-4) /hpf U Hyaline Cast (Auto) U Epithel Cells (Auto) (0-5) /lpf Urine Bacteria (Auto) (Negative) Urine Yeast (None Prsent) POC Ur Test (NEG) 12/04/19 Range/Units 20:01 WBC (4.8-10.8) K/uL RBC (4.2-5.4) M/uL Hgb (12.0-16.0) g/dL Hct (37-47) % MCV (80-100) fL MCH (25-34) pg MCHC (32-36) g/dL RDW Std Deviation (36.4-46.3) fL RDW Coeff of Nicholas (11.5-14.5) % Plt Count (130-400) K/uL MPV (7.4-10.4) fL Immature Gran % (Auto) % Neut % (Auto) % Lymph % (Auto) % Candler % (Auto) % Eos % (Auto) % Baso % (Auto) % Immature Gran # (Auto) (0.00-0.02) K/uL Neut # (Auto) (1.4-6.5) K/uL Lymph # (Auto) (1.2-3.4) K/uL Candler # (Auto) (0.11-0.59) K/uL Eos # (Auto) (0-0.5) K/uL Baso # (Auto) (0-0.2) K/uL VBG pH (7.36-7.41) VBG pCO2 (38-50) mmHg VBG pO2 mmHg VBG HCO3 mmol/L VBG O2 Saturation % VBG Base Excess mEq/L Barometric Pressure mm/Hg Sodium (136-145) mmol/L Potassium (3.5-5.1) mmol/L Chloride (98-107) mmol/L Carbon Dioxide (21-32) mmol/L Anion Gap (3-11) BUN (7-18) mg/dl Creatinine (0.6-1.2) mg/dl Est Cr Clr Drug Dosing ml/min Est GFR ( Amer) Est GFR (Non-Af Amer) BUN/Creatinine Ratio (10-20) Glucose (70-99) mg/dl POC Glucose 428 H* (70-99) Osmolality (280-300) mOsm/kg Calcium (8.5-10.1) mg/dl Phosphorus (2.5-4.9) mg/dl Magnesium (1.8-2.4) mg/dl Total Bilirubin (0.2-1) mg/dl AST (15-37) U/L ALT (12-78) U/L Alkaline Phosphatase (45-117) U/L Total Protein (6.4-8.2) gm/dl Albumin (3.4-5.0) gm/dl Globulin (2.5-4.0) gm/dl Albumin/Globulin Ratio (0.9-2) Lipase (73-393) U/L Beta-Hydroxybutyric Acd Procalcitonin (0-0.5) ng/ml Urine Color Urine Appearance (Clear) Urine pH (4.5-7.5) POC Urine pH (4.5-7.5) Ur Specific Webster (1.000-1.030) Urine Protein (Negative) POC Urine Protein (Negative) Urine Glucose (UA) (Negative) POC Ur Glucose (UA) (Normal) Urine Ketones (Negative) POC Urine Ketones (Negative) Urine Blood (Negative) POC Urine Blood (Negative) Urine Nitrite (Negative) POC Urine Nitrite (Negative) Urine Bilirubin (Negative) POC Urine Bilirubin (Negative) Urine Urobilinogen (Negative) POC Urine Urobilinogen (Normal) Ur Leukocyte Esterase (Negative) POC U Leukocyte Esteras (Negative) Urine WBC (Auto) (0-5) /hpf Urine RBC (Auto) (0-4) /hpf U Hyaline Cast (Auto) U Epithel Cells (Auto) (0-5) /lpf Urine Bacteria (Auto) (Negative) Urine Yeast (None Prsent) POC Ur Test (NEG) Administered Medications Insulin Human Regular 250 (units/ Sodium Chloride) 250 mls @ 2.4 mls/hr IV .Q24H [facility]; Protocol Stop: 09/07/19 20:59 Last Admin: 08/08/19 23:06 Dose: 2.4 units/hr, 2.4 mls/hr Documented by: [id number] Cosigned by: [id number] Ioversol (Optiray 320 100ml) 93 ml IV ONCE PRN PRN Reason: Interaction Checking Stop: 08/12/19 21:53 Last Admin: 08/08/19 21:54 Dose: 93 ml Documented by: [id number] Discontinued Medications Sodium Chloride (Nss 1000ml) 1,000 mls @ 999 mls/hr IV .Q1H1M ONE Stop: 08/08/19 21:19 Last Infusion: 08/08/19 21:27 Dose: 0 mls/hr Documented by: [id number] Admin: 08/08/19 20:23 Dose: 999 mls/hr Documented by: [id number] Cefepime HCl (Maxipime) 2,000 mg in 20 mls @ 5 mls/min IV NOW STA; Protocol Stop: 08/08/19 21:23 Last Admin: 08/08/19 23:07 Dose: 5 mls/min Documented by: [id number] Insulin Human Regular (Novolin R U-100 Per Unit) 10 units SC NOW STA Stop: 08/08/19 18:34 Last Admin: 08/08/19 18:45 Dose: 10 units Documented by: [id number] Cosigned by: [id number] Insulin Human Regular (Novolin R Bolus From Bag) 2.4 units IV ONE ONE Stop: 08/08/19 20:31 Last Admin: 08/08/19 22:43 Dose: 2.4 units Documented by: [id number] Cosigned by: [id number] Discharge Plan Visit Data Chief Complaint: Hyperglycemia Stated Complaint: ABNORMAL BLOOD WORK,WEAK,TIRED,THIRSTY ED Provider: Charmaine Cook ED Midlevel Provider: Virginia Milner Discharge Problem: Acute hyperglycemia, Acute hyponatremia, Acute dehydration, Insulin dependent diabetes mellitus Patient Disposition: Admitted As Inpatient Condition: Good
[2019-08-08 17:08] LABS: Appearance Urine Clear (Clear); Bilirubin Urine Negative (Negative); Blood Urine 1+ (Negative); Color Urine Yellow; Glucose Urine UA 3+ (Negative); Ketones Urine 1+ (Negative); Leukocyte Esterase Urine Negative (Negative); Nitrite Urine Negative (Negative); Protein Urine Negative (Negative); Specific Gravity Urine 1.039 (1.000-1.030); Urobilinogen Urine Negative (Negative)
[2019-08-08 17:18] LABS: Basophils # (auto) 0.01 K/uL (0-0.2); Basophils % (auto) 0.1 %; Hematocrit (blood only) 42.6 % (37-47); Hemoglobin 14.7 g/dL (12.0-16.0); Immature Granulocytes # (auto) 0.06 K/uL (0.00-0.02); Immature Granulocytes % (auto) 0.4 %; Mean Corpuscular Hemoglobin 27.7 pg (25-34); Mean Corpuscular Hgb Conc 34.5 g/dL (32-36); Mean Corpuscular Volume 80.4 fL (80-100); Mean Platelet Volume 11.4 fL (7.4-10.4); Monocytes # (auto) 0.43 K/uL (0.11-0.59); Monocytes % (auto) 3.1 %; Neutrophils # (auto) 12.17 K/uL (1.4-6.5); Neutrophils % (auto) 88.4 %; Platelet Count 230 K/uL (130-400); RDW Standard Deviation 43.2 fL (36.4-46.3); White Blood Count 13.77 K/uL (4.8-10.8)
[2019-08-08 17:18] LABS: Bacteria Urine Automated 1+ (Negative)
[2019-08-08 18:00] LABS: Base Excess VBG -1.1 mEq/L; pH VBG 7.41 (7.36-7.41)
--- NOTE | 2019-08-08 18:03 | XRay Report ---
XR chest 1V portable CLINICAL HISTORY: hyperglycemia COMPARISON STUDY: 06/25/2019 FINDINGS: The cardiac and mediastinal contours are normal. There is no evidence of focal pulmonary co nsolidation. There is no evidence of failure. No pleural effusions are visualized.[ IMPRESSION: No active disease in the chest. Electronically signed by: Arsenio Carrillo M.D. 08/08/2019 6:01 PM
[2019-08-08 18:05] LABS: Alanine Aminotransferase 52 U/L (12-78); Albumin Level 3.8 gm/dl (3.4-5.0); Alkaline Phosphatase 173 U/L (45-117); Aspartate Aminotransferase 25 U/L (15-37); Bilirubin,Total 0.6 mg/dl (0.2-1); Blood Urea Nitrogen 23 mg/dl (7-18); Calcium 9.2 mg/dl (8.5-10.1); Carbon Dioxide 21 mmol/L (21-32); Chloride 93 mmol/L (98-107); Creatinine Clr Calc Pharmacy 79.3 ml/min; Est GFR (African American) 67.9; Est GFR (Non-African American) 58.6; Globulin 3.9 gm/dl (2.5-4.0); Glucose 685 mg/dl (70-99); Magnesium 2.3 mg/dl (1.8-2.4); Sodium 126 mmol/L (136-145); Total Protein 7.7 gm/dl (6.4-8.2)
[2019-08-08] MEDS ORDERED: NovoLIN-R INSULIN PER UNIT CHARGE SC STA (18:33)
[2019-08-08] MEDS ORDERED: MODERATE STRESS LEVEL ONE (20:19)
[2019-08-08] MEDS ORDERED: INSULIN PROTOCOL GOAL RANGE ONE (20:19)
[2019-08-08] MEDS ORDERED: SODIUM CHLORIDE 0.9% 1000ML 1,000 ML IV ONE (20:19)
[2019-08-08] MEDS ORDERED: GLUCOSE 10 TABS/TUBE PO PRN (20:30)
[2019-08-08] MEDS ORDERED: CARBOHYDRATES FOR HYPOGLYCEMIA PO PRN (20:30)
[2019-08-08] MEDS ORDERED: GLUCAGON FOR INJ 1 MG VIAL IM PRN (20:30)
[2019-08-08] MEDS ORDERED: NovoLIN-R BOLUS FROM BAG IV ONE (20:30)
[2019-08-08] MEDS ORDERED: DEXTROSE 50% 50 ML SYRINGE IV PRN (20:30)
[2019-08-08] MEDS ORDERED: GLUCOSE 40% GEL 15 GM TUBE PO PRN (20:30)
[2019-08-08] MEDS ORDERED: INSULIN REGULAR 250 UNITS in SODIUM CHLORIDE 0.9% 247.5 ML IV SCH (21:00)
[2019-08-08] MEDS ORDERED: CEFEPIME 2,000 MG/20 ML VIAL IV STA (21:20)
--- NOTE | 2019-08-08 21:21 | History & Physical Report ---
Date of Service August 08, 2019 Assessment & Plan (1) Hyperglycemic crisis in diabetes mellitus: Likely precipitated by steroid Rx for drug-induced lupus/uveitis DM2, insulin requiring, reasonable control as of recent hemoglobin A1c of 7.06 June 2019 Sepsis secondary to complicated UTI Immunocompromised patient given steroid Rx Diarrhea rule out C. difficile hyperlipidemia on statin Rx hx TTP endometriosis status post surgery chronic anemia, hemoglobin better than baseline likely suspect hemoconcentration Medical telemetry IV insulin Pharmacy glycemic control consult Update hemoglobin A1c IVF Cultures, check lactic acid Cefepime Stool C. difficile DVT prophylaxis. Lovenox subcu Full code History of Present Illness Chief Complaint: High sugars Primary Care Provider: Lucita Mosley, DO History obtained from patient, family, and records. Medical history significant for DM 2 insulin requiring, hyperlipidemia, history of drug-induced SLE, uveitis ongoing steroid Rx, TTP, endometriosis status post surgery,, chronic anemia (baseline hemoglobin of 11). Recent confinement June 2019 for lupus versus drug-induced lupus secondary to Humira. Patient discharged on steroid prescription. Steroid taper initiated by import/export administrator outpatient on follow-up last July 02, 2019. The last 3 weeks, patient noted fatigue symptoms, thirsty, bilateral blurred vision, achy abdominal pain, urinary frequency symptoms. No chest pain, no S OB. BSG is noted to be 300s. Loose stools noted yesterday. Outpatient serum glucose done on follow-up with [facility] trolley operator was noted to be 500 a few days ago. Patient's import/export administrator provided patient with revised Medrol taper instructions (12 mg daily from 08/07-08/13, 10 mg daily from 08/14-08/27, 8 mg daily from 08/28 onwards until follow-up with import/export administrator). Patient directed by PCP ER for evaluation for possible hyperglycemic crisis. At the ER, BSG noted to be 600. IV insulin given at the ER. Medical History as above Surgical History : KIRK-BSO, eye surgeries, partial colectomy, partial appendectomy Family History : Unknown as patient was adopted Personal/Social history : Non-smoker, no EtOH intake, disabled Allergies Allergy/AdvReac Type Severity Reaction Status Date / Time No Known Allergies Allergy Unverified 08/08/19 17:21 Home Medications Home Medications Medication Instructions Recorded Confirmed Type Durezol 1 drp OPB .Q2HRS 06/20/19 08/08/19 History Humalog Mix 75-25(U-100)Insuln 6 unit SUBCUT DIRECTED 06/20/19 08/08/19 History Humira Pen 0 mg SUBCUT DIRECTED 06/20/19 08/08/19 History Levemir FlexTouch U-100 Insuln 16 unit SUBCUT DIRECTED 06/20/19 08/08/19 History atorvastatin [Lipitor] 40 mg PO DAILY 06/20/19 08/08/19 History oxycodone [Roxicodone] 5 mg PO Q6 PRN 06/20/19 08/08/19 History folic acid 1 mg PO DAILY 08/08/19 08/08/19 History methotrexate sodium 0 mg SUBCUT WK 08/08/19 08/08/19 History methylprednisolone 8 mg PO DAILY 08/08/19 08/08/19 History Past Med/Surg History Social History Preferred Language: Persian Communication Ability: Effective Visual Impairment: Blindness Magnetic Resonance Technologist Required: Yes Beliefs That Will Affect Care: None marital status: Single Current Living Situation: Family Current Living Situation Comment: lives with sister and [id number] Other Information That Helps Us Care for You: No Feels Safe at Home: Yes Safety Concerns: Feels Safe At This Time Smoking Status: Never smoker Hx Alcohol Use: No Hx Substance Use: No Review of Systems Review of Systems: As per HPI, all 10 systems reviewed, all other ROS negative Physical Exam Physical Exam: GENERAL: Comfortable, obese, no respiratory distress SKIN: Normal color, warm HEENT: Bespectacled, pink palpebral conjunctivae, no ptosis, dry buccal mucosa NECK : Supple, short neck, no tenderness CHEST : CTA, no tenderness HEART : RRR, no obvious murmurs ABDOMEN: Some distention, nontender EXTREMITIES : Minimal LE swelling, no LE tenderness, no other conspicuous deformities noted NEUROLOGIC : Coherent, no facial asymmetry, no other gross focality Results & Data Vital Signs (Past 12 Hours) Vital Signs Temp Pulse Pulse Resp BP BP Pulse Ox 08/08/19 19:23 99 H 23 146/93 H 96 08/08/19 18:00 109 H 20 134/76 97 08/08/19 15:34 36.5 C 100 H 18 143/94 H 98 Laboratory Results Laboratory Results WBC 13.77 K/uL (4.8-10.8) H 08/08/19 16:59 RBC 5.30 M/uL (4.2-5.4) 08/08/19 16:59 Hgb 14.7 g/dL (12.0-16.0) 08/08/19 16:59 Hct 42.6 % (37-47) 08/08/19 16:59 MCV 80.4 fL (80-100) 08/08/19 16:59 MCH 27.7 pg (25-34) 08/08/19 16:59 MCHC 34.5 g/dL (32-36) 08/08/19 16:59 RDW Std Deviation 43.2 fL (36.4-46.3) 08/08/19 16:59 RDW Coeff of Nicholas 15.0 % (11.5-14.5) H 08/08/19 16:59 Plt Count 230 K/uL (130-400) 08/08/19 16:59 MPV 11.4 fL (7.4-10.4) H 08/08/19 16:59 Immature Gran % (Auto) 0.4 % 08/08/19 16:59 Neut % (Auto) 88.4 % 08/08/19 16:59 Lymph % (Auto) 8.0 % 08/08/19 16:59 Alfalfa % (Auto) 3.1 % 08/08/19 16:59 Eos % (Auto) 0.0 % 08/08/19 16:59 Baso % (Auto) 0.1 % 08/08/19 16:59 Immature Gran # (Auto) 0.06 K/uL (0.00-0.02) H 08/08/19 16:59 Neut # (Auto) 12.17 K/uL (1.4-6.5) H 08/08/19 16:59 Lymph # (Auto) 1.10 K/uL (1.2-3.4) L 08/08/19 16:59 Alfalfa # (Auto) 0.43 K/uL (0.11-0.59) 08/08/19 16:59 Eos # (Auto) 0.00 K/uL (0-0.5) 08/08/19 16:59 Baso # (Auto) 0.01 K/uL (0-0.2) 08/08/19 16:59 VBG pH 7.41 (7.36-7.41) 08/08/19 16:59 VBG pCO2 38 mmHg (38-50) 08/08/19 16:59 VBG pO2 72 mmHg 08/08/19 16:59 VBG HCO3 23 mmol/L 08/08/19 16:59 VBG O2 Saturation 95.0 % 08/08/19 16:59 VBG Base Excess -1.1 mEq/L 08/08/19 16:59 Barometric Pressure 723.2 mm/Hg 08/08/19 16:59 Sodium 126 mmol/L (136-145) L 08/08/19 16:59 Potassium 4.0 mmol/L (3.5-5.1) 08/08/19 16:59 Chloride 93 mmol/L (98-107) L 08/08/19 16:59 Carbon Dioxide 21 mmol/L (21-32) 08/08/19 16:59 Anion Gap 12.0 (3-11) H 08/08/19 16:59 BUN 23 mg/dl (7-18) H 08/08/19 16:59 Creatinine 1.22 mg/dl (0.6-1.2) H 08/08/19 16:59 Est Cr Clr Drug Dosing 79.3 ml/min 08/08/19 16:59 Est GFR ( Amer) 67.9 08/08/19 16:59 Est GFR (Non-Af Amer) 58.6 08/08/19 16:59 BUN/Creatinine Ratio 19.0 (10-20) 08/08/19 16:59 Glucose 685 mg/dl (70-99) H* 08/08/19 16:59 POC Glucose 428 (70-99) H* 08/08/19 20:01 Osmolality 311 mOsm/kg (280-300) H 08/08/19 17:07 Calcium 9.2 mg/dl (8.5-10.1) 08/08/19 16:59 Phosphorus 3.0 mg/dl (2.5-4.9) 08/08/19 16:59 Magnesium 2.3 mg/dl (1.8-2.4) 08/08/19 16:59 Total Bilirubin 0.6 mg/dl (0.2-1) 08/08/19 16:59 AST 25 U/L (15-37) 08/08/19 16:59 ALT 52 U/L (12-78) 08/08/19 16:59 Alkaline Phosphatase 173 U/L (45-117) H 08/08/19 16:59 Total Protein 7.7 gm/dl (6.4-8.2) 08/08/19 16:59 Albumin 3.8 gm/dl (3.4-5.0) 08/08/19 16:59 Globulin 3.9 gm/dl (2.5-4.0) 08/08/19 16:59 Albumin/Globulin Ratio 1.0 (0.9-2) 08/08/19 16:59 Beta-Hydroxybutyric Acd 14.31 mg/dl (0.2-2.81) H 08/08/19 19:20 Procalcitonin 0.63 ng/ml (0-0.5) H 08/08/19 18:32 Urine Color Yellow 08/08/19 16:50 Urine Appearance Clear (Clear) 08/08/19 16:50 Urine pH 5.0 (4.5-7.5) 08/08/19 16:50 POC Urine pH 5 (4.5-7.5) 08/08/19 16:50 Ur Specific [place] 1.039 (1.000-1.030) H 08/08/19 16:50 Urine Protein Negative (Negative) 08/08/19 16:50 POC Urine Protein Negative (Negative) 08/08/19 16:50 Urine Glucose (UA) 3+ (Negative) H 08/08/19 16:50 POC Ur Glucose (UA) 1000 (Normal) H 08/08/19 16:50 Urine Ketones 1+ (Negative) H 08/08/19 16:50 POC Urine Ketones 2+ (Moderate) (Negative) H 08/08/19 16:50 Urine Blood 1+ (Negative) H 08/08/19 16:50 POC Urine Blood 250 (Negative) H 08/08/19 16:50 Urine Nitrite Negative (Negative) 08/08/19 16:50 POC Urine Nitrite Negative (Negative) 08/08/19 16:50 Urine Bilirubin Negative (Negative) 08/08/19 16:50 POC Urine Bilirubin Negative (Negative) 08/08/19 16:50 Urine Urobilinogen Negative (Negative) 08/08/19 16:50 POC Urine Urobilinogen Normal (Normal) 08/08/19 16:50 Ur Leukocyte Esterase Negative (Negative) 08/08/19 16:50 POC U Leukocyte Esteras 1+ (Negative) H 08/08/19 16:50 Urine WBC (Auto) 5-10 /hpf (0-5) H 08/08/19 16:50 Urine RBC (Auto) 5-10 /hpf (0-4) H 08/08/19 16:50 U Hyaline Cast (Auto) Not Reportable 08/08/19 16:50 U Epithel Cells (Auto) 10-20 /lpf (0-5) H 08/08/19 16:50 Urine Bacteria (Auto) 1+ (Negative) H 08/08/19 16:50 Urine Yeast Present (None Prsent) A 08/08/19 16:50 POC Ur Test NEG (NEG) 08/08/19 16:50 Diagnostic Findings Chest x-ray : No active disease CT abdomen pelvis initial read: Appendix not identified likely surgically absent. No bowel obstruction. Kidneys are unremarkable. No radiodense gallstones or pancreatitis. EKG as per my interpretation : Rate 105, sinus tachycardia, normal axis, LAE, no ischemia
[2019-08-08] MEDS ORDERED: CEFEPIME CONSULT ACTIVE PRN (21:38)
[2019-08-08] MEDS ORDERED: IOVERSOL 100ml IV PRN (21:54)
[2019-08-08] MEDS ORDERED: NovoLIN-R INSULIN PER UNIT CHARGE ONE (22:40)
[2019-08-08] MEDS ORDERED: NSS + 20MEQ KCL 20 MEQ/1,000 ML BAG IV SCH ×2 (23:56)
[2019-08-08] MEDS ORDERED: HYDROmorphone INJ 0.5 MG/0.5 ML SYR IV PRN (23:56)
[2019-08-08] MEDS ORDERED: NITROGLYCERIN SL 0.4 MG/TAB TAB SL PRN (23:56)
[2019-08-08] MEDS ORDERED: OXYCODONE HCL IR 5 MG TAB (IMMEDIATE RELEASE) PO PRN (23:56)
[2019-08-08] MEDS ORDERED: PROMETHAZINE HCL 12.5 MG in SODIUM CHLORIDE 0.9% 50 ML IV PRN (23:56)
[2019-08-09 00:01] LABS: BUN Creatinine Ratio 13.2 (10-20); Creatinine Clr Calc Pharmacy 93.9 ml/min; Est GFR (African American) 83.3; Est GFR (Non-African American) 71.9; Potassium 3.5 mmol/L (3.5-5.1)
[2019-08-09] MEDS ORDERED: PHARMACY GLYCEMIC MGMT CONSULT PRN (00:25)
[2019-08-09] MEDS ORDERED: NSS + 20MEQ KCL 20 MEQ/1,000 ML BAG IV ONE (00:30)
[2019-08-09] MEDS ORDERED: INSULIN DETEMIR FLEXPEN/FLEX TOUCH 100 UNITS/ML 3ML SC SCH ×2 (00:45→21:00)
[2019-08-09] MEDS: INSULIN ASPART 100 UNITS/ML 3 ML PEN SC SCH ×6 (02:22→23:37)
[2019-08-09 06:12] LABS: Estimated Average Glucose 355 mg/dl
--- NOTE | 2019-08-09 06:21 | CT Scan Report ---
CT abd pelvis IV con only CT DOSE: 998.96 mGy.cm HISTORY: Pain abd pain TECHNIQUE: Multiaxial CT images of the abdomen and pelvis were performed following the use of intrave nous contrast. A dose lowering technique was utilized adhering to the principles of ALARA. COMPARISON STUDY: 06/21/2019 FINDINGS: The lung bases are clear. The liver, spleen, gallbladder, pancreas, kidneys, and adrenal gl ands are within normal limits. No bowel wall thickening or obstruction. The pelvic organs are unremar kable. No suspicious lytic or blastic osseous lesions. Appendectomy and hysterectomy. IMPRESSION: No significant abnormality identified within the abdomen or pelvis. The above report was generated using voice recognition software. It may contain grammatical, syntax or spelling errors. Electronically signed by: Norman Medina M.D. 08/09/2019 6:20 AM
[2019-08-09] MEDS: ENOXAPARIN INJ 40 MG/0.4 ML SYR SQ SCH (07:30)
[2019-08-09] MEDS: FOLIC ACID 1 MG TAB PO SCH (07:30)
[2019-08-09] MEDS: methylPREDNISolone 4 MG TAB PO SCH (07:30)
[2019-08-09] MEDS: ATORVASTATIN 40 MG TAB PO SCH (07:30)
--- NOTE | 2019-08-09 08:21 | Pharmacy Report ---
Glycemic Control Consultation - Date of Service August 09, 2019 - Scope Scope: Glycemic Pharmacist consulted by Dr Polanco on 08/09 for glycemic control and to write orders per [facility] inpatient glycemic control protocol - Objective Weight: 97.3 kg Accuchecks BSG (last 24hrs): 08/08/19 08/08/19 08/08/19 16:59 19:17 20:01 Glucose 685 H* POC Glucose 450 H* 428 H* 08/08/19 08/09/19 08/09/19 23:27 00:14 01:24 Glucose 180 H POC Glucose 132 H 135 H 08/09/19 07:32 Glucose POC Glucose 122 H Laboratory Data (last 24hrs): 08/08/19 08/08/19 08/08/19 16:59 17:07 18:13 Potassium 4.0 Carbon Dioxide 21 Anion Gap 12.0 H Creatinine 1.22 H Est Cr Clr Drug Dosing 79.3 Osmolality 311 H Beta-Hydroxybutyric Acd TNP 08/08/19 08/08/19 19:20 23:27 Potassium 3.5 Carbon Dioxide 24 Anion Gap 7.0 Creatinine 1.03 Est Cr Clr Drug Dosing 93.9 Osmolality Beta-Hydroxybutyric Acd 14.31 H HbA1c: Hemoglobin A1c 14.0 % (4.5-5.6) H 08/08/19 16:59 - Recent Pertinent Medications Outpatient Anti-diabetic Regimen: * Levemir 16 units HS, Humalog mix (will need to clarify medication/dosing on med rec) * A1c = 14 % 08/08 Risk Factors for Insulin Resistance: * Steroids: medrol taper * Diet: clears - Assessment & Plan Assessment & Plan: ASSESSMENT: * 34 year old female admitted with hyperglycemia and UTI concern. PMHx significa nt for DM2, hld, drug induced SLE, uveitis ongoing steroids at home, endometriosis, chronic anemia. Recently dx with lupus in Jun 2019 and started on chronic steroids by pencil maker. Continues on medrol taper inpatient * A1C elevated at ~14% - likely related to outpatient chronic steroids / of note, patient with hx of anemia therefore level may not be accurate * BSGs in 600s on admission, started insulin drip overnight. Only ran for ~1 (@2.4 units/hr) then placed on hold as BSGs trending down * BSGs continue to be w/in range at 122 mg/dL this morning - will continue to hold insulin drip. Slightly elevated anion gap on admission, now w/in range * Patient started on clears this AM/unsure of po intake at this time - did receive Levemir 16 units at ~0100 this morning (home dose insulin) PLAN FOR INPATIENT GLYCEMIC CONTROL: * Starting IV insulin infusion - currently on hold * Basal insulin * Levemir 10 x 1 at lunch * Levemir with scale 16-20 units HS (>180 20 units) * Bolus insulin * NovoLog per scale ACHS or Q6hrs while NPO * Goal Range: Low 100 mg/dL - High 140 mg/dL * Correction Factor: 20 mg/dL/unit * Nutritional / Prandial insulin per carb ratio of 1 unit per 6 grams CHO consumed Patient directed by PCP ER for evaluation for possible hyperglycemic crisis. * Please note that the plan above was derived based on current level of insulin resistance and hospital stress. These recommendations are appropriate for inpatient admission only. Plan of care upon discharge will need to be reassessed to avoid potential outpatient hypo/hyperglycemia. Thank you.
[2019-08-09 08:34] LABS: Basophils # (auto) 0.01 K/uL (0-0.2); Basophils % (auto) 0.1 %; Eosinophils # (auto) 0.05 K/uL (0-0.5); Eosinophils % (auto) 0.6 %; Hematocrit (blood only) 36.9 % (37-47); Hemoglobin 12.3 g/dL (12.0-16.0); Immature Granulocytes # (auto) 0.06 K/uL (0.00-0.02); Immature Granulocytes % (auto) 0.7 %; Lymphocytes # (auto) 3.08 K/uL (1.2-3.4); Lymphocytes % (auto) 34.3 %; Mean Corpuscular Hemoglobin 26.8 pg (25-34); Mean Corpuscular Hgb Conc 33.3 g/dL (32-36); Mean Corpuscular Volume 80.4 fL (80-100); Mean Platelet Volume 10.8 fL (7.4-10.4); Monocytes # (auto) 0.48 K/uL (0.11-0.59); Monocytes % (auto) 5.3 %; Platelet Count 193 K/uL (130-400); RDW Coefficient of Variation 15.1 % (11.5-14.5); RDW Standard Deviation 43.2 fL (36.4-46.3); Red Blood Count 4.59 M/uL (4.2-5.4); White Blood Count 8.98 K/uL (4.8-10.8)
[2019-08-09 09:06] LABS: BUN Creatinine Ratio 13.2 (10-20); Calcium 8.1 mg/dl (8.5-10.1); Creatinine Clr Calc Pharmacy 116.6 ml/min; Est GFR (African American) 108.1; Est GFR (Non-African American) 93.3; Potassium 3.1 mmol/L (3.5-5.1)
[2019-08-09] MEDS ORDERED: POTASSIUM CHLORIDE 20 MEQ TABCR PO STA (09:25)
[2019-08-09] MEDS: CEFEPIME 2,000 MG in SYRINGE 7.5 ML IV SCH ×2 (09:41→22:03)
[2019-08-09] MEDS ORDERED: INSULIN DETEMIR FLEXPEN/FLEX TOUCH 100 UNITS/ML 3ML SC ONE (12:45)
--- NOTE | 2019-08-09 17:24 | Hospitalist Progress Note ---
Date of Service August 09, 2019 Assessment & Plan (1) Hyperglycemic crisis in diabetes mellitus: Uncontrolled DM type 2 Mostly related to steroid induced BS on admission 685 with anion gap 12 and elevated beta-hydroxybutyric acid Hba1c 14 (08/08/19) Received IVF and was placed on insulin drip Pharmacy on board for glycemic management Continue monitor BS closely Abnormal UA Elevated WBC on admission UA positive for bacteria and WBC Elevated procalcitonin Continue IV Cefepime Urine cx and blood cx pending Lupus Uveitis Follow with rheumatology Continue steroid taper course as per sales representative raw fibers Abdominal discomfort Diarrhea CT abd/pelvis showed no significant abnormality identified within the abdomen or pelvis. Stool for C-diff did not collect since diarrhea improves Monitor electrolytes Electrolytes imbalance K 3.1 today K replaced Monitor BMP Hyperlipidemia on statin Rx Chronic anemia Hemoglobin stable DVT prophylaxis on Lovenox subcu CODE STATUS Full code Disposition Will discharge once medically stable Subjective Pt was seen and examined Lying in bed with no distress Pt said that she feels fine She said that she would like her diet to advance Denies any chest pain, palpitation, dizziness and SOB Physical Exam Physical Exam: General- No acute distress Head- atraumatic Eyes- PERRL, EOMI, ENT- oropharynx clear Neck- supple, no JVD Lungs- clear to auscultation Heart- regular rhythm; no murmur Abdomen- normal bowel sounds, soft, nontender Extremities- no calf tenderness Neuro- alert, oriented x 3; PERRL, EOMI; no facial palsy; no dysarthria Skin- warm & dry Results & Data Vital Signs (Past 12 Hours) Vital Signs Temp Pulse Pulse Resp BP Pulse Ox 08/09/19 16:21 90 08/09/19 15:35 36.7 C 85 20 115/78 95 08/09/19 11:19 36.9 C 86 18 109/73 97 08/09/19 07:26 36.8 C 73 18 119/83 96
[2019-08-10] MEDS: INSULIN ASPART 100 UNITS/ML 3 ML PEN SC SCH ×3 (03:58→12:14)
[2019-08-10 07:27] LABS: Hematocrit (blood only) 36.8 % (37-47); Hemoglobin 12.7 g/dL (12.0-16.0); Mean Corpuscular Hemoglobin 27.5 pg (25-34); Mean Corpuscular Hgb Conc 34.5 g/dL (32-36); Mean Corpuscular Volume 79.8 fL (80-100); Mean Platelet Volume 10.7 fL (7.4-10.4); Platelet Count 175 K/uL (130-400); RDW Coefficient of Variation 15.3 % (11.5-14.5); RDW Standard Deviation 43.7 fL (36.4-46.3); Red Blood Count 4.61 M/uL (4.2-5.4); White Blood Count 7.32 K/uL (4.8-10.8)
[2019-08-10] MEDS: FOLIC ACID 1 MG TAB PO SCH (07:43)
[2019-08-10] MEDS: ATORVASTATIN 40 MG TAB PO SCH (07:43)
[2019-08-10] MEDS: methylPREDNISolone 4 MG TAB PO SCH (07:43)
[2019-08-10] MEDS: ENOXAPARIN INJ 40 MG/0.4 ML SYR SQ SCH (07:43)
[2019-08-10 08:21] LABS: BUN Creatinine Ratio 11.1 (10-20); Calcium 8.6 mg/dl (8.5-10.1); Creatinine Clr Calc Pharmacy 129.6 ml/min; Est GFR (African American) 122.2; Est GFR (Non-African American) 105.5
[2019-08-10 08:22] LABS: Beta-Hydroxybutyrate 3.97 mg/dl (0.2-2.81)
[2019-08-10] MEDS ORDERED: INSULIN DETEMIR FLEXPEN/FLEX TOUCH 100 UNITS/ML 3ML SC SCH (09:00)
[2019-08-10] MEDS: CEFEPIME 2,000 MG in SYRINGE 7.5 ML IV SCH (09:43)
--- NOTE | 2019-08-10 09:50 | Pharmacy Report ---
Pharmacy Glycemic Short Note 2 - Date of Service August 10, 2019 - Glycemic Short BSG Results (Last 24 hours): 08/08/19 08/09/19 08/09/19 15:37 11:43 17:45 Glucose POC Glucose > 600 H* 285 H 282 H 08/09/19 08/09/19 08/10/19 19:47 23:36 03:55 Glucose POC Glucose 280 H 114 H 101 H 08/10/19 08/10/19 06:47 07:31 Glucose 110 H POC Glucose 119 H ASSESSMENT: * 34 year old female admitted with hyperglycemia and UTI concern. PMHx significant for DM2, hld, drug induced SLE, uveitis ongoing steroids at home, endometriosis, chronic anemia. Recently dx with lupus in Jun 2019 and started on chronic steroids by exterior work helper. Continues on medrol taper inpatient * A1C elevated at ~14% - likely related to outpatient chronic steroids / of note, patient with hx of anemia therefore level may not be accurate * BSGs in 600s on admission, started insulin drip overnight. Only ran for ~1 (@2.4 units/hr) then placed on hold as BSGs trending down * BSGs continue to be w/in range at 122 mg/dL this morning - will continue to hold insulin drip. Slightly elevated anion gap on admission, now w/in range * Patient started on clears this AM/unsure of po intake at this time - did receive Levemir 16 units at ~0100 this morning (home dose insulin) 08/10: * Patient received total of 54 units of insulin yesterday, of which 30 were basal insulin * Fasting BSG this am 110 mg/dl - will give 15 units basal this morning * Dinnertime BSG check yesterday - per nursing notes BSG collected after patient ate so only covered correctional * Will continue with same CF/CR this morning (tightened yesterday) but have not yet seen effects - will tighten with lunch * Continue basal scale for tonight PLAN FOR INPATIENT GLYCEMIC CONTROL: * Basal insulin * Levemir 15 this AM * Levemir scale HS - For BSG less than 180 - give 10 units - For BSG 180 or more - give 15 units * Bolus insulin * NovoLog per scale ACHS or Q6hrs while NPO * Goal Range: Low 100 mg/dL - High 140 mg/dL * Correction Factor: 15 mg/dL/unit * Nutritional / Prandial insulin per carb ratio of 1 unit per 5 grams CHO consumed * Please note that the plan above was derived based on current level of insulin resistance and hospital stress. These recommendations are appropriate for inpatient admission only. Plan of care upon discharge will need to be reassessed to avoid potential outpatient hypo/hyperglycemia. Thank you. PLAN FOR DISCHARGE: * A1C 14% 08/08/19 * Goal <7% - would consider triple therapy - metformin + basal insulin + prandial insulin * Recommend: * Metformin XR 500mg PO daily with evening meal - start 08/11 (iv contrast 08/08). Typically the XR formulation of metformin is better tolerated than the immediate release formulation. Continue to titrate metformin dosing upwards as recommended. Dosage increases should be made in increments of 500 mg weekly, up to 2,000 mg/day PO, given in divided doses. Doses above 2000 mg/day may be better tolerated if divided and given 3 times per day with meals. Max: 2,550 mg/day PO, in divided doses * B12 supplementation may be necessary with emt intermediate metformin * Basal insulin: Increase to Levemir 20 units daily (if discharging today 08/10 - would give an extra 5 units of Levemir in addition to 15 this morning prior to discharge, then start 20 units tomorrow 08/11 in morning) * Short acting insulin: Confirmed patient takes Humalog at home - would recommend 6 units TIDM scheduled (could consider low dose scale on top of scheduled doses/however patient admits she has trouble sometimes seeing glucometer readings because of eye issues) * With tapering steroids, would recommend close patient follow up w/in a week after discharge with her provider for further insulin adjustments. Told patient if she has low BSGs at home to notify her provider for adjustments in insulin.
--- NOTE | 2019-08-10 14:32 | Hospitalist Progress Note ---
Date of Service August 10, 2019 Assessment & Plan (1) Hyperglycemic crisis in diabetes mellitus: Uncontrolled DM type 2 Mostly related to steroid induced BS on admission 685 with anion gap 12 and elevated beta-hydroxybutyric acid Hba1c 14 (08/08/19) Received IVF and was placed on insulin drip Pharmacy on board for glycemic management Case discussed with pharmacy Continue monitor BS closely Pharmacy recommendation on discharge: Metformin XR 500mg PO daily with evening meal - start 08/11 (iv contrast 08/08). Continue to titrate metformin dosing upwards as recommended. Increase to Levemir 20 units daily (to start 20 units tomorrow 08/11 in morning) Short acting insulin with Humalog 6 units TIDM scheduled With tapering steroids, would recommend close patient follow up w/in a week after discharge with her provider for further insulin adjustments. if she has low BSGs at home to notify her provider for adjustments in insulin. Abnormal UA Elevated WBC on admission UA positive for bacteria and WBC Elevated procalcitonin Blood cx no growth so far urine cx grew multiple organisms (Contamination) WBC wnl and afebrile received Cefepime x3 doses Denies any urinary symptoms Will d/c additional abx, if spike fever, will restart abx Acute kidney Injury Due to dehydration from hyperglycemia Creatinine on admission 1.2 Received IVF Resolved Lupus Uveitis case discussed with Rheumatology Continue steroid taper course as per pattern scratcher Follow with rheumatology on Tuesday Abdominal discomfort Diarrhea CT abd/pelvis showed no significant abnormality identified within the abdomen or pelvis. Stool for C-diff did not collect since diarrhea improves Monitor electrolytes resolved Electrolytes imbalance K 3.0 today K replaced Will discharge on potassium supplement Check BMP within 1 week Hyperlipidemia on statin Rx Chronic anemia Hemoglobin stable DVT prophylaxis on Lovenox subcu CODE STATUS Full code Disposition Follow up with your primary care provider Dr. Mosley on 08/13 @ 12:45 PM Follow up with Rheumatology on Tuesday (already had appt) Subjective Pt was seen and examined Sitting in chair with no distress Pt said that she feels much better She is very anxious to go home today Denies any chest pain, palpitation, dizziness and SOB Physical Exam Physical Exam: General- No acute distress Head- atraumatic Eyes- PERRL, EOMI, ENT- oropharynx clear Neck- supple, no JVD Lungs- clear to auscultation Heart- regular rhythm; no murmur Abdomen- normal bowel sounds, soft, nontender Extremities- no calf tenderness Neuro- alert, oriented x 3; PERRL, EOMI; no facial palsy; no dysarthria Skin- warm & dry Results & Data Vital Signs (Past 12 Hours) Vital Signs Temp Pulse Resp BP Pulse Ox 08/10/19 11:33 36.7 C 76 16 113/77 95 08/10/19 07:19 36.6 C 73 16 106/71 97 08/10/19 03:51 36.5 C 102 H 17 109/68 93
[2019-08-10] MEDS ORDERED: POTASSIUM CHLORIDE 20 MEQ TABCR PO STA (14:54)
--- NOTE | 2019-08-11 08:13 | Discharge Summary ---
Date of Service August 10, 2019 Admission HPI Per Admitting Provider History obtained from patient, family, and records. Medical history significant for DM 2 insulin requiring, hyperlipidemia, history of drug-induced SLE, uveitis ongoing steroid Rx, TTP, endometriosis status post surgery,, chronic anemia (baseline hemoglobin of 11). Recent confinement June 2019 for lupus versus drug-induced lupus secondary to Humira. Patient discharged on steroid prescription. Steroid taper initiated by credit interviewer outpatient on follow-up last July 02, 2019. The last 3 weeks, patient noted fatigue symptoms, thirsty, bilateral blurred vision, achy abdominal pain, urinary frequency symptoms. No chest pain, no S OB. BSG is noted to be 300s. Loose stools noted yesterday. Outpatient serum glucose done on follow-up with [facility] lapidarist was noted to be 500 a few days ago. Patient's credit interviewer provided patient with revised Medrol taper instructions (12 mg daily from 08/07-08/13, 10 mg daily from 08/14-08/27, 8 mg daily from 08/28 onwards until follow-up with credit interviewer). Patient directed by PCP ER for evaluation for possible hyperglycemic crisis. At the ER, BSG noted to be 600. IV insulin given at the ER. Medical History as above Surgical History : KIRK-BSO, eye surgeries, partial colectomy, partial appendectomy Family History : Unknown as patient was adopted Personal/Social history : Non-smoker, no EtOH intake, disabled Admission Exam Per Admitting Provider GENERAL: Comfortable, obese, no respiratory distress SKIN: Normal color, warm HEENT: Bespectacled, pink palpebral conjunctivae, no ptosis, dry buccal mucosa NECK : Supple, short neck, no tenderness CHEST : CTA, no tenderness HEART : RRR, no obvious murmurs ABDOMEN: Some distention, nontender EXTREMITIES : Minimal LE swelling, no LE tenderness, no other conspicuous deformities noted NEUROLOGIC : Coherent, no facial asymmetry, no other gross focality Principal Diagnosis Hyperglycemic crisis in diabetes mellitus Uncontrolled DM type 2 Abnormal UA Acute Kidney Injury Lupus Uveitis Electrolytes imbalance Discharge Exam General- No acute distress Head- atraumatic Eyes- PERRL, EOMI, ENT- oropharynx clear Neck- supple, no JVD Lungs- clear to auscultation Heart- regular rhythm; no murmur Abdomen- normal bowel sounds, soft, nontender Extremities- no calf tenderness Neuro- alert, oriented x 3; PERRL, EOMI; no facial palsy; no dysarthria Skin- warm & dry Discharge Data Allergies Allergy/AdvReac Type Severity Reaction Status Date / Time No Known Allergies Allergy Unverified 08/08/19 17:21 Consultations 08/08/19 20:10 ED Decision to Admit Stat Ordered Studies 08/08/19 21:19 CT abd pelvis IV con only Urgent XR chest 1V portable CLINICAL HISTORY: hyperglycemia COMPARISON STUDY: 06/25/2019 FINDINGS: The cardiac and mediastinal contours are normal. There is no evidence of focal pulmonary consolidation. There is no evidence of failure. No pleural effusions are visualized.[ IMPRESSION: No active disease in the chest. Electronically signed by: Arsenio Carrillo M.D. 08/08/2019 6:01 PM Dictated: 08/08/191800 Transcribed: 08/08/191800 CT abd pelvis IV con only CT DOSE: 998.96 mGy.cm HISTORY: Pain abd pain TECHNIQUE: Multiaxial CT images of the abdomen and pelvis were performed following the use of intravenous contrast. A dose lowering technique was utilized adhering to the principles of ALARA. COMPARISON STUDY: 06/21/2019 FINDINGS: The lung bases are clear. The liver, spleen, gallbladder, pancreas, kidneys, and adrenal glands are within normal limits. No bowel wall thickening or obstruction. The pelvic organs are unremarkable. No suspicious lytic or blastic osseous lesions. Appendectomy and hysterectomy. IMPRESSION: No significant abnormality identified within the abdomen or pelvis. The above report was generated using voice recognition software. It may contain grammatical, syntax or spelling errors. Electronically signed by: Norman Medina M.D. 08/09/2019 6:20 AM Dictated: 08/09/19 0613 Transcribed: 08/09/19612 Hospital Course (1) Hyperglycemic crisis in diabetes mellitus: Uncontrolled DM type 2 Mostly related to steroid induced BS on admission 685 with anion gap 12 and elevated beta-hydroxybutyric acid Hba1c 14 (08/08/19) Received IVF and was placed on insulin drip Pharmacy on board for glycemic management Case discussed with pharmacy Continue monitor BS closely Pharmacy recommendation on discharge: Metformin XR 500mg PO daily with evening meal - start 08/11 (iv contrast 08/08). Continue to titrate metformin dosing upwards as recommended. Increase to Levemir 20 units daily (to start 20 units tomorrow 08/11 in morning) Short acting insulin with Humalog 6 units TIDM scheduled With tapering steroids, would recommend close patient follow up w/in a week after discharge with her provider for further insulin adjustments. if she has low BSGs at home to notify her provider for adjustments in insulin. Abnormal UA Elevated WBC on admission UA positive for bacteria and WBC Elevated procalcitonin Blood cx no growth so far urine cx grew multiple organisms (Contamination) WBC wnl and afebrile received Cefepime x3 doses Denies any urinary symptoms Will d/c additional abx, if spike fever, will restart abx Acute kidney Injury Due to dehydration from hyperglycemia Creatinine on admission 1.2 Received IVF Resolved Lupus Uveitis case discussed with Rheumatology Continue steroid taper course as per credit interviewer Follow with rheumatology on Tuesday Abdominal discomfort Diarrhea CT abd/pelvis showed no significant abnormality identified within the abdomen or pelvis. Stool for C-diff did not collect since diarrhea improves Monitor electrolytes resolved Electrolytes imbalance K 3.0 today K replaced Will discharge on potassium supplement Check BMP within 1 week Hyperlipidemia on statin Rx Chronic anemia Hemoglobin stable DVT prophylaxis on Lovenox subcu CODE STATUS Full code Disposition Follow up with your primary care provider Dr. Mosley on 08/13 @ 12:45 PM Follow up with Rheumatology on Tuesday (already had appt) Total Time Total Time Spent Total Time Spent (In Minutes): 35 minutes Total Time Includes: Examination of the Patient, Discharge Planning, Medication Reconciliation, Communication With Other Providers and Other Discharge Plan Discharge Items Patient Disposition: Home - Self-Care Reason For Visit: SEPSIS Discharge Diagnosis: Hyperglycemic crisis in diabetes mellitus: Uncontrolled DM type 2 Abnormal UA Lupus Uveitis Electrolytes imbalance Condition on Discharge: Good Activity: Resume your previous activity Activity Comment: as tolerated Non-emergency contact: Primary Care Provider Call non-emergency contact if: you have any medication questions Follow-up/Referrals: Lucita Mosley, DO [Primary Care Provider] - Diet: Carb Consistent or DM2 Addtl Attending Provider Instructions: Follow up with primary care provider Dr. Mosley on 08/13 @ 12:45 PM Follow up with your credit interviewer on Tuesday (already had an appointment) Follow up with your construction mgr Continue monitor blood sugar closely and bring your blood sugar log at your next appointment with your physician Follow a healthy diabetes diet, limited concentrated sweet intake and follow a low carb diet Check your BMP within 1 week to monitor your potassium Increase potassium supplement in your diet Starting on Metformin XR 500mg PO daily with evening meal ( start 08/11). Continue to titrate metformin dosing upwards as recommended. Levemir increased to 20 units daily (to start 20 units tomorrow 12/ in morning) Short acting insulin with Humalog 6 units three times a day with meal Since tapering steroids, you will nee to monitor your blood sugar very close. Notify your physician if your blood sugar running low to adjust your insulin If you develop any urinary symptoms or fever, please notify your physician or seek medical attention Pending Studies at Discharge: Yes Studies:: final blood culture result Stand-Alone Forms: My [facility] [place], Smoking Cessation Medications and DC Order Prescriptions: New metformin 500 mg tablet extended release 24hr 500 mg PO PM Qty: 30 RF: 0 potassium chloride 10 mEq tablet extended release 10 meq PO DAILY Qty: 30 RF: 0 insulin lispro [Humalog KwikPen Insulin] 100 unit/mL Insulin Pen 6 unit SUBCUT TID 30 Days Qty: 5.4 RF: 0 Continued atorvastatin [Lipitor] 40 mg tablet 40 mg PO DAILY RF: 0 oxycodone [Roxicodone] 5 mg tablet 5 mg PO Q6 PRN (Reason: Pain) RF: 0 Humira Pen 40 mg/0.8 mL pen injector kit 0 mg subcut DIRECTED RF: 0 Durezol 0.05 % drops 1 drp OPB .Q2HRS RF: 0 methylprednisolone 4 mg tablet 8 mg PO DAILY RF: 0 methotrexate sodium 25 mg/mL solution 0 mg subcut WK RF: 0 folic acid 1 mg tablet 1 mg PO DAILY RF: 0 Changed Levemir FlexTouch U-100 Insuln 100 unit/mL (3 mL) Insulin Pen 20 unit SUBCUT DAILY 30 Days Qty: 6 RF: 0 Discharge Orders: Discharge Order (Routine); Ordered 08/10/19 Ordered By: Pily Cyr/Other Patient Handouts: Diabetes [employer] Chief Complications, Diabetes Resources, Diabetes Type 2 Coping, Diabetes Healthy Meals, Diabetes Carbs, Diabetes Exercise Benefits, Diabetes Activity Tips, Diabetes Living Life, Diabetes Manage A1C Test Admission Data Admit Date/Time: 08/08/19 21:23 Attending Provider: Pily Valdez Admit Provider: Shadi Solis Primary Care Provider: Lucita Mosley Other Providers: Shadi Solis ; Daniel Suazo Other Interventions: Discharge Summary Assessment (RN) Last Done: 08/10/19 15:36 DC Date/Time DO NOT enter until pt leaves facility: 08/10/19 16:10
[2019-08-14] MEDS ORDERED: methylPREDNISolone 4 MG TAB PO SCH (09:00)
--- NOTE | 2019-08-16 11:05 | Coding Query ---
CODING QUERY To promote full compliance with coding requirements relating to patient care, provider participation is requested in all cases of information coder uncertainty. Please assist us with the question(s) below: Coding Question(s): Sepsis secondary to complicated UTI was documented on the history and physical but not followed throughout the chart please clarify the diagnosis below. Physician's Response(s): ( ) Sepsis secondary to complicated UTI ( ) POA ( ) Not POA ( ) Sepsis Secondary to complicated UTI Ruled Out ( ) UTI -NO sepsis ( x) Other (please specify): No UTI and Sepsis rule out Thank you Katty Whitmore Principal Diagnosis: "that condition established after study, to be chiefly responsible for occasioning the admission of the patient to the hospital for care." Co-Existing Principal Diagnosis: "when two or more diagnoses equally meet the criteria for principal diagnosis as determined by the circumstances of admission, diagnostic work up, and/or therapy provided, and the Alphabetic Index, Tabular List, or another coding guideline does not provide sequencing direction, any one of the diagnoses may be sequenced first." "When the physician has documented what appears to be a current diagnosis in the body of the record, but has not included the diagnosis in the final diagnostic statement, the physician should be asked whether the diagnosis should be added." (Source Coding [facility] 2 QTR90. p3-4) BHARGAVI
[2019-08-28] MEDS ORDERED: methylPREDNISolone 4 MG TAB PO SCH (09:00)
== END 2019-08-10 16:10 | disposition home or self-care (01) | DRG 638 ==
LOC: ED 15:21 → 2N 21:23 → SUATTDRO 21:23 → 2N 08-09 01:35